=== PATIENT | male | born 1950 | race Caucasian/White ===

== ENCOUNTER 2018-01-18 23:39 | Inpatient (IN) | payer MEDICARE ==
[2018-01-19 00:32] LABS: Basophils # (A) 0.1 k/uL (0-0.2); Basophils % (A) 1 %; Eosinophils # (A) 0.3 k/uL (0-0.7); Eosinophils % (A) 2 %; HCT 30.6 % (39.0-53.0); HGB 9.9 gm/dL (13.0-17.5); Hypochromasia Slight; Lymphocytes # (A) 0.8 k/uL (1.0-4.8); Lymphocytes % (A) 6 %; MCH 27.9 pg (25.0-35.0); MCHC 32.4 g/dL (31.0-37.0); MCV 86.2 fL (80.0-100.0); Mean Platelet Volume 7.8; Monocytes # (A) 0.7 k/uL (0-1.0); Monocytes % (A) 5 %; Neutrophils # (A) 11.3 k/uL (1.3-7.7); Neutrophils % (A) 85 %; Platelet Count 297 k/uL (150-450); Poikilocytosis Slight; RBC 3.56 m/uL (4.30-5.90); RDW 14.7 % (11.5-15.5); WBC 13.3 k/uL (3.8-10.6)
[2018-01-19 00:41] LABS: INR 1.1 (<1.2); Partial Thromboplastin Time 24.1 sec (22.0-30.0); Prothrombin Time 10.8 sec (9.0-12.0)
[2018-01-19 00:43] LABS: Albumin 4.2 g/dL (3.5-5.0); Calcium 9.3 mg/dL (8.4-10.2); Magnesium 1.6 mg/dL (1.6-2.3); Potassium 4.3 mmol/L (3.5-5.1); Total Bilirubin 1.2 mg/dL (0.2-1.3); Total Protein 6.6 g/dL (6.3-8.2)
--- NOTE | 2018-01-19 00:56 | XR ---
EXAMINATION TYPE: XR chest 2V DATE OF EXAM: 01/19/2018 COMPARISON: NONE HISTORY: Difficulty breathing TECHNIQUE: Frontal and lateral views of the chest are obtained. FINDINGS: Heart appears enlarged. There are bilateral lower lobe pulmonary infiltrates. There is no gross heart failure. There is slight blunting of the costophrenic angles. IMPRESSION: Small pleural effusions. Bilateral lower lobe pneumonia. No overt heart failure seen.
[2018-01-19 01:07] LABS: Creatine Kinase MB 1.8 ng/mL (0.0-2.4)
[2018-01-19 01:11] LABS: Troponin I 0.095 ng/mL (0.000-0.034)
[2018-01-19] MEDS ORDERED: CEFTRIAXONE IVPB STA (01:22)
[2018-01-19] MEDS ORDERED: AZITHROMYCIN 500 MG in DEXTROSE 5% IN WATER 250 ML IVPB STA ×2 (01:22)
[2018-01-19] MEDS ORDERED: cefTRIAXone IN SWFI 1,000 MG/10 ML SYRINGE IVP ONE (01:30)
[2018-01-19] MEDS ORDERED: SODIUM CHLORIDE 0.9% 1,000 ML IV STA (01:56)
--- NOTE | 2018-01-19 01:58 | ED ---
General Adult HPI - General Chief complaint: Shortness of Breath Stated complaint: RYAN Source: patient, EMS Mode of arrival: EMS Limitations: no limitations - History of Present Illness Initial comments: Dictation was produced using Wander[employer] dictation software. please excuse any grammatical, word or spelling errors. Chief Complaint: 67-year-old male with past medical history of diabetes mellitus, renal disease presents with shortness of breath. History of Present Illness: Patient is a 67-year-old male past medical history of diabetes, renal disease presents with shortness of breath. Patient also has a history of atrial fibrillation on [place]. States that he be short of breath for 2 days. Patient also has productive cough. Denies any fever or does complain some chills. Patient denies any sick contacts. Denies any history of COPD. The ROS documented in this emergency department record has been reviewed and confirmed by me. Those systems with pertinent positive or negative responses have been documented in the HPI. All other systems are other negative and/or noncontributory. - Related Data Home Medications Medication Instructions Recorded Confirmed Apixaban [Eliquis] 5 mg PO BID 01/19/18 01/19/18 Atorvastatin [Lipitor] 20 mg PO DAILY 01/19/18 01/19/18 Brimonidine/Dorzolamide/Pf 1 drop BOTH EYES 01/19/18 [Brimonidine 0.15%-Dorzolam 2%] Gabapentin [Neurontin] 100 mg PO TID 01/19/18 01/19/18 Insulin Aspart [NovoLOG] 15 units SQ AC-TID 01/19/18 01/19/18 Insulin Glargine [Lantus] 35 unit SQ HS 01/19/18 01/19/18 Metoprolol Tartrate [Lopressor] 50 mg PO BID 01/19/18 01/19/18 Timolol 0.25% Ophth Soln [Timoptic 1 drop BOTH EYES BID 01/19/18 01/19/18 0.25% Ophth Soln] metFORMIN HCL [Glucophage] 500 mg PO BID 01/19/18 01/19/18 Allergies Allergy/AdvReac Type Severity Reaction Status Date / Time No Known Allergies Allergy Verified 01/18/18 23:50 Review of Systems ROS Statement: Those systems with pertinent positive or pertinent negative responses have been documented in the HPI. ROS Other: All systems not noted in ROS Statement are negative. Past Medical History Past Medical History: Diabetes Mellitus, Renal Disease History of Any Multi-Drug Resistant Organisms: None Reported Past Surgical History: No Surgical Hx Reported Past Psychological History: No Psychological Hx Reported Smoking Status: Never smoker Past Alcohol Use History: None Reported Past Drug Use History: None Reported General Exam - General Exam Comments Initial Comments: PHYSICAL EXAM: General Impression: Alert and oriented x3, not in acute distress, diaphoretic HEENT: Normocephalic atraumatic, extra-ocular movements intact, pupils equal and reactive to light bilaterally, mucous membranes moist. Cardiovascular: Heart regular rate and rhythm, S1&S2 audible, no murmurs, rubs or gallops Chest: Bilateral lower lobe crackles Abdomen: Bowel sounds present, abdomen soft, non-tender, non-distended, no organomegaly Musculoskeletal: Pulses present and equal in all extremities, no peripheral edema Motor: Power 5/5 bilaterally, no focal deficits noted Neurological: CN II-XII grossly intact, no focal motor or sensory deficits noted Skin: Intact with no visualized rashes Psych: Normal affect and mood Limitations: no limitations Course Vital Signs 01/18/18 01/19/18 23:44 01:17 Temperature 99.3 F Pulse Rate 90 98 Respiratory 28 H 15 Rate Blood Pressure 166/79 153/72 O2 Sat by Pulse 88 L 98 Oximetry Medical Decision Making - Medical Decision Making ED course: 7-year-old male with past medical history of atrial fibrillation, diabetes, dyslipidemia presents with chief complaint of shortness of breath, productive cough signs upon arrival shows respiratory of 28, oxygen saturation of 88% on supplemental oxygen. Physical examination positive for lung sounds to bilateral lower lobes. She was slightly diaphoretic. Laboratory evaluation obtained. Leukocytosis of 13.3. Hemoglobin of 9.9. Coag panel unremarkable. Metabolic panel shows elevated renal markers to suggest kidney disease. Hyperglycemia 222. A troponin of 0.095. Chest x-ray shows bilateral lower lobe pneumonia without any cyanosis suggest heart failure. There is small parapneumonic effusions. Click of presentation consistent with pneumonia. Troponin elevation likely secondary to sepsis. Patient hemodynamically stable. Patient given antibiotics treating community acquired pneumonia. She'll be admitted to [facility]. Patient given intravenous fluids. No clear indication for administration of heparin and nitroglycerin at this time. Patient did have some EKG findings that appeared to be stable on serial EKGs. At this time we will hold heparin and nitroglycerin in recommend to medicine to get serial troponins and determine the need for acute coronary syndrome. EKG Interpretation: A 12 lead EKG was obtained. It was interpreted by myself and attending physician. There is a P wave before every QRS complex. Rate is 76. Rhythm is H or fibrillation, QRS 80, QTc 427. QT is not prolonged. There appears to be ST depression and multiple leads. Serial EKG shows no dynamic changes. - Lab Data Result diagrams: 01/19/18 00:00 01/19/18 00:00 Lab Results 01/19/18 01/19/18 01/19/18 Range/Units 00:00 00:00 00:00 WBC 13.3 H (3.8-10.6) k/uL RBC 3.56 L (4.30-5.90) m/uL Hgb 9.9 L (13.0-17.5) gm/dL Hct 30.6 L (39.0-53.0) % MCV 86.2 (80.0-100.0) fL MCH 27.9 (25.0-35.0) pg MCHC 32.4 (31.0-37.0) g/dL RDW 14.7 (11.5-15.5) % Plt Count 297 (150-450) k/uL Neutrophils % 85 % Lymphocytes % 6 % Monocytes % 5 % Eosinophils % 2 % Basophils % 1 % Neutrophils # 11.3 H (1.3-7.7) k/uL Lymphocytes # 0.8 L (1.0-4.8) k/uL Monocytes # 0.7 (0-1.0) k/uL Eosinophils # 0.3 (0-0.7) k/uL Basophils # 0.1 (0-0.2) k/uL Hypochromasia Slight Poikilocytosis Slight PT (9.0-12.0) sec INR (<1.2) APTT (22.0-30.0) sec Sodium 141 (137-145) mmol/L Potassium 4.3 (3.5-5.1) mmol/L Chloride 105 (98-107) mmol/L Carbon Dioxide 18 L (22-30) mmol/L Anion Gap 18 mmol/L BUN 22 H (9-20) mg/dL Creatinine 1.80 H (0.66-1.25) mg/dL Est GFR (CKD-EPI)AfAm 43 (>60 ml/min/1.73 sqM) Est GFR (CKD-EPI)NonAf 38 (>60 ml/min/1.73 sqM) Glucose 222 H (74-99) mg/dL Calcium 9.3 (8.4-10.2) mg/dL Magnesium 1.6 (1.6-2.3) mg/dL Total Bilirubin 1.2 (0.2-1.3) mg/dL AST 28 (17-59) U/L ALT 28 (21-72) U/L Alkaline Phosphatase 114 (38-126) U/L Total Creatine Kinase 102 (55-170) U/L CK-MB (CK-2) 1.8 (0.0-2.4) ng/mL CK-MB (CK-2) Rel Index 1.8 Troponin I 0.095 H* (0.000-0.034) ng/mL NT-Pro-B Natriuret Pep pg/mL Total Protein 6.6 (6.3-8.2) g/dL Albumin 4.2 (3.5-5.0) g/dL 01/19/18 01/19/18 Range/Units 00:00 00:00 WBC (3.8-10.6) k/uL RBC (4.30-5.90) m/uL Hgb (13.0-17.5) gm/dL Hct (39.0-53.0) % MCV (80.0-100.0) fL MCH (25.0-35.0) pg MCHC (31.0-37.0) g/dL RDW (11.5-15.5) % Plt Count (150-450) k/uL Neutrophils % % Lymphocytes % % Monocytes % % Eosinophils % % Basophils % % Neutrophils # (1.3-7.7) k/uL Lymphocytes # (1.0-4.8) k/uL Monocytes # (0-1.0) k/uL Eosinophils # (0-0.7) k/uL Basophils # (0-0.2) k/uL Hypochromasia Poikilocytosis PT 10.8 (9.0-12.0) sec INR 1.1 (<1.2) APTT 24.1 (22.0-30.0) sec Sodium (137-145) mmol/L Potassium (3.5-5.1) mmol/L Chloride (98-107) mmol/L Carbon Dioxide (22-30) mmol/L Anion Gap mmol/L BUN (9-20) mg/dL Creatinine (0.66-1.25) mg/dL Est GFR (CKD-EPI)AfAm (>60 ml/min/1.73 sqM) Est GFR (CKD-EPI)NonAf (>60 ml/min/1.73 sqM) Glucose (74-99) mg/dL Calcium (8.4-10.2) mg/dL Magnesium (1.6-2.3) mg/dL Total Bilirubin (0.2-1.3) mg/dL AST (17-59) U/L ALT (21-72) U/L Alkaline Phosphatase (38-126) U/L Total Creatine Kinase (55-170) U/L CK-MB (CK-2) (0.0-2.4) ng/mL CK-MB (CK-2) Rel Index Troponin I (0.000-0.034) ng/mL NT-Pro-B Natriuret Pep 4770 pg/mL Total Protein (6.3-8.2) g/dL Albumin (3.5-5.0) g/dL Disposition Clinical Impression: Pneumonia Disposition: ADMITTED IP TO THIS HOSP Condition: Fair Referrals: Yin Person DO [Primary Care Provider] - 1-2 days Time of Disposition: 01:58
[2018-01-19] MEDS ORDERED: NALOXONE 0.4 MG/ML 1 ML VIAL IV PRN (03:16)
[2018-01-19 05:53] LABS: Glucose,Whole Blood 218 mg/dL (75-99)
[2018-01-19] MEDS: INSULIN ASPART 100 UNIT/ML 1 ML 10 ML VIAL SQ SCH ×7 (06:44→22:46)
--- NOTE | 2018-01-19 06:59 | P.HPIM ---
History of Present Illness H&P Date: 01/19/18 Chief Complaint: SOB, coughin 67-year-old male with history of CKD3, diabetes mellitus, A. fib on Eliquis Patient presented due to 2 day history of shortness of breath and coughing, he reports feeling congested with coughing of red tinged sputum. Yesterday he felt very congested and started having labored breathing with severe shortness of breath couldn't catch his breath anymore at night and he decided to come to the hospital. He denies any recent traveling or sick contacts he denies any fevers chills but reports some sweating. He reports he was at his baseline status of health up until the coughing started 2 days ago. He has moaned his lawn 3-4 days ago with no problems. Patient denies any chest pain. Patient denies any GI bleeding or any black stools. Denies any abdominal pain nausea or vomiting or any focal neurologic deficits Patient feels better after the antibiotics in the ED which was given to him based on chest x-ray findings of bilateral pneumonia, and blood work showing elevated white count. Patient recently saw his outdoor education teacher who told him that his kidney stable at stage III Patient recently saw his vba developer who did some trimming in cleaning over his toenails Review of Systems Pertinent positives as noted in HPI. All other systems were reviewed and are negative Past Medical History Past Medical History: Atrial Fibrillation, CVA/TIA, Diabetes Mellitus, Hypertension, Renal Disease History of Any Multi-Drug Resistant Organisms: None Reported Past Surgical History: No Surgical Hx Reported Past Psychological History: No Psychological Hx Reported Smoking Status: Never smoker Past Alcohol Use History: None Reported Past Drug Use History: None Reported - Past Family History Father Family Medical History: Hypertension Medications and Allergies Home Medications Medication Instructions Recorded Confirmed Type Apixaban [Eliquis] 5 mg PO BID 01/19/18 01/19/18 History Atorvastatin [Lipitor] 20 mg PO DAILY 01/19/18 01/19/18 History Brimonidine/Dorzolamide/Pf 1 drop BOTH EYES 01/19/18 History [Brimonidine 0.15%-Dorzolam 2%] Gabapentin [Neurontin] 100 mg PO TID 01/19/18 01/19/18 History Insulin Aspart [NovoLOG] 15 units SQ AC-TID 01/19/18 01/19/18 History Insulin Glargine [Lantus] 35 unit SQ HS 01/19/18 01/19/18 History Metoprolol Tartrate [Lopressor] 50 mg PO BID 01/19/18 01/19/18 History Timolol 0.25% Ophth Soln [Timoptic 1 drop BOTH EYES BID 01/19/18 01/19/18 History 0.25% Ophth Soln] metFORMIN HCL [Glucophage] 500 mg PO BID 01/19/18 01/19/18 History Allergies Allergy/AdvReac Type Severity Reaction Status Date / Time No Known Allergies Allergy Verified 01/18/18 23:50 Physical Exam Vitals: Vital Signs Temp Pulse Pulse Resp BP BP Pulse Ox 01/19/18 05:23 98.9 F 91 21 137/88 92 L 01/19/18 04:08 97.9 F 90 22 137/88 92 L 01/19/18 03:30 98.2 F 83 17 116/71 93 L 01/19/18 02:27 84 20 130/77 93 L 01/19/18 01:50 99 F 84 16 130/77 93 L 01/19/18 01:17 98 15 153/72 98 01/18/18 23:44 99.3 F 90 28 H 166/79 88 L Intake and Output 01/18/18 01/18/18 01/19/18 14:59 22:59 06:59 Other: Voiding Method Urinal Weight 96.5 kg Constitutional: No acute distress, conversant, pleasant Eyes: Anicteric sclerae, moist conjunctiva, no lid-lag Pupils equal round reactive to light ENMT: NC/AT Oropharynx clear, no erythema, or exudates Neck: Supple, FROM, no masses, or JVD No carotid bruits No thyromegaly Lungs: Good breath sounds, decreased air entry bilateral lung bases worse on the right than the left with inspiratory rales bilaterally Normal respiratory effort, no accessory muscle use Cardiovascular: Heart irregular No murmurs, gallops, or rubs No peripheral edema Abdominal: Soft Nontender, no guarding, rebound or rigidity Abdomen moving with respiration Normoactive bowel sounds No hepatomegaly, No splenomegaly No palpable mass No abdominal wall hernia noted Skin: Normal temperature, tone, texture, turgor No induration No subcutaneous nodules No rash, lesions No ulcers Band-Aid over his right big toe due to recent cleaning of ingrown toenail (1 week ago) Extremities: No digital cyanosis No clubbing Pedal pulses intact and symmetrical Radial pulses intact and symmetrical No calf tenderness Psychiatric: Alert and oriented to person, place and time Appropriate affect fair judgment Neuro Muscles Strength 5/5 in all 4 extremities Sensation to light touch grossly present throughout Cranial nerves II-XII grossly intact No focal sensory deficits Lymphatics: no palpable cervical or supraclavicular , or inguinal lymph nodes Results CBC & Chem 7: 01/19/18 00:00 01/19/18 00:00 Labs: Abnormal Lab Results - Last 24 Hours (Table) 01/19/18 01/19/18 01/19/18 Range/Units 00:00 00:00 00:00 WBC 13.3 H (3.8-10.6) k/uL RBC 3.56 L (4.30-5.90) m/uL Hgb 9.9 L (13.0-17.5) gm/dL Hct 30.6 L (39.0-53.0) % Neutrophils # 11.3 H (1.3-7.7) k/uL Lymphocytes # 0.8 L (1.0-4.8) k/uL Carbon Dioxide 18 L (22-30) mmol/L BUN 22 H (9-20) mg/dL Creatinine 1.80 H (0.66-1.25) mg/dL Glucose 222 H (74-99) mg/dL POC Glucose (mg/dL) (75-99) mg/dL Troponin I 0.095 H* (0.000-0.034) ng/mL 01/19/18 Range/Units 05:52 WBC (3.8-10.6) k/uL RBC (4.30-5.90) m/uL Hgb (13.0-17.5) gm/dL Hct (39.0-53.0) % Neutrophils # (1.3-7.7) k/uL Lymphocytes # (1.0-4.8) k/uL Carbon Dioxide (22-30) mmol/L BUN (9-20) mg/dL Creatinine (0.66-1.25) mg/dL Glucose (74-99) mg/dL POC Glucose (mg/dL) 218 H (75-99) mg/dL Troponin I (0.000-0.034) ng/mL Thrombosis Risk Factor Assmnt - Choose All That Apply Each Factor Represents 1 point: Obesity (BMI >25) Each Risk Factor Represents 2 Points: Age 61-74 years Thrombosis Risk Factor Assessment Total Risk Factor Score: 3 Thrombosis Risk Factor Assessment Level: Moderate Risk Assessment and Plan Assessment: 67-year-old male with history of diabetes mellitus and CkD3 admitted as an inpatient with anticipated length of stay of more than 48 hours for bilobar pneumonia. Patient presented with shortness of breath and coughing of 2 days' duration. Otherwise he has stable chronic conditions A. fib, hypertension, diabetes mellitus, CK D3. Troponins are elevated and thought to be related to his chronic kidney disease denies any chest pain troponin levels will be monitored Plan: community-acquired pneumonia, bilobar Rocephin and azithromycin Symptomatically control IV fluid hydration Follow-up cultures Diabetes mellitus Resume patient insulin Hold metformin Patient will be given 1 dose of insulin NPH this morning and then resume Levemir at night Hypertension currently stable Continue metoprolol Chronic A. fib on Eliquis Continue Eliquis Continue metoprolol Elevated troponins most likely secondary to CK D3 Follow-up levels Patient denies any chest pain CK D stage III secondary to diabetes Currently stable Avoid nephrotoxic meds Monitor renal function Anemia possibly related to chronic kidney disease Patient denies any evidence of GI bleeding Continue to monitor hemoglobin DVT prophylaxis patient on Eliquis for A. fib Surrogate decision-maker: Patient Jacquelyn CODE STATUS: Full code Discussed with: Patient, ER, RN Anticipated discharge: >48-[address]: Home A total of 60 minutes was spent on the care of this complex patient more than 50 % of the time was spent in counseling and care coordination.
[2018-01-19] MEDS ORDERED: BRIMONIDINE BOTH EYES SCH (07:30)
[2018-01-19] MEDS ORDERED: INSULIN NPH 300 UNIT/3 ML VIAL SQ SCH (07:30)
[2018-01-19] MEDS ORDERED: DORZOLAMIDE BOTH EYES SCH (07:30)
[2018-01-19] MEDS: IPRATROPIUM-ALBUTEROL 3 ML NEB INHALATION SCH ×4 (07:57→19:26)
[2018-01-19] MEDS ORDERED: FUROSEMIDE 10 MG/ML 4 ML VIAL IV STA (08:02)
[2018-01-19] MEDS: GABAPENTIN 100 MG CAP PO SCH ×3 (08:42→22:47)
[2018-01-19] MEDS: METOPROLOL TARTRATE 50 MG TAB PO SCH ×2 (08:42→19:53)
[2018-01-19] MEDS: ATORVASTATIN 20 MG TAB PO SCH (08:43)
[2018-01-19] MEDS ORDERED: TIMOLOL 0.25% OPHTH DROPS 5 ML BTL BOTH EYES SCH (09:00)
[2018-01-19] MEDS ORDERED: APIXABAN 5 MG TAB PO SCH (09:00)
--- NOTE | 2018-01-19 11:18 | P.PN ---
Progress Note - Text Late entry note, pt was seen this am around 8 am. I was called due to worsening SOB and hypoxia on 2 L NC. I saw and evaluated the patient at that time. He was just admited via ED due to pneumonia. He reported about sudden onset of chills, cough and expectorations with blood tinnged sputum along with SOB for 2 days. Prior to that was feeling fine.No CP, abd pain, nausea or diarrhea. He did have leg swelling, but denied orthopnea. He became very SOB and hypoxic on the day of admission. No fever recorded, no sick contacts, recent travels, water exposure or new pets. Life long non smoker and no known exposures or lung or heart diseases. he is diabetic and has CKD stage 3 CXR showed lower lung field edema that was interpreted as bilateral pneumonia. O2sat was 88 % on 4 L in ED and on the floor. Patient was getting nebs and was able to speak in full sentences alto looked slightly out of breath, was not laboured . No neck pulsationswere noted Lungs with bibasilar crackles and ronchi and few wheezes in upper hyman CVS: irregular in range of 90, S1, S2 Abdomen S NT ND Extr 1+ pedal edema, no warmth or tenderness labs, EKG and imaging reviewed Plan: impression that there is a component of fluid overload, r/o CHF IV Lasix high flow O2 Echo ordered repeat serial troponin, r/o underlying ACS nebs PRN check legionella AG due to blood tinnged sputum 9altho he is on Eliquis) will check UA for RBC and ESR on reevaluatiion he was doing better after Lasix cytology technologist had some concerns about echo findings and cardiology was consulted
--- NOTE | 2018-01-19 11:53 | XR ---
EXAMINATION TYPE: XR chest 1V DATE OF EXAM: 01/19/2018 CLINICAL HISTORY: Difficulty breathing progress study. TECHNIQUE: Single AP portable upright view of the chest is obtained. COMPARISON: Chest x-ray from earlier today FINDINGS: There is persistent cardiomegaly . There is persistent right greater than left bibasilar opacity increasing in severity on the left. Upper lungs remain clear without pneumothorax. Degenerat petty change right glenohumeral joint is redemonstrated. IMPRESSION: Persistent right greater than left bibasilar infiltrate and/or atelectasis with small danay ateral pleural effusions, more prominent findings noted left lung base on current study versus prior.
[2018-01-19 11:58] LABS: Glucose,Whole Blood 199 mg/dL (75-99)
[2018-01-19 13:29] LABS: Creatine Kinase MB 6.2 ng/mL (0.0-2.4); Troponin I 0.974 ng/mL (0.000-0.034)
--- NOTE | 2018-01-19 13:39 | P.CNPUL ---
History of Present Illness Consult date: 01/19/18 Reason for consult: dyspnea History of present illness: This is a 67-year-old male patient known history of chronic atrial fibrillation diabetes mellitus and chronic renal failure. The patient is a nonsmoker. No 68 chronic lung disease or disorder. No previous history of coronary artery disease. No previous history of CHF. The patient was in a good state of health. He comes in with 1-2 days history of worsening shortness of breath, cough and, feeling congested and he was also bringing up some red/blood-tinged sputum. Noted the patient on Eliquis. He presented emergency department and his chest x-ray showed bibasilar pulmonary infiltrates and findings consistent with CHF. He was afebrile. He was found to be quite hypoxic and he was placed on high flow oxygen. The BNP level was 7880. The troponins were minimally elevated at 0.09 and 0.9 respectively 2. CPK was not elevated. The patient had a white cell count of 13. He was admitted to the floor where he was started on a combination of Rocephin and Zithromax. Overnight he became more short of breath and he had an acute event where he became more hypoxic and he was seen by the hospitalist where he was given Lasix IV for worsening shortness of breath and concerns of pulmonary edema. Currently is on 8 L about 2 by nasal cannula and his pulse ox is above 90%. Echocardiogram was done and the results are still pending for now. EKG showing chronic atrial fibrillation. There is some ST segment abnormalities possibly laterally. He is also on IV Lasix 40 mg every 12 hours IV push. Review of Systems Constitutional: Denies chills, Denies fever Eyes: denies blurred vision, denies bulging eye, denies decreased vision Ears: deny: decreased hearing, ear discharge, earache, tinnitus Ears, nose, mouth and throat: Denies headache, Denies sore throat Cardiovascular: Reports decreased exercise tolerance, Reports dyspnea on exertion, Reports irregular heart beat, Reports rapid heart beat, Reports shortness of breath Respiratory: Reports cough, Reports dyspnea Gastrointestinal: Denies abdominal pain, Denies diarrhea, Denies nausea, Denies vomiting Genitourinary: Reports as per HPI Musculoskeletal: Reports as per HPI Musculoskeletal: absent: ankle pain, ankle stiffness, ankle swelling Integumentary: Denies pruritus, Denies rash Neurological: Reports as per HPI Psychiatric: Reports as per HPI Endocrine: Denies fatigue, Denies weight change Hematologic/Lymphatic: Reports as per HPI Allergic/Immunologic: Reports as per HPI Past Medical History Past Medical History: Atrial Fibrillation, CVA/TIA, Diabetes Mellitus, Hypertension, Renal Disease History of Any Multi-Drug Resistant Organisms: None Reported Past Surgical History: No Surgical Hx Reported Past Psychological History: No Psychological Hx Reported Smoking Status: Never smoker Past Alcohol Use History: None Reported Past Drug Use History: None Reported - Past Family History Father Family Medical History: Hypertension Medications and Allergies Home Medications Medication Instructions Recorded Confirmed Type Apixaban [Eliquis] 5 mg PO BID 01/19/18 01/19/18 History Atorvastatin [Lipitor] 20 mg PO DAILY 01/19/18 01/19/18 History Brimonidine Tartrate [Alphagan P 1 drop RIGHT EYE BID 01/19/18 01/19/18 History 0.2% Ophth Soln] Brinzolamide [Azopt 1% Ophth Susp] 1 drop RIGHT EYE BID 01/19/18 01/19/18 History Gabapentin [Neurontin] 100 mg PO TID 01/19/18 01/19/18 History Insulin Aspart [NovoLOG] 15 units SQ AC-TID 01/19/18 01/19/18 History Insulin Glargine [Lantus] 35 unit SQ HS 01/19/18 01/19/18 History Metoprolol Succinate (ER) [Toprol 25 mg PO DAILY 01/19/18 01/19/18 History XL] Pilocarpine HCl [Isopto Carpine 4%] 1 drop RIGHT EYE QID 01/19/18 01/19/18 History Timolol 0.5% Ophth Soln [Timoptic 1 drop RIGHT EYE BID 01/19/18 01/19/18 History 0.5% Ophth Soln] amLODIPine [Norvasc] 5 mg PO DAILY 01/19/18 01/19/18 History metFORMIN HCL [Glucophage] 500 mg PO BID 01/19/18 01/19/18 History Allergies Allergy/AdvReac Type Severity Reaction Status Date / Time No Known Allergies Allergy Verified 01/18/18 23:50 Physical Exam Vitals: Vital Signs Temp Pulse Pulse Resp BP BP Pulse Ox 01/19/18 12:00 96.9 F L 80 20 146/78 96 01/19/18 11:54 96 01/19/18 11:40 92 01/19/18 08:02 96 01/19/18 08:00 98.4 F 102 H 24 155/95 93 L 01/19/18 07:48 89 92 L 01/19/18 05:23 98.9 F 91 21 137/88 92 L 01/19/18 04:08 97.9 F 90 22 137/88 92 L 01/19/18 03:30 98.2 F 83 17 116/71 93 L 01/19/18 02:27 84 20 130/77 93 L 01/19/18 01:50 99 F 84 16 130/77 93 L 01/19/18 01:17 98 15 153/72 98 01/18/18 23:44 99.3 F 90 28 H 166/79 88 L Intake and Output 01/18/18 01/19/18 01/19/18 22:59 06:59 14:59 Output Total 350 Balance -350 Output: Urine 350 Other: Voiding Method Urinal # Voids 1 Weight 96.5 kg Gen. appearance is calm and comfortable likely distress on 8l of oxygen by nasal cannula Head exam was generally normal. There was no scleral icterus or corneal arcus. Mucous membranes were moist. Neck was supple and without jugular venous distension, thyromegaly, or carotid bruits. Carotids were easily palpable bilaterally. There was no adenopathy. Lungs sounds are diminished bilaterally along with some bibasilar crackles worse on the right. Cardiac exam revealed the PMI to be normally situated and sized. The rhythm is irregular S1-S2 secondary to atrial fibrillation and no extrasystoles were noted during several minutes of auscultation. The first and second heart sounds were normal and physiologic splitting of the second heart sound was noted. There were no murmurs, rubs, clicks, or gallops. Abdominal exam revealed normal bowel sounds. The abdomen was soft, non-tender, and without masses, organomegaly, or appreciable enlargement of the abdominal aorta. Examination of the extremities revealed easily palpable radial, femoral and pedal pulses. There was no cyanosis, clubbing or edema. Examination of the skin revealed no evidence of significant rashes, suspicious appearing nevi or other concerning lesions. Neurologically the patient is awake and alert and there is no focal neurological deficits. Results - Laboratory Findings CBC and BMP: 01/19/18 00:00 01/19/18 00:00 PT/INR, D-dimer PT 10.8 sec (9.0-12.0) 01/19/18 00:00 INR 1.1 (<1.2) 01/19/18 00:00 D-Dimer 0.48 mg/L FEU (<0.60) 01/19/18 12:09 Abnormal lab findings: Abnormal Labs 01/19/18 01/19/18 01/19/18 00:00 00:00 00:00 WBC 13.3 H RBC 3.56 L Hgb 9.9 L Hct 30.6 L Neutrophils # 11.3 H Lymphocytes # 0.8 L Carbon Dioxide 18 L BUN 22 H Creatinine 1.80 H Glucose 222 H POC Glucose (mg/dL) Total Creatine Kinase CK-MB (CK-2) Troponin I 0.095 H* 01/19/18 01/19/18 01/19/18 05:52 11:57 12:09 WBC RBC Hgb Hct Neutrophils # Lymphocytes # Carbon Dioxide BUN Creatinine Glucose POC Glucose (mg/dL) 218 H 199 H Total Creatine Kinase 249 H CK-MB (CK-2) 6.2 H* Troponin I 0.974 H* - Diagnostic Findings Chest x-ray: image reviewed Assessment and Plan Plan: Assessment 1 acute bibasilar pneumonia, community-acquired 2 acute CHF, awaiting echocardiogram. Possible systolic dysfunction 3 acute hypoxic respiratory failure secondary to above currently on 8 L of oxygen by nasal cannula 4 troponin leak with some limited ST segment depressions over the lateral leads. Rule out underlying coronary artery disease. 5 acute shortness of breath secondary to above 6 chronic renal failure, stable 7 diabetes mellitus, insulin-dependent 8 hypertension 9 chronic 80 fibrillation maintained on long-term articulation with Eliquis Plan Continue Rocephin and Zithromax. Continue IV Lasix. Wean down the FiO2 as tolerated to maintain a saturation above 90%. Echocardiogram today to assess LV function. Continue high flow oxygen for now. Continue nebulized treatments with albuterol/ipratropium bromide. We'll continue to follow make further recommendations based on the progress. Cardiology was also consulted on the case.
--- NOTE | 2018-01-19 14:28 | NM ---
EXAMINATION TYPE: NM pul vent and perfuse DATE OF EXAM: 01/19/2018 COMPARISON: Chest x-ray earlier today HISTORY: Shortness of breath rule out pulmonary embolism. TECHNIQUE: Utilizing inhalation of 66.9 mCi Tc 99m DTPA aerosol and intravenous injection of 5.13 mC i of Tc 99m MAA, ventilation and perfusion images are acquired post injection in multiple projections . FINDINGS: Some central clumping on ventilation images suggests underlying COPD. No significant matching or mism atching defects identified. Fairly uniform uptake on ventilation images. IMPRESSION: No scintigraphic evidence for pulmonary embolism.
--- NOTE | 2018-01-19 14:47 | CONS ---
CONSULTATION Mr. Ochoa he is a 67-year-old gentleman who is seen for cardiac evaluation. This patient's medical records were reviewed. The patient presented to the emergency room with a complaint of shortness of breath and cough for about 2 days duration. Patient has a history of diabetes and chronic kidney disease. Patient also has a history of chronic atrial fibrillation. Patient has been having difficulty in breathing with minimal activity. Denies any chest pain. He has been having some productive cough. He did had some fever and some chills but no definite fever. Patient has been having productive cough which is blood tinged. Patient denies any chest pain. There is no history of COPD. There is no past history of smoking. There is no previous history of myocardial infarction. Patient has a history of hypertension. HOME MEDICATIONS: Include Eliquis 5 mg b.i.d., Lipitor 20 mg daily, Neurontin, Lantus, insulin, Lopressor 50 mg b.i.d. PAST MEDICAL HISTORY: Includes history of diabetes, chronic kidney disease. Chronic atrial fibrillation. SOCIAL HISTORY: Patient is not a smoker. PHYSICAL EXAMINATION: In the emergency room, this patient's oxygen saturation was 88% on room air. Patient had a temperature of 99.3. HEENT examination is negative. Neck is supple. Jugular venous pressure is not elevated. Both the carotid pulses are felt. There is no bruit. Chest is symmetrical. Heart, the PMI is not felt. First and second heart sounds are heard. Lungs examination reveals coarse rales are noted at the right 1/3 of the lung hyman. Abdomen is negative. Extremities, peripheral pulsations are 1+. Patient's oxygen saturation is now 98%. Chest x-ray shows bilateral infiltrate but more on the right side suggestive of possible pneumonia. There is no significant pulmonary venous congestion. Electrolytes are normal. Patient's creatinine is 1.8, troponin is 0.095 and BNP level was 4770. Patient also has a severe pulmonary hypertension with right-sided heart pressures are calculated in the range of 70 mmHg. FINAL IMPRESSION: 1. This patient is admitted with cough, shortness of breath. Has productive cough and blood-tinged sputum. Chest x-ray suggestive of possible pneumonia. Congestive heart failure cannot be entirely excluded about this presentation. 2. Patient's echocardiogram is suggestive of septal hypokinesia suggestive of anteroseptal hypokinesia, anteroseptal myocardial infarction of unknown duration. Patient's initial troponin was 0.095. 3. History of chronic kidney disease. RECOMMENDATIONS: At present, I would recommend to continue the patient on antibiotics, patient is currently getting Lasix 40 mg IV q.12 hourly. We will get nephrology consultation. A remote possibility of pulmonary embolism maybe also considered in view of the significant pulmonary hypertension and hemoptysis. We will do the V/Q lung scan. After the patient's renal functions are stable and he has stabilized, patient will need further evaluation with cardiac catheterization to rule out any significant coronary artery disease. MMODL / IJN: [id number] /
[2018-01-19 16:53] LABS: Glucose,Whole Blood 193 mg/dL (75-99)
[2018-01-19] MEDS: PILOCARPINE 2% OPHTH DROPS 15 ML BTL RIGHT EYE SCH ×2 (17:14→19:55)
[2018-01-19] MEDS: FUROSEMIDE 10 MG/ML 4 ML VIAL IV SCH ×2 (17:15→20:08)
[2018-01-19 18:33] LABS: Troponin I 1.15 ng/mL (0.000-0.034)
[2018-01-19] MEDS: BRIMONIDINE TARTRATE 0.2% DROPS 5 ML BTL RIGHT EYE SCH (19:54)
[2018-01-19] MEDS: TIMOLOL 0.5% OPHTH DROPS 5 ML BTL RIGHT EYE SCH (19:54)
[2018-01-19] MEDS: DORZOLAMIDE HCL 2% DROPS 10 ML BTL RIGHT EYE SCH (19:55)
[2018-01-19] MEDS: ALPRAZolam 0.5 MG TAB PO PRN (20:00)
[2018-01-19] MEDS: AZITHROMYCIN 500 MG TAB PO SCH (20:01)
[2018-01-19 20:40] LABS: Glucose,Whole Blood 159 mg/dL (75-99)
[2018-01-19] MEDS ORDERED: DORZOLAMIDE HCL 2% DROPS 10 ML BTL RIGHT EYE SCH (21:00)
[2018-01-19] MEDS ORDERED: INSULIN DETEMIR 100 UNIT/ML 10 ML VIAL SQ SCH (21:00)
[2018-01-19] MEDS: cefTRIAXone IN SWFI 1,000 MG/10 ML SYRINGE IVP SCH (22:47)
[2018-01-20] MEDS: IPRATROPIUM-ALBUTEROL 3 ML NEB INHALATION SCH ×6 (00:16→19:18)
[2018-01-20] MEDS: ALPRAZolam 0.5 MG TAB PO PRN ×2 (02:46→21:47)
[2018-01-20 05:44] LABS: Glucose,Whole Blood 198 mg/dL (75-99)
[2018-01-20 07:04] LABS: Calcium 8.4 mg/dL (8.4-10.2); Potassium 3.8 mmol/L (3.5-5.1)
[2018-01-20] MEDS: INSULIN ASPART 100 UNIT/ML 1 ML 10 ML VIAL SQ SCH ×7 (07:16→20:57)
[2018-01-20] MEDS: BRIMONIDINE TARTRATE 0.2% DROPS 5 ML BTL RIGHT EYE SCH ×2 (07:52→20:49)
[2018-01-20] MEDS: ATORVASTATIN 20 MG TAB PO SCH (07:52)
[2018-01-20] MEDS: FUROSEMIDE 10 MG/ML 4 ML VIAL IV SCH ×2 (07:53→16:18)
[2018-01-20] MEDS: DORZOLAMIDE HCL 2% DROPS 10 ML BTL RIGHT EYE SCH ×3 (07:53→20:49)
[2018-01-20] MEDS: GABAPENTIN 100 MG CAP PO SCH ×3 (07:54→20:50)
[2018-01-20] MEDS: PILOCARPINE 2% OPHTH DROPS 15 ML BTL RIGHT EYE SCH ×4 (07:54→20:49)
[2018-01-20] MEDS: METOPROLOL SUCCINATE (ER) 25 MG TAB.ER.24H PO SCH (07:54)
[2018-01-20] MEDS: TIMOLOL 0.5% OPHTH DROPS 5 ML BTL RIGHT EYE SCH ×2 (07:55→20:49)
[2018-01-20] MEDS: APIXABAN 5 MG TAB PO SCH ×2 (08:10→20:50)
--- NOTE | 2018-01-20 10:38 | XR ---
EXAMINATION TYPE: XR chest 2V DATE OF EXAM: 01/20/2018 COMPARISON: 01/19/2018 HISTORY: Follow-up for pneumonia. Shortness of breath. TECHNIQUE: Frontal and lateral views of the chest are obtained. FINDINGS: Cardiomegaly and bibasilar opacities remain although there is improved aeration of the rig ht lung base. Trace pleural effusions are again evident. Osseous structures are grossly intact. No si zable pneumothorax. IMPRESSION: Improved aeration of the right lung base although there are persistent strand-like bibas ilar opacities and trace pleural effusions.
--- NOTE | 2018-01-20 10:54 | CONS ---
CONSULTATION DATE OF SERVICE: 01/20/2018. REASON FOR CONSULT: Renal failure. HISTORY OF PRESENT ILLNESS: The patient is a 67-year-old white male who was admitted to the hospital yesterday with complaints of shortness of breath. The patient has underlying type 2 diabetes. He is not aware of any chronic kidney disease, although it is mentioned in his past medical history. The patient's troponins were positive. He is also in fluid overload. His creatinine was 1.8 mg/dL yesterday. This morning it is 1.9 mg/dL. The patient is maintained on Lasix 40 mg IV every 12 hours. He has been voiding. The patient denies use of any nonsteroidal anti-inflammatory agents prior to admission. He is currently not on any MARK inhibitors. At this time the patient denies having any chest pain. He did have some shoulder pain yesterday at the time of admission. PAST MEDICAL HISTORY: Type 2 diabetes, hypertension, possible underlying kidney disease. We do not have any previous labs available for comparison. Chronic atrial fibrillation, history of CVA/TIA. PAST SURGICAL HISTORY: None. SOCIAL HISTORY: Negative for smoking, drug abuse or alcohol abuse. MEDICATIONS: Medications at home include Eliquis, Lipitor, Neurontin, insulin, Norvasc, Glucophage. ALLERGIES: None. SOCIAL HISTORY: As mentioned. REVIEW OF SYSTEMS: As per HPI. Other systems negative. PHYSICAL EXAMINATION: On examination, the patient is currently comfortable. He is mildly short of breath. He is maintained on high-flow oxygen 8 L, is maintaining sats of 95% to 96%. Blood pressure was 166/78, heart rate 98 per minute. He is afebrile. Examination of the heart, S1, S2. Examination of lungs, bilateral breath sounds are heard. Abdomen is soft, nontender, obese. Examination of lower extremities shows trace edema bilaterally. Chronic skin changes are noted. HORTICULTURAL NURSERY ASSISTANT exam is grossly intact. Patient is moving all 4 extremities. LABS: Sodium 137, potassium 3.8, BUN 26, serum creatinine 1.9. UA is not available. Hemoglobin was 9.9 g/dL. ASSESSMENT: 1. Renal failure, most likely acute on top of chronic, mostly cardiorenal. We will try to obtain previous labs from the PCPs office. We do not have any labs available for comparison. Currently patient is in congestive heart failure. I will continue with the Lasix. I will obtain a chest x-ray. We may need to increase the Lasix to every 8 hours as he is still volume overloaded. If we can wait over the weekend for renal function and volume status to stabilize, that would be better. Otherwise, if the patient has any recurring chest pain or further evidence of ischemia, we can go ahead and proceed with cardiac catheterization. On the other hand, this may very well be his baseline renal function as well. 2. Congestive heart failure, acute on top of chronic. Echocardiogram is pending, whether the patient has systolic or diastolic heart failure. 3. Type 2 diabetes. 4. Anemia, rule out iron deficiency. 5. Rule out chronic kidney disease. 6. Acute non ST elevation myocardial infarction, being followed by Cardiology. 7. Atrial fibrillation with controlled ventricular response. 8. Acute hypoxic respiratory failure secondary to congestive heart failure. PLAN: Check chest x-ray. Increase Lasix to 40 mg IV every 8 hours. We will also obtain previous labs from outpatient visits to assess patient's baseline renal function. If the patient can wait over the weekend, we can plan for cardiac cath on Tuesday or Tuesday. Otherwise, if he has evidence of ongoing ischemia, we can proceed with cardiac catheterization over the weekend. Thank you for this consultation. We will continue to follow the patient with you during his hospitalization. MMODL / IJN: [id number] /
--- NOTE | 2018-01-20 10:59 | ECHOF ---
Referral Reason:respiratory failure, SOB MEASUREMENTS -------- HEIGHT: 175.3 cm WEIGHT: 96.2 kg BP: 137/88 RVIDd: 3.5 cm (< 3.3) IVSd: 1.4 cm (0.6 - 1.1) LVIDd: 4.2 cm (3.9 - 5.3) LVPWd: 1.4 cm (0.6 - 1.1) IVSs: 1.9 cm LVIDs: 2.9 cm LVPWs: 1.8 cm LA Diam: 4.3 cm (2.7 - 3.8) LAESV Index (A-L): 40.28 ml/m Ao Diam: 3.4 cm (2.0 - 3.7) AV Cusp: 2.4 cm (1.5 - 2.6) MV EXCURSION: 25.683 mm (> 18.000) MV EF SLOPE: 104 mm/s (70 - 150) EPSS: 0.3 cm RAP: 15.00 mmHg RVSP: 76.75 mmHg FINDINGS -------- Atrial fibrillation. This was a technically good study. The left ventricular size is normal. There is moderate concentric left ventricular hypertrophy. O verall left ventricular systolic function is mild-moderately impaired with, an EF between 40 - 45 %. Apical inferior LV wall motion is hypokinetic. Apical septum LV wall motion is hypokinetic. The right ventricle is mildly enlarged. LA is severely dilated >40 ml/m2 The right atrium is normal in size. There is mild aortic valve sclerosis. Mild mitral annular calcification present. [id number] mitral regurgitation is present. Mild tricuspid regurgitation present. There is severe pulmonary hypertension. The right ventricul ar systolic pressure, as measured by Doppler, is 76.75mmHg. There is no pulmonic regurgitation present. The aortic root size is normal. The inferior vena cava is dilated with poor inspiratory collapse which is consistent with estimated r ight atrial pressure of 15 mmHg. There is no pericardial effusion. CONCLUSIONS -------- 1. Atrial fibrillation. 2. This was a technically good study. 3. The left ventricular size is normal. 4. There is moderate concentric left ventricular hypertrophy. 5. Overall left ventricular systolic function is mild-moderately impaired with, an EF between 40 - 45 %. 6. Apical inferior LV wall motion is hypokinetic. 7. Apical septum LV wall motion is hypokinetic. 8. The right ventricle is mildly enlarged. 9. LA is severely dilated >40 ml/m2 10. The right atrium is normal in size. 11. There is mild aortic valve sclerosis. 12. Mild mitral annular calcification present. 13. [id number] mitral regurgitation is present. 14. Mild tricuspid regurgitation present. 15. There is severe pulmonary hypertension. 16. The right ventricular systolic pressure, as measured by Doppler, is 76.75mmHg. 17. There is no pulmonic regurgitation present. 18. The aortic root size is normal. 19. The inferior vena cava is dilated with poor inspiratory collapse which is consistent with estimat ed right atrial pressure of 15 mmHg. 20. There is no pericardial effusion. TOWER ERECTOR HELPER: Ella Sandoval RDCS
[2018-01-20 11:53] LABS: Glucose,Whole Blood 169 mg/dL (75-99)
--- NOTE | 2018-01-20 12:13 | P.PN ---
Subjective Progress Note Date: 01/20/18 Principal diagnosis: Acute on chronic respiratory failure Bilateral pneumonia Objective - Vital Signs Vital signs: Vital Signs Temp 99.0 F 01/20/18 07:45 Pulse 77 01/20/18 08:14 Resp 22 01/20/18 07:45 BP 166/78 01/20/18 07:45 Pulse Ox 96 01/20/18 07:45 Intake & Output 01/19/18 01/20/18 01/20/18 18:59 06:59 18:59 Intake Total 240 180 Output Total 1200 1050 775 Balance -960 -1050 -595 Weight 95.5 kg Intake: Oral 240 180 Output: Urine 1200 1050 775 Other: Voiding Method Urinal # Voids 1 # Bowel Movements 0 - Constitutional General appearance: Present: no acute distress - Respiratory Respiratory: bilateral: diminished, rhonchi - Cardiovascular Rhythm: regularly irregular - Gastrointestinal General gastrointestinal: Present: normal bowel sounds - Integumentary Integumentary: Present: normal - Musculoskeletal Musculoskeletal: Present: gait normal - Labs CBC & Chem 7: 01/19/18 00:00 01/20/18 05:41 Labs: Abnormal Lab Results - Last 24 Hours (Table) 01/19/18 01/19/18 01/19/18 Range/Units 11:57 12:09 12:09 ESR 58 H (0-15) mm/hr BUN (9-20) mg/dL Creatinine (0.66-1.25) mg/dL Glucose (74-99) mg/dL POC Glucose (mg/dL) 199 H (75-99) mg/dL Total Creatine Kinase 249 H (55-170) U/L CK-MB (CK-2) 6.2 H* (0.0-2.4) ng/mL Troponin I 0.974 H* (0.000-0.034) ng/mL Procalcitonin (0.02-0.09) ng/mL 01/19/18 01/19/18 01/19/18 Range/Units 12:09 16:50 17:39 ESR (0-15) mm/hr BUN (9-20) mg/dL Creatinine (0.66-1.25) mg/dL Glucose (74-99) mg/dL POC Glucose (mg/dL) 193 H (75-99) mg/dL Total Creatine Kinase 299 H (55-170) U/L CK-MB (CK-2) 6.0 H* (0.0-2.4) ng/mL Troponin I 1.150 H* (0.000-0.034) ng/mL Procalcitonin 0.74 H (0.02-0.09) ng/mL 01/19/18 01/19/18 01/20/18 Range/Units 20:38 23:52 05:41 ESR (0-15) mm/hr BUN 26 H (9-20) mg/dL Creatinine 1.90 H (0.66-1.25) mg/dL Glucose 182 H (74-99) mg/dL POC Glucose (mg/dL) 159 H (75-99) mg/dL Total Creatine Kinase (55-170) U/L CK-MB (CK-2) (0.0-2.4) ng/mL Troponin I 1.410 H* (0.000-0.034) ng/mL Procalcitonin (0.02-0.09) ng/mL 01/20/18 Range/Units 05:43 ESR (0-15) mm/hr BUN (9-20) mg/dL Creatinine (0.66-1.25) mg/dL Glucose (74-99) mg/dL POC Glucose (mg/dL) 198 H (75-99) mg/dL Total Creatine Kinase (55-170) U/L CK-MB (CK-2) (0.0-2.4) ng/mL Troponin I (0.000-0.034) ng/mL Procalcitonin (0.02-0.09) ng/mL Assessment and Plan (1) Pneumonia Narrative/Plan: Bilateral Pneumonia: CXR from this am reviewed showed some improvement on CXR with bilateral effusions and bilateral opacities continue antibiotics Current Visit: Yes Status: Acute Code(s): J18.9 - PNEUMONIA, UNSPECIFIED ORGANISM SNOMED Code(s): 634227447 (2) Acute respiratory failure with hypoxia Narrative/Plan: multifactorial with bilateral pneumonia and CHF exacerbation Current Visit: Yes Status: Acute Code(s): J96.01 - ACUTE RESPIRATORY FAILURE WITH HYPOXIA SNOMED Code(s): 10368876 (3) NSTEMI (non-ST elevated myocardial infarction) Narrative/Plan: per cardiology will need cardiac caterization when medically stable Current Visit: Yes Status: Acute Code(s): I21.4 - NON-ST ELEVATION (NSTEMI) MYOCARDIAL INFARCTION SNOMED Code(s): 405168512 (4) Acute exacerbation of CHF (congestive heart failure) Current Visit: Yes Status: Acute Code(s): I50.9 - HEART FAILURE, UNSPECIFIED SNOMED Code(s): 49588608 (5) Renal failure (ARF), acute on chronic Narrative/Plan: appreciate renal input secondary to cardiorenal continue IV diuresis and medical opimization if emergent or urgent cath needed okay per renal Current Visit: Yes Status: Acute Code(s): N17.9 - ACUTE KIDNEY FAILURE, UNSPECIFIED; N18.9 - CHRONIC KIDNEY DISEASE, UNSPECIFIED SNOMED Code(s): 100143987
[2018-01-20] MEDS ORDERED: FLUTICASONE 50MCG/SPRAY NASAL 16GM EA NOSTRIL SCH (12:15)
[2018-01-20] MEDS: methylPREDNISolone SOD SUCCI 125 MG/2 ML VIAL IV SCH ×2 (12:24→17:43)
--- NOTE | 2018-01-20 13:18 | P.PN ---
Subjective Progress Note Date: 01/20/18 This is a 67-year-old male patient known history of chronic atrial fibrillation diabetes mellitus and chronic renal failure. The patient is a nonsmoker. No 70 chronic lung disease or disorder. No previous history of coronary artery disease. No previous history of CHF. The patient was in a good state of health. He comes in with 1-2 days history of worsening shortness of breath, cough and, feeling congested and he was also bringing up some red/blood-tinged sputum. Noted the patient on Eliquis. He presented emergency department and his chest x-ray showed bibasilar pulmonary infiltrates and findings consistent with CHF. He was afebrile. He was found to be quite hypoxic and he was placed on high flow oxygen. The BNP level was 7880. The troponins were minimally elevated at 0.09 and 0.9 respectively 2. CPK was not elevated. The patient had a white cell count of 13. He was admitted to the floor where he was started on a combination of Rocephin and Zithromax. Overnight he became more short of breath and he had an acute event where he became more hypoxic and he was seen by the hospitalist where he was given Lasix IV for worsening shortness of breath and concerns of pulmonary edema. Currently is on 8 L about 2 by nasal cannula and his pulse ox is above 90%. Echocardiogram was done and the results are still pending for now. EKG showing chronic atrial fibrillation. There is some ST segment abnormalities possibly laterally. He is also on IV Lasix 40 mg every 12 hours IV push. The patient is seen again today 01/20/2018 in follow-up on selective care unit. He is awake and alert in no acute distress. He is breathing a little easier today as compared to yesterday but still not quite back to his baseline. He is still requiring 8 L high flow nasal cannula to maintain O2 saturations in the 90s. He is currently afebrile. Today's chest x-ray does show improved aeration in the right lung base however they're persistent strand-like basilar opacities and trace pleural effusions. Echocardiogram did reveal mild to moderately impaired left ventricular systolic function with ejection fraction 40 -45%. There is apical inferior and septal left ventricular wall motion hypokinesia. Mild to moderate mitral regurgitation. There is severe pulmonary hypertension with an RVSP of 76.75 mmHg. Peak troponin 1.410. Cardiology is on the case as well. He remains on IV diuretics. He remains in a negative balance. Down another kilogram today. Creatinine 1.90. Objective - Vital Signs Vital signs: Vital Signs Temp 98.4 F 01/20/18 12:00 Pulse 100 01/20/18 12:00 Resp 24 01/20/18 12:00 BP 139/86 01/20/18 12:00 Pulse Ox 96 01/20/18 12:00 Intake & Output 01/19/18 01/20/18 01/20/18 18:59 06:59 18:59 Intake Total 240 180 Output Total 1200 1050 775 Balance -960 -1050 -595 Weight 95.5 kg Intake: Oral 240 180 Output: Urine 1200 1050 775 Other: Voiding Method Urinal # Voids 1 # Bowel Movements 0 - Exam Gen. appearance is calm and comfortable mild respiratory distress still requiring 8L of oxygen by nasal cannula Head exam was generally normal. There was no scleral icterus or corneal arcus. Mucous membranes were moist. Neck was supple and without jugular venous distension, thyromegaly, or carotid bruits. Carotids were easily palpable bilaterally. There was no adenopathy. Lungs sounds are diminished bilaterally along with some bibasilar crackles worse on the right. Cardiac exam revealed the PMI to be normally situated and sized. The rhythm is irregular S1-S2 secondary to atrial fibrillation and no extrasystoles were noted during several minutes of auscultation. The first and second heart sounds were normal and physiologic splitting of the second heart sound was noted. There were no murmurs, rubs, clicks, or gallops. Abdominal exam revealed normal bowel sounds. The abdomen was soft, non-tender, and without masses, organomegaly, or appreciable enlargement of the abdominal aorta. Examination of the extremities revealed easily palpable radial, femoral and pedal pulses. There was no cyanosis, clubbing or edema. Examination of the skin revealed no evidence of significant rashes, suspicious appearing nevi or other concerning lesions. Neurologically the patient is awake and alert and there is no focal neurological deficits. - Labs CBC & Chem 7: 01/19/18 00:00 01/20/18 05:41 Labs: Abnormal Lab Results - Last 24 Hours (Table) 08/09/18 08/09/18 08/09/18 Range/Units 12:09 12:09 12:09 ESR 58 H (0-15) mm/hr BUN (9-20) mg/dL Creatinine (0.66-1.25) mg/dL Glucose (74-99) mg/dL POC Glucose (mg/dL) (75-99) mg/dL Total Creatine Kinase 249 H (55-170) U/L CK-MB (CK-2) 6.2 H* (0.0-2.4) ng/mL Troponin I 0.974 H* (0.000-0.034) ng/mL Procalcitonin 0.74 H (0.02-0.09) ng/mL 01/19/18 01/19/18 01/19/18 Range/Units 16:50 17:39 20:38 ESR (0-15) mm/hr BUN (9-20) mg/dL Creatinine (0.66-1.25) mg/dL Glucose (74-99) mg/dL POC Glucose (mg/dL) 193 H 159 H (75-99) mg/dL Total Creatine Kinase 299 H (55-170) U/L CK-MB (CK-2) 6.0 H* (0.0-2.4) ng/mL Troponin I 1.150 H* (0.000-0.034) ng/mL Procalcitonin (0.02-0.09) ng/mL 01/19/18 01/20/18 01/20/18 Range/Units 23:52 05:41 05:43 ESR (0-15) mm/hr BUN 26 H (9-20) mg/dL Creatinine 1.90 H (0.66-1.25) mg/dL Glucose 182 H (74-99) mg/dL POC Glucose (mg/dL) 198 H (75-99) mg/dL Total Creatine Kinase (55-170) U/L CK-MB (CK-2) (0.0-2.4) ng/mL Troponin I 1.410 H* (0.000-0.034) ng/mL Procalcitonin (0.02-0.09) ng/mL 01/20/18 Range/Units 11:38 ESR (0-15) mm/hr BUN (9-20) mg/dL Creatinine (0.66-1.25) mg/dL Glucose (74-99) mg/dL POC Glucose (mg/dL) 169 H (75-99) mg/dL Total Creatine Kinase (55-170) U/L CK-MB (CK-2) (0.0-2.4) ng/mL Troponin I (0.000-0.034) ng/mL Procalcitonin (0.02-0.09) ng/mL Assessment and Plan Assessment: Assessment 1 acute bibasilar pneumonia, community-acquired 2 acute exacerbation of systolic congestive heart failure. Mild to moderately impaired left ventricular systolic function with ejection fraction 40-45%. There is also noted hypokinesia of the apical inferior and septal wall of the LV. 3 acute hypoxic respiratory failure secondary to above currently on 8 L of oxygen by nasal cannula 4 troponin leak with some limited ST segment depressions over the lateral leads. Rule out underlying coronary artery disease. 5 acute shortness of breath secondary to above 6 chronic renal failure, stable 7 diabetes mellitus, insulin-dependent 8 hypertension 9 chronic 80 fibrillation maintained on long-term articulation with Eliquis Plan we'll and The patient was seen and evaluated by Dr. Reyes. Chest x-ray, echocardiogram and labs were all reviewed. The patient is slightly improved today as compared to yesterday. We'll continue to titrate down the FiO2 as tolerated. Continue with current antibiotics and bronchodilators. Continue with IV diuretics. He will need further cardiac investigation per cardiology once stabilized. We'll continue to follow. I, the cosigning physician, performed a history & physical examination of the patient. Lungs sounds with basilar crackles, few scattered rhonchi. Maintaining good O2 saturations in the 90s on 8 L high flow nasal cannula. I discussed the assessment and plan of care with my nurse practitioner, Nela Moy. I attest to the above note as dictated by her.
--- NOTE | 2018-01-20 14:36 | PN ---
PROGRESS NOTE This patient was admitted with symptoms of cough and expectoration and shortness of breath. Chest x-ray was suggestive for pneumonia. Patient has been treated with antibiotics. Patient's procalcitonin level is 0.7. He is feeling better. His breathing is improved. There was evidence of some congestive cardiac failure. The patient has abnormal troponin suggestive of non ST-segment elevation myocardial infarction. The VQ scan was done which was not suggestive of pulmonary emboli. Patient does have a significant pulmonary hypertension. At present, we will continue the patient on IV diuretic and antibiotics and watch the renal functions. Once the renal functions remains stable and pneumonia is improved by chest x-ray, we will consider further evaluation with cardiac catheterization. MMODL / IJN: [id number] /
[2018-01-20 16:24] LABS: Iron Saturation 11.34 (15.00-50.00)
[2018-01-20 16:53] LABS: Glucose,Whole Blood 296 mg/dL (75-99)
[2018-01-20] MEDS ORDERED: FLUTICASONE 50MCG/SPRAY NASAL 16GM EA NOSTRIL PRN (17:23)
[2018-01-20] MEDS: MORPHINE SULFATE 2 MG/ML SYRINGE IVP PRN ×2 (17:41→21:47)
[2018-01-20] MEDS ORDERED: SODIUM CHLORIDE 0.65% NASAL SPRAY 44 ML BTL NASAL PRN (19:44)
[2018-01-20 20:45] LABS: Glucose,Whole Blood 417 mg/dL (75-99)
[2018-01-20] MEDS: AZITHROMYCIN 500 MG TAB PO SCH (20:50)
[2018-01-20] MEDS: INSULIN DETEMIR 100 UNIT/ML 10 ML VIAL SQ SCH (20:57)
[2018-01-20] MEDS: cefTRIAXone IN SWFI 1,000 MG/10 ML SYRINGE IVP SCH (21:47)
[2018-01-21] MEDS: methylPREDNISolone SOD SUCCI 125 MG/2 ML VIAL IV SCH ×5 (00:06→23:43)
[2018-01-21] MEDS: FUROSEMIDE 10 MG/ML 4 ML VIAL IV SCH ×4 (00:06→23:43)
[2018-01-21] MEDS: IPRATROPIUM-ALBUTEROL 3 ML NEB INHALATION SCH ×6 (00:11→20:11)
[2018-01-21 06:23] LABS: Glucose,Whole Blood 300 mg/dL (75-99)
[2018-01-21] MEDS: INSULIN ASPART 100 UNIT/ML 1 ML 10 ML VIAL SQ SCH ×7 (06:36→21:32)
[2018-01-21 06:39] LABS: Calcium 8.8 mg/dL (8.4-10.2); Potassium 4.7 mmol/L (3.5-5.1)
[2018-01-21] MEDS: ATORVASTATIN 20 MG TAB PO SCH (08:46)
[2018-01-21] MEDS: APIXABAN 5 MG TAB PO SCH ×2 (08:46→19:49)
[2018-01-21] MEDS: BRIMONIDINE TARTRATE 0.2% DROPS 5 ML BTL RIGHT EYE SCH ×2 (08:47→19:49)
[2018-01-21] MEDS: TIMOLOL 0.5% OPHTH DROPS 5 ML BTL RIGHT EYE SCH ×2 (08:48→19:49)
[2018-01-21] MEDS: DORZOLAMIDE HCL 2% DROPS 10 ML BTL RIGHT EYE SCH ×3 (08:48→19:48)
[2018-01-21] MEDS: GABAPENTIN 100 MG CAP PO SCH ×3 (08:48→19:49)
[2018-01-21] MEDS: PILOCARPINE 2% OPHTH DROPS 15 ML BTL RIGHT EYE SCH ×4 (08:49→19:49)
[2018-01-21] MEDS: METOPROLOL SUCCINATE (ER) 25 MG TAB.ER.24H PO SCH (08:49)
--- NOTE | 2018-01-21 08:52 | P.PN ---
Subjective Patient is seen in follow-up for acute kidney injury and chronic kidney disease. Patient states he was told he had chronic kidney disease stage III and was scheduled to see a software test automation engineer as an outpatient in the near future. Creatinine is stable at 1.9 today. Patient is still quite dyspneic. No vomiting or diarrhea. Admits to good urine output. He is noted to have systolic CHF with ejection fraction of 40-45% with mild to moderate mitral regurgitation and severe pulmonary hypertension. Vital signs are stable. General: The patient appeared well nourished and normally developed. HEENT: Head exam is unremarkable. Neck is without jugular venous distension. LUNGS: Breath sounds decreased. HEART: Rate and Rhythm are regular. First and second heart sounds normal. No murmurs, rubs or gallops. ABDOMEN: Abdominal exam reveals normal bowel sounds. Non-tender and non- distended. No evidence of peritonitis. EXTREMITITES: No clubbing, cyanosis, or edema. Objective - Vital Signs Vital signs: Vital Signs Temp 97.8 F 01/21/18 00:00 Pulse 96 01/21/18 08:00 Resp 20 01/21/18 04:00 BP 146/66 01/21/18 04:00 Pulse Ox 97 01/21/18 07:53 Intake & Output 01/20/18 01/21/18 01/21/18 18:59 06:59 18:59 Intake Total 1260 480 240 Output Total 775 1600 Balance 485 -1120 240 Weight 95.8 kg Intake: Intake, IV Titration 100 Amount cefTRIAXone 1,000 mg In 100 Sodium Chloride 0.9% 50 ml @ 100 mls/hr IVPB Q24H [facility] Rx#:[id number] Oral 1160 480 240 Output: Urine 775 1600 Other: Voiding Method Urinal # Voids 1 # Bowel Movements 0 - Labs CBC & Chem 7: 01/19/18 00:00 01/21/18 05:58 Labs: Abnormal Lab Results - Last 24 Hours (Table) 01/20/18 01/20/18 01/20/18 Range/Units 11:38 16:37 20:43 Sodium (137-145) mmol/L Carbon Dioxide (22-30) mmol/L BUN (9-20) mg/dL Creatinine (0.66-1.25) mg/dL Glucose (74-99) mg/dL POC Glucose (mg/dL) 169 H 296 H 417 H (75-99) mg/dL 01/21/18 01/21/18 Range/Units 05:58 06:19 Sodium 134 L (137-145) mmol/L Carbon Dioxide 21 L (22-30) mmol/L BUN 35 H (9-20) mg/dL Creatinine 1.90 H (0.66-1.25) mg/dL Glucose 300 H (74-99) mg/dL POC Glucose (mg/dL) 300 H (75-99) mg/dL Assessment and Plan Plan: Assessment: 1. Nonoliguric acute kidney injury secondary to ATN secondary to cardiorenal syndrome. Creatinine 1.9 today. 2. Chronic kidney disease stage III. Patient has an appointment to see a software test automation engineer in the near future in [facility]. Etiology is likely diabetic kidney disease. 3. Systolic CHF with ejection fraction of 40-45% with mild to moderate mitral regurgitation and severe pulmonary hypertension. 4. Volume overload. 5. Diabetes mellitus. 6. Hypertonic hyponatremia secondary to hyperglycemia. Corrected sodium is in the normal range. 7. Pneumonia maintained on antibiotics. 8. Metabolic acidosis secondary to acute kidney injury. Plan: Continue Lasix 40 mg IV 3 times daily. Follow-up urinalysis. Check renal ultrasound. Avoid nephrotoxic agents and hypotensive episodes. Repeat electrolytes in the morning.
[2018-01-21] MEDS: MORPHINE SULFATE 2 MG/ML SYRINGE IVP PRN ×3 (08:54→21:31)
[2018-01-21] MEDS: ALPRAZolam 0.5 MG TAB PO PRN ×3 (08:54→21:31)
--- NOTE | 2018-01-21 10:36 | P.PN ---
Subjective Progress Note Date: 01/21/18 Principal diagnosis: Acute community acquired bibasilar pneumonia, and acute exacerbation of systolic CHF. This is a 67-year-old male patient known history of chronic atrial fibrillation diabetes mellitus and chronic renal failure. The patient is a nonsmoker. No 70 chronic lung disease or disorder. No previous history of coronary artery disease. No previous history of CHF. The patient was in a good state of health. He comes in with 1-2 days history of worsening shortness of breath, cough and, feeling congested and he was also bringing up some red/blood-tinged sputum. Noted the patient on Eliquis. He presented emergency department and his chest x-ray showed bibasilar pulmonary infiltrates and findings consistent with CHF. He was afebrile. He was found to be quite hypoxic and he was placed on high flow oxygen. The BNP level was 7880. The troponins were minimally elevated at 0.09 and 0.9 respectively 2. CPK was not elevated. The patient had a white cell count of 13. He was admitted to the floor where he was started on a combination of Rocephin and Zithromax. Overnight he became more short of breath and he had an acute event where he became more hypoxic and he was seen by the hospitalist where he was given Lasix IV for worsening shortness of breath and concerns of pulmonary edema. Currently is on 8 L about 2 by nasal cannula and his pulse ox is above 90%. Echocardiogram was done and the results are still pending for now. EKG showing chronic atrial fibrillation. There is some ST segment abnormalities possibly laterally. He is also on IV Lasix 40 mg every 12 hours IV push. The patient is seen again today 01/20/2018 in follow-up on selective care unit. He is awake and alert in no acute distress. He is breathing a little easier today as compared to yesterday but still not quite back to his baseline. He is still requiring 8 L high flow nasal cannula to maintain O2 saturations in the 90s. He is currently afebrile. Today's chest x-ray does show improved aeration in the right lung base however they're persistent strand-like basilar opacities and trace pleural effusions. Echocardiogram did reveal mild to moderately impaired left ventricular systolic function with ejection fraction 40 -45%. There is apical inferior and septal left ventricular wall motion hypokinesia. Mild to moderate mitral regurgitation. There is severe pulmonary hypertension with an RVSP of 76.75 mmHg. Peak troponin 1.410. Cardiology is on the case as well. He remains on IV diuretics. He remains in a negative balance. Down another kilogram today. Creatinine 1.90. On 01/21/2018 patient seen in follow-up on selective care unit. Yesterday's chest x-ray has been reviewed and showed improved aeration in the right lung base, and persistent basilar opacities and trace pleural effusions. Clinically patient is in no acute distress, his he is coughing, but not bringing up any sputum. Lung sounds reveal a few rales over right lower lobe, rhonchi no wheezing noted. He remains in A. fib, his pulse ox is 98% on 8 L per nasal cannula, his FiO2 will be decreased to 6 L, will continue weaning it to keep the pulse ox above 92%. Today's lab work was reviewed, CBC, sodium is 134, potassium is 4.7, BUN is 35, creatinine is 1.90. Patient is an 1120 ML negative fluid balance. He still has trace edema in bilateral pretibial areas. We will continue current medical treatment, continue with IV diuretics and current antibiotic coverage. Objective - Vital Signs Vital signs: Vital Signs Temp 97.8 F 01/21/18 00:00 Pulse 96 01/21/18 08:00 Resp 20 01/21/18 04:00 BP 146/66 01/21/18 04:00 Pulse Ox 97 01/21/18 07:53 Intake & Output 01/20/18 01/21/18 01/21/18 18:59 06:59 18:59 Intake Total 1260 480 240 Output Total 775 1600 Balance 485 -1120 240 Weight 95.8 kg Intake: Intake, IV Titration 100 Amount cefTRIAXone 1,000 mg In 100 Sodium Chloride 0.9% 50 ml @ 100 mls/hr IVPB Q24H [facility] Rx#:[id number] Oral 1160 480 240 Output: Urine 775 1600 Other: Voiding Method Urinal # Voids 1 # Bowel Movements 0 - Exam Gen. appearance is calm and comfortable mild respiratory distress still requiring 8L of oxygen by nasal cannula Head exam was generally normal. There was no scleral icterus or corneal arcus. Mucous membranes were moist. Neck was supple and without jugular venous distension, thyromegaly, or carotid bruits. Carotids were easily palpable bilaterally. There was no adenopathy. Lungs sounds are diminished bilaterally along with some crackles worse on the right. Cardiac exam revealed the PMI to be normally situated and sized. The rhythm is irregular S1-S2 secondary to atrial fibrillation and no extrasystoles were noted during several minutes of auscultation. The first and second heart sounds were normal and physiologic splitting of the second heart sound was noted. There were no murmurs, rubs, clicks, or gallops. Abdominal exam revealed normal bowel sounds. The abdomen was soft, non-tender, and without masses, organomegaly, or appreciable enlargement of the abdominal aorta. Examination of the extremities revealed easily palpable radial, femoral and pedal pulses. There was no cyanosis, clubbing, trace pretibial edema bilaterally Examination of the skin revealed no evidence of significant rashes, suspicious appearing nevi or other concerning lesions. Neurologically the patient is awake and alert and there is no focal neurological deficits. - Labs CBC & Chem 7: 01/19/18 00:00 01/21/18 05:58 Labs: Abnormal Lab Results - Last 24 Hours (Table) 01/20/18 01/20/18 01/20/18 Range/Units 11:38 16:37 20:43 Sodium (137-145) mmol/L Carbon Dioxide (22-30) mmol/L BUN (9-20) mg/dL Creatinine (0.66-1.25) mg/dL Glucose (74-99) mg/dL POC Glucose (mg/dL) 169 H 296 H 417 H (75-99) mg/dL 01/21/18 01/21/18 Range/Units 05:58 06:19 Sodium 134 L (137-145) mmol/L Carbon Dioxide 21 L (22-30) mmol/L BUN 35 H (9-20) mg/dL Creatinine 1.90 H (0.66-1.25) mg/dL Glucose 300 H (74-99) mg/dL POC Glucose (mg/dL) 300 H (75-99) mg/dL Assessment and Plan Plan: Assessment: 1 acute bibasilar pneumonia, community-acquired 2 acute exacerbation of systolic congestive heart failure. Mild to moderately impaired left ventricular systolic function with ejection fraction 40-45%. There is also noted hypokinesia of the apical inferior and septal wall of the LV. 3 acute hypoxic respiratory failure secondary to above currently on 6 L of oxygen by nasal cannula 4 troponin leak with some limited ST segment depressions over the lateral leads. Rule out underlying coronary artery disease. 5 acute shortness of breath secondary to above 6 chronic renal failure, stable 7 diabetes mellitus, insulin-dependent 8 hypertension 9 chronic 80 fibrillation maintained on long-term articulation with Eliquis Plan: Patient is improving, remains stable, no worsening dyspnea, no chest pain. Keep current antibiotic coverage, patient is afebrile, wheezing any sputum, no worsening congestion. Remains on IV diuretics, he is maintaining negative fluid balance. We'll continue with current medical treatment. Continue weaning FiO2 to keep pulse ox at 92% or above. Increase activity as tolerated. I performed a history & physical examination of the patient and discussed their management with my nurse practitioner, Verónica Bridges. I reviewed the nurse practitioner's note and agree with the documented findings and plan of care. Lung sounds are crackles at the right lower base. The findings and the impression was discussed with the patient. I attest to the documentation by the nurse practitioner. Time with Patient: Less than 30
[2018-01-21 11:24] LABS: Glucose,Whole Blood 333 mg/dL (75-99)
[2018-01-21 16:15] LABS: Glucose,Whole Blood 263 mg/dL (75-99)
--- NOTE | 2018-01-21 18:57 | US ---
EXAMINATION TYPE: US kidneys/renal and bladder DATE OF EXAM: 01/21/2018 COMPARISON: NONE CLINICAL HISTORY: klever. EXAM MEASUREMENTS: Right Kidney: 11.4 x 5.1 x 5.1 cm Left Kidney: 12.3 x 5.8 x 4.9 cm Limited due to pt breathing Right Kidney: wnl Left Kidney: wnl Bladder: wnl Bilateral Jets seen: Yes IMPRESSION: 1. Normal bilateral kidneys by ultrasound.
--- NOTE | 2018-01-21 19:06 | P.PN ---
Subjective Progress Note Date: 01/21/18 Principal diagnosis: Pneumonia Patient was seen and examined. No acute events overnight. Patient reports continued shortness of breath. Patient continues to cough, unable to cough up sputum. Objective - Vital Signs Vital signs: Vital Signs Temp 97.9 F 01/21/18 08:00 Pulse 100 01/21/18 15:54 Resp 16 01/21/18 12:00 BP 160/89 01/21/18 12:00 Pulse Ox 96 01/21/18 12:00 Intake & Output 01/20/18 01/21/18 01/21/18 18:59 06:59 18:59 Intake Total 1260 480 480 Output Total 775 1600 600 Balance 485 -1120 -120 Weight 95.8 kg Intake: Intake, IV Titration 100 Amount cefTRIAXone 1,000 mg In 100 Sodium Chloride 0.9% 50 ml @ 100 mls/hr IVPB Q24H [facility] Rx#:[id number] Oral 1160 480 480 Output: Urine 775 1600 600 Other: Voiding Method Urinal Urinal # Voids 1 # Bowel Movements 0 - Exam General: non toxic, no distress, appears at stated age Derm: warm, dry Head: atraumatic, normocephalic, symmetric Eyes: EOMI, no lid lag, anicteric sclera Mouth: no lip lesion, mucus membranes moist Cardiovascular: S1S2 reg, no murmur, Irregular, positive posterior tibial pulse bilateral, Lungs: CTA bilateral, Bibasilar crackles BL , no accessory muscle use Abdominal: soft, nontender to palpation, no guarding, no appreciable organomegaly Ext: no gross muscle atrophy, no edema, no contractures Neuro: CN II-XI grossly intact, no focal neuro deficits Psych: Alert, oriented, appropriate affect - Labs CBC & Chem 7: 01/19/18 00:00 01/21/18 05:58 Labs: Abnormal Lab Results - Last 24 Hours (Table) 01/20/18 01/21/18 01/21/18 Range/Units 20:43 05:58 06:19 Sodium 134 L (137-145) mmol/L Carbon Dioxide 21 L (22-30) mmol/L BUN 35 H (9-20) mg/dL Creatinine 1.90 H (0.66-1.25) mg/dL Glucose 300 H (74-99) mg/dL POC Glucose (mg/dL) 417 H 300 H (75-99) mg/dL 01/21/18 01/21/18 Range/Units 11:04 16:12 Sodium (137-145) mmol/L Carbon Dioxide (22-30) mmol/L BUN (9-20) mg/dL Creatinine (0.66-1.25) mg/dL Glucose (74-99) mg/dL POC Glucose (mg/dL) 333 H 263 H (75-99) mg/dL Assessment and Plan Assessment: Assessment 67 year old M with PMH of A-Fib, CHF, DM, CKD presents to the ED for cough and SOB. Admitted for PNA and CHF exacerbation. Plan 1. Pneumonia: Community acquired. Likely exacerbating COPD. CXR shows BL lower lobe PNA. Continue DuoNeb Q4 scheduled and Solumedrol 60 IV Q6H. Azithromycin and Ceftriaxone for Abx. O2 per NC to maintain O2 > 92%. FU Pulmonology 2. CHF exacerbation: Echo 01/2018 shows EF 40-45% with hypokinetic menendez. Continue Lasix 40 IV TID. Continue BB. Add ACEi when Cr improved. Daily weights. Ins and Outs. Keep K > 4 and Mg > 2. FU Cardiology regarding possible cath. 3. A-Fib: AC with Eliquis 5 mg PO QD. Rate control with Metoprolol 25 mg PO QD. Telemetry monitoring. Keep K > 4 and Mg > 2. 4. DM: Continue Levemir 35 units QHS, Novolog 10 units TID, ISS. FU A1c 5. CKD: BUN 35 Cr 1.90. Avoid nephrotoxins. FU Renal US 6. Anemia: Hg 9.9 Hct 30.6 MCV 86.2. Likely due to CKD. Stable. Will continue to monitor. 7. Glaucoma: Timolol, Pilocarpine, Dorzolamide drops. FU Ophthalmology outPT.
[2018-01-21] MEDS: AZITHROMYCIN 500 MG TAB PO SCH (19:50)
[2018-01-21 20:05] LABS: Appearance,Urine Clear (Clear); Bilirubin,Urine Negative (Negative); Blood,Urine Negative (Negative); Color,Urine Yellow; Glucose,Urine (UA) 2+ (Negative); Hyaline Casts,Urine 9 /lpf (0-2); Ketones,Urine Negative (Negative); Leukocyte Esterase,Urine Negative (Negative); Mucus,Urine Rare /hpf; Nitrite,Urine Negative (Negative); Protein,Urine 1+ (Negative); RBC,Urine <1 /hpf (0-5); Specific Gravity,Urine 1.009 (1.001-1.035); Urobilinogen,Urine <2.0 mg/dL (<2.0); WBC,Urine <1 /hpf (0-5)
[2018-01-21 20:30] LABS: Glucose,Whole Blood 317 mg/dL (75-99)
[2018-01-21] MEDS: cefTRIAXone IN SWFI 1,000 MG/10 ML SYRINGE IVP SCH (21:32)
[2018-01-21] MEDS: INSULIN DETEMIR 100 UNIT/ML 10 ML VIAL SQ SCH (21:41)
[2018-01-22] MEDS: IPRATROPIUM-ALBUTEROL 3 ML NEB INHALATION SCH ×6 (00:31→20:55)
--- NOTE | 2018-01-22 03:25 | PN ---
PROGRESS NOTE This patient was admitted with acute distress. Patient has had evidence of pneumonia as well as some mild congestive cardiac failure. The patient had also elevated cardiac enzymes suggestive of non ST-segment elevation myocardial infarction. The patient is doing fairly well. He is afebrile now. His breathing is improved. Blood pressure is 150/90 mmHg. First and second heart sounds are normal. Lungs reveal few scattered wheezes. The patient's creatinine remains about 1.8. The patient is being evaluated by nephrology service. We will repeat the chest x-ray tomorrow and if the patient's condition remains stable, patient will be evaluated by cardiac catheterization on Tuesday. Patient does carried increased risk of cardiac catheterization and this has been fully discussed with the patient. MMODL / IJN: [id number] /
[2018-01-22] MEDS: methylPREDNISolone SOD SUCCI 125 MG/2 ML VIAL IV SCH (05:25)
[2018-01-22 05:30] LABS: Glucose,Whole Blood 326 mg/dL (75-99)
[2018-01-22 06:01] LABS: Calcium 8.9 mg/dL (8.4-10.2); Magnesium 1.7 mg/dL (1.6-2.3)
[2018-01-22] MEDS: INSULIN ASPART 100 UNIT/ML 1 ML 10 ML VIAL SQ SCH ×8 (06:22→23:29)
--- NOTE | 2018-01-22 07:49 | XR ---
EXAMINATION TYPE: XR chest 2V DATE OF EXAM: 01/22/2018 HISTORY: follow up pneumonia. REFERENCE: Previous study dated 01/20/2018. FINDINGS: There is improved aeration of both lung bases. The heart is mildly enlarged. I cannot exclu de a tiny right effusion. IMPRESSION: 1. IMPROVED AERATION, BOTH LUNG BASES. 2. I CANNOT EXCLUDE A TINY RIGHT-SIDED EFFUSION. 3. MILD CARDIOMEGALY.
[2018-01-22] MEDS: MORPHINE SULFATE 2 MG/ML SYRINGE IVP PRN ×2 (08:06→19:50)
[2018-01-22] MEDS: ALPRAZolam 0.5 MG TAB PO PRN ×3 (08:06→19:50)
[2018-01-22] MEDS: APIXABAN 5 MG TAB PO SCH (08:09)
[2018-01-22] MEDS: FUROSEMIDE 10 MG/ML 4 ML VIAL IV SCH (08:10)
[2018-01-22] MEDS: ATORVASTATIN 20 MG TAB PO SCH (08:10)
[2018-01-22] MEDS: BRIMONIDINE TARTRATE 0.2% DROPS 5 ML BTL RIGHT EYE SCH ×2 (08:10→19:49)
[2018-01-22] MEDS: PILOCARPINE 2% OPHTH DROPS 15 ML BTL RIGHT EYE SCH ×4 (08:11→23:28)
[2018-01-22] MEDS: GABAPENTIN 100 MG CAP PO SCH ×3 (08:12→23:28)
[2018-01-22] MEDS: DORZOLAMIDE HCL 2% DROPS 10 ML BTL RIGHT EYE SCH ×3 (08:12→23:28)
[2018-01-22] MEDS: METOPROLOL SUCCINATE (ER) 25 MG TAB.ER.24H PO SCH (08:12)
[2018-01-22] MEDS: TIMOLOL 0.5% OPHTH DROPS 5 ML BTL RIGHT EYE SCH ×2 (08:13→19:49)
[2018-01-22] MEDS ORDERED: MAGNESIUM SULFATE-D5W PMX 1 GM in DEXTROSE/WATER 1 100ML.BAG IVPB ONE (08:18)
--- NOTE | 2018-01-22 08:47 | P.PN ---
Subjective Patient is seen in follow-up for acute kidney injury and chronic kidney disease. Patient states he was told he had chronic kidney disease stage III and was scheduled to see a red hat engineer as an outpatient in the near future. Creatinine is worse at 2.07 today. Dyspnea is improved. Oxygen requirements are less. No vomiting or diarrhea. Admits to good urine output. He is noted to have systolic CHF with ejection fraction of 40-45% with mild to moderate mitral regurgitation and severe pulmonary hypertension. Vital signs are stable. General: The patient appeared well nourished and normally developed. HEENT: Head exam is unremarkable. Neck is without jugular venous distension. LUNGS: Breath sounds decreased. HEART: Rate and Rhythm are regular. First and second heart sounds normal. No murmurs, rubs or gallops. ABDOMEN: Abdominal exam reveals normal bowel sounds. Non-tender and non- distended. No evidence of peritonitis. EXTREMITITES: No clubbing, cyanosis, or edema. Objective - Vital Signs Vital signs: Vital Signs Temp 97.8 F 01/22/18 04:00 Pulse 84 01/22/18 08:42 Resp 16 01/22/18 08:00 BP 136/89 01/22/18 08:00 Pulse Ox 95 01/22/18 08:32 Intake & Output 01/21/18 01/22/18 01/22/18 18:59 06:59 18:59 Intake Total 720 480 Output Total 1000 250 Balance -280 230 Weight 96 kg Intake: Oral 720 480 Output: Urine 1000 250 Other: Voiding Method Urinal Urinal # Voids 1 - Labs CBC & Chem 7: 01/19/18 00:00 01/22/18 05:26 Labs: Abnormal Lab Results - Last 24 Hours (Table) 01/21/18 01/21/18 01/21/18 Range/Units 11:04 16:12 19:40 Sodium (137-145) mmol/L Carbon Dioxide (22-30) mmol/L BUN (9-20) mg/dL Creatinine (0.66-1.25) mg/dL Glucose (74-99) mg/dL POC Glucose (mg/dL) 333 H 263 H (75-99) mg/dL Urine Protein 1+ H (Negative) Urine Glucose (UA) 2+ H (Negative) Hyaline Casts 9 H (0-2) /lpf Urine Mucus Rare H (None) /hpf 01/21/18 01/22/18 01/22/18 Range/Units 20:28 05:26 05:28 Sodium 133 L (137-145) mmol/L Carbon Dioxide 21 L (22-30) mmol/L BUN 48 H (9-20) mg/dL Creatinine 2.07 H (0.66-1.25) mg/dL Glucose 308 H (74-99) mg/dL POC Glucose (mg/dL) 317 H 326 H (75-99) mg/dL Urine Protein (Negative) Urine Glucose (UA) (Negative) Hyaline Casts (0-2) /lpf Urine Mucus (None) /hpf Assessment and Plan Plan: Assessment: 1. Nonoliguric acute kidney injury secondary to ATN secondary to cardiorenal syndrome. Creatinine worse at 2.07 today which is due to diuresis. No evidence of hydronephrosis noted on renal ultrasound. 2. Chronic kidney disease stage III. Patient has an appointment to see a red hat engineer in the near future in [facility]. Etiology is likely diabetic kidney disease. 3. Systolic CHF with ejection fraction of 40-45% with mild to moderate mitral regurgitation and severe pulmonary hypertension. 4. Volume overload. Improved with diuresis. 5. Diabetes mellitus. 6. Hypertonic hyponatremia secondary to hyperglycemia. Corrected sodium is in the normal range. 7. Pneumonia maintained on antibiotics. 8. Metabolic acidosis secondary to acute kidney injury. 9. Hypomagnesemia secondary to diuresis. Plan: I will change Lasix to 40 mg orally twice daily. Avoid nephrotoxic agents and hypotensive episodes. 1 g IV magnesium sulfate today. Repeat electrolytes in the morning.
--- NOTE | 2018-01-22 10:53 | P.PN ---
Subjective Progress Note Date: 01/22/18 Principal diagnosis: COPD exacerbation Patient was seen and examined. No acute events overnight. Patient reports improved breathing. Back to baseline. Saturating 95% on room air. Objective - Vital Signs Vital signs: Vital Signs Temp 97.8 F 01/22/18 04:00 Pulse 84 01/22/18 08:42 Resp 16 01/22/18 08:00 BP 136/89 01/22/18 08:00 Pulse Ox 95 01/22/18 08:32 Intake & Output 01/21/18 01/22/18 01/22/18 18:59 06:59 18:59 Intake Total 720 480 240 Output Total 1000 250 Balance -280 230 240 Weight 96 kg Intake: Oral 720 480 240 Output: Urine 1000 250 Other: Voiding Method Urinal Urinal # Voids 1 - Exam General: non toxic, no distress, appears at stated age Derm: warm, dry Head: atraumatic, normocephalic, symmetric Eyes: EOMI, no lid lag, anicteric sclera Mouth: no lip lesion, mucus membranes moist Cardiovascular: S1S2 reg, no murmur, Irregular, positive posterior tibial pulse bilateral, Lungs: Decreased BS BL , no accessory muscle use Abdominal: soft, nontender to palpation, no guarding, no appreciable organomegaly Ext: no gross muscle atrophy, no edema, no contractures Neuro: CN II-XI grossly intact, no focal neuro deficits Psych: Alert, oriented, appropriate affect - Labs CBC & Chem 7: 01/19/18 00:00 01/22/18 05:26 Labs: Abnormal Lab Results - Last 24 Hours (Table) 01/20/18 01/21/18 01/21/18 Range/Units 05:41 11:04 16:12 Sodium (137-145) mmol/L Carbon Dioxide (22-30) mmol/L BUN (9-20) mg/dL Creatinine (0.66-1.25) mg/dL Glucose (74-99) mg/dL POC Glucose (mg/dL) 333 H 263 H (75-99) mg/dL Iron 33 L (65-175) ug/dL Iron Saturation 11.34 L (15.00-50.00) Urine Protein (Negative) Urine Glucose (UA) (Negative) Hyaline Casts (0-2) /lpf Urine Mucus (None) /hpf 08/04/3001/21/18 01/22/18 Range/Units 19:40 20:28 05:26 Sodium 133 L (137-145) mmol/L Carbon Dioxide 21 L (22-30) mmol/L BUN 48 H (9-20) mg/dL Creatinine 2.07 H (0.66-1.25) mg/dL Glucose 308 H (74-99) mg/dL POC Glucose (mg/dL) 317 H (75-99) mg/dL Iron (65-175) ug/dL Iron Saturation (15.00-50.00) Urine Protein 1+ H (Negative) Urine Glucose (UA) 2+ H (Negative) Hyaline Casts 9 H (0-2) /lpf Urine Mucus Rare H (None) /hpf 01/22/18 Range/Units 05:28 Sodium (137-145) mmol/L Carbon Dioxide (22-30) mmol/L BUN (9-20) mg/dL Creatinine (0.66-1.25) mg/dL Glucose (74-99) mg/dL POC Glucose (mg/dL) 326 H (75-99) mg/dL Iron (65-175) ug/dL Iron Saturation (15.00-50.00) Urine Protein (Negative) Urine Glucose (UA) (Negative) Hyaline Casts (0-2) /lpf Urine Mucus (None) /hpf Assessment and Plan Assessment: Assessment 67 year old M with PMH of A-Fib, CHF, DM, CKD presents to the ED for cough and SOB. Admitted for PNA and CHF exacerbation. Plan 1. Pneumonia: Community acquired. Patient is afebrile with a WBC of 13.3 (01/19). CXR shows BL lower lobe PNA. Continue DuoNeb Q4 scheduled and Solumedrol 60 IV Q6H. Azithromycin PO and Ceftriaxone IV for Abx. O2 per NC to maintain O2 > 92% . FU Pulmonology 2. CHF exacerbation: Echo 01/2018 shows EF 40-45% with hypokinetic menendez. Lasix 40 IV TID changed to Lasix 40 mg PO BID. Continue BB. Add ACEi when Cr improved. Daily weights. Ins and Outs. Keep K > 4 and Mg > 2. FU Cardiology regarding possible intervention. 3. DM: POC glucose 326. Continue Levemir 35 units QHS, ISS. Increase Novolog from 10 units to 12 units TID. Lipitor 20 mg PO QHS for ASCVD risk. Hypoglycemic precautions. Accuchecks QID. Diabetic diet. FU A1c 4. REAL on CKD: BUN 48 Cr 2.07. Worsening, likely due to IV Lasix use. Lasix cut down today. Normal kidneys on US. Avoid nephrotoxins. FU Nephrology 5. Troponemia: Likely leak from CHF. Trops 0.09, 0.974, 1.150, 1.410. EKG shows A Fib with non specific ST and T wave changes. FU Trop/EKG repeat. FU Cardiology 6. A-Fib: AC with Eliquis 5 mg PO BID. Rate control with Metoprolol 25 mg PO QD. Telemetry monitoring. Keep K > 4 and Mg > 2. 7. Anemia: Hg 9.9 Hct 30.6 MCV 86.2. Iron studies show low iron. Will need C- scope outPT. FU Ferritin 8. Glaucoma: Timolol, Pilocarpine, Dorzolamide, Brimonidine drops. FU Ophthalmology outPT.
[2018-01-22 11:29] LABS: Glucose,Whole Blood 344 mg/dL (75-99)
[2018-01-22 11:36] LABS: Creatine Kinase MB 3.1 ng/mL (0.0-2.4)
[2018-01-22 11:40] LABS: Troponin I 0.889 ng/mL (0.000-0.034)
--- NOTE | 2018-01-22 11:45 | P.PN ---
Subjective Progress Note Date: 01/22/18 This is a 67-year-old male patient known history of chronic atrial fibrillation diabetes mellitus and chronic renal failure. The patient is a nonsmoker. No 68 chronic lung disease or disorder. No previous history of coronary artery disease. No previous history of CHF. The patient was in a good state of health. He comes in with 1-2 days history of worsening shortness of breath, cough and, feeling congested and he was also bringing up some red/blood-tinged sputum. Noted the patient on Eliquis. He presented emergency department and his chest x-ray showed bibasilar pulmonary infiltrates and findings consistent with CHF. He was afebrile. He was found to be quite hypoxic and he was placed on high flow oxygen. The BNP level was 7880. The troponins were minimally elevated at 0.09 and 0.9 respectively 2. CPK was not elevated. The patient had a white cell count of 13. He was admitted to the floor where he was started on a combination of Rocephin and Zithromax. Overnight he became more short of breath and he had an acute event where he became more hypoxic and he was seen by the hospitalist where he was given Lasix IV for worsening shortness of breath and concerns of pulmonary edema. Currently is on 8 L about 2 by nasal cannula and his pulse ox is above 90%. Echocardiogram was done and the results are still pending for now. EKG showing chronic atrial fibrillation. There is some ST segment abnormalities possibly laterally. He is also on IV Lasix 40 mg every 12 hours IV push. The patient is seen again today 01/20/2018 in follow-up on selective care unit. He is awake and alert in no acute distress. He is breathing a little easier today as compared to yesterday but still not quite back to his baseline. He is still requiring 8 L high flow nasal cannula to maintain O2 saturations in the 90s. He is currently afebrile. Today's chest x-ray does show improved aeration in the right lung base however they're persistent strand-like basilar opacities and trace pleural effusions. Echocardiogram did reveal mild to moderately impaired left ventricular systolic function with ejection fraction 40 -45%. There is apical inferior and septal left ventricular wall motion hypokinesia. Mild to moderate mitral regurgitation. There is severe pulmonary hypertension with an RVSP of 76.75 mmHg. Peak troponin 1.410. Cardiology is on the case as well. He remains on IV diuretics. He remains in a negative balance. Down another kilogram today. Creatinine 1.90. On 01/21/2018 patient seen in follow-up on selective care unit. Yesterday's chest x-ray has been reviewed and showed improved aeration in the right lung base, and persistent basilar opacities and trace pleural effusions. Clinically patient is in no acute distress, his he is coughing, but not bringing up any sputum. Lung sounds reveal a few rales over right lower lobe, rhonchi no wheezing noted. He remains in A. fib, his pulse ox is 98% on 8 L per nasal cannula, his FiO2 will be decreased to 6 L, will continue weaning it to keep the pulse ox above 92%. Today's lab work was reviewed, CBC, sodium is 134, potassium is 4.7, BUN is 35, creatinine is 1.90. Patient is an 1120 ML negative fluid balance. He still has trace edema in bilateral pretibial areas. We will continue current medical treatment, continue with IV diuretics and current antibiotic coverage. On 01/22/2018 the patient is being seen in follow-up. Doing well. Ambulating. Oxygenation has improved. He is on room air and is pulse oxing above 90%. Chest x-ray shows further improvement in the bilateral pulmonary infiltrates. He was treated for bilateral pneumonia and a combination of Rocephin and Zithromax. He is also on IV Solu-Medrol. He is on bronchodilators around the clock. He is in atrial fibrillation and currently is on metoprolol and he was started also on Eliquis for long-term anticoagulation. He'll be taken off the IV Solu Medrol start on a prednisone burst taper. His echocardiogram at shown segmental wall motion abnormalities with an ejection fraction of 40-45%. He is on beta blockers for now. He is also on Lasix. Objective - Vital Signs Vital signs: Vital Signs Temp 97.8 F 01/22/18 04:00 Pulse 84 01/22/18 08:42 Resp 16 01/22/18 08:00 BP 136/89 01/22/18 08:00 Pulse Ox 95 01/22/18 08:32 Intake & Output 01/21/18 01/22/18 01/22/18 18:59 06:59 18:59 Intake Total 720 480 240 Output Total 1000 250 Balance -280 230 240 Weight 96 kg Intake: Oral 720 480 240 Output: Urine 1000 250 Other: Voiding Method Urinal Urinal Urinal # Voids 1 - Exam Gen. appearance is calm and comfortable mild respiratory distress still requiring 8L of oxygen by nasal cannula Head exam was generally normal. There was no scleral icterus or corneal arcus. Mucous membranes were moist. Neck was supple and without jugular venous distension, thyromegaly, or carotid bruits. Carotids were easily palpable bilaterally. There was no adenopathy. Lungs sounds are diminished bilaterally along with some crackles worse on the right. Cardiac exam revealed the PMI to be normally situated and sized. The rhythm is irregular S1-S2 secondary to atrial fibrillation and no extrasystoles were noted during several minutes of auscultation. The first and second heart sounds were normal and physiologic splitting of the second heart sound was noted. There were no murmurs, rubs, clicks, or gallops. Abdominal exam revealed normal bowel sounds. The abdomen was soft, non-tender, and without masses, organomegaly, or appreciable enlargement of the abdominal aorta. Examination of the extremities revealed easily palpable radial, femoral and pedal pulses. There was no cyanosis, clubbing, trace pretibial edema bilaterally Examination of the skin revealed no evidence of significant rashes, suspicious appearing nevi or other concerning lesions. Neurologically the patient is awake and alert and there is no focal neurological deficits. - Labs CBC & Chem 7: 01/19/18 00:00 01/22/18 05:26 Labs: Abnormal Lab Results - Last 24 Hours (Table) 01/20/18 01/21/18 01/21/18 Range/Units 05:41 16:12 19:40 Sodium (137-145) mmol/L Carbon Dioxide (22-30) mmol/L BUN (9-20) mg/dL Creatinine (0.66-1.25) mg/dL Glucose (74-99) mg/dL POC Glucose (mg/dL) 263 H (75-99) mg/dL Iron 33 L (65-175) ug/dL Iron Saturation 11.34 L (15.00-50.00) CK-MB (CK-2) (0.0-2.4) ng/mL Troponin I (0.000-0.034) ng/mL Urine Protein 1+ H (Negative) Urine Glucose (UA) 2+ H (Negative) Hyaline Casts 9 H (0-2) /lpf Urine Mucus Rare H (None) /hpf 01/21/18 01/22/18 01/22/18 Range/Units 20:28 05:26 05:26 Sodium 133 L (137-145) mmol/L Carbon Dioxide 21 L (22-30) mmol/L BUN 48 H (9-20) mg/dL Creatinine 2.07 H (0.66-1.25) mg/dL Glucose 308 H (74-99) mg/dL POC Glucose (mg/dL) 317 H (75-99) mg/dL Iron (65-175) ug/dL Iron Saturation (15.00-50.00) CK-MB (CK-2) 3.1 H* (0.0-2.4) ng/mL Troponin I 0.889 H* (0.000-0.034) ng/mL Urine Protein (Negative) Urine Glucose (UA) (Negative) Hyaline Casts (0-2) /lpf Urine Mucus (None) /hpf 01/22/18 01/22/18 Range/Units 05:28 11:26 Sodium (137-145) mmol/L Carbon Dioxide (22-30) mmol/L BUN (9-20) mg/dL Creatinine (0.66-1.25) mg/dL Glucose (74-99) mg/dL POC Glucose (mg/dL) 326 H 344 H (75-99) mg/dL Iron (65-175) ug/dL Iron Saturation (15.00-50.00) CK-MB (CK-2) (0.0-2.4) ng/mL Troponin I (0.000-0.034) ng/mL Urine Protein (Negative) Urine Glucose (UA) (Negative) Hyaline Casts (0-2) /lpf Urine Mucus (None) /hpf Assessment and Plan Plan: Assessment 1 acute bibasilar pneumonia, community-acquired. Clinically the patient is improved and the patient's subsequent chest x-ray shows improvement in the bilateral lower lobe pulmonary infiltration and accommodation Rocephin and Zithromax. Oxygenation is also improved. 2 acute CHF, awaiting echocardiogram. Possible systolic dysfunction 3 acute hypoxic respiratory failure secondary to above, improved and the patient is currently on room air 4 acute non-STEMI with segmental wall motion abnormalities. Rule out underlying coronary artery disease. Currently free of any chest pain. Will need further cardiac evaluation at a later stage. 5 acute shortness of breath secondary to above, improved 6 chronic renal failure, stable 7 diabetes mellitus, insulin-dependent 8 hypertension 9 chronic atrial fibrillation maintained on long-term articulation with Eliquis Plan Continue antibiotics. Stopped IV Solu Medrol start the patient a prednisone burst taper. Management of atrial fibrillation. The patient is on long-term articulation with Eliquis. Chest x-rays improving. Oxygenation is improved. Will need further cardiac evaluation at the later stage in regards to underlying coronary artery disease.
[2018-01-22] MEDS: predniSONE 10 MG TAB PO SCH (13:08)
[2018-01-22] MEDS: FUROSEMIDE 40 MG TAB PO SCH ×2 (13:09→16:51)
[2018-01-22 16:41] LABS: Glucose,Whole Blood 313 mg/dL (75-99)
[2018-01-22] MEDS: AZITHROMYCIN 500 MG TAB PO SCH (19:49)
--- NOTE | 2018-01-22 20:17 | PN ---
PROGRESS NOTE This patient has been doing better. His breathing is improved. Denies any significant cough with expectoration. Vital signs are stable. Blood pressure is 135/83 mmHg, heart rate is 80 per minute. First and second heart sounds are normal. Lungs examination reveals a few basal rales. The patient's sodium is 133, creatinine 2.07. The troponin in the downward trend, 0.89. The patient's Lasix is changed to p.o. daily. Chest x-ray shows improvement in the bilateral basilar infiltrate. After the patient's creatinine has stabilized, we will consider cardiac catheterization in the next 2-3 days. The patient does carry increased risk of acute renal failure in view of the associated diabetes. MMODL / IJN: [id number] /
[2018-01-22] MEDS: INSULIN DETEMIR 100 UNIT/ML 10 ML VIAL SQ SCH (20:24)
[2018-01-22 20:55] LABS: Glucose,Whole Blood 187 mg/dL (75-99)
[2018-01-22] MEDS: cefTRIAXone IN SWFI 1,000 MG/10 ML SYRINGE IVP SCH (23:29)
[2018-01-23] MEDS: IPRATROPIUM-ALBUTEROL 3 ML NEB INHALATION SCH ×7 (00:03→18:59)
[2018-01-23 05:26] LABS: Glucose,Whole Blood 241 mg/dL (75-99)
[2018-01-23 06:30] LABS: Calcium 8.9 mg/dL (8.4-10.2); Magnesium 2.1 mg/dL (1.6-2.3); Potassium 4.8 mmol/L (3.5-5.1)
[2018-01-23 06:48] LABS: Glucose,Whole Blood 226 mg/dL (75-99)
[2018-01-23] MEDS: INSULIN ASPART 100 UNIT/ML 1 ML 10 ML VIAL SQ SCH ×7 (07:04→22:10)
[2018-01-23] MEDS: TIMOLOL 0.5% OPHTH DROPS 5 ML BTL RIGHT EYE SCH ×2 (08:31→21:39)
[2018-01-23] MEDS: BRIMONIDINE TARTRATE 0.2% DROPS 5 ML BTL RIGHT EYE SCH ×2 (08:31→21:38)
[2018-01-23] MEDS: DORZOLAMIDE HCL 2% DROPS 10 ML BTL RIGHT EYE SCH ×2 (08:31→17:20)
[2018-01-23] MEDS: PILOCARPINE 2% OPHTH DROPS 15 ML BTL RIGHT EYE SCH ×3 (08:31→17:21)
[2018-01-23] MEDS: METOPROLOL SUCCINATE (ER) 25 MG TAB.ER.24H PO SCH (08:33)
[2018-01-23] MEDS: ATORVASTATIN 20 MG TAB PO SCH (08:33)
[2018-01-23] MEDS: GABAPENTIN 100 MG CAP PO SCH ×3 (08:33→21:39)
[2018-01-23] MEDS: predniSONE 10 MG TAB PO SCH (08:33)
[2018-01-23] MEDS: FUROSEMIDE 40 MG TAB PO SCH (08:33)
[2018-01-23] MEDS: MORPHINE SULFATE 2 MG/ML SYRINGE IVP PRN (08:39)
[2018-01-23] MEDS ORDERED: ATORVASTATIN 80 MG TAB PO STA (09:40)
[2018-01-23] MEDS ORDERED: NITROGLYCERIN SL TABS 0.4 MG TAB SUBLINGUAL PRN (09:40)
[2018-01-23] MEDS ORDERED: ASPIRIN 325 MG TAB PO STA (09:40)
[2018-01-23] MEDS ORDERED: ALPRAZolam 0.25 MG TAB PO PRN (09:40)
[2018-01-23] MEDS ORDERED: SODIUM CHLORIDE 0.9% 1,000 ML in EMPTY BAG 1 BAG IV ONE (09:40)
--- NOTE | 2018-01-23 11:34 | P.PN ---
Subjective Progress Note Date: 01/23/18 Principal diagnosis: Acute community acquired bibasilar pneumonia, and acute exacerbation of systolic CHF. This is a 67-year-old male patient known history of chronic atrial fibrillation diabetes mellitus and chronic renal failure. The patient is a nonsmoker. No 68 chronic lung disease or disorder. No previous history of coronary artery disease. No previous history of CHF. The patient was in a good state of health. He comes in with 1-2 days history of worsening shortness of breath, cough and, feeling congested and he was also bringing up some red/blood-tinged sputum. Noted the patient on Eliquis. He presented emergency department and his chest x-ray showed bibasilar pulmonary infiltrates and findings consistent with CHF. He was afebrile. He was found to be quite hypoxic and he was placed on high flow oxygen. The BNP level was 7880. The troponins were minimally elevated at 0.09 and 0.9 respectively 2. CPK was not elevated. The patient had a white cell count of 13. He was admitted to the floor where he was started on a combination of Rocephin and Zithromax. Overnight he became more short of breath and he had an acute event where he became more hypoxic and he was seen by the hospitalist where he was given Lasix IV for worsening shortness of breath and concerns of pulmonary edema. Currently is on 8 L about 2 by nasal cannula and his pulse ox is above 90%. Echocardiogram was done and the results are still pending for now. EKG showing chronic atrial fibrillation. There is some ST segment abnormalities possibly laterally. He is also on IV Lasix 40 mg every 12 hours IV push. The patient is seen again today 01/20/2018 in follow-up on selective care unit. He is awake and alert in no acute distress. He is breathing a little easier today as compared to yesterday but still not quite back to his baseline. He is still requiring 8 L high flow nasal cannula to maintain O2 saturations in the 90s. He is currently afebrile. Today's chest x-ray does show improved aeration in the right lung base however they're persistent strand-like basilar opacities and trace pleural effusions. Echocardiogram did reveal mild to moderately impaired left ventricular systolic function with ejection fraction 40 -45%. There is apical inferior and septal left ventricular wall motion hypokinesia. Mild to moderate mitral regurgitation. There is severe pulmonary hypertension with an RVSP of 76.75 mmHg. Peak troponin 1.410. Cardiology is on the case as well. He remains on IV diuretics. He remains in a negative balance. Down another kilogram today. Creatinine 1.90. On 01/21/2018 patient seen in follow-up on selective care unit. Yesterday's chest x-ray has been reviewed and showed improved aeration in the right lung base, and persistent basilar opacities and trace pleural effusions. Clinically patient is in no acute distress, his he is coughing, but not bringing up any sputum. Lung sounds reveal a few rales over right lower lobe, rhonchi no wheezing noted. He remains in A. fib, his pulse ox is 98% on 8 L per nasal cannula, his FiO2 will be decreased to 6 L, will continue weaning it to keep the pulse ox above 92%. Today's lab work was reviewed, CBC, sodium is 134, potassium is 4.7, BUN is 35, creatinine is 1.90. Patient is an 1120 ML negative fluid balance. He still has trace edema in bilateral pretibial areas. We will continue current medical treatment, continue with IV diuretics and current antibiotic coverage. On the way 2017 patient seen again in follow-up on selective care unit. Breathing easier today, occasional cough with production of small amount of blood-tinged sputum. No fever, no chills, yesterday chest x-ray shows improved aeration old lung bases. And the small right-sided pleural effusion, and mild cardiomegaly. Patient has been tolerating ambulation, no chest pain, no worsening dyspnea. Has been treated with a combination of Zithromax and Rocephin, for community acquired pneumonia, and he is improving. Renal profile remains impaired, B1 is 62, creatinine is stable at 2.07, the rest the electrolytes are relatively unremarkable. No CBC was done today, no new chest x -ray. Clinically patient is stable, and continues to improve. Lung sounds are positive for some limited crackles at the right lower base, and patient has 1+ pitting edema in bilateral lower extremities. The patient will receive 1 dose of IV Lasix. Continue with all other current medical treatments. Objective - Vital Signs Vital signs: Vital Signs Temp 97.4 F L 01/23/18 08:00 Pulse 80 01/23/18 11:13 Resp 16 01/23/18 11:16 BP 161/100 01/23/18 08:00 Pulse Ox 98 01/23/18 08:00 Intake & Output 01/22/18 01/23/18 01/23/18 18:59 06:59 18:59 Intake Total 840 360 Output Total 1600 901 Balance -760 -901 360 Weight 96.2 kg Intake: Oral 840 360 Output: Urine 1600 901 Other: Voiding Method Urinal Urinal Urinal # Voids 1 1 # Bowel Movements 0 0 - Exam Gen. appearance is calm and comfortable mild respiratory distress still requiring 8L of oxygen by nasal cannula Head exam was generally normal. There was no scleral icterus or corneal arcus. Mucous membranes were moist. Neck was supple and without jugular venous distension, thyromegaly, or carotid bruits. Carotids were easily palpable bilaterally. There was no adenopathy. Lungs sounds are diminished bilaterally along with some crackles worse on the right. Cardiac exam revealed the PMI to be normally situated and sized. The rhythm is irregular S1-S2 secondary to atrial fibrillation and no extrasystoles were noted during several minutes of auscultation. The first and second heart sounds were normal and physiologic splitting of the second heart sound was noted. There were no murmurs, rubs, clicks, or gallops. Abdominal exam revealed normal bowel sounds. The abdomen was soft, non-tender, and without masses, organomegaly, or appreciable enlargement of the abdominal aorta. Examination of the extremities revealed easily palpable radial, femoral and pedal pulses. There was no cyanosis, clubbing, 1+ pretibial edema bilaterally Examination of the skin revealed no evidence of significant rashes, suspicious appearing nevi or other concerning lesions. Neurologically the patient is awake and alert and there is no focal neurological deficits. - Labs CBC & Chem 7: 01/19/18 00:00 01/23/18 05:53 Labs: Abnormal Lab Results - Last 24 Hours (Table) 01/22/18 01/22/18 01/22/18 Range/Units 05:26 11:26 16:31 Sodium (137-145) mmol/L BUN (9-20) mg/dL Creatinine (0.66-1.25) mg/dL Glucose (74-99) mg/dL POC Glucose (mg/dL) 344 H 313 H (75-99) mg/dL CK-MB (CK-2) 3.1 H* (0.0-2.4) ng/mL Troponin I 0.889 H* (0.000-0.034) ng/mL 01/22/18 01/23/18 01/23/18 Range/Units 20:51 05:24 05:53 Sodium 135 L (137-145) mmol/L BUN 62 H (9-20) mg/dL Creatinine 2.07 H (0.66-1.25) mg/dL Glucose 226 H (74-99) mg/dL POC Glucose (mg/dL) 187 H 241 H (75-99) mg/dL CK-MB (CK-2) (0.0-2.4) ng/mL Troponin I (0.000-0.034) ng/mL 01/23/18 Range/Units 06:46 Sodium (137-145) mmol/L BUN (9-20) mg/dL Creatinine (0.66-1.25) mg/dL Glucose (74-99) mg/dL POC Glucose (mg/dL) 226 H (75-99) mg/dL CK-MB (CK-2) (0.0-2.4) ng/mL Troponin I (0.000-0.034) ng/mL Assessment and Plan Plan: Assessment: 1 acute bibasilar pneumonia, community-acquired, improving 2 acute exacerbation of systolic congestive heart failure. Mild to moderately impaired left ventricular systolic function with ejection fraction 40-45%. There is also noted hypokinesia of the apical inferior and septal wall of the LV. 3 acute hypoxic respiratory failure secondary to above currently on 6 L of oxygen by nasal cannula 4 troponin leak with some limited ST segment depressions over the lateral leads. Rule out underlying coronary artery disease. 5 acute shortness of breath secondary to above 6 chronic renal failure, stable 7 diabetes mellitus, insulin-dependent 8 hypertension 9 chronic 80 fibrillation maintained on long-term articulation with Eliquis Plan: Keep current antibiotic coverage, patient is afebrile, no wheezing, no worsening congestion, no fever, no chills. Yesterday his chest x-ray showed small right plural effusion, and mild fluid overload, in addition patient has bilateral lower extremity edema, we'll give the patient 1 dose of IV Lasix. Patient remains stable, and continues to improve, increase activity as tolerated. I performed a history & physical examination of the patient and discussed their management with my nurse practitioner, Verónica Bridges. I reviewed the nurse practitioner's note and agree with the documented findings and plan of care. Lung sounds are crackles at the right lower base. The findings and the impression was discussed with the patient. I attest to the documentation by the nurse practitioner. Time with Patient: Less than 30
[2018-01-23 11:40] LABS: Glucose,Whole Blood 176 mg/dL (75-99)
[2018-01-23] MEDS: FUROSEMIDE 10 MG/ML 4 ML VIAL IV STA ×2 (11:49→11:50)
--- NOTE | 2018-01-23 12:06 | P.PN ---
Subjective Progress Note Date: 01/23/18 Principal diagnosis: pneumonia, CHF exacerbation. patient was seen and examined. No acute events overnight. patient reports improved breathing, improved cough. Objective - Vital Signs Vital signs: Vital Signs Temp 97.4 F L 01/23/18 08:00 Pulse 80 01/23/18 11:13 Resp 16 01/23/18 11:16 BP 161/100 01/23/18 08:00 Pulse Ox 98 01/23/18 08:00 Intake & Output 01/22/18 01/23/18 01/23/18 18:59 06:59 18:59 Intake Total 840 360 Output Total 1600 901 Balance -760 -901 360 Weight 96.2 kg Intake: Oral 840 360 Output: Urine 1600 901 Other: Voiding Method Urinal Urinal Urinal # Voids 1 1 # Bowel Movements 0 0 - Exam General: non toxic, no distress, appears at stated age Derm: warm, dry Head: atraumatic, normocephalic, symmetric Eyes: EOMI, no lid lag, anicteric sclera Mouth: no lip lesion, mucus membranes moist Cardiovascular: S1S2 reg, no murmur, Irregular, positive posterior tibial pulse bilateral, Lungs: Decreased BS BL , no accessory muscle use Abdominal: soft, nontender to palpation, no guarding, no appreciable organomegaly Ext: no gross muscle atrophy, 1+ LE edema BL, no contractures Neuro: CN II-XI grossly intact, no focal neuro deficits Psych: Alert, oriented, appropriate affect - Labs CBC & Chem 7: 01/19/18 00:00 01/23/18 05:53 Labs: Abnormal Lab Results - Last 24 Hours (Table) 01/22/18 01/22/18 01/23/18 Range/Units 16:31 20:51 05:24 Sodium (137-145) mmol/L BUN (9-20) mg/dL Creatinine (0.66-1.25) mg/dL Glucose (74-99) mg/dL POC Glucose (mg/dL) 313 H 187 H 241 H (75-99) mg/dL 01/23/18 01/23/18 01/23/18 Range/Units 05:53 06:46 11:39 Sodium 135 L (137-145) mmol/L BUN 62 H (9-20) mg/dL Creatinine 2.07 H (0.66-1.25) mg/dL Glucose 226 H (74-99) mg/dL POC Glucose (mg/dL) 226 H 176 H (75-99) mg/dL Assessment and Plan Assessment: Assessment 67 year old M with PMH of A-Fib, CHF, DM, CKD presents to the ED for cough and SOB. Admitted for PNA and CHF exacerbation. Plan 1. Pneumonia: Community acquired. Patient is afebrile with a WBC of 13.3 (8). CXR shows BL lower lobe PNA. Continue DuoNeb Q4 scheduled. Stopped Solumedrol IV and started Prednisone taper per Pulmonology recommendations. Azithromycin PO and Ceftriaxone IV for Abx. O2 per NC to maintain O2 > 92%. FU Pulmonology 2. CHF exacerbation: Echo 01/2018 shows EF 40-45% with hypokinetic menendez. Lasix 40 PO BID DCd by Cardiology and given one time dose of Lasix 40 IV. Continue BB. Add ACEi when Cr improved. Daily weights. Ins and Outs. Keep K > 4 and Mg > 2. FU Cardiology regarding possible cath 3. DM: POC glucose 176. Continue Levemir 35 units QHS, ISS, [id number] units TID. Lipitor 20 mg PO QHS for ASCVD risk. Hypoglycemic precautions. Accuchecks QID. Diabetic diet. FU A1c 4. REAL on CKD: BUN 48 Cr 2.07. Worsening, likely due to IV Lasix use. Lasix cut down today. Normal kidneys on US. Avoid nephrotoxins. FU Nephrology 5. Troponemia: Likely leak from CHF. Trops 0.09, 0.974, 1.150, 1.410. EKG shows A Fib with non specific ST and T wave changes. Repeat Trop 0.889, trending down. 6. A-Fib: AC with Eliquis 5 mg PO BID. Rate control with Metoprolol 25 mg PO QD. Telemetry monitoring. Keep K > 4 and Mg > 2. 7. Anemia: Hg 9.9 Hct 30.6 MCV 86.2. Iron studies show low iron with normal Ferritin. Will need C-scope outPT. PCP outPT. 8. Glaucoma: Timolol, Pilocarpine, Dorzolamide, Brimonidine drops. Ophthalmology outPT. Patient shows great improvement clinically. Possible plans for coronary angiogram tomorrow.
[2018-01-23] MEDS ORDERED: SODIUM CHLORIDE 0.9% 1,000 ML IV SCH (12:45)
--- NOTE | 2018-01-23 13:17 | P.PN ---
Subjective Patient is seen in follow-up for acute kidney injury and chronic kidney disease. Patient states he was told he had chronic kidney disease stage III and was scheduled to see a transition coach as an outpatient in the near future. Creatinine stable at 2.07 today. Dyspnea is improved. No vomiting or diarrhea. Admits to good urine output. He is noted to have systolic CHF with ejection fraction of 40-45% with mild to moderate mitral regurgitation and severe pulmonary hypertension. Vital signs are stable. General: The patient appeared well nourished and normally developed. HEENT: Head exam is unremarkable. Neck is without jugular venous distension. LUNGS: Breath sounds decreased. HEART: Rate and Rhythm are regular. First and second heart sounds normal. No murmurs, rubs or gallops. ABDOMEN: Abdominal exam reveals normal bowel sounds. Non-tender and non- distended. No evidence of peritonitis. EXTREMITITES: No clubbing, cyanosis, or edema. Objective - Vital Signs Vital signs: Vital Signs Temp 97.4 F L 01/23/18 08:00 Pulse 95 01/23/18 12:00 Resp 16 01/23/18 12:00 BP 130/73 01/23/18 12:00 Pulse Ox 95 01/23/18 12:00 Intake & Output 01/22/18 01/23/18 01/23/18 18:59 06:59 18:59 Intake Total 840 360 Output Total 1600 901 Balance -760 -901 360 Weight 96.2 kg Intake: Oral 840 360 Output: Urine 1600 901 Other: Voiding Method Urinal Urinal Urinal # Voids 1 1 # Bowel Movements 0 0 - Labs CBC & Chem 7: 01/19/18 00:00 01/23/18 05:53 Labs: Abnormal Lab Results - Last 24 Hours (Table) 01/22/18 01/22/18 01/23/18 Range/Units 16:31 20:51 05:24 Sodium (137-145) mmol/L BUN (9-20) mg/dL Creatinine (0.66-1.25) mg/dL Glucose (74-99) mg/dL POC Glucose (mg/dL) 313 H 187 H 241 H (75-99) mg/dL 01/23/18 01/23/18 01/23/18 Range/Units 05:53 06:46 11:39 Sodium 135 L (137-145) mmol/L BUN 62 H (9-20) mg/dL Creatinine 2.07 H (0.66-1.25) mg/dL Glucose 226 H (74-99) mg/dL POC Glucose (mg/dL) 226 H 176 H (75-99) mg/dL Assessment and Plan Plan: Assessment: 1. Nonoliguric acute kidney injury secondary to ATN secondary to cardiorenal syndrome. Creatinine stable at 2.07 today. No evidence of hydronephrosis noted on renal ultrasound. 2. Chronic kidney disease stage III. Patient has an appointment to see a transition coach in the near future in [facility]. Etiology is likely diabetic kidney disease. 3. Systolic CHF with ejection fraction of 40-45% with mild to moderate mitral regurgitation and severe pulmonary hypertension. 4. Volume overload. Improved with diuresis. 5. Diabetes mellitus. 6. Hypertonic hyponatremia secondary to hyperglycemia. Corrected sodium is in the normal range. 7. Pneumonia maintained on antibiotics. 8. Metabolic acidosis secondary to acute kidney injury. 9. Hypomagnesemia secondary to diuresis. Improved post replacement. Plan: Hold Lasix. Scheduled for cardiac catheterization tomorrow. I discussed with him the risk of developing worsening renal failure from contrast exposure. Patient understands. Cleared for cardiac cath from nephrology standpoint. Avoid IV hydration as patient is still hypervolemic. Avoid nephrotoxic agents and hypotensive episodes. Repeat electrolytes in the morning.
--- NOTE | 2018-01-23 14:27 | PN ---
PROGRESS NOTE This patient was admitted with respiratory distress and was treated for pneumonia as well as heart failure. Patient's troponin suggestive of non ST-segment elevation myocardial infarction. The patient's echocardiogram suggestive of septal hypokinesia. This raises a possibility of underlying coronary artery disease. We had a long discussion with the patient. In view of his renal failure and diabetes, he does carry some risk of acute kidney injury. He wants to proceed with cardiac catheterization. The patient's creatinine is 2.0 today. We will hydrate him with 75 mL/hour from today and use the minimum dye during the catheterization. The patient's lungs are fairly clear to auscultation and percussion. MMODL / IJN: [id number] /
[2018-01-23 17:00] LABS: Glucose,Whole Blood 286 mg/dL (75-99)
[2018-01-23 21:10] LABS: Glucose,Whole Blood 489 mg/dL (75-99)
[2018-01-23] MEDS: AZITHROMYCIN 500 MG TAB PO SCH (21:38)
[2018-01-23 21:42] LABS: Glucose,Whole Blood 484 mg/dL (75-99)
[2018-01-23] MEDS: INSULIN DETEMIR 100 UNIT/ML 10 ML VIAL SQ SCH (22:11)
[2018-01-24] MEDS: IPRATROPIUM-ALBUTEROL 3 ML NEB INHALATION SCH ×6 (00:01→19:55)
[2018-01-24] MEDS: PILOCARPINE 2% OPHTH DROPS 15 ML BTL RIGHT EYE SCH ×5 (00:09→21:16)
[2018-01-24] MEDS: DORZOLAMIDE HCL 2% DROPS 10 ML BTL RIGHT EYE SCH ×4 (00:09→21:18)
[2018-01-24] MEDS: ALPRAZolam 0.5 MG TAB PO PRN ×3 (00:18→15:06)
[2018-01-24] MEDS: cefTRIAXone IN SWFI 1,000 MG/10 ML SYRINGE IVP SCH (00:20)
[2018-01-24 05:48] LABS: Glucose,Whole Blood 263 mg/dL (75-99)
[2018-01-24] MEDS: ATORVASTATIN 20 MG TAB PO SCH (06:20)
[2018-01-24] MEDS: GABAPENTIN 100 MG CAP PO SCH ×3 (06:21→21:18)
[2018-01-24] MEDS: METOPROLOL SUCCINATE (ER) 25 MG TAB.ER.24H PO SCH (06:21)
[2018-01-24] MEDS: INSULIN ASPART 100 UNIT/ML 1 ML 10 ML VIAL SQ SCH ×7 (06:26→21:16)
[2018-01-24] MEDS: predniSONE 10 MG TAB PO SCH (06:29)
[2018-01-24 06:45] LABS: Potassium 4.2 mmol/L (3.5-5.1)
--- NOTE | 2018-01-24 08:52 | P.PN ---
Subjective Progress Note Date: 01/24/18 Principal diagnosis: Pneumonia, CHF exacerbation. Patient seen and examined. No acute events overnight. Patient reports improvement in his breathing. Patient scheduled for cardiac catheterization. Objective - Vital Signs Vital signs: Vital Signs Temp 98.1 F 01/24/18 04:00 Pulse 96 01/24/18 07:42 Resp 18 01/24/18 04:00 BP 165/91 01/24/18 04:00 Pulse Ox 98 01/24/18 04:00 Intake & Output 01/23/18 01/24/18 01/24/18 18:59 06:59 18:59 Intake Total 718 Output Total 600 Balance 718 -600 Intake: Oral 718 Output: Urine 600 Other: Voiding Method Urinal Urinal # Voids 3 3 # Bowel Movements 0 0 - Exam General: non toxic, no distress, appears at stated age Derm: warm, dry Head: atraumatic, normocephalic, symmetric Eyes: EOMI, no lid lag, anicteric sclera Mouth: no lip lesion, mucus membranes moist Cardiovascular: S1S2 reg, no murmur, Irregular Lungs: Good air entry BL , no accessory muscle use Abdominal: soft, nontender to palpation, no guarding, no appreciable organomegaly Ext: no gross muscle atrophy, 1+ LE edema BL (improving), no contractures Neuro: CN II-XI grossly intact, no focal neuro deficits Psych: Alert, oriented, appropriate affect - Labs CBC & Chem 7: 01/19/18 00:00 01/24/18 05:47 Labs: Abnormal Lab Results - Last 24 Hours (Table) 01/23/18 01/23/18 01/23/18 Range/Units 11:39 16:58 20:42 Sodium (137-145) mmol/L BUN (9-20) mg/dL Creatinine (0.66-1.25) mg/dL Glucose (74-99) mg/dL POC Glucose (mg/dL) 176 H 286 H 489 H (75-99) mg/dL 01/23/18 01/24/18 01/24/18 Range/Units 21:41 05:47 05:47 Sodium 135 L (137-145) mmol/L BUN 63 H (9-20) mg/dL Creatinine 1.90 H (0.66-1.25) mg/dL Glucose 231 H (74-99) mg/dL POC Glucose (mg/dL) 484 H 263 H (75-99) mg/dL Assessment and Plan Assessment: Assessment 67 year old M with PMH of A-Fib, CHF, DM, CKD presents to the ED for cough and SOB. Admitted for PNA and CHF exacerbation. Plan 1. CHF exacerbation: Echo 01/2018 shows EF 40-45% with hypokinetic menendez. Continue BB. Add ACEi on DC. Daily weights. Ins and Outs. Keep K > 4 and Mg > 2. Cath today. FU Cardiology 2. Pneumonia: Community acquired. Patient is afebrile with a WBC of 13.3 (01/19). CXR shows BL lower lobe PNA. Legionella negative. Continue DuoNeb Q4 scheduled. Stopped Solumedrol IV and started Prednisone taper per Pulmonology recommendations. Azithromycin PO and Ceftriaxone IV for Abx. O2 per NC to maintain O2 > 92%. FU Pulmonology 3. DM: POC glucose 263. Continue Levemir 35 units QHS, ISS, Novolog 12 units TID. Lipitor 20 mg PO QHS for ASCVD risk. Hypoglycemic precautions. Accuchecks QID. Diabetic diet. FU A1c 4. REAL on CKD: BUN 62 Cr 2.07. Worsening, likely due to IV Lasix use. Lasix stopped today. Normal kidneys on US. Avoid nephrotoxins. Cleared for Angiogram. FU Nephrology 5. Troponemia: Likely leak from CHF. Trops 0.09, 0.974, 1.150, 1.410. EKG shows A Fib with non specific ST and T wave changes. Repeat Trop 0.889, trending down. 6. A-Fib: AC with Eliquis 5 mg PO BID. Rate control with Metoprolol 25 mg PO QD. Telemetry monitoring. Keep K > 4 and Mg > 2. 7. Anemia: Hg 9.9 Hct 30.6 MCV 86.2. Iron studies show low iron with normal Ferritin. Will need C-scope outPT. 8. Glaucoma: Timolol, Pilocarpine, Dorzolamide, Brimonidine drops. Ophthalmology outPT. Patient to go for cath today. He is cleared by nephrology, where of the risks involved with this procedure given his renal status. He will need to have his renal function monitored very closely postprocedure.
[2018-01-24] MEDS ORDERED: APIXABAN 5 MG TAB PO SCH (09:00)
--- NOTE | 2018-01-24 10:25 | P.PN ---
Subjective Patient is seen in follow-up for acute kidney injury and chronic kidney disease. Patient states he was told he had chronic kidney disease stage III and was scheduled to see a custom shoe designer and maker as an outpatient in the near future. Creatinine down to 1.9 today. Dyspnea is improved. No vomiting or diarrhea. Admits to good urine output. He is noted to have systolic CHF with ejection fraction of 40-45% with mild to moderate mitral regurgitation and severe pulmonary hypertension. Vital signs are stable. General: The patient appeared well nourished and normally developed. HEENT: Head exam is unremarkable. Neck is without jugular venous distension. LUNGS: Breath sounds decreased. HEART: Rate and Rhythm are regular. First and second heart sounds normal. No murmurs, rubs or gallops. ABDOMEN: Abdominal exam reveals normal bowel sounds. Non-tender and non- distended. No evidence of peritonitis. EXTREMITITES: Trace edema. Objective - Vital Signs Vital signs: Vital Signs Temp 98.6 F 01/24/18 08:00 Pulse 81 01/24/18 08:00 Resp 18 01/24/18 08:00 BP 162/79 01/24/18 08:00 Pulse Ox 94 L 01/24/18 08:00 Intake & Output 01/23/18 01/24/18 01/24/18 18:59 06:59 18:59 Intake Total 718 Output Total 600 Balance 718 -600 Intake: Oral 718 Output: Urine 600 Other: Voiding Method Urinal Urinal Urinal # Voids 3 3 # Bowel Movements 0 0 - Labs CBC & Chem 7: 01/19/18 00:00 01/24/18 05:47 Labs: Abnormal Lab Results - Last 24 Hours (Table) 01/23/18 01/23/18 01/23/18 Range/Units 11:39 16:58 20:42 Sodium (137-145) mmol/L BUN (9-20) mg/dL Creatinine (0.66-1.25) mg/dL Glucose (74-99) mg/dL POC Glucose (mg/dL) 176 H 286 H 489 H (75-99) mg/dL 01/23/18 01/24/18 01/24/18 Range/Units 21:41 05:47 05:47 Sodium 135 L (137-145) mmol/L BUN 63 H (9-20) mg/dL Creatinine 1.90 H (0.66-1.25) mg/dL Glucose 231 H (74-99) mg/dL POC Glucose (mg/dL) 484 H 263 H (75-99) mg/dL Assessment and Plan Plan: Assessment: 1. Nonoliguric acute kidney injury secondary to ATN secondary to cardiorenal syndrome. Creatinine down to 1.9 today. No evidence of hydronephrosis noted on renal ultrasound. 2. Chronic kidney disease stage III. Patient has an appointment to see a custom shoe designer and maker in the near future in [facility]. Etiology is likely diabetic kidney disease. 3. Systolic CHF with ejection fraction of 40-45% with mild to moderate mitral regurgitation and severe pulmonary hypertension. 4. Volume overload. Improved with diuresis. 5. Diabetes mellitus. 6. Hypertonic hyponatremia secondary to hyperglycemia. Corrected sodium is in the normal range. 7. Pneumonia maintained on antibiotics. 8. Metabolic acidosis secondary to acute kidney injury. 9. Hypomagnesemia secondary to diuresis. Improved post replacement. Plan: Hold Lasix. Scheduled for cardiac catheterization tomorrow. I discussed with him the risk of developing worsening renal failure from contrast exposure. Patient understands. Cleared for cardiac cath from nephrology standpoint. Avoid IV hydration as patient is still hypervolemic. Avoid nephrotoxic agents and hypotensive episodes. Repeat electrolytes in the morning. Can likely resume lasix tomorrow.
[2018-01-24] MEDS ORDERED: ASPIRIN 325 MG TAB ONE (10:40)
[2018-01-24] MEDS ORDERED: LIDOCAINE 1% INJ 10MG/ML (20 ML MDV) ONE (10:40)
[2018-01-24] MEDS ORDERED: MIDAZOLAM 2 MG/2 ML VIAL ONE (10:48)
[2018-01-24] MEDS ORDERED: fentaNYL (PF) 50 MCG/ML 2 ML AMP ONE (10:48)
[2018-01-24] MEDS ORDERED: SODIUM CHLORIDE 0.9% 500 ML IV ONE (10:49)
[2018-01-24] MEDS ORDERED: ASPIRIN 325 MG TAB PO ONE (11:00)
[2018-01-24] MEDS ORDERED: fentaNYL (PF) 50 MCG/ML 2 ML AMP IV ONE (11:10)
[2018-01-24] MEDS ORDERED: LIDOCAINE 1% INJ 10MG/ML (20 ML MDV) SQ ONE (11:13)
[2018-01-24] MEDS ORDERED: NITROGLYCERIN SL TABS 0.4 MG TAB SUBLINGUAL ONE ×2 (11:16→11:17)
[2018-01-24] MEDS ORDERED: METOPROLOL TARTRATE 5 MG/5 ML VIAL IVP ONE ×2 (11:27→11:34)
[2018-01-24] MEDS ORDERED: NITROGLYCERIN OINT 1 INCH/GM PACKET TOPICAL ONE ×3 (11:27→11:34)
[2018-01-24] MEDS ORDERED: IOPAMIDOL-370 125ML BTL INJ ONE (11:34)
[2018-01-24] MEDS ORDERED: RX INFO: IV CONTRAST WAS GIVEN 1 EACH MISC MISCELLANE PRN (11:52)
[2018-01-24] MEDS ORDERED: HEPARIN SODIUM,PORCINE 5,000 UNIT/ML 1 ML VIAL IV PRN (11:54)
[2018-01-24 11:55] LABS: Glucose,Whole Blood 169 mg/dL (75-99)
[2018-01-24] MEDS: BRIMONIDINE TARTRATE 0.2% DROPS 5 ML BTL RIGHT EYE SCH ×2 (12:55→21:17)
--- NOTE | 2018-01-24 12:55 | CC ---
CARDIAC CATHETERIZATION REPORT Mr. Ochoa is a 67-year-old gentleman who was admitted with symptoms of shortness of breath. Patient was initially treated for pneumonia and heart failure. Patient also has a history of diabetes and chronic atrial fibrillation. The patient had a positive cardiac enzymes suggestive of non-Q-wave myocardial infarction. Echocardiogram revealed apical septal hypokinesia in view of that, after the patient was stabilized the patient was advised cardiac catheterization to rule out significant coronary artery disease. The patient's creatinine is was in the range of 1.9 patient was fully explained the risk of dye toxicity and acute renal failure. PROCEDURE: The right groin was prepped and draped in the usual manner and the skin was infiltrated with 2% Xylocaine the right femoral artery was entered using Seldinger technique a #6- Uzbek sheath was placed in. Selective coronary angiography was then performed in multiple projections and the left ventricular pressures were obtained. The patient tolerated the procedure well. Sheath was removed and good hemostasis was achieved with the use of Angio-Seal hemodynamics the left ventricular end-diastolic pressure is 16 mmHg. A cartilage graft. Left ventriculography was not performed because of abnormal kidney function test up to total sedation moderate sedation was used total sedation time is 30 minutes. SELECTIVE CORONARY ANGIOGRAPHY: Left main coronary artery shows a 70%-80% stenosis in its mid portion. The LAD is diffusely diseased. The ostial LAD has about 50% stenosis. It gives rise to a good size diagonal branch. The diagonal branch itself has 70% stenosis. Mid LAD has mild irregularity. There is a good size intermediate branch which has minimal irregularities. Circumflex coronary artery in the proximal portion has mild irregularity but then in Magda a groove branch. Right coronary artery is diffusely diseased. Good caliber blood vessel. Proximally it has got FA about 50% to 60% stenosis. The PDA branch has a 70% stenosis. FINAL IMPRESSION: This study shows diffuse triple-vessel disease with a left main of about 70%-80%. RECOMMENDATIONS: We will review the films with the cardiac surgeons for coronary artery bypass surgery. The surgery is a high risk because of the patient's multiple comorbid conditions. We will recheck the BMP tomorrow. MMODL / IJN: [id number] /
[2018-01-24] MEDS: TIMOLOL 0.5% OPHTH DROPS 5 ML BTL RIGHT EYE SCH ×2 (12:57→21:17)
[2018-01-24] MEDS: SODIUM CHLORIDE 0.9% 1,000 ML IV SCH ×2 (12:58→21:18)
--- NOTE | 2018-01-24 13:22 | P.GSCN ---
History of Present Illness Consult date: 01/24/18 Reason for Consult: Diffuse triple-vessel coronary artery disease, surgical recommendations Requesting physician: Orlando Rodriguez History of present illness: This is a 67-year-old gentleman who follows with Dr. Cain on an outpatient basis. He has a previous medical history of insulin-dependent diabetes, chronic kidney disease stage III, chronic atrial fibrillation on Eliquis, hypertension, and hyperlipidemia. He presented to [facility] via EMS on January 18 with complaints of progressive shortness of breath and coughing for several days along with diaphoresis and nausea. He denied any chest pain, vomiting, diarrhea, fevers, chills, sick contacts, or recent travel. He was found to be hypoxic by EMS with a room air oxygen saturation of 78%. Upon arrival to the emergency room he had a chest x-ray demonstrating possible pneumonia. EKG demonstrated atrial fibrillation. Cardiac troponins were elevated and patient was ruled in for non-STEMI. He had a transthoracic echocardiogram demonstrating impaired ventricular function with ejection fraction of 40-45%, hypokinetic apical inferior LV wall motion as well as septal LV wall motion, mild to moderate mitral regurgitation, mild tricuspid regurgitation, and severe pulmonary hypertension with an RVSP of 76.75. The patient was admitted and was treated for acute systolic heart failure as well as pneumonia in addition to acute on chronic kidney disease. Once stabilized he was recommended to undergo heart catheterization which was completed today and which demonstrated left main stenosis 70%, ostial LAD lesion of 50%, diagonal lesion of 70%, proximal RCA stenosis 50%, with PDA stenosis 80%. Dr. Collins from cardiothoracic surgery was consulted regarding surgical recommendations. Review of Systems Review of systems was completed and was negative except as noted. - Constitutional Reports sweats - Respiratory Reports as per HPI, Reports cough, Reports dyspnea Past Medical History Past Medical History: Atrial Fibrillation, Coronary Artery Disease (CAD), CVA/ TIA, Diabetes Mellitus, Hyperlipidemia, Hypertension, Myocardial Infarction (NM) , Pneumonia, Renal Disease History of Any Multi-Drug Resistant Organisms: None Reported Past Surgical History: No Surgical Hx Reported Past Anesthesia/Blood Transfusion Reactions: No Reported Reaction Past Psychological History: No Psychological Hx Reported Smoking Status: Never smoker Past Alcohol Use History: None Reported Past Drug Use History: None Reported - Past Family History Father Family Medical History: Hypertension Medications and Allergies Home Medications Medication Instructions Recorded Confirmed Type Apixaban [Eliquis] 5 mg PO BID 01/19/18 01/19/18 History Atorvastatin [Lipitor] 20 mg PO DAILY 01/19/18 01/19/18 History Brimonidine Tartrate [Alphagan P 1 drop RIGHT EYE BID 01/19/18 01/19/18 History 0.2% Ophth Soln] Brinzolamide [Azopt 1% Ophth Susp] 1 drop RIGHT EYE BID 01/19/18 01/19/18 History Gabapentin [Neurontin] 100 mg PO TID 01/19/18 01/19/18 History Insulin Aspart [NovoLOG] 15 units SQ AC-TID 01/19/18 01/19/18 History Insulin Glargine [Lantus] 35 unit SQ HS 01/19/18 01/19/18 History Metoprolol Succinate (ER) [Toprol 25 mg PO DAILY 01/19/18 01/19/18 History XL] Pilocarpine HCl [Isopto Carpine 4%] 1 drop RIGHT EYE QID 01/19/18 01/19/18 History Timolol 0.5% Ophth Soln [Timoptic 1 drop RIGHT EYE BID 01/19/18 01/19/18 History 0.5% Ophth Soln] amLODIPine [Norvasc] 5 mg PO DAILY 01/19/18 01/19/18 History metFORMIN HCL [Glucophage] 500 mg PO BID 01/19/18 01/19/18 History Allergies Allergy/AdvReac Type Severity Reaction Status Date / Time No Known Allergies Allergy Verified 01/18/18 23:50 Surgical - Exam Vital Signs Temp Pulse Resp BP Pulse Ox 99.3 F 90 28 H 166/79 88 L 01/18/18 23:44 01/18/18 23:44 01/18/18 23:44 01/18/18 23:44 01/18/18 23:44 - General well developed, well nourished, no distress, no pain, chronically ill, obese - Eyes PERRL, normal ocular movement - ENT no hearing loss - Neck no masses, no bruits, trachea midline - Respiratory Lungs sounds diminished bilaterally. Respirations even, nonlabored. Currently on 2 L nasal cannula with oxygen saturation 92%. No chest wall deformities. - Cardiovascular S1, S2 present. Irregular rate and rhythm, atrial fibrillation on telemetry. Palpable peripheral pulses bilaterally. Bilateral lower extremity edema present. No calf pain or tenderness noted. No varicosities noted. - Abdomen Abdomen: soft, non tender, bowel sounds - Genitourinary Deferred - Rectum Deferred - Integumentary no rash, no growths - Neurologic normal coordination, normal sensation - Psychiatric oriented to time, oriented to person, oriented to place, speech is normal Results - Labs 01/19/18 00:00 01/24/18 05:47 Abnormal Lab Results - Last 24 Hours (Table) 01/23/18 01/23/18 01/23/18 Range/Units 16:58 20:42 21:41 Sodium (137-145) mmol/L BUN (9-20) mg/dL Creatinine (0.66-1.25) mg/dL Glucose (74-99) mg/dL POC Glucose (mg/dL) 286 H 489 H 484 H (75-99) mg/dL 01/24/18 01/24/18 01/24/18 Range/Units 05:47 05:47 11:52 Sodium 135 L (137-145) mmol/L BUN 63 H (9-20) mg/dL Creatinine 1.90 H (0.66-1.25) mg/dL Glucose 231 H (74-99) mg/dL POC Glucose (mg/dL) 263 H 169 H (75-99) mg/dL Diabetes panel 01/24/18 Range/Units 05:47 Sodium 135 L (137-145) mmol/L Potassium 4.2 (3.5-5.1) mmol/L Chloride 98 (98-107) mmol/L Carbon Dioxide 25 (22-30) mmol/L BUN 63 H (9-20) mg/dL Creatinine 1.90 H (0.66-1.25) mg/dL Glucose 231 H (74-99) mg/dL Calcium 9.0 (8.4-10.2) mg/dL Calcium panel 01/24/18 Range/Units 05:47 Calcium 9.0 (8.4-10.2) mg/dL Pituitary panel 01/24/18 Range/Units 05:47 Sodium 135 L (137-145) mmol/L Potassium 4.2 (3.5-5.1) mmol/L Chloride 98 (98-107) mmol/L Carbon Dioxide 25 (22-30) mmol/L BUN 63 H (9-20) mg/dL Creatinine 1.90 H (0.66-1.25) mg/dL Glucose 231 H (74-99) mg/dL Calcium 9.0 (8.4-10.2) mg/dL Adrenal panel 01/24/18 Range/Units 05:47 Sodium 135 L (137-145) mmol/L Potassium 4.2 (3.5-5.1) mmol/L Chloride 98 (98-107) mmol/L Carbon Dioxide 25 (22-30) mmol/L BUN 63 H (9-20) mg/dL Creatinine 1.90 H (0.66-1.25) mg/dL Glucose 231 H (74-99) mg/dL Calcium 9.0 (8.4-10.2) mg/dL - Imaging Chest x-ray: report reviewed, image reviewed EKG: image reviewed Additional studies: Heart catheterization films reviewed. Assessment and Plan (1) Hypertension Current Visit: Yes Status: Chronic Code(s): I10 - ESSENTIAL (PRIMARY) HYPERTENSION SNOMED Code(s): 34505054 (2) Hyperlipidemia Current Visit: Yes Status: Chronic Code(s): E78.5 - HYPERLIPIDEMIA, UNSPECIFIED SNOMED Code(s): 74449922 (3) Left main coronary artery disease Current Visit: Yes Status: Chronic Code(s): I25.10 - ATHSCL HEART DISEASE OF [place] CORONARY ARTERY W/O ANG PCTRS SNOMED Code(s): 704403098 (4) Insulin dependent diabetes mellitus Current Visit: Yes Status: Chronic Code(s): E11.9 - TYPE 2 DIABETES MELLITUS WITHOUT COMPLICATIONS; Z79.4 - SENIOR LIVING (CURRENT) USE OF INSULIN SNOMED Code(s): 73945460 (5) Obesity (BMI 30.0-34.9) Current Visit: Yes Status: Chronic Code(s): E66.9 - OBESITY, UNSPECIFIED SNOMED Code(s): 871975344 (6) Acute exacerbation of CHF (congestive heart failure) Current Visit: Yes Status: Acute Code(s): I50.9 - HEART FAILURE, UNSPECIFIED SNOMED Code(s): 98282821 (7) Acute respiratory failure with hypoxia Current Visit: Yes Status: Acute Code(s): J96.01 - ACUTE RESPIRATORY FAILURE WITH HYPOXIA SNOMED Code(s): 90922613 (8) NSTEMI (non-ST elevated myocardial infarction) Current Visit: Yes Status: Acute Code(s): I21.4 - NON-ST ELEVATION (NSTEMI) MYOCARDIAL INFARCTION SNOMED Code(s): 939017041 (9) Pneumonia Current Visit: Yes Status: Acute Code(s): J18.9 - PNEUMONIA, UNSPECIFIED ORGANISM SNOMED Code(s): 088023007 (10) Renal failure (ARF), acute on chronic Current Visit: Yes Status: Acute Code(s): N17.9 - ACUTE KIDNEY FAILURE, UNSPECIFIED; N18.9 - CHRONIC KIDNEY DISEASE, UNSPECIFIED SNOMED Code(s): 947439960 Plan: The patient was seen and examined at the bedside. Chart/diagnostics were reviewed including heart catheterization films. The patient is currently in no distress eating lunch. Continue with statin, beta ludwin. Preoperative testing initiated. Preoperative teaching initiated. Will discuss the case in detail with Dr. Collins. Patient would be high risk for surgery due to chronic medical problems along with current acute issues. Continued medical management per primary care service. Recommendations to follow. Thank you Dr. Rodriguez for this consult. We look forward to working with you in the care of your patient. Time with Patient: Greater than 30
--- NOTE | 2018-01-24 14:48 | US ---
EXAMINATION TYPE: US carotid duplex BILAT DATE OF EXAM: 01/24/2018 COMPARISON: NONE CLINICAL HISTORY: preop cabg. EXAM MEASUREMENTS: RIGHT: Peak Systolic Velocity (PSV) cm/sec ----- Right CCA: 114.0 ----- Right ICA: 84.2 ----- Right ECA: 99.7 ICA/CCA ratio: 0.7 RIGHT: End Diastole cm/sec ----- Right CCA: 17.1 ----- Right ICA: 17.1 ----- Right ECA: 0.0 LEFT: Peak Systolic Velocity (PSV) cm/sec ----- Left CCA: 98.1 ----- Left ICA: 83.7 ----- Left ECA: 143.9 ICA/CCA ratio: 0.9 LEFT: End Diastole cm/sec ----- Left CCA: 19.5 ----- Left ICA: 20.3 ----- Left ECA: 0.0 VERTEBRALS (direction of flow): Right Vertebral: Antegrade Left Vertebral: Antegrade Rhythm: Normal Poor patient cooperation, technically difficult study. IMPRESSION: Moderate atherosclerotic changes with no significant velocity increases. Criteria for Assigning % of Stenosis / Diameter reduction (Estimation based on the indirect measurements of the internal carotid artery velocities (ICA PSV). 1. Normal (no stenosis)=ICA PSV < 125 cm/s: ratio < 2.0: ICA EDV<40 cm/s. 2. Less than 50% stenosis=ICA PSV < 125 cm/s: ratio < 2.0: ICA EDV<40 cm/s. 3. 50 to 69% stenosis=ICA PSV of 125 to 230 cm/s: ration 2.0 ? 4.0: ICA EDV 40-100 cm/s. 4. Greater than 70% stenosis to near occlusion= ICA PSV > 230 cm/s: ratio > 4.0: ICA EDV > 100 cm/s. 5. Near occlusion= ICA PSV velocities may be low or undetectable: variable ratio and ICA EDV. 6. Total occlusion=unable to detect flow.
[2018-01-24 16:17] LABS: Basophils % (A) 0 %; Eosinophils % (A) 0 %; HCT 26.4 % (39.0-53.0); HGB 8.7 gm/dL (13.0-17.5); Hypochromasia Slight; Lymphocytes # (A) 0.3 k/uL (1.0-4.8); Lymphocytes % (A) 4 %; MCH 28.3 pg (25.0-35.0); MCHC 32.9 g/dL (31.0-37.0); Mean Platelet Volume 7.6; Monocytes # (A) 0.5 k/uL (0-1.0); Monocytes % (A) 6 %; Neutrophils # (A) 6.8 k/uL (1.3-7.7); Neutrophils % (A) 88 %; Platelet Count 253 k/uL (150-450); Poikilocytosis Slight; RBC 3.07 m/uL (4.30-5.90); WBC 7.7 k/uL (3.8-10.6)
[2018-01-24 16:31] LABS: Magnesium 2.2 mg/dL (1.6-2.3)
[2018-01-24 16:35] LABS: INR 1.2 (<1.2); Prothrombin Time 11.3 sec (9.0-12.0)
[2018-01-24 16:47] LABS: Glucose,Whole Blood 283 mg/dL (75-99)
[2018-01-24 16:49] LABS: Partial Thromboplastin Time 21.1 sec (22.0-30.0)
[2018-01-24 17:51] LABS: T4, Free (Free Thyroxine) 1.22 ng/dL (0.78-2.19)
[2018-01-24] MEDS ORDERED: HEPARIN SOD,PORK IN 0.45% NACL 25,000 UNIT in 0.45% NACL 1 500ML.BAG IV SCH (18:00)
[2018-01-24 20:59] LABS: Glucose,Whole Blood 276 mg/dL (75-99)
[2018-01-24] MEDS: INSULIN DETEMIR 100 UNIT/ML 10 ML VIAL SQ SCH (21:16)
[2018-01-24] MEDS: AZITHROMYCIN 500 MG TAB PO SCH (21:17)
[2018-01-25] MEDS: cefTRIAXone IN SWFI 1,000 MG/10 ML SYRINGE IVP SCH ×2 (00:10→23:16)
[2018-01-25] MEDS: MORPHINE SULFATE 2 MG/ML SYRINGE IVP PRN (00:11)
[2018-01-25] MEDS: IPRATROPIUM-ALBUTEROL 3 ML NEB INHALATION SCH ×6 (00:12→19:31)
[2018-01-25 01:26] LABS: Hepatitis A Antibody IgM Non-Reactive (Non-Reactive); Hepatitis B Core IgM Non-Reactive (Non-Reactive)
[2018-01-25 02:34] LABS: Hemoglobin A1C 6.4 % (4.0-6.0)
[2018-01-25] MEDS: SODIUM CHLORIDE 0.9% 1,000 ML IV SCH (05:57)
[2018-01-25 06:18] LABS: Glucose,Whole Blood 77 mg/dL (75-99)
[2018-01-25 06:20] LABS: Basophils % (A) 0 %; Eosinophils # (A) 0.3 k/uL (0-0.7); Eosinophils % (A) 3 %; HCT 27.5 % (39.0-53.0); HGB 8.7 gm/dL (13.0-17.5); Hypochromasia Slight; Lymphocytes # (A) 1.4 k/uL (1.0-4.8); Lymphocytes % (A) 16 %; MCH 27.3 pg (25.0-35.0); MCHC 31.7 g/dL (31.0-37.0); Mean Platelet Volume 7.6; Monocytes # (A) 0.7 k/uL (0-1.0); Monocytes % (A) 8 %; Neutrophils # (A) 6.3 k/uL (1.3-7.7); Neutrophils % (A) 71 %; Platelet Count 244 k/uL (150-450); Poikilocytosis Slight; RDW 15.1 % (11.5-15.5); WBC 8.9 k/uL (3.8-10.6)
[2018-01-25] MEDS: INSULIN ASPART 100 UNIT/ML 1 ML 10 ML VIAL SQ SCH ×7 (06:24→21:49)
[2018-01-25 07:08] LABS: Calcium 8.9 mg/dL (8.4-10.2); Potassium 4.1 mmol/L (3.5-5.1)
[2018-01-25] MEDS: predniSONE 10 MG TAB PO SCH (08:43)
[2018-01-25] MEDS: ATORVASTATIN 20 MG TAB PO SCH (08:43)
[2018-01-25] MEDS: GABAPENTIN 100 MG CAP PO SCH ×3 (08:43→20:24)
[2018-01-25] MEDS: BRIMONIDINE TARTRATE 0.2% DROPS 5 ML BTL RIGHT EYE SCH ×2 (08:44→20:24)
[2018-01-25] MEDS: TIMOLOL 0.5% OPHTH DROPS 5 ML BTL RIGHT EYE SCH ×2 (08:45→20:25)
[2018-01-25] MEDS: PILOCARPINE 2% OPHTH DROPS 15 ML BTL RIGHT EYE SCH ×4 (08:50→20:24)
[2018-01-25] MEDS: DORZOLAMIDE HCL 2% DROPS 10 ML BTL RIGHT EYE SCH ×3 (08:51→20:24)
--- NOTE | 2018-01-25 09:18 | P.PN ---
Subjective Progress Note Date: 01/25/18 Principal diagnosis: Pneumonia, CHF exacerbation. Patient was seen and examined. No acute events overnight. He underwent cath, multivessel disease found. Cardiothoracic surgery consulted for possible CABG. Objective - Vital Signs Vital signs: Vital Signs Temp 98.2 F 01/25/18 08:00 Pulse 80 01/25/18 08:00 Resp 16 01/25/18 04:25 BP 146/71 01/25/18 08:00 Pulse Ox 92 L 01/25/18 08:00 Intake & Output 01/24/18 01/25/18 01/25/18 18:59 06:59 18:59 Intake Total 520 1968.333 180 Output Total 400 875 Balance 120 1093.333 180 Weight 95.9 kg Intake: IV 100 1840 Heparin Sod,Pork in 0.45% 20 NaCl 25,000 unit In 0.45 % NaCl 1 500ml.bag @ 10.4 UNITS/KG/HR 20 mls/hr IV .Q24H [facility] Rx#:[id number] Invasive Line 2 10 Invasive Line 3 10 Sodium Chloride 0.9% 1, 1800 000 ml @ 100 mls/hr IV . Q10H [facility] Rx#:[id number] Intake, IV Titration 128.333 Amount Heparin Sod,Pork in 0.45% 128.333 NaCl 25,000 unit In 0.45 % NaCl 1 500ml.bag @ 10.4 UNITS/KG/HR 20 mls/hr IV .Q24H [facility] Rx#:[id number] Oral 420 180 Output: Urine 400 875 Other: Voiding Method Urinal Toilet Urinal # Voids 1 - Exam General: non toxic, no distress, appears at stated age Derm: warm, dry Head: atraumatic, normocephalic, symmetric Eyes: EOMI, no lid lag, anicteric sclera Mouth: no lip lesion, mucus membranes moist Cardiovascular: S1S2 reg, no murmur, Irregular Lungs: Good air entry BL , no accessory muscle use Abdominal: soft, nontender to palpation, no guarding, no appreciable organomegaly Ext: no gross muscle atrophy, 1+ LE edema BL (improving), no contractures Neuro: CN II-XI grossly intact, no focal neuro deficits Psych: Alert, oriented, appropriate affect - Labs CBC & Chem 7: 01/25/18 05:38 01/25/18 05:38 Labs: Abnormal Lab Results - Last 24 Hours (Table) 01/24/18 01/24/18 01/24/18 Range/Units 11:52 15:47 15:47 RBC 3.07 L (4.30-5.90) m/uL Hgb 8.7 L (13.0-17.5) gm/dL Hct 26.4 L (39.0-53.0) % Lymphocytes # 0.3 L (1.0-4.8) k/uL INR 1.2 H (<1.2) APTT 21.1 L (22.0-30.0) sec BUN (9-20) mg/dL Creatinine (0.66-1.25) mg/dL POC Glucose (mg/dL) 169 H (75-99) mg/dL Hemoglobin A1c (4.0-6.0) % TSH (0.465-4.680) mIU/L 01/24/18 01/24/18 01/24/18 Range/Units 15:47 15:47 16:45 RBC (4.30-5.90) m/uL Hgb (13.0-17.5) gm/dL Hct (39.0-53.0) % Lymphocytes # (1.0-4.8) k/uL INR (<1.2) APTT (22.0-30.0) sec BUN (9-20) mg/dL Creatinine (0.66-1.25) mg/dL POC Glucose (mg/dL) 283 H (75-99) mg/dL Hemoglobin A1c 6.4 H (4.0-6.0) % TSH 0.180 L (0.465-4.680) mIU/L 01/24/18 01/25/18 01/25/18 Range/Units 20:50 05:38 05:38 RBC 3.20 L (4.30-5.90) m/uL Hgb 8.7 L (13.0-17.5) gm/dL Hct 27.5 L (39.0-53.0) % Lymphocytes # (1.0-4.8) k/uL INR (<1.2) APTT (22.0-30.0) sec BUN 48 H (9-20) mg/dL Creatinine 1.57 H (0.66-1.25) mg/dL POC Glucose (mg/dL) 276 H (75-99) mg/dL Hemoglobin A1c (4.0-6.0) % TSH (0.465-4.680) mIU/L 01/25/18 Range/Units 05:38 RBC (4.30-5.90) m/uL Hgb (13.0-17.5) gm/dL Hct (39.0-53.0) % Lymphocytes # (1.0-4.8) k/uL INR (<1.2) APTT 60.7 H (22.0-30.0) sec BUN (9-20) mg/dL Creatinine (0.66-1.25) mg/dL POC Glucose (mg/dL) (75-99) mg/dL Hemoglobin A1c (4.0-6.0) % TSH (0.465-4.680) mIU/L Assessment and Plan Assessment: Assessment 67 year old M with PMH of A-Fib, CHF, DM, CKD presents to the ED for cough and SOB. Admitted for PNA and CHF exacerbation. Plan 1. CHF exacerbation: Echo 01/2018 shows EF 40-45% with hypokinetic menendez. Continue BB. Add ACEi on DC. Cardiac diet. Daily weights. Ins and Outs. Keep K > 4 and Mg > 2. FU Cardiology 2. Multi-vessel CAD: Cath shows triple vessel disease with 70-80% occlusion of LAD. CT Sx consulted, workup for CABG started. CUS shows moderate stenosis. Lipitor 20 mg PO QHS changes to 80 mg PO QHS. DC Heparin drip and start ASA 81 mg PO QD. FU Cardiology, CT Sx for further recommendations. 3. Pneumonia: Community acquired. Patient is afebrile with a WBC of 13.3 (8/9). CXR shows BL lower lobe PNA. Legionella negative. Continue DuoNeb Q4 scheduled. Stopped Solumedrol IV and started Prednisone taper per Pulmonology recommendations. Azithromycin PO and Ceftriaxone IV for Abx. O2 per NC to maintain O2 > 92%. FU Pulmonology 4. REAL on CKD: BUN 48 Cr 1.57. Improving since yesterday, will DC IVF. Normal kidneys on US. Avoid nephrotoxins. Monitor due to recent contrast use. FU Nephrology, BMP 5. Subclinical hyperthyroidism: TSH 0.18 FT4 1.22. FU TSH/FT4 in 6 weeks. 6. DM: POC glucose 77. A1c 6.4. Continue Levemir 35 units QHS, ISS, Novolog 12 units TID. Lipitor 20 mg PO QHS for ASCVD risk. Hypoglycemic precautions. Accuchecks QID. Diabetic diet. 7. Troponemia: Likely leak from CHF. Trops 0.09, 0.974, 1.150, 1.410. EKG shows A Fib with non specific ST and T wave changes. Repeat Trop 0.889, trending down. 8. A-Fib: Heparin drip DC'd and restart Eliquis. Rate control with Metoprolol 25 mg PO QD. Telemetry monitoring. Keep K > 4 and Mg > 2. 9. Anemia: Hg 8.7 Hct 26.4 MCV 86. Iron studies show low iron with normal Ferritin. Will need C-scope outPT. 10. Glaucoma: Timolol, Pilocarpine, Dorzolamide, Brimonidine drops. Ophthalmology outPT. Cath shows multivessel disease. Cardiothoracic surgery consulted for possible CABG. Workup underway. Renal function improving.
--- NOTE | 2018-01-25 09:21 | P.PN ---
Subjective Patient is seen in follow-up for acute kidney injury and chronic kidney disease. Patient states he was told he had chronic kidney disease stage III and was scheduled to see a medical officer psychiatry as an outpatient in the near future. Creatinine down to 1.57 today. No vomiting or diarrhea. Admits to good urine output. He is noted to have systolic CHF with ejection fraction of 40-45% with mild to moderate mitral regurgitation and severe pulmonary hypertension. Patient had a cardiac catheterization done on January 24 which revealed triple- vessel disease. He has been evaluated by cardiothoracic surgery. He was also started on IV fluids and is more dyspneic today. Vital signs are stable. General: The patient appeared well nourished and normally developed. HEENT: Head exam is unremarkable. Neck is without jugular venous distension. LUNGS: Breath sounds decreased. HEART: Rate and Rhythm are regular. First and second heart sounds normal. No murmurs, rubs or gallops. ABDOMEN: Abdominal exam reveals normal bowel sounds. Non-tender and non- distended. No evidence of peritonitis. EXTREMITITES: Trace edema. Objective - Vital Signs Vital signs: Vital Signs Temp 98.2 F 01/25/18 08:00 Pulse 80 01/25/18 08:00 Resp 16 01/25/18 04:25 BP 146/71 01/25/18 08:00 Pulse Ox 92 L 01/25/18 08:00 Intake & Output 01/24/18 01/25/18 01/25/18 18:59 06:59 18:59 Intake Total 520 1968.333 180 Output Total 400 875 Balance 120 1093.333 180 Weight 95.9 kg Intake: IV 100 1840 Heparin Sod,Pork in 0.45% 20 NaCl 25,000 unit In 0.45 % NaCl 1 500ml.bag @ 10.4 UNITS/KG/HR 20 mls/hr IV .Q24H [facility] Rx#:[id number] Invasive Line 2 10 Invasive Line 3 10 Sodium Chloride 0.9% 1, 1800 000 ml @ 100 mls/hr IV . Q10H [facility] Rx#:[id number] Intake, IV Titration 128.333 Amount Heparin Sod,Pork in 0.45% 128.333 NaCl 25,000 unit In 0.45 % NaCl 1 500ml.bag @ 10.4 UNITS/KG/HR 20 mls/hr IV .Q24H [facility] Rx#:[id number] Oral 420 180 Output: Urine 400 875 Other: Voiding Method Urinal Toilet Urinal # Voids 1 - Labs CBC & Chem 7: 01/25/18 05:38 01/25/18 05:38 Labs: Abnormal Lab Results - Last 24 Hours (Table) 01/24/18 01/24/18 01/24/18 Range/Units 11:52 15:47 15:47 RBC 3.07 L (4.30-5.90) m/uL Hgb 8.7 L (13.0-17.5) gm/dL Hct 26.4 L (39.0-53.0) % Lymphocytes # 0.3 L (1.0-4.8) k/uL INR 1.2 H (<1.2) APTT 21.1 L (22.0-30.0) sec BUN (9-20) mg/dL Creatinine (0.66-1.25) mg/dL POC Glucose (mg/dL) 169 H (75-99) mg/dL Hemoglobin A1c (4.0-6.0) % TSH (0.465-4.680) mIU/L 01/24/18 01/24/18 01/24/18 Range/Units 15:47 15:47 16:45 RBC (4.30-5.90) m/uL Hgb (13.0-17.5) gm/dL Hct (39.0-53.0) % Lymphocytes # (1.0-4.8) k/uL INR (<1.2) APTT (22.0-30.0) sec BUN (9-20) mg/dL Creatinine (0.66-1.25) mg/dL POC Glucose (mg/dL) 283 H (75-99) mg/dL Hemoglobin A1c 6.4 H (4.0-6.0) % TSH 0.180 L (0.465-4.680) mIU/L 01/24/18 01/25/18 01/25/18 Range/Units 20:50 05:38 05:38 RBC 3.20 L (4.30-5.90) m/uL Hgb 8.7 L (13.0-17.5) gm/dL Hct 27.5 L (39.0-53.0) % Lymphocytes # (1.0-4.8) k/uL INR (<1.2) APTT (22.0-30.0) sec BUN 48 H (9-20) mg/dL Creatinine 1.57 H (0.66-1.25) mg/dL POC Glucose (mg/dL) 276 H (75-99) mg/dL Hemoglobin A1c (4.0-6.0) % TSH (0.465-4.680) mIU/L 01/25/18 Range/Units 05:38 RBC (4.30-5.90) m/uL Hgb (13.0-17.5) gm/dL Hct (39.0-53.0) % Lymphocytes # (1.0-4.8) k/uL INR (<1.2) APTT 60.7 H (22.0-30.0) sec BUN (9-20) mg/dL Creatinine (0.66-1.25) mg/dL POC Glucose (mg/dL) (75-99) mg/dL Hemoglobin A1c (4.0-6.0) % TSH (0.465-4.680) mIU/L Assessment and Plan Plan: Assessment: 1. Nonoliguric acute kidney injury secondary to ATN secondary to cardiorenal syndrome. Creatinine down to 1.57 today. No evidence of hydronephrosis noted on renal ultrasound. 2. Chronic kidney disease stage III. Patient has an appointment to see a medical officer psychiatry in the near future in [facility]. Etiology is likely diabetic kidney disease. 3. Systolic CHF with ejection fraction of 40-45% with mild to moderate mitral regurgitation and severe pulmonary hypertension. 4. Volume overload due to IV fluids. 5. Diabetes mellitus. 6. Hypertonic hyponatremia secondary to hyperglycemia. Resolved. 7. Pneumonia maintained on antibiotics. 8. Metabolic acidosis secondary to acute kidney injury. Improved. 9. Hypomagnesemia secondary to diuresis. Improved post replacement. Plan: Hep-Lock IV fluids. Patient is already volume overloaded. Resume Lasix 40 mg orally twice daily. Avoid nephrotoxic agents and hypotensive episodes. Repeat electrolytes in the morning.
--- NOTE | 2018-01-25 10:13 | P.PN ---
Subjective Progress Note Date: 01/25/18 Principal diagnosis: Acute community-acquired bibasilar pneumonia with an acute exacerbation of systolic congestive heart failure. This is a 67-year-old male patient known history of chronic atrial fibrillation diabetes mellitus and chronic renal failure. The patient is a nonsmoker. No 70 chronic lung disease or disorder. No previous history of coronary artery disease. No previous history of CHF. The patient was in a good state of health. He comes in with 1-2 days history of worsening shortness of breath, cough and, feeling congested and he was also bringing up some red/blood-tinged sputum. Noted the patient on Eliquis. He presented emergency department and his chest x-ray showed bibasilar pulmonary infiltrates and findings consistent with CHF. He was afebrile. He was found to be quite hypoxic and he was placed on high flow oxygen. The BNP level was 7880. The troponins were minimally elevated at 0.09 and 0.9 respectively 2. CPK was not elevated. The patient had a white cell count of 13. He was admitted to the floor where he was started on a combination of Rocephin and Zithromax. Overnight he became more short of breath and he had an acute event where he became more hypoxic and he was seen by the hospitalist where he was given Lasix IV for worsening shortness of breath and concerns of pulmonary edema. Currently is on 8 L about 2 by nasal cannula and his pulse ox is above 90%. Echocardiogram was done and the results are still pending for now. EKG showing chronic atrial fibrillation. There is some ST segment abnormalities possibly laterally. He is also on IV Lasix 40 mg every 12 hours IV push. The patient is seen again today 01/20/2018 in follow-up on selective care unit. He is awake and alert in no acute distress. He is breathing a little easier today as compared to yesterday but still not quite back to his baseline. He is still requiring 8 L high flow nasal cannula to maintain O2 saturations in the 90s. He is currently afebrile. Today's chest x-ray does show improved aeration in the right lung base however they're persistent strand-like basilar opacities and trace pleural effusions. Echocardiogram did reveal mild to moderately impaired left ventricular systolic function with ejection fraction 40 -45%. There is apical inferior and septal left ventricular wall motion hypokinesia. Mild to moderate mitral regurgitation. There is severe pulmonary hypertension with an RVSP of 76.75 mmHg. Peak troponin 1.410. Cardiology is on the case as well. He remains on IV diuretics. He remains in a negative balance. Down another kilogram today. Creatinine 1.90. The patient is seen again today 01/20/2018 in follow-up on selective care unit. He is awake and alert in no acute distress. He is breathing a little easier today as compared to yesterday but still not quite back to his baseline. He is still requiring 8 L high flow nasal cannula to maintain O2 saturations in the 90s. He is currently afebrile. Today's chest x-ray does show improved aeration in the right lung base however they're persistent strand-like basilar opacities and trace pleural effusions. Echocardiogram did reveal mild to moderately impaired left ventricular systolic function with ejection fraction 40 -45%. There is apical inferior and septal left ventricular wall motion hypokinesia. Mild to moderate mitral regurgitation. There is severe pulmonary hypertension with an RVSP of 76.75 mmHg. Peak troponin 1.410. Cardiology is on the case as well. He remains on IV diuretics. He remains in a negative balance. Down another kilogram today. Creatinine 1.90. On 01/21/2018 patient seen in follow-up on selective care unit. Yesterday's chest x-ray has been reviewed and showed improved aeration in the right lung base, and persistent basilar opacities and trace pleural effusions. Clinically patient is in no acute distress, his he is coughing, but not bringing up any sputum. Lung sounds reveal a few rales over right lower lobe, rhonchi no wheezing noted. He remains in A. fib, his pulse ox is 98% on 8 L per nasal cannula, his FiO2 will be decreased to 6 L, will continue weaning it to keep the pulse ox above 92%. Today's lab work was reviewed, CBC, sodium is 134, potassium is 4.7, BUN is 35, creatinine is 1.90. Patient is an 1120 ML negative fluid balance. He still has trace edema in bilateral pretibial areas. We will continue current medical treatment, continue with IV diuretics and current antibiotic coverage. On January 23 2018 patient seen again in follow-up on selective care unit. Breathing easier today, occasional cough with production of small amount of blood-tinged sputum. No fever, no chills, yesterday chest x-ray shows improved aeration old lung bases. And the small right-sided pleural effusion, and mild cardiomegaly. Patient has been tolerating ambulation, no chest pain, no worsening dyspnea. Has been treated with a combination of Zithromax and Rocephin, for community acquired pneumonia, and he is improving. Renal profile remains impaired, B1 is 62, creatinine is stable at 2.07, the rest the electrolytes are relatively unremarkable. No CBC was done today, no new chest x -ray. Clinically patient is stable, and continues to improve. Lung sounds are positive for some limited crackles at the right lower base, and patient has 1+ pitting edema in bilateral lower extremities. The patient will receive 1 dose of IV Lasix. Continue with all other current medical treatments. The patient is seen again today 01/25/2018 in follow-up on the selective care unit. He did undergo cardiac catheterization yesterday which revealed diffuse triple-vessel disease including a left main stenosis of 70-80%. The LAD is diffusely diseased with an ostial lesion at 50% stenosis. Diagonal branch 70s percent stenosis. Right coronary artery is also diffusely diseased with approximately having a stenosis of 50-60%. The PDA branch has 70% stenosis. The patient has been seen and evaluated by cardiothoracic surgeons however feeling the patient as having too many other multiple comorbidities at this time to safely plan for surgery. Currently he is doing better. He states he is breathing easier today as compared to yesterday. He is maintaining O2 saturations in the low 90s on 2 L/m per nasal cannula. He is afebrile. Hemodynamically stable. White count 8.9. Hemoglobin 8.7. BUN 48. Creatinine 1.57. He remains on ceftriaxone and azithromycin. Remains on bronchodilators. Oral diuretics. Oral prednisone. Objective - Vital Signs Vital signs: Vital Signs Temp 98.2 F 01/25/18 08:00 Pulse 80 01/25/18 08:00 Resp 16 01/25/18 04:25 BP 146/71 01/25/18 08:00 Pulse Ox 92 L 01/25/18 08:00 Intake & Output 01/24/18 01/25/18 01/25/18 18:59 06:59 18:59 Intake Total 520 1968.333 180 Output Total 400 875 Balance 120 1093.333 180 Weight 95.9 kg Intake: IV 100 1840 Heparin Sod,Pork in 0.45% 20 NaCl 25,000 unit In 0.45 % NaCl 1 500ml.bag @ 10.4 UNITS/KG/HR 20 mls/hr IV .Q24H [facility] Rx#:[id number] Invasive Line 2 10 Invasive Line 3 10 Sodium Chloride 0.9% 1, 1800 000 ml @ 100 mls/hr IV . Q10H [facility] Rx#:[id number] Intake, IV Titration 128.333 Amount Heparin Sod,Pork in 0.45% 128.333 NaCl 25,000 unit In 0.45 % NaCl 1 500ml.bag @ 10.4 UNITS/KG/HR 20 mls/hr IV .Q24H [facility] Rx#:[id number] Oral 420 180 Output: Urine 400 875 Other: Voiding Method Urinal Toilet Urinal # Voids 1 - Exam Gen. appearance is calm and comfortable mild respiratory distress still requiring 8L of oxygen by nasal cannula Head exam was generally normal. There was no scleral icterus or corneal arcus. Mucous membranes were moist. Neck was supple and without jugular venous distension, thyromegaly, or carotid bruits. Carotids were easily palpable bilaterally. There was no adenopathy. Lungs sounds are diminished bilaterally along with some bibasilar crackles worse on the right. Cardiac exam revealed the PMI to be normally situated and sized. The rhythm is irregular S1-S2 secondary to atrial fibrillation and no extrasystoles were noted during several minutes of auscultation. The first and second heart sounds were normal and physiologic splitting of the second heart sound was noted. There were no murmurs, rubs, clicks, or gallops. Abdominal exam revealed normal bowel sounds. The abdomen was soft, non-tender, and without masses, organomegaly, or appreciable enlargement of the abdominal aorta. Examination of the extremities revealed easily palpable radial, femoral and pedal pulses. There was no cyanosis, clubbing or edema. Examination of the skin revealed no evidence of significant rashes, suspicious appearing nevi or other concerning lesions. Neurologically the patient is awake and alert and there is no focal neurological deficits. - Labs CBC & Chem 7: 01/25/18 05:38 01/25/18 05:38 Labs: Abnormal Lab Results - Last 24 Hours (Table) 08/01/24/18 01/24/18 Range/Units 11:52 15:47 15:47 RBC 3.07 L (4.30-5.90) m/uL Hgb 8.7 L (13.0-17.5) gm/dL Hct 26.4 L (39.0-53.0) % Lymphocytes # 0.3 L (1.0-4.8) k/uL INR 1.2 H (<1.2) APTT 21.1 L (22.0-30.0) sec BUN (9-20) mg/dL Creatinine (0.66-1.25) mg/dL POC Glucose (mg/dL) 169 H (75-99) mg/dL Hemoglobin A1c (4.0-6.0) % TSH (0.465-4.680) mIU/L 01/24/18 01/24/18 01/24/18 Range/Units 15:47 15:47 16:45 RBC (4.30-5.90) m/uL Hgb (13.0-17.5) gm/dL Hct (39.0-53.0) % Lymphocytes # (1.0-4.8) k/uL INR (<1.2) APTT (22.0-30.0) sec BUN (9-20) mg/dL Creatinine (0.66-1.25) mg/dL POC Glucose (mg/dL) 283 H (75-99) mg/dL Hemoglobin A1c 6.4 H (4.0-6.0) % TSH 0.180 L (0.465-4.680) mIU/L 01/24/18 01/25/18 01/25/18 Range/Units 20:50 05:38 05:38 RBC 3.20 L (4.30-5.90) m/uL Hgb 8.7 L (13.0-17.5) gm/dL Hct 27.5 L (39.0-53.0) % Lymphocytes # (1.0-4.8) k/uL INR (<1.2) APTT (22.0-30.0) sec BUN 48 H (9-20) mg/dL Creatinine 1.57 H (0.66-1.25) mg/dL POC Glucose (mg/dL) 276 H (75-99) mg/dL Hemoglobin A1c (4.0-6.0) % TSH (0.465-4.680) mIU/L 01/25/18 Range/Units 05:38 RBC (4.30-5.90) m/uL Hgb (13.0-17.5) gm/dL Hct (39.0-53.0) % Lymphocytes # (1.0-4.8) k/uL INR (<1.2) APTT 60.7 H (22.0-30.0) sec BUN (9-20) mg/dL Creatinine (0.66-1.25) mg/dL POC Glucose (mg/dL) (75-99) mg/dL Hemoglobin A1c (4.0-6.0) % TSH (0.465-4.680) mIU/L Assessment and Plan Assessment: Assessment 1 acute bibasilar pneumonia, community-acquired 2 acute exacerbation of systolic congestive heart failure. Mild to moderately impaired left ventricular systolic function with ejection fraction 40-45%. There is also noted hypokinesia of the apical inferior and septal wall of the LV. 3 acute hypoxic respiratory failure secondary to above currently on 2 L of oxygen by nasal cannula 4 troponin leak with some limited ST segment depressions over the lateral leads. Cardiac catheterization reveals diffuse triple-vessel disease including a 76-80% stenosis left main. No plans for cardiothoracic intervention at this time based on his multiple comorbidities. 5 acute shortness of breath secondary to above 6 chronic renal failure, stable 7 diabetes mellitus, insulin-dependent 8 hypertension 9 chronic atrial fibrillation maintained on long-term articulation with Eliquis. Currently on a heparin drip. Plan we'll and The patient was seen and evaluated by Dr. Duran. Cardiac catheterization results reviewed. Continue thoracic surgeons are not planning any intervention at this time based on the patient's above-mentioned multiple comorbidities and acute renal failure/CHF/pneumonia. The patient is improving. Currently down to 2 L/m per nasal cannula. We'll continue the current treatment plan. We'll continue to follow. I, the cosigning physician, performed a history & physical examination of the patient. Lungs sounds with basilar crackles, few scattered rhonchi. Maintaining good O2 saturations in the 90s on 2 L per nasal cannula. I discussed the assessment and plan of care with my nurse practitioner, Nela Moy. I attest to the above note as dictated by her.
[2018-01-25 10:57] LABS: Appearance,Urine Clear (Clear); Bilirubin,Urine Negative (Negative); Blood,Urine Negative (Negative); Color,Urine Light Yellow; Glucose,Urine (UA) Negative (Negative); Ketones,Urine Negative (Negative); Leukocyte Esterase,Urine Negative (Negative); Nitrite,Urine Negative (Negative); PH, Urine 5.5 (5.0-8.0); Protein,Urine 1+ (Negative); RBC,Urine <1 /hpf (0-5); Specific Gravity,Urine 1.015 (1.001-1.035); Urobilinogen,Urine <2.0 mg/dL (<2.0); WBC,Urine 1 /hpf (0-5)
[2018-01-25 11:13] LABS: Glucose,Whole Blood 148 mg/dL (75-99)
[2018-01-25] MEDS: APIXABAN 5 MG TAB PO SCH ×2 (12:22→20:24)
[2018-01-25] MEDS: ASPIRIN 81 MG PO SCH (12:22)
[2018-01-25] MEDS: METOPROLOL TARTRATE 25 MG TAB PO SCH ×2 (12:23→20:24)
--- NOTE | 2018-01-25 14:06 | P.PN ---
Subjective Progress Note Date: 01/25/18 This is a 67-year-old gentleman who initially presented to the hospital with symptoms of shortness of breath with associated cough of 2 day duration. He has a history of diabetes and chronic kidney disease as well as chronic atrial fibrillation. Patient has been diuresed over his course here. His echo showed an impaired LV function with an ejection fraction of 40-45%. For this reason he was advised to undergo cardiac catheterization. Cardiac catheterization was performed yesterday which revealed diffuse triple vessel coronary artery disease with a left main of about 70-80%. The patient was seen in consultation by cardiothoracic surgery, after reviewing the films and other hospital workup it was felt that the patient was felt to be too high risk for surgery at this point. After successful treatment of his heart failure, pneumonia, acute renal issues, the possibility of surgery will then be readdressed. Patient was seen and examined this morning, feels well, no chest pain or difficulty in breathing. I pressure 140/70 with a heart rate in the 80s. We will add Lopressor 25 mg one tablet by mouth twice a day to his medication regime. Plan for possible discharge home in the morning if stable. Objective - Vital Signs Vital signs: Vital Signs Temp 98.2 F 01/25/18 08:00 Pulse 96 01/25/18 11:49 Resp 16 01/25/18 04:25 BP 146/71 01/25/18 08:00 Pulse Ox 92 L 01/25/18 08:00 Intake & Output 01/24/18 01/25/18 01/25/18 18:59 06:59 18:59 Intake Total 520 1968.333 180 Output Total 400 875 Balance 120 1093.333 180 Weight 95.9 kg Intake: IV 100 1840 Heparin Sod,Pork in 0.45% 20 NaCl 25,000 unit In 0.45 % NaCl 1 500ml.bag @ 10.4 UNITS/KG/HR 20 mls/hr IV .Q24H [facility] Rx#:[id number] Invasive Line 2 10 Invasive Line 3 10 Sodium Chloride 0.9% 1, 1800 000 ml @ 100 mls/hr IV . Q10H [facility] Rx#:[id number] Intake, IV Titration 128.333 Amount Heparin Sod,Pork in 0.45% 128.333 NaCl 25,000 unit In 0.45 % NaCl 1 500ml.bag @ 10.4 UNITS/KG/HR 20 mls/hr IV .Q24H [facility] Rx#:[id number] Oral 420 180 Output: Urine 400 875 Other: Voiding Method Urinal Toilet Urinal # Voids 1 - Exam Gen. appearance is calm and comfortable mild respiratory distress still requiring 8L of oxygen by nasal cannula Head exam was generally normal. There was no scleral icterus or corneal arcus. Mucous membranes were moist. Neck was supple and without jugular venous distension, thyromegaly, or carotid bruits. Carotids were easily palpable bilaterally. There was no adenopathy. Lungs sounds are diminished bilaterally along with some bibasilar crackles worse on the right. Cardiac exam revealed the PMI to be normally situated and sized. The rhythm is irregular S1-S2 secondary to atrial fibrillation and no extrasystoles were noted during several minutes of auscultation. The first and second heart sounds were normal and physiologic splitting of the second heart sound was noted. There were no murmurs, rubs, clicks, or gallops. Abdominal exam revealed normal bowel sounds. The abdomen was soft, non-tender, and without masses, organomegaly, or appreciable enlargement of the abdominal aorta. Right groin soft, no evidence of any hematoma. Examination of the extremities revealed easily palpable radial, femoral and pedal pulses. There was no cyanosis, clubbing or edema. Examination of the skin revealed no evidence of significant rashes, suspicious appearing nevi or other concerning lesions. Neurologically the patient is awake and alert and there is no focal neurological deficits. - Labs CBC & Chem 7: 01/25/18 05:38 01/25/18 05:38 Labs: Abnormal Lab Results - Last 24 Hours (Table) 01/24/18 01/24/18 01/24/18 Range/Units 15:47 15:47 15:47 RBC 3.07 L (4.30-5.90) m/uL Hgb 8.7 L (13.0-17.5) gm/dL Hct 26.4 L (39.0-53.0) % Lymphocytes # 0.3 L (1.0-4.8) k/uL INR 1.2 H (<1.2) APTT 21.1 L (22.0-30.0) sec BUN (9-20) mg/dL Creatinine (0.66-1.25) mg/dL POC Glucose (mg/dL) (75-99) mg/dL Hemoglobin A1c 6.4 H (4.0-6.0) % TSH (0.465-4.680) mIU/L Urine Protein (Negative) 01/24/18 01/24/18 01/24/18 Range/Units 15:47 16:45 20:50 RBC (4.30-5.90) m/uL Hgb (13.0-17.5) gm/dL Hct (39.0-53.0) % Lymphocytes # (1.0-4.8) k/uL INR (<1.2) APTT (22.0-30.0) sec BUN (9-20) mg/dL Creatinine (0.66-1.25) mg/dL POC Glucose (mg/dL) 283 H 276 H (75-99) mg/dL Hemoglobin A1c (4.0-6.0) % TSH 0.180 L (0.465-4.680) mIU/L Urine Protein (Negative) 01/25/18 01/25/18 01/25/18 Range/Units 05:38 05:38 05:38 RBC 3.20 L (4.30-5.90) m/uL Hgb 8.7 L (13.0-17.5) gm/dL Hct 27.5 L (39.0-53.0) % Lymphocytes # (1.0-4.8) k/uL INR (<1.2) APTT 60.7 H (22.0-30.0) sec BUN 48 H (9-20) mg/dL Creatinine 1.57 H (0.66-1.25) mg/dL POC Glucose (mg/dL) (75-99) mg/dL Hemoglobin A1c (4.0-6.0) % TSH (0.465-4.680) mIU/L Urine Protein (Negative) 01/25/18 01/25/18 Range/Units 10:15 11:09 RBC (4.30-5.90) m/uL Hgb (13.0-17.5) gm/dL Hct (39.0-53.0) % Lymphocytes # (1.0-4.8) k/uL INR (<1.2) APTT (22.0-30.0) sec BUN (9-20) mg/dL Creatinine (0.66-1.25) mg/dL POC Glucose (mg/dL) 148 H (75-99) mg/dL Hemoglobin A1c (4.0-6.0) % TSH (0.465-4.680) mIU/L Urine Protein 1+ H (Negative) Assessment and Plan Plan: Assessment and plan 1 acute bibasilar pneumonia, community-acquired 2 acute exacerbation of systolic congestive heart failure. Mild to moderately impaired left ventricular systolic function with ejection fraction 40-45%. There is also noted hypokinesia of the apical inferior and septal wall of the LV. 3 acute hypoxic respiratory failure secondary to above currently on 2 L of oxygen by nasal cannula 4 troponin leak with some limited ST segment depressions over the lateral leads. Cardiac catheterization reveals diffuse triple-vessel disease including a 76-80% stenosis left main. No plans for cardiothoracic intervention at this time based on his multiple comorbidities. 5 acute shortness of breath secondary to above 6 chronic renal failure, stable 7 diabetes mellitus, insulin-dependent 8 hypertension 9 chronic atrial fibrillation maintained on long-term articulation with Eliquis. Currently on a heparin drip. Plan We will discontinue the heparin drip today and start the patient on Eliquis 5 twice a day. Add Lopressor 25 mg one tablet by mouth twice a day to his medication regime. Discharge home in the morning if stable. DNP note has been reviewed, I agree with a documented findings and plan of care. Patient was seen and examined.
[2018-01-25] MEDS: FUROSEMIDE 40 MG TAB PO SCH (15:30)
[2018-01-25 16:30] LABS: Glucose,Whole Blood 218 mg/dL (75-99)
[2018-01-25] MEDS: ALPRAZolam 0.5 MG TAB PO PRN (20:24)
[2018-01-25] MEDS: ATORVASTATIN 80 MG TAB PO SCH (20:24)
[2018-01-25] MEDS: AZITHROMYCIN 500 MG TAB PO SCH (20:24)
[2018-01-25 20:53] LABS: Glucose,Whole Blood 346 mg/dL (75-99)
[2018-01-25] MEDS ORDERED: INSULIN ASPART 100 UNIT/ML 1 ML 10 ML VIAL SQ ONE (21:48)
[2018-01-25] MEDS: INSULIN DETEMIR 100 UNIT/ML 10 ML VIAL SQ SCH (21:59)
[2018-01-26] MEDS: IPRATROPIUM-ALBUTEROL 3 ML NEB INHALATION SCH ×6 (00:25→19:59)
[2018-01-26] MEDS: ALPRAZolam 0.5 MG TAB PO PRN ×2 (02:16→23:24)
[2018-01-26 05:54] LABS: Basophils % (A) 0 %; Eosinophils # (A) 0.2 k/uL (0-0.7); Eosinophils % (A) 2 %; HCT 26.5 % (39.0-53.0); HGB 8.8 gm/dL (13.0-17.5); Hypochromasia Slight; Lymphocytes % (A) 11 %; MCH 28.5 pg (25.0-35.0); MCHC 33.1 g/dL (31.0-37.0); MCV 86.2 fL (80.0-100.0); Mean Platelet Volume 7.2; Monocytes # (A) 0.7 k/uL (0-1.0); Monocytes % (A) 7 %; Neutrophils # (A) 6.9 k/uL (1.3-7.7); Neutrophils % (A) 76 %; Platelet Count 216 k/uL (150-450); Poikilocytosis Slight; RBC 3.08 m/uL (4.30-5.90); RDW 14.8 % (11.5-15.5); WBC 9.1 k/uL (3.8-10.6)
[2018-01-26 05:55] LABS: Glucose,Whole Blood 186 mg/dL (75-99)
[2018-01-26 06:03] LABS: Calcium 8.8 mg/dL (8.4-10.2); Potassium 4.1 mmol/L (3.5-5.1)
[2018-01-26] MEDS: INSULIN ASPART 100 UNIT/ML 1 ML 10 ML VIAL SQ SCH ×7 (07:03→21:33)
[2018-01-26 08:22] VITALS: BMI 31.7
[2018-01-26] MEDS: FUROSEMIDE 40 MG TAB PO SCH ×2 (08:24→15:35)
[2018-01-26] MEDS ORDERED: FUROSEMIDE 10 MG/ML 4 ML VIAL IV STA (08:25)
[2018-01-26] MEDS: APIXABAN 5 MG TAB PO SCH ×2 (08:29→21:33)
[2018-01-26] MEDS: GABAPENTIN 100 MG CAP PO SCH ×3 (08:29→21:34)
[2018-01-26] MEDS: METOPROLOL TARTRATE 25 MG TAB PO SCH ×2 (08:29→21:34)
[2018-01-26] MEDS: DORZOLAMIDE HCL 2% DROPS 10 ML BTL RIGHT EYE SCH ×3 (08:30→21:34)
[2018-01-26] MEDS: BRIMONIDINE TARTRATE 0.2% DROPS 5 ML BTL RIGHT EYE SCH ×2 (08:30→21:33)
[2018-01-26] MEDS: ASPIRIN 81 MG PO SCH (08:30)
[2018-01-26] MEDS: PILOCARPINE 2% OPHTH DROPS 15 ML BTL RIGHT EYE SCH ×4 (08:31→21:35)
[2018-01-26] MEDS: TIMOLOL 0.5% OPHTH DROPS 5 ML BTL RIGHT EYE SCH ×2 (08:32→21:34)
--- NOTE | 2018-01-26 08:33 | P.PN ---
Subjective Patient is seen in follow-up for acute kidney injury and chronic kidney disease. Patient states he was told he had chronic kidney disease stage III and was scheduled to see a ice cream truck driver as an outpatient in the near future. Creatinine down to 1.4 today. No vomiting or diarrhea. Admits to good urine output. He is noted to have systolic CHF with ejection fraction of 40-45% with mild to moderate mitral regurgitation and severe pulmonary hypertension. Patient had a cardiac catheterization done on January 24 which revealed triple- vessel disease. He has been evaluated by cardiothoracic surgery. Currently maintained on Lasix 40 mg orally twice daily. Admits to weakness and pain in his lower extremities. Vital signs are stable. General: The patient appeared well nourished and normally developed. HEENT: Head exam is unremarkable. Neck is without jugular venous distension. LUNGS: Breath sounds decreased. HEART: Rate and Rhythm are regular. First and second heart sounds normal. No murmurs, rubs or gallops. ABDOMEN: Abdominal exam reveals normal bowel sounds. Non-tender and non- distended. No evidence of peritonitis. EXTREMITITES: Trace edema. Objective - Vital Signs Vital signs: Vital Signs Temp 98.8 F 01/26/18 08:00 Pulse 86 01/26/18 08:00 Resp 20 01/26/18 08:00 BP 139/59 01/26/18 08:00 Pulse Ox 97 01/26/18 08:00 Intake & Output 01/25/18 01/26/18 01/26/18 18:59 06:59 18:59 Intake Total 600 Output Total 400 Balance 200 Weight 97.6 kg 97.6 kg Intake: Oral 600 Output: Urine 400 Other: Voiding Method Toilet Urinal # Voids 1 - Labs CBC & Chem 7: 01/26/18 05:30 01/26/18 05:30 Labs: Abnormal Lab Results - Last 24 Hours (Table) 01/25/18 01/25/18 01/25/18 Range/Units 10:15 11:09 16:11 RBC (4.30-5.90) m/uL Hgb (13.0-17.5) gm/dL Hct (39.0-53.0) % Sodium (137-145) mmol/L BUN (9-20) mg/dL Creatinine (0.66-1.25) mg/dL Glucose (74-99) mg/dL POC Glucose (mg/dL) 148 H 218 H (75-99) mg/dL Urine Protein 1+ H (Negative) 01/25/18 01/26/18 01/26/18 Range/Units 20:51 05:30 05:30 RBC 3.08 L (4.30-5.90) m/uL Hgb 8.8 L (13.0-17.5) gm/dL Hct 26.5 L (39.0-53.0) % Sodium 136 L (137-145) mmol/L BUN 44 H (9-20) mg/dL Creatinine 1.40 H (0.66-1.25) mg/dL Glucose 189 H (74-99) mg/dL POC Glucose (mg/dL) 346 H (75-99) mg/dL Urine Protein (Negative) 01/26/18 Range/Units 05:54 RBC (4.30-5.90) m/uL Hgb (13.0-17.5) gm/dL Hct (39.0-53.0) % Sodium (137-145) mmol/L BUN (9-20) mg/dL Creatinine (0.66-1.25) mg/dL Glucose (74-99) mg/dL POC Glucose (mg/dL) 186 H (75-99) mg/dL Urine Protein (Negative) Microbiology - Last 24 Hours (Table) 01/25/18 10:15 Urine Culture - Preliminary Urine,Clean Catch Assessment and Plan Plan: Assessment: 1. Nonoliguric acute kidney injury secondary to ATN secondary to cardiorenal syndrome. Creatinine down to 1.4 today. No evidence of hydronephrosis noted on renal ultrasound. 2. Chronic kidney disease stage III. Patient has an appointment to see a ice cream truck driver in the near future in [facility]. Etiology is likely diabetic kidney disease. 3. Systolic CHF with ejection fraction of 40-45% with mild to moderate mitral regurgitation and severe pulmonary hypertension. 4. Volume overload. 5. Diabetes mellitus. 6. Hypertonic hyponatremia secondary to hyperglycemia. Resolved. 7. Pneumonia maintained on antibiotics. 8. Metabolic acidosis secondary to acute kidney injury. Improved. 9. Hypomagnesemia secondary to diuresis. Improved post replacement. 10. Anemia. Iron deficiency noted. Plan: Continue Lasix 40 mg orally twice daily. I will give him 40 mg IV this morning. Ferrlecit 125 mg IV daily for 3 days. First dose today. Avoid nephrotoxic agents and hypotensive episodes. Repeat electrolytes in the morning.
[2018-01-26] MEDS: predniSONE 20 MG TAB PO SCH (08:37)
--- NOTE | 2018-01-26 09:38 | P.PN ---
Subjective Progress Note Date: 01/26/18 Principal diagnosis: CHF exacerbation, pneumonia, multivessel CAD Patient was seen and examined. No acute events overnight. Patient has gained 1.7 kg since 01/25/2018. He was started on Lasix 40 by mouth twice a day yesterday. His renal function is improving, creatinine is 1.40 this morning. His hemoglobin remains low at 8.8 but stable. Objective - Vital Signs Vital signs: Vital Signs Temp 97.8 F 01/26/18 04:00 Pulse 82 01/26/18 07:55 Resp 17 01/26/18 04:00 BP 167/91 01/26/18 04:00 Pulse Ox 96 01/26/18 04:00 Intake & Output 01/25/18 01/26/18 01/26/18 18:59 06:59 18:59 Intake Total 600 Output Total 400 Balance 200 Weight 97.6 kg Intake: Oral 600 Output: Urine 400 Other: Voiding Method Toilet Urinal # Voids 1 - Exam General: non toxic, no distress, appears at stated age Derm: warm, dry Head: atraumatic, normocephalic, symmetric Eyes: EOMI, no lid lag, anicteric sclera Mouth: no lip lesion, mucus membranes moist Cardiovascular: S1S2 reg, no murmur, Irregular Lungs: Good air entry BL , no accessory muscle use Abdominal: soft, nontender to palpation, no guarding, no appreciable organomegaly Ext: no gross muscle atrophy, 2 + LE edema BL, no contractures Neuro: CN II-XI grossly intact, no focal neuro deficits Psych: Alert, oriented, appropriate affect - Labs CBC & Chem 7: 01/26/18 05:30 01/26/18 05:30 Labs: Abnormal Lab Results - Last 24 Hours (Table) 01/25/18 01/25/18 01/25/18 Range/Units 10:15 11:09 16:11 RBC (4.30-5.90) m/uL Hgb (13.0-17.5) gm/dL Hct (39.0-53.0) % Sodium (137-145) mmol/L BUN (9-20) mg/dL Creatinine (0.66-1.25) mg/dL Glucose (74-99) mg/dL POC Glucose (mg/dL) 148 H 218 H (75-99) mg/dL Urine Protein 1+ H (Negative) 01/25/18 01/26/18 01/26/18 Range/Units 20:51 05:30 05:30 RBC 3.08 L (4.30-5.90) m/uL Hgb 8.8 L (13.0-17.5) gm/dL Hct 26.5 L (39.0-53.0) % Sodium 136 L (137-145) mmol/L BUN 44 H (9-20) mg/dL Creatinine 1.40 H (0.66-1.25) mg/dL Glucose 189 H (74-99) mg/dL POC Glucose (mg/dL) 346 H (75-99) mg/dL Urine Protein (Negative) 01/26/18 Range/Units 05:54 RBC (4.30-5.90) m/uL Hgb (13.0-17.5) gm/dL Hct (39.0-53.0) % Sodium (137-145) mmol/L BUN (9-20) mg/dL Creatinine (0.66-1.25) mg/dL Glucose (74-99) mg/dL POC Glucose (mg/dL) 186 H (75-99) mg/dL Urine Protein (Negative) Microbiology - Last 24 Hours (Table) 01/25/18 10:15 Urine Culture - Preliminary Urine,Clean Catch Assessment and Plan Assessment: Assessment 67 year old M with PMH of A-Fib, CHF, DM, CKD presents to the ED for cough and SOB. Admitted for PNA and CHF exacerbation. Plan 1. Multi-vessel CAD: Cath shows triple vessel disease with 70-80% occlusion of LAD. CT Sx consulted, patient will need CABG but is currently unstable, will need to FU outpatient. CUS shows moderate stenosis. Continue Lipitor 80 mg PO QHS, Eliquis 5 mg PO BID. 2. CHF exacerbation: Echo 01/2018 shows EF 40-45% with hypokinetic menendez. Lasix 40 IV x 1 then to resume Lasix 40 mg PO BID. Continue BB. Add ACEi on DC. Cardiac diet. Daily weights. Ins and Outs. Keep K > 4 and Mg > 2. FU Cardiology 3. Pneumonia: Community acquired. Patient is afebrile with a WBC of 13.3 (01/19). CXR shows BL lower lobe PNA. Legionella negative. Continue DuoNeb Q4 scheduled. Prednisone taper from 30 mg to 20 mg PO QD. Azithromycin PO and Ceftriaxone IV for Abx. O2 per NC to maintain O2 > 92%. FU Pulmonology, 6 minute walk test, PT eval 4. Anemia: Hg 8.8 Hct 26.5 MCV 86.2. Iron studies show low iron with normal Ferritin. IV Iron x 3 days per Nephro. Will need C-scope outPT. 5. REAL on CKD: BUN 48 Cr 1.57. Improving since yesterday, will DC IVF. Normal kidneys on US. Avoid nephrotoxins. Monitor due to recent contrast use. FU Nephrology, BMP 6. Subclinical hyperthyroidism: TSH 0.18 FT4 1.22. FU TSH/FT4 in 6 weeks. 7. DM: POC glucose 186. A1c 6.4. Continue Levemir 35 units QHS, ISS, Novolog 12 units TID. Lipitor 20 mg PO QHS for ASCVD risk. Hypoglycemic precautions. Accuchecks QID. Diabetic diet. 8. Troponemia: Likely leak from CHF. Trops 0.09, 0.974, 1.150, 1.410. EKG shows A Fib with non specific ST and T wave changes. Repeat Trop 0.889, trending down. 9. A-Fib: AC with Eliquis 5 mg PO BID. Rate control with Metoprolol 25 mg PO QD. Telemetry monitoring. Keep K > 4 and Mg > 2. 10. Glaucoma: Timolol, Pilocarpine, Dorzolamide, Brimonidine drops. Ophthalmology outPT. Cath shows multivessel disease. CT Sx evaluated, possible intervention to be planned in the outpatient setting when patient is more stable. We will continue diuresis with Lasix. I will order 6 minute walk test to assess for home oxygen. He is pending PT eval for deconditioning. Pending clinical improvement in his respiratory status. Anticipate discharge in the next 1-2 days.
[2018-01-26] MEDS: SODIUM FERRIC GLUCONAT-SUCROSE 125 MG in SODIUM CHLORIDE 0.9% 100 ML IVPB SCH (10:20)
--- NOTE | 2018-01-26 11:08 | P.PN ---
Subjective Progress Note Date: 01/26/18 Principal diagnosis: Acute community-acquired bibasilar pneumonia with an acute exacerbation of systolic congestive heart failure. This is a 67-year-old male patient known history of chronic atrial fibrillation diabetes mellitus and chronic renal failure. The patient is a nonsmoker. No 70 chronic lung disease or disorder. No previous history of coronary artery disease. No previous history of CHF. The patient was in a good state of health. He comes in with 1-2 days history of worsening shortness of breath, cough and, feeling congested and he was also bringing up some red/blood-tinged sputum. Noted the patient on Eliquis. He presented emergency department and his chest x-ray showed bibasilar pulmonary infiltrates and findings consistent with CHF. He was afebrile. He was found to be quite hypoxic and he was placed on high flow oxygen. The BNP level was 7880. The troponins were minimally elevated at 0.09 and 0.9 respectively 2. CPK was not elevated. The patient had a white cell count of 13. He was admitted to the floor where he was started on a combination of Rocephin and Zithromax. Overnight he became more short of breath and he had an acute event where he became more hypoxic and he was seen by the hospitalist where he was given Lasix IV for worsening shortness of breath and concerns of pulmonary edema. Currently is on 8 L about 2 by nasal cannula and his pulse ox is above 90%. Echocardiogram was done and the results are still pending for now. EKG showing chronic atrial fibrillation. There is some ST segment abnormalities possibly laterally. He is also on IV Lasix 40 mg every 12 hours IV push. The patient is seen again today 01/20/2018 in follow-up on selective care unit. He is awake and alert in no acute distress. He is breathing a little easier today as compared to yesterday but still not quite back to his baseline. He is still requiring 8 L high flow nasal cannula to maintain O2 saturations in the 90s. He is currently afebrile. Today's chest x-ray does show improved aeration in the right lung base however they're persistent strand-like basilar opacities and trace pleural effusions. Echocardiogram did reveal mild to moderately impaired left ventricular systolic function with ejection fraction 40 -45%. There is apical inferior and septal left ventricular wall motion hypokinesia. Mild to moderate mitral regurgitation. There is severe pulmonary hypertension with an RVSP of 76.75 mmHg. Peak troponin 1.410. Cardiology is on the case as well. He remains on IV diuretics. He remains in a negative balance. Down another kilogram today. Creatinine 1.90. The patient is seen again today 01/20/2018 in follow-up on selective care unit. He is awake and alert in no acute distress. He is breathing a little easier today as compared to yesterday but still not quite back to his baseline. He is still requiring 8 L high flow nasal cannula to maintain O2 saturations in the 90s. He is currently afebrile. Today's chest x-ray does show improved aeration in the right lung base however they're persistent strand-like basilar opacities and trace pleural effusions. Echocardiogram did reveal mild to moderately impaired left ventricular systolic function with ejection fraction 40 -45%. There is apical inferior and septal left ventricular wall motion hypokinesia. Mild to moderate mitral regurgitation. There is severe pulmonary hypertension with an RVSP of 76.75 mmHg. Peak troponin 1.410. Cardiology is on the case as well. He remains on IV diuretics. He remains in a negative balance. Down another kilogram today. Creatinine 1.90. On 01/21/2018 patient seen in follow-up on selective care unit. Yesterday's chest x-ray has been reviewed and showed improved aeration in the right lung base, and persistent basilar opacities and trace pleural effusions. Clinically patient is in no acute distress, his he is coughing, but not bringing up any sputum. Lung sounds reveal a few rales over right lower lobe, rhonchi no wheezing noted. He remains in A. fib, his pulse ox is 98% on 8 L per nasal cannula, his FiO2 will be decreased to 6 L, will continue weaning it to keep the pulse ox above 92%. Today's lab work was reviewed, CBC, sodium is 134, potassium is 4.7, BUN is 35, creatinine is 1.90. Patient is an 1120 ML negative fluid balance. He still has trace edema in bilateral pretibial areas. We will continue current medical treatment, continue with IV diuretics and current antibiotic coverage. On January 23 2018 patient seen again in follow-up on selective care unit. Breathing easier today, occasional cough with production of small amount of blood-tinged sputum. No fever, no chills, yesterday chest x-ray shows improved aeration old lung bases. And the small right-sided pleural effusion, and mild cardiomegaly. Patient has been tolerating ambulation, no chest pain, no worsening dyspnea. Has been treated with a combination of Zithromax and Rocephin, for community acquired pneumonia, and he is improving. Renal profile remains impaired, B1 is 62, creatinine is stable at 2.07, the rest the electrolytes are relatively unremarkable. No CBC was done today, no new chest x -ray. Clinically patient is stable, and continues to improve. Lung sounds are positive for some limited crackles at the right lower base, and patient has 1+ pitting edema in bilateral lower extremities. The patient will receive 1 dose of IV Lasix. Continue with all other current medical treatments. The patient is seen again today 01/25/2018 in follow-up on the selective care unit. He did undergo cardiac catheterization yesterday which revealed diffuse triple-vessel disease including a left main stenosis of 70-80%. The LAD is diffusely diseased with an ostial lesion at 50% stenosis. Diagonal branch 70s percent stenosis. Right coronary artery is also diffusely diseased with approximately having a stenosis of 50-60%. The PDA branch has 70% stenosis. The patient has been seen and evaluated by cardiothoracic surgeons however feeling the patient as having too many other multiple comorbidities at this time to safely plan for surgery. Currently he is doing better. He states he is breathing easier today as compared to yesterday. He is maintaining O2 saturations in the low 90s on 2 L/m per nasal cannula. He is afebrile. Hemodynamically stable. White count 8.9. Hemoglobin 8.7. BUN 48. Creatinine 1.57. He remains on ceftriaxone and azithromycin. Remains on bronchodilators. Oral diuretics. Oral prednisone. The patient is seen again today 01/26/2018 in follow-up on the selective care unit. He is currently sitting up in a chair at the bedside. He is awake and alert in no acute distress. He is now maintaining good O2 saturations in the 90s on room air. He's been afebrile. Hemodynamically stable. White count 9.1. Hemoglobin 8.8. Creatinine 1.40. His peripheral edema has improved. Objective - Vital Signs Vital signs: Vital Signs Temp 98.8 F 01/26/18 08:00 Pulse 91 01/26/18 10:42 Resp 20 01/26/18 08:00 BP 139/59 01/26/18 08:00 Pulse Ox 94 L 01/26/18 10:42 Intake & Output 01/25/18 01/26/18 01/26/18 18:59 06:59 18:59 Intake Total 600 300 Output Total 400 550 Balance 200 -250 Weight 97.6 kg 97.6 kg Intake: Oral 600 300 Output: Urine 400 550 Other: Voiding Method Toilet Toilet Urinal Urinal # Voids 1 1 - Exam Gen. appearance is calm and comfortable mild respiratory distress still requiring 8L of oxygen by nasal cannula Head exam was generally normal. There was no scleral icterus or corneal arcus. Mucous membranes were moist. Neck was supple and without jugular venous distension, thyromegaly, or carotid bruits. Carotids were easily palpable bilaterally. There was no adenopathy. Lungs sounds are diminished bilaterally along with some bibasilar crackles worse on the right. Cardiac exam revealed the PMI to be normally situated and sized. The rhythm is irregular S1-S2 secondary to atrial fibrillation and no extrasystoles were noted during several minutes of auscultation. The first and second heart sounds were normal and physiologic splitting of the second heart sound was noted. There were no murmurs, rubs, clicks, or gallops. Abdominal exam revealed normal bowel sounds. The abdomen was soft, non-tender, and without masses, organomegaly, or appreciable enlargement of the abdominal aorta. Examination of the extremities revealed easily palpable radial, femoral and pedal pulses. There was no cyanosis, clubbing or edema. Examination of the skin revealed no evidence of significant rashes, suspicious appearing nevi or other concerning lesions. Neurologically the patient is awake and alert and there is no focal neurological deficits. - Labs CBC & Chem 7: 01/26/18 05:30 01/26/18 05:30 Labs: Abnormal Lab Results - Last 24 Hours (Table) 01/25/18 01/25/18 01/25/18 Range/Units 11:09 16:11 20:51 RBC (4.30-5.90) m/uL Hgb (13.0-17.5) gm/dL Hct (39.0-53.0) % Sodium (137-145) mmol/L BUN (9-20) mg/dL Creatinine (0.66-1.25) mg/dL Glucose (74-99) mg/dL POC Glucose (mg/dL) 148 H 218 H 346 H (75-99) mg/dL 01/26/18 01/26/18 01/26/18 Range/Units 05:30 05:30 05:54 RBC 3.08 L (4.30-5.90) m/uL Hgb 8.8 L (13.0-17.5) gm/dL Hct 26.5 L (39.0-53.0) % Sodium 136 L (137-145) mmol/L BUN 44 H (9-20) mg/dL Creatinine 1.40 H (0.66-1.25) mg/dL Glucose 189 H (74-99) mg/dL POC Glucose (mg/dL) 186 H (75-99) mg/dL Microbiology - Last 24 Hours (Table) 01/25/18 10:15 Urine Culture - Preliminary Urine,Clean Catch Assessment and Plan Assessment: Assessment 1 acute bibasilar pneumonia, community-acquired 2 acute exacerbation of systolic congestive heart failure. Mild to moderately impaired left ventricular systolic function with ejection fraction 40-45%. There is also noted hypokinesia of the apical inferior and septal wall of the LV. 3 acute hypoxic respiratory failure secondary to above currently on 2 L of oxygen by nasal cannula 4 troponin leak with some limited ST segment depressions over the lateral leads. Cardiac catheterization reveals diffuse triple-vessel disease including a 76-80% stenosis left main. No plans for cardiothoracic intervention at this time based on his multiple comorbidities. 5 acute shortness of breath secondary to above 6 chronic renal failure, stable 7 diabetes mellitus, insulin-dependent 8 hypertension 9 chronic atrial fibrillation maintained on long-term articulation with Eliquis. Currently on a heparin drip. Plan we'll and The patient was seen and evaluated by Dr. Duran. He is improved today as compared to yesterday. Repeat a chest x-ray. Cardiothoracic surgeons are not planning any intervention at this time based on the patient's above-mentioned multiple comorbidities and acute renal failure/CHF/pneumonia. We'll continue the current treatment plan. We'll continue to follow. I, the cosigning physician, performed a history & physical examination of the patient. Lungs sounds with basilar crackles, few scattered rhonchi. Maintaining good O2 saturations in the 90s on room air. I discussed the assessment and plan of care with my nurse practitioner, Nela Moy. I attest to the above note as dictated by her.
[2018-01-26 11:23] LABS: Glucose,Whole Blood 95 mg/dL (75-99)
--- NOTE | 2018-01-26 14:33 | XR ---
EXAMINATION TYPE: XR chest 1V portable DATE OF EXAM: 01/26/2018 COMPARISON: 01/22/2018 HISTORY: Shortness of breath. History of congestive heart failure TECHNIQUE: Single frontal view of the chest is obtained. FINDINGS: And there is overall improved aeration of the lungs in comparison to the prior. No current pulmonary vascular congestion. There is no focal air space opacity, pleural effusion, or pneumothora x seen. The cardiac silhouette size is again enlarged. The osseous structures are intact. Mild mul tilevel degenerative changes of the thoracic spine are noted. IMPRESSION: Improved aeration of the lungs and resolution of the previously seen pulmonary vascular congestion in comparison to the prior of 01/22/2018. No acute cardiopulmonary pathology.
[2018-01-26 16:30] LABS: Glucose,Whole Blood 283 mg/dL (75-99)
[2018-01-26 20:27] LABS: Glucose,Whole Blood 293 mg/dL (75-99)
--- NOTE | 2018-01-26 21:00 | PN ---
PROGRESS NOTE This patient is status post cardiac catheterization. Patient was found to have severe triple-vessel disease. The patient was evaluated by cardiothoracic surgery. They have advised to maximize his medical treatment once the patient overall feels better. They will reevaluate him in 2-3 weeks and patient can be considered for coronary artery bypass surgery. It is definitely a high risk surgery. The patient's creatinine is now 1.4. Patient is not short of breath. Heart S1 and S2 normal. Lungs are clear to auscultation and percussion. We will discharge him today or tomorrow and I would see him in the office in a couple of weeks. MMODL / IJN: [id number] /
[2018-01-26] MEDS: ATORVASTATIN 80 MG TAB PO SCH (21:33)
[2018-01-26] MEDS: AZITHROMYCIN 500 MG TAB PO SCH (21:33)
[2018-01-26] MEDS: INSULIN DETEMIR 100 UNIT/ML 10 ML VIAL SQ SCH (21:34)
[2018-01-26] MEDS: cefTRIAXone IN SWFI 1,000 MG/10 ML SYRINGE IVP SCH (23:24)
[2018-01-27] MEDS: IPRATROPIUM-ALBUTEROL 3 ML NEB INHALATION SCH ×4 (00:51→12:21)
[2018-01-27 01:53] VITALS: RESP 16
[2018-01-27 06:01] LABS: Glucose,Whole Blood 77 mg/dL (75-99)
[2018-01-27] MEDS: INSULIN ASPART 100 UNIT/ML 1 ML 10 ML VIAL SQ SCH ×4 (06:16→12:20)
[2018-01-27 06:40] LABS: Basophils % (A) 0 %; Eosinophils # (A) 0.3 k/uL (0-0.7); Eosinophils % (A) 4 %; HCT 26.1 % (39.0-53.0); HGB 8.6 gm/dL (13.0-17.5); Hypochromasia Slight; Lymphocytes % (A) 12 %; MCH 28.2 pg (25.0-35.0); MCV 85.3 fL (80.0-100.0); Mean Platelet Volume 6.9; Monocytes # (A) 0.6 k/uL (0-1.0); Monocytes % (A) 7 %; Neutrophils # (A) 6.3 k/uL (1.3-7.7); Neutrophils % (A) 74 %; Platelet Count 200 k/uL (150-450); Poikilocytosis Slight; RBC 3.05 m/uL (4.30-5.90); RDW 14.8 % (11.5-15.5); WBC 8.6 k/uL (3.8-10.6)
[2018-01-27 06:54] LABS: Calcium 8.8 mg/dL (8.4-10.2); Potassium 3.9 mmol/L (3.5-5.1)
[2018-01-27 08:33] VITALS: BP 144/71; PULSE 88; TEMP 99.2
[2018-01-27] MEDS: GABAPENTIN 100 MG CAP PO SCH (08:34)
[2018-01-27] MEDS: DORZOLAMIDE HCL 2% DROPS 10 ML BTL RIGHT EYE SCH (08:34)
[2018-01-27] MEDS: BRIMONIDINE TARTRATE 0.2% DROPS 5 ML BTL RIGHT EYE SCH (08:34)
[2018-01-27] MEDS: PILOCARPINE 2% OPHTH DROPS 15 ML BTL RIGHT EYE SCH (08:34)
[2018-01-27] MEDS: TIMOLOL 0.5% OPHTH DROPS 5 ML BTL RIGHT EYE SCH (08:34)
[2018-01-27] MEDS: ASPIRIN 81 MG PO SCH (08:35)
[2018-01-27] MEDS: APIXABAN 5 MG TAB PO SCH (08:35)
[2018-01-27] MEDS: FUROSEMIDE 40 MG TAB PO SCH (08:35)
[2018-01-27] MEDS: predniSONE 20 MG TAB PO SCH (08:35)
[2018-01-27] MEDS: METOPROLOL TARTRATE 25 MG TAB PO SCH (08:35)
[2018-01-27] MEDS ORDERED: predniSONE 10 MG TAB PO SCH (09:00)
--- NOTE | 2018-01-27 09:00 | P.PN ---
Subjective Progress Note Date: 01/27/18 Principal diagnosis: Pneumonia, CHF exacerbation. Patient was seen examined. No acute events overnight. Patient lost 1.1 kg since yesterday. Patient saturating 96% on room air. BP 144/7. Pulse 88. Patient afebrile. Patient reports great improvement in breathing. Patient is able to walk around the floor without difficulties. He denies cough, chest pain , shortness of breath, palpitations. Objective - Vital Signs Vital signs: Vital Signs Temp 99.2 F 01/27/18 08:30 Pulse 88 01/27/18 08:30 Resp 16 01/27/18 08:30 BP 144/71 01/27/18 08:30 Pulse Ox 96 01/27/18 08:30 Intake & Output 01/26/18 01/27/18 01/27/18 18:59 06:59 18:59 Intake Total 1270 440 Output Total 1850 450 Balance -580 -10 Weight 97.6 kg 96.5 kg Intake: IV 40 Invasive Line 2 20 Invasive Line 3 20 Intake, IV Titration 250 Amount Sodium Ferric Gluconat- 250 Sucrose 125 mg In Sodium Chloride 0.9% 100 ml @ 100 mls/hr IVPB DAILY [facility] Rx#:[id number] Oral 1020 400 Output: Urine 1850 450 Other: Voiding Method Toilet Toilet Urinal # Voids 1 1 - Exam General: non toxic, no distress, appears at stated age Derm: warm, dry Head: atraumatic, normocephalic, symmetric Eyes: EOMI, no lid lag, anicteric sclera Mouth: no lip lesion, mucus membranes moist Cardiovascular: S1S2 reg, no murmur, Irregular Lungs: Clear to auscultation bilaterally, no accessory muscle use Abdominal: soft, nontender to palpation, no guarding, no appreciable organomegaly Ext: no gross muscle atrophy, 1 + LE edema BL (improving), no contractures Neuro: CN II-XI grossly intact, no focal neuro deficits Psych: Alert, oriented, appropriate affect - Labs CBC & Chem 7: 01/27/18 05:48 01/27/18 05:48 Labs: Abnormal Lab Results - Last 24 Hours (Table) 01/26/18 01/26/18 01/27/18 Range/Units 16:22 20:24 05:48 RBC 3.05 L (4.30-5.90) m/uL Hgb 8.6 L (13.0-17.5) gm/dL Hct 26.1 L (39.0-53.0) % BUN (9-20) mg/dL Creatinine (0.66-1.25) mg/dL Glucose (74-99) mg/dL POC Glucose (mg/dL) 283 H 293 H (75-99) mg/dL 01/27/18 Range/Units 05:48 RBC (4.30-5.90) m/uL Hgb (13.0-17.5) gm/dL Hct (39.0-53.0) % BUN 35 H (9-20) mg/dL Creatinine 1.37 H (0.66-1.25) mg/dL Glucose 73 L (74-99) mg/dL POC Glucose (mg/dL) (75-99) mg/dL Microbiology - Last 24 Hours (Table) 01/25/18 10:15 Urine Culture - Final Urine,Clean Catch Assessment and Plan Assessment: Assessment 67 year old M with PMH of A-Fib, CHF, DM, CKD presents to the ED for cough and SOB. Admitted for PNA and CHF exacerbation. Plan 1. Multi-vessel CAD: Cath shows triple vessel disease with 70-80% occlusion of LAD. CT Sx consulted, patient will need CABG but is currently unstable, will need to FU outpatient. CUS shows moderate stenosis. Continue Lipitor 80 mg PO QHS, Eliquis 5 mg PO BID. Continue BB. Add low dose ACEi on DC. FU Cardiology and CT Sx outPT. 2. CHF exacerbation: Echo 01/2018 shows EF 40-45% with hypokinetic menendez. Continue Lasix 40 mg PO BID. Continue BB. Add ACEi on DC. Cardiac diet. Daily weights. Ins and Outs. Keep K > 4 and Mg > 2. Advised LE elevation. FU Cardiology outPT. 3. Pneumonia: Community acquired. Patient is afebrile with a WBC of 13.3 (01/19). CXR shows BL lower lobe PNA. Legionella negative. Continue DuoNeb Q4 scheduled. Prednisone taper from 20 mg to 10 mg PO QD. Azithromycin PO and Ceftriaxone IV for Abx (Day 8). O2 per [place] to maintain O2 > 92%. Passed home O2 eval yesterday. Complete total 14 days of Abx. 4. Anemia: Hg 8.6 Hct 26.1 MCV 85.3. Iron studies show low iron with normal Ferritin. IV Iron stopped, will DC on PO. Will need C-scope outPT. 5. REAL on CKD: BUN 35 Cr 1.37. Improving. Normal kidneys on US. Avoid nephrotoxins. Resume Lasix 40 mg PO BID. Start ACEi on DC. Monitor due to recent contrast use. 6. Subclinical hyperthyroidism: TSH 0.18 FT4 1.22. FU TSH/FT4 in 6 weeks. 7. DM: POC glucose 77. A1c 6.4. Continue Levemir 35 units QHS, ISS, Novolog 12 units TID. Lipitor 20 mg PO QHS for ASCVD risk. Hypoglycemic precautions. Accuchecks QID. Diabetic diet. 8. Troponemia: Likely leak from CHF. Trops 0.09, 0.974, 1.150, 1.410. EKG shows A Fib with non specific ST and T wave changes. Repeat Trop 0.889, trending down. 9. A-Fib: AC with Eliquis 5 mg PO BID. Rate control with Metoprolol 25 mg PO QD. Telemetry monitoring. Keep K > 4 and Mg > 2. 10. Glaucoma: Timolol, Pilocarpine, Dorzolamide, Brimonidine drops. Ophthalmology outPT. Cath shows multivessel disease. CT Sx evaluated, possible intervention to be planned in the outpatient setting when patient is more stable. We will continue diuresis with Lasix. Passed 6 minute walk yesterday. PT deemed safe for DC. Home health set up. DC today.
--- NOTE | 2018-01-27 09:18 | P.DS ---
Providers Date of admission: 01/19/18 03:16 Expected date of discharge: 01/27/18 Attending physician: Brionna Porter MD Consults: 01/19/18 07:49 Consult Physician Routine Consulting Provider: Cedric Rojas Consult Reason/Comments: respiratory failure, pneumonia Do you want consulting provider notified?: Yes 01/19/18 10:30 Consult Physician Urgent Consulting Provider: Orlando Rodriguez Consult Reason/Comments: A-Fib/Abnormal Echo Do you want consulting provider notified?: Yes 01/19/18 12:29 Consult Physician Routine Consulting Provider: Ashly Jose Consult Reason/Comments: Clearence for cardiac cath, stage 3 CKD Do you want consulting provider notified?: Yes 01/24/18 15:34 Consult Physician Urgent Consulting Provider: Ben Collins Consult Reason/Comments: cad Do you want consulting provider notified?: Already Contacted Primary care physician: Yin Person - Discharge Diagnosis(es) (1) Anemia, iron deficiency Current Visit: Yes Status: Acute (2) Subclinical hyperthyroidism Current Visit: Yes Status: Acute (3) DM2 (diabetes mellitus, type 2) Current Visit: Yes Status: Acute (4) Troponin level elevated Current Visit: Yes Status: Acute (5) A-fib Current Visit: Yes Status: Acute (6) Glaucoma Current Visit: Yes Status: Acute (7) Acute exacerbation of CHF (congestive heart failure) Current Visit: Yes Status: Acute (8) Pneumonia Current Visit: Yes Status: Acute (9) Renal failure (ARF), acute on chronic Current Visit: Yes Status: Acute (10) Left main coronary artery disease Current Visit: Yes Status: Chronic Hospital Course: 67-year-old male with PMH of COPD, diabetes mellitus, atrial fibrillation, hypertension presents to the ED for today's shortness of breath and cough. Patient reports congestion, cough productive of green and red sputum. Denies any sick contacts, fever, chills but reported some diaphoresis. Patient denies any chest pain at that time. In the ED, chest x-ray was suggestive of bilateral pneumonia. Patient was found to have a leukocytosis of 13.3. Hemoglobin 9.9. Creatinine of 1.8. Glucose of 222. Troponin was 0.095. EKG showed atrial fibrillation with ST abnormality. Patient was admitted for pneumonia, rule out acute coronary syndrome. Patient was initially treated for pneumonia with azithromycin by mouth and ceftriaxone IV. He was started on Solu-Medrol IV and DuoNeb as needed. He was given oxygen per nasal cannula to maintain an O2 saturation greater than 92%. Legionella was negative. Pulmonology was consulted as well. He was eventually transitioned from Solu-Medrol IV to prednisone by mouth taper. He was able to pass a 6 minute walk test prior to discharge. For his shortness of breath, echocardiogram was obtained which showed an EF of 40-45% with hypokinetic emnendez. He was diuresis to Lasix IV and eventually transitioned to Lasix by mouth. He was continued on his home medication of metoprolol, and discharged on lisinopril 5 mg as well. He was evaluated by cardiology at this time, and underwent catheterization showing triple-vessel disease with 70-80% occlusion of the LAD. Cardiothoracic surgery evaluated the patient. The decision was made that patient would need to follow-up outpatient after being more clinically stable for CABG. Patient was found to be anemic during his hospitalization. His hemoglobin on discharge was 8.8. Iron studies showed a low iron with normal ferritin. IV iron was recommended by nephrology for 3 days. He was given IV iron for 1 day, discharged on iron supplements by mouth. Patient was advised that he would need colonoscopy under his PCP outpatient. His hemoglobin remained stable during his entire hospitalization. Patient was initially found to have an REAL on CKD. His renal status was monitored very carefully due to contrast being used during catheterization. His creatinine on discharge was 1.57, trending down from 2.07 and 1.80 on admission. Nephrology was on board. Kidney ultrasound was normal. Patient was discharged home. Patient was advised to follow-up with his primary care provider within 1-2 days of discharge. Patient was advised to follow-up with cardiology within 1 week of discharge. Patient was advised to follow-up with cardiothoracic surgery within 1 week of discharge. Patient was told to take all medication as advised. Patient was advised a low-salt diet and fluid restriction. Patient was advised not physically or emotionally exert himself until evaluation by cardiothoracic surgery. This complex discharge took greater than 30 minutes. General: non toxic, no distress, appears at stated age Derm: warm, dry Head: atraumatic, normocephalic, symmetric Eyes: EOMI, no lid lag, anicteric sclera Mouth: no lip lesion, mucus membranes moist Cardiovascular: S1S2 reg, no murmur, Irregular Lungs: Good air entry BL , no accessory muscle use Abdominal: soft, nontender to palpation, no guarding, no appreciable organomegaly Ext: no gross muscle atrophy, 1 + LE edema BL (improving), no contractures Neuro: CN II-XI grossly intact, no focal neuro deficits Psych: Alert, oriented, appropriate affect Pertinent Studies: Echo Cardiac cath CXR Kidney US Procedures: Cardiac cath Patient Condition at Discharge: Stable Plan - Discharge Summary New Discharge Prescriptions: New Aspirin 81 mg PO DAILY #30 chew Atorvastatin [Lipitor] 80 mg PO HS #30 tab Ferrous Sulfate [Iron (65 MG Elemental)] 325 mg PO BID #60 tab Furosemide [Lasix] 40 mg PO BID@0900,1600 #60 tab Levofloxacin [Levaquin] 750 mg PO DAILY 6 Days #6 tab Lisinopril [Zestril] 5 mg PO DAILY #30 tab Metoprolol Tartrate [Lopressor] 25 mg PO BID #60 tab Nitroglycerin Sl Tabs [Nitrostat] 0.4 mg SUBLINGUAL Q5M PRN #30 tab PRN Reason: Chest Pain predniSONE 10 mg PO DAILY #2 tab Continue Insulin Glargine [Lantus] 35 unit SQ HS Gabapentin [Neurontin] 100 mg PO TID Insulin Aspart [NovoLOG] 15 units SQ AC-TID metFORMIN HCL [Glucophage] 500 mg PO BID Timolol 0.5% Ophth Soln [Timoptic 0.5% Ophth Soln] 1 drop RIGHT EYE BID Pilocarpine HCl [Isopto Carpine 4%] 1 drop RIGHT EYE QID Brinzolamide [Azopt 1% Ophth Susp] 1 drop RIGHT EYE BID Brimonidine Tartrate [Alphagan P 0.2% Ophth Soln] 1 drop RIGHT EYE BID Apixaban [Eliquis] 5 mg PO BID #60 tab Discontinued Atorvastatin [Lipitor] 20 mg PO DAILY Metoprolol Succinate (ER) [Toprol XL] 25 mg PO DAILY amLODIPine [Norvasc] 5 mg PO DAILY Discharge Medication List Brimonidine Tartrate [Alphagan P 0.2% Ophth Soln] 1 drop RIGHT EYE BID 01/19/18 [History] Brinzolamide [Azopt 1% Ophth Susp] 1 drop RIGHT EYE BID 01/19/18 [History] Gabapentin [Neurontin] 100 mg PO TID 01/19/18 [History] Insulin Aspart [NovoLOG] 15 units SQ AC-TID 01/19/18 [History] Insulin Glargine [Lantus] 35 unit SQ HS 01/19/18 [History] Pilocarpine HCl [Isopto Carpine 4%] 1 drop RIGHT EYE QID 01/19/18 [History] Timolol 0.5% Ophth Soln [Timoptic 0.5% Ophth Soln] 1 drop RIGHT EYE BID [History] metFORMIN HCL [Glucophage] 500 mg PO BID 01/19/18 [History] Apixaban [Eliquis] 5 mg PO BID #60 tab 01/27/18 [Rx] Aspirin 81 mg PO DAILY #30 chew 01/27/18 [Rx] Atorvastatin [Lipitor] 80 mg PO HS #30 tab 01/27/18 [Rx] Ferrous Sulfate [Iron (65 MG Elemental)] 325 mg PO BID #60 tab 01/27/18 [Rx] Furosemide [Lasix] 40 mg PO BID@0900,1600 #60 tab 01/27/18 [Rx] Levofloxacin [Levaquin] 750 mg PO DAILY 6 Days #6 tab 01/27/18 [Rx] Lisinopril [Zestril] 5 mg PO DAILY #30 tab 01/27/18 [Rx] Metoprolol Tartrate [Lopressor] 25 mg PO BID #60 tab 01/27/18 [Rx] Nitroglycerin Sl Tabs [Nitrostat] 0.4 mg SUBLINGUAL Q5M PRN #30 tab 01/27/18 [Rx ] predniSONE 10 mg PO DAILY #2 tab 01/27/18 [Rx] Follow up Appointment(s)/Referral(s): Manohar Leung MD [STAFF PHYSICIAN] - 02/16/18 1:00 pm (With Yamila ORTEZ. [id number] [facility]) Ben Collins MD [STAFF PHYSICIAN] - 02/17/18 11:00 am Yin Person DO [Primary Care Provider] - 01/31/18 10:20 am (Tuesday) [facility], [NON-STAFF] - Marla Reyes MD [STAFF PHYSICIAN] - 02/15/18 1:00 pm Orlando Rodriguez MD [STAFF PHYSICIAN] - 02/02/18 2:30 pm Patient Instructions/Handouts: Coronary Artery Disease (DC), Chronic Kidney Disease (DC), Heart Healthy Diet (DC), Pneumonia (DC) Activity/Diet/Wound Care/Special Instructions: Cleared by cardiology. Diet: Cardiac diet. Please take all medications as advised. Please do not exert yourself physically or emotionally. Please follow-up with your primary care provider within 1-2 days of discharge. Please follow-up with cardiology, cardiothoracic surgery and pulmonology with the appointment given to. Please come to the ED or call 911 if you experience chest pain, shortness of breath, palpitations, dizziness. Discharge Disposition: HOME SELF-CARE
[2018-01-27] MEDS: SODIUM FERRIC GLUCONAT-SUCROSE 125 MG in SODIUM CHLORIDE 0.9% 100 ML IVPB SCH (09:45)
--- NOTE | 2018-01-27 10:35 | P.PN ---
Subjective Patient is seen in follow-up for acute kidney injury and chronic kidney disease. Patient states he was told he had chronic kidney disease stage III and was scheduled to see a computer systems integrator as an outpatient in the near future. Creatinine down to 1.4 today. No vomiting or diarrhea. Admits to good urine output. He is noted to have systolic CHF with ejection fraction of 40-45% with mild to moderate mitral regurgitation and severe pulmonary hypertension. Patient had a cardiac catheterization done on January 24 which revealed triple- vessel disease. He has been evaluated by cardiothoracic surgery. Currently maintained on Lasix 40 mg orally twice daily. Feels well today. No active complaints at this time. Vital signs are stable. General: The patient appeared well nourished and normally developed. HEENT: Head exam is unremarkable. Neck is without jugular venous distension. LUNGS: Breath sounds decreased. HEART: Rate and Rhythm are regular. First and second heart sounds normal. No murmurs, rubs or gallops. ABDOMEN: Abdominal exam reveals normal bowel sounds. Non-tender and non- distended. No evidence of peritonitis. EXTREMITITES: 1+ edema. Objective - Vital Signs Vital signs: Vital Signs Temp 99.2 F 01/27/18 08:30 Pulse 88 01/27/18 08:30 Resp 16 01/27/18 08:30 BP 144/71 01/27/18 08:30 Pulse Ox 96 01/27/18 08:30 Intake & Output 01/26/18 01/27/18 01/27/18 18:59 06:59 18:59 Intake Total 1270 440 240 Output Total 1850 450 Balance -580 -10 240 Weight 97.6 kg 96.5 kg Intake: IV 40 Invasive Line 2 20 Invasive Line 3 20 Intake, IV Titration 250 Amount Sodium Ferric Gluconat- 250 Sucrose 125 mg In Sodium Chloride 0.9% 100 ml @ 100 mls/hr IVPB DAILY [facility] Rx#:[id number] Oral 1020 400 240 Output: Urine 1850 450 Other: Voiding Method Toilet Toilet Toilet Urinal # Voids 1 1 - Labs CBC & Chem 7: 01/27/18 05:48 01/27/18 05:48 Labs: Abnormal Lab Results - Last 24 Hours (Table) 01/26/18 01/26/18 01/27/18 Range/Units 16:22 20:24 05:48 RBC 3.05 L (4.30-5.90) m/uL Hgb 8.6 L (13.0-17.5) gm/dL Hct 26.1 L (39.0-53.0) % BUN (9-20) mg/dL Creatinine (0.66-1.25) mg/dL Glucose (74-99) mg/dL POC Glucose (mg/dL) 283 H 293 H (75-99) mg/dL 01/27/18 Range/Units 05:48 RBC (4.30-5.90) m/uL Hgb (13.0-17.5) gm/dL Hct (39.0-53.0) % BUN 35 H (9-20) mg/dL Creatinine 1.37 H (0.66-1.25) mg/dL Glucose 73 L (74-99) mg/dL POC Glucose (mg/dL) (75-99) mg/dL Microbiology - Last 24 Hours (Table) 01/25/18 10:15 Urine Culture - Final Urine,Clean Catch Assessment and Plan Plan: Assessment: 1. Nonoliguric acute kidney injury secondary to ATN secondary to cardiorenal syndrome. Creatinine down to 1.37 today. No evidence of hydronephrosis noted on renal ultrasound. 2. Chronic kidney disease stage III. Patient has an appointment to see a computer systems integrator in the near future in [facility]. Etiology is likely diabetic kidney disease. 3. Systolic CHF with ejection fraction of 40-45% with mild to moderate mitral regurgitation and severe pulmonary hypertension. 4. Volume overload. 5. Diabetes mellitus. 6. Hypertonic hyponatremia secondary to hyperglycemia. Resolved. 7. Pneumonia maintained on antibiotics. 8. Metabolic acidosis secondary to acute kidney injury. Improved. 9. Hypomagnesemia secondary to diuresis. Improved post replacement. 10. Anemia. Iron deficiency noted. Plan: Decrease Lasix to 40 mg once daily. I advised the patient to take an additional 40 mg if notices worsening of edema and weight gain. Advised them to follow a low-salt diet. Ferrlecit 125 mg IV daily for 3 days. Second dose today. Avoid nephrotoxic agents and hypotensive episodes. Scheduled to be discharged today. He will need to follow-up as an outpatient in the next 1-2 weeks.
[2018-01-27 11:30] LABS: Glucose,Whole Blood 129 mg/dL (75-99)
--- NOTE | 2018-01-27 12:48 | P.PN ---
Subjective Progress Note Date: 01/27/18 Principal diagnosis: Acute community-acquired bibasilar pneumonia with an acute exacerbation of systolic congestive heart failure. This is a 67-year-old male patient known history of chronic atrial fibrillation diabetes mellitus and chronic renal failure. The patient is a nonsmoker. No 68 chronic lung disease or disorder. No previous history of coronary artery disease. No previous history of CHF. The patient was in a good state of health. He comes in with 1-2 days history of worsening shortness of breath, cough and, feeling congested and he was also bringing up some red/blood-tinged sputum. Noted the patient on Eliquis. He presented emergency department and his chest x-ray showed bibasilar pulmonary infiltrates and findings consistent with CHF. He was afebrile. He was found to be quite hypoxic and he was placed on high flow oxygen. The BNP level was 7880. The troponins were minimally elevated at 0.09 and 0.9 respectively 2. CPK was not elevated. The patient had a white cell count of 13. He was admitted to the floor where he was started on a combination of Rocephin and Zithromax. Overnight he became more short of breath and he had an acute event where he became more hypoxic and he was seen by the hospitalist where he was given Lasix IV for worsening shortness of breath and concerns of pulmonary edema. Currently is on 8 L about 2 by nasal cannula and his pulse ox is above 90%. Echocardiogram was done and the results are still pending for now. EKG showing chronic atrial fibrillation. There is some ST segment abnormalities possibly laterally. He is also on IV Lasix 40 mg every 12 hours IV push. The patient is seen again today 01/20/2018 in follow-up on selective care unit. He is awake and alert in no acute distress. He is breathing a little easier today as compared to yesterday but still not quite back to his baseline. He is still requiring 8 L high flow nasal cannula to maintain O2 saturations in the 90s. He is currently afebrile. Today's chest x-ray does show improved aeration in the right lung base however they're persistent strand-like basilar opacities and trace pleural effusions. Echocardiogram did reveal mild to moderately impaired left ventricular systolic function with ejection fraction 40 -45%. There is apical inferior and septal left ventricular wall motion hypokinesia. Mild to moderate mitral regurgitation. There is severe pulmonary hypertension with an RVSP of 76.75 mmHg. Peak troponin 1.410. Cardiology is on the case as well. He remains on IV diuretics. He remains in a negative balance. Down another kilogram today. Creatinine 1.90. The patient is seen again today 01/20/2018 in follow-up on selective care unit. He is awake and alert in no acute distress. He is breathing a little easier today as compared to yesterday but still not quite back to his baseline. He is still requiring 8 L high flow nasal cannula to maintain O2 saturations in the 90s. He is currently afebrile. Today's chest x-ray does show improved aeration in the right lung base however they're persistent strand-like basilar opacities and trace pleural effusions. Echocardiogram did reveal mild to moderately impaired left ventricular systolic function with ejection fraction 40 -45%. There is apical inferior and septal left ventricular wall motion hypokinesia. Mild to moderate mitral regurgitation. There is severe pulmonary hypertension with an RVSP of 76.75 mmHg. Peak troponin 1.410. Cardiology is on the case as well. He remains on IV diuretics. He remains in a negative balance. Down another kilogram today. Creatinine 1.90. On 01/21/2018 patient seen in follow-up on selective care unit. Yesterday's chest x-ray has been reviewed and showed improved aeration in the right lung base, and persistent basilar opacities and trace pleural effusions. Clinically patient is in no acute distress, his he is coughing, but not bringing up any sputum. Lung sounds reveal a few rales over right lower lobe, rhonchi no wheezing noted. He remains in A. fib, his pulse ox is 98% on 8 L per nasal cannula, his FiO2 will be decreased to 6 L, will continue weaning it to keep the pulse ox above 92%. Today's lab work was reviewed, CBC, sodium is 134, potassium is 4.7, BUN is 35, creatinine is 1.90. Patient is an 1120 ML negative fluid balance. He still has trace edema in bilateral pretibial areas. We will continue current medical treatment, continue with IV diuretics and current antibiotic coverage. On January 23 2018 patient seen again in follow-up on selective care unit. Breathing easier today, occasional cough with production of small amount of blood-tinged sputum. No fever, no chills, yesterday chest x-ray shows improved aeration old lung bases. And the small right-sided pleural effusion, and mild cardiomegaly. Patient has been tolerating ambulation, no chest pain, no worsening dyspnea. Has been treated with a combination of Zithromax and Rocephin, for community acquired pneumonia, and he is improving. Renal profile remains impaired, B1 is 62, creatinine is stable at 2.07, the rest the electrolytes are relatively unremarkable. No CBC was done today, no new chest x -ray. Clinically patient is stable, and continues to improve. Lung sounds are positive for some limited crackles at the right lower base, and patient has 1+ pitting edema in bilateral lower extremities. The patient will receive 1 dose of IV Lasix. Continue with all other current medical treatments. The patient is seen again today 01/25/2018 in follow-up on the selective care unit. He did undergo cardiac catheterization yesterday which revealed diffuse triple-vessel disease including a left main stenosis of 70-80%. The LAD is diffusely diseased with an ostial lesion at 50% stenosis. Diagonal branch 70s percent stenosis. Right coronary artery is also diffusely diseased with approximately having a stenosis of 50-60%. The PDA branch has 70% stenosis. The patient has been seen and evaluated by cardiothoracic surgeons however feeling the patient as having too many other multiple comorbidities at this time to safely plan for surgery. Currently he is doing better. He states he is breathing easier today as compared to yesterday. He is maintaining O2 saturations in the low 90s on 2 L/m per nasal cannula. He is afebrile. Hemodynamically stable. White count 8.9. Hemoglobin 8.7. BUN 48. Creatinine 1.57. He remains on ceftriaxone and azithromycin. Remains on bronchodilators. Oral diuretics. Oral prednisone. The patient is seen again today 01/26/2018 in follow-up on the selective care unit. He is currently sitting up in a chair at the bedside. He is awake and alert in no acute distress. He is now maintaining good O2 saturations in the 90s on room air. He's been afebrile. Hemodynamically stable. White count 9.1. Hemoglobin 8.8. Creatinine 1.40. His peripheral edema has improved. The patient is seen again today 01/27/2018 in follow-up on the selective care unit. He is sitting up in a chair at the bedside. He remains awake and alert in no acute distress. Not requiring any oxygen supplementation. He denies any worsening shortness of breath, cough or congestion. Chest x-ray shows near complete resolution the pulmonary vascular congestion. His weight is down another kilogram. Edema improved. White count 8.6. Hemoglobin 8.6. Creatinine 1.37. Objective - Vital Signs Vital signs: Vital Signs Temp 99.2 F 01/27/18 08:30 Pulse 88 01/27/18 08:30 Resp 16 01/27/18 08:30 BP 144/71 01/27/18 08:30 Pulse Ox 96 01/27/18 08:30 Intake & Output 01/26/18 01/27/18 01/27/18 18:59 06:59 18:59 Intake Total 1270 440 240 Output Total 1850 450 Balance -580 -10 240 Weight 97.6 kg 96.5 kg Intake: IV 40 Invasive Line 2 20 Invasive Line 3 20 Intake, IV Titration 250 Amount Sodium Ferric Gluconat- 250 Sucrose 125 mg In Sodium Chloride 0.9% 100 ml @ 100 mls/hr IVPB DAILY [facility] Rx#:[id number] Oral 1020 400 240 Output: Urine 1850 450 Other: Voiding Method Toilet Toilet Toilet Urinal # Voids 1 1 - Exam Gen. appearance is calm and comfortable mild respiratory distress still requiring 8L of oxygen by nasal cannula Head exam was generally normal. There was no scleral icterus or corneal arcus. Mucous membranes were moist. Neck was supple and without jugular venous distension, thyromegaly, or carotid bruits. Carotids were easily palpable bilaterally. There was no adenopathy. Lungs sounds are diminished bilaterally along with some bibasilar crackles worse on the right. Cardiac exam revealed the PMI to be normally situated and sized. The rhythm is irregular S1-S2 secondary to atrial fibrillation and no extrasystoles were noted during several minutes of auscultation. The first and second heart sounds were normal and physiologic splitting of the second heart sound was noted. There were no murmurs, rubs, clicks, or gallops. Abdominal exam revealed normal bowel sounds. The abdomen was soft, non-tender, and without masses, organomegaly, or appreciable enlargement of the abdominal aorta. Examination of the extremities revealed easily palpable radial, femoral and pedal pulses. There was no cyanosis, clubbing or edema. Examination of the skin revealed no evidence of significant rashes, suspicious appearing nevi or other concerning lesions. Neurologically the patient is awake and alert and there is no focal neurological deficits. - Labs CBC & Chem 7: 01/27/18 05:48 01/27/18 05:48 Labs: Abnormal Lab Results - Last 24 Hours (Table) 01/26/18 01/26/18 01/27/18 Range/Units 16:22 20:24 05:48 RBC 3.05 L (4.30-5.90) m/uL Hgb 8.6 L (13.0-17.5) gm/dL Hct 26.1 L (39.0-53.0) % BUN (9-20) mg/dL Creatinine (0.66-1.25) mg/dL Glucose (74-99) mg/dL POC Glucose (mg/dL) 283 H 293 H (75-99) mg/dL 01/27/18 01/27/18 Range/Units 05:48 11:28 RBC (4.30-5.90) m/uL Hgb (13.0-17.5) gm/dL Hct (39.0-53.0) % BUN 35 H (9-20) mg/dL Creatinine 1.37 H (0.66-1.25) mg/dL Glucose 73 L (74-99) mg/dL POC Glucose (mg/dL) 129 H (75-99) mg/dL Microbiology - Last 24 Hours (Table) 01/25/18 10:15 Urine Culture - Final Urine,Clean Catch Assessment and Plan Assessment: Assessment 1 acute bibasilar pneumonia, community-acquired 2 acute exacerbation of systolic congestive heart failure. Mild to moderately impaired left ventricular systolic function with ejection fraction 40-45%. There is also noted hypokinesia of the apical inferior and septal wall of the LV. 3 acute hypoxic respiratory failure secondary to above currently on 2 L of oxygen by nasal cannula, recovered. 4 troponin leak with some limited ST segment depressions over the lateral leads. Cardiac catheterization reveals diffuse triple-vessel disease including a 76-80% stenosis left main. No plans for cardiothoracic intervention at this time based on his multiple comorbidities. 5 acute shortness of breath secondary to above, recovered 6 chronic renal failure, stable 7 diabetes mellitus, insulin-dependent 8 hypertension 9 chronic atrial fibrillation maintained on long-term articulation with Eliquis. Plan: The patient was seen and evaluated by Dr. Duran. His x-ray shows near complete resolution of pulmonary vascular congestion. Cardiothoracic surgeons are not planning any intervention at this time based on the patient's above-mentioned multiple comorbidities and acute renal failure/CHF/pneumonia. He is cleared for discharge from the pulmonary standpoint. He should follow-up in our office in 1-2 weeks' time. I, the cosigning physician, performed a history & physical examination of the patient. Lungs sounds clear. Maintaining good O2 saturations in the 90s on room air. I discussed the assessment and plan of care with my nurse practitioner, Nela Moy. I attest to the above note as dictated by her.
--- NOTE | 2018-01-27 19:22 | PN ---
PROGRESS NOTE This was admitted with congestive heart failure, non-Q-wave myocardial infarction. Patient is doing fairly well. The patient's blood blood pressure is 120/80 mmHg. First and second heart sounds are normal. Lungs are clinically clear to auscultation and percussion. Patient will be discharged home, Lasix 40 mg daily. We will follow up BUN and creatinine as an outpatient. MMODL / IJN: [id number] /
[2018-01-28] MEDS ORDERED: FUROSEMIDE 40 MG TAB PO SCH (09:00)
[2018-01-28] MEDS ORDERED: predniSONE 10 MG TAB PO SCH (09:00)
--- NOTE | 2018-01-30 10:34 | PN ---
PROGRESS NOTE This patient is status post hip surgery. Patient has remained stable. He is slightly lethargic, but he is able to take things orally. He did have his lunch. Blood pressure is heart rate is 70 per minute, blood pressure is 169/69 mmHg. First and second heart sounds are normal. Lungs are clinically clear to auscultation and percussion. The patient's Lopressor is resumed and I will start the patient on amlodipine 5 mg daily for the better control of the blood pressure. We will discontinue the Apresoline. The patient can be continued on Xarelto 10 mg daily for 4 weeks and then it can be discontinued. MMODL / IJN: [id number] /
--- NOTE | 2018-01-30 11:43 | CDI ---
Last Revision, May 2017 Documentation Clarification Form Date: 01/30/18 From: Chayo Shaver Phone: If you have a question regarding this query, please contact Alison Alonzo at [phone] between 8am and 5pm. Admit Date: 01/19/2018 3:16:00 AM Patient Name: Martell Ochoa Visit Number: [id number] Discharge Date: 01/30/18 ATTENTION: The Clinical Documentation Specialists (CDI) and [facility] Coding Staff appreciate your assistance in clarifying documentation. Please respond to the clarification below the line at the bottom and electronically sign. The CDI & [facility] Coding staff will review the response and follow-up if needed. Please note: Queries are made part of the Legal Health Record. If you have any questions, please contact the author of this message via ITS. Lina Kilgore MD NSTEMI is documented in Libby Dean's consult note, Dr. Jose's consult note, Dr. Rodriguez's 01/27 progress note, Dr. Reyes's 01/[address] Brumfield's 01/20 progress note. However, in your discharges summary NSTEMI was not documented but elevated troponin level. Patient History/Risk Factors: Patient has a history of CHF and hypertension. Clinical Indicators: Elevated troponins Troponin: 0.095, 0.974, 1.150, 1.410, 0.889 EKG Results: Atrial fib with non specific ST and T wave changes. Cardiac Cath: Diffuse triple-vsessel disease with a left main of about 70% - 80 %. Treatment: CABG at another time after being more clinically stable. In order to capture the severity of condition and necessary documentation specificity, please clarify was NSTEM Ruled In Ruled out Unable to determine Other Condition, please specify Patient had TX type 2 due to demand ischemia which would make it NSTEMI I21.A1 MTDD
--- NOTE | 2018-01-31 10:08 | P.VSCSTY ---
Greater Saphenous Vein Mapping This is bilateral lower extremity greater saphenous vein mapping. Date of service 01/24/2018 Vein quality and ultrasound appearance no intraluminal thrombus or wall changes are seen. Vein size groin right 9.3 x 7.7 groin left 5.1 x 4.6 High thigh right 5.2 x 6.2 high thigh left 3.8 x 3.5 Mid thigh right 4.2 x 3.0 mid thigh left 4.2 x 3.7 Above-knee right 3.2 x 2.3 above-knee left 4.7 x 4.1 Below knee right 3.8 x 2.6 below-knee left 2.3 x 1.4 Mid calf right 3.2 x 2.3 mid calf left to 0.5 x 2.1 Ankle right 3.7 x 2.9 ankle left 3.1 x 2.5. Impression usable bilateral greater saphenous vein. Just below the knee on the left may be a bit small..
== END 2018-01-27 13:35 | disposition home or self-care (01) | DRG 280 ==
LOC: EC 23:39 → 6SEL 01-19 03:16
PROVIDERS: ADMIT Internal Medicine; ATTEND Internal Medicine
PROC: B2111ZZ Fluoroscopy of Multiple Coronary Arteries using Low Osmolar Contrast (ICD-10-PCS; 2018-01-24)
PROC: B54DZZZ Ultrasonography of Bilateral Lower Extremity Veins (ICD-10-PCS; 2018-01-24)
PROC: 4A023N7 Measurement of Cardiac Sampling and Pressure, Left Heart, Percutaneous Approach (ICD-10-PCS; principal; 2018-01-24 10:40)
DX: I13.0 Hypertensive heart and chronic kidney disease with heart failure and stage 1 through stage 4 chronic kidney disease, or unspecified chronic kidney disease (principal); J18.9 Pneumonia, unspecified organism; I21.A1 Myocardial infarction type 2; I50.23 Acute on chronic systolic (congestive) heart failure; J96.21 Acute and chronic respiratory failure with hypoxia; N17.0 Acute kidney failure with tubular necrosis; E87.1 Hypo-osmolality and hyponatremia; E87.2 Acidosis; J44.0 Chronic obstructive pulmonary disease with (acute) lower respiratory infection; J44.1 Chronic obstructive pulmonary disease with (acute) exacerbation; R04.2 Hemoptysis; D50.9 Iron deficiency anemia, unspecified; E05.90 Thyrotoxicosis, unspecified without thyrotoxic crisis or storm; E11.22 Type 2 diabetes mellitus with diabetic chronic kidney disease; E11.65 Type 2 diabetes mellitus with hyperglycemia; E66.9 Obesity, unspecified; E78.5 Hyperlipidemia, unspecified; E83.42 Hypomagnesemia; H40.9 Unspecified glaucoma; I08.1 Rheumatic disorders of both mitral and tricuspid valves; I25.10 Atherosclerotic heart disease of native coronary artery without angina pectoris; I25.2 Old myocardial infarction; I27.20 Pulmonary hypertension, unspecified; I48.2 Chronic atrial fibrillation; N18.3 Chronic kidney disease, stage 3 (moderate); T50.2X5A Adverse effect of carbonic-anhydrase inhibitors, benzothiadiazides and other diuretics, initial encounter; M25.519 Pain in unspecified shoulder; R77.9 Abnormality of plasma protein, unspecified; Z79.01 Long term (current) use of anticoagulants; Z79.4 Long term (current) use of insulin; Z79.899 Other long term (current) drug therapy; Z86.73 Personal history of transient ischemic attack (TIA), and cerebral infarction without residual deficits; Z68.31 Body mass index [BMI] 31.0-31.9, adult; Z82.49 Family history of ischemic heart disease and other diseases of the circulatory system
CPT/HCPCS: 36415; 71045; 71046; 76770; 78582; 80048; 80053; 80074; 81001; 82550; 82553; 82728; 83036; 83540; 83550; 83735; 83880; 84145; 84439; 84443; 84484; 85025; 85379; 85610; 85652; 85730; 87086; 87449; 93005; 93306; 93458; 93880; 93970; 94150; 94640; 94760; 96365; 96375; 99285

== ENCOUNTER → 2018-02-15 | Outpatient (CLI) | payer MEDICARE ==
--- NOTE | 2018-02-15 17:46 | XR ---
EXAMINATION TYPE: XR chest 2V DATE OF EXAM: 02/15/2018 COMPARISON: 01/26/2018 INDICATION: Pneumonia TECHNIQUE: Frontal and lateral views of the chest are obtained. FINDINGS: The heart size is normal. The pulmonary vasculature is normal. The lungs are clear. Previous lingular infiltrate has resolved. IMPRESSION: 1. No acute pulmonary process.
== END | disposition home or self-care (01) ==
LOC: RADXRMAIN 14:08
PROVIDERS: ATTEND Internal Medicine Critical Care Medicine
DX: J18.9 Pneumonia, unspecified organism (principal)
CPT/HCPCS: 71046

== ENCOUNTER → 2018-03-08 | Outpatient (CLI) | payer MEDICARE ==
[2018-03-08 11:49] LABS: Calcium 9.7 mg/dL (8.4-10.2); Potassium 4.4 mmol/L (3.5-5.1)
== END ==
LOC: LABWHC1 09:49
PROVIDERS: ATTEND Internal Medicine Cardiovascular Disease
DX: I50.9 Heart failure, unspecified (principal)
CPT/HCPCS: 36415; 80048

== ENCOUNTER → 2018-04-20 | Outpatient (CLI) | payer MEDICARE ==
[2018-04-20 15:50] LABS: HCT 40.4 % (39.0-53.0); HGB 13.7 gm/dL (13.0-17.5); MCH 28.5 pg (25.0-35.0); MCV 83.9 fL (80.0-100.0); Mean Platelet Volume 7.3; Platelet Count 177 k/uL (150-450); RBC 4.81 m/uL (4.30-5.90); RDW 15.9 % (11.5-15.5); WBC 8.1 k/uL (3.8-10.6)
== END | disposition home or self-care (01) ==
LOC: LABPAT 15:18
PROVIDERS: ATTEND Internal Medicine Interventional Cardiology
DX: Z01.812 Encounter for preprocedural laboratory examination (principal); E78.1 Pure hyperglyceridemia; I25.10 Atherosclerotic heart disease of native coronary artery without angina pectoris; I10 Essential (primary) hypertension
CPT/HCPCS: 36415; 80051; 82565; 84520; 85027

== ENCOUNTER → 2018-05-10 | Outpatient (CLI) | payer MEDICARE ==
[2018-05-01 15:24] VITALS: BMI 28.0
[~2018-05-10] MED LIST: ALPRAZolam 0.25 MG TAB PO PRN; ASPIRIN 325 MG TAB PO ONE; SODIUM CHLORIDE 0.9% 1,000 ML IV SCH; SODIUM CHLORIDE 0.9% 1,000 ML in EMPTY BAG 1 BAG IV ONE
[2018-05-10 11:36] VITALS: BP 139/93; PULSE 71; RESP 18; TEMP 97.8
== END ==
LOC: 2ORMAIN 11:09 → OR 11:09 → UNDOADMIN 11:09 → EDSTATUS 15:30 → UNDODISIN 05-15 10:12
PROVIDERS: ATTEND Internal Medicine Interventional Cardiology
DX: Z53.09 Procedure and treatment not carried out because of other contraindication (principal)

== ENCOUNTER → 2018-05-26 | Outpatient (CLI) | payer MEDICARE ==
[2018-05-26 12:58] LABS: HCT 34.5 % (39.0-53.0); HGB 11.7 gm/dL (13.0-17.5); MCH 29.6 pg (25.0-35.0); MCHC 33.8 g/dL (31.0-37.0); MCV 87.4 fL (80.0-100.0); Mean Platelet Volume 7.5; Platelet Count 189 k/uL (150-450); RBC 3.95 m/uL (4.30-5.90); WBC 8.8 k/uL (3.8-10.6)
[2018-05-26 13:00] LABS: Potassium 4.1 mmol/L (3.5-5.1)
== END | disposition home or self-care (01) ==
LOC: LABPAT 12:25
PROVIDERS: ATTEND Internal Medicine Interventional Cardiology
DX: Z01.812 Encounter for preprocedural laboratory examination (principal); I25.10 Atherosclerotic heart disease of native coronary artery without angina pectoris; E78.1 Pure hyperglyceridemia; I10 Essential (primary) hypertension; Z86.73 Personal history of transient ischemic attack (TIA), and cerebral infarction without residual deficits
CPT/HCPCS: 36415; 80051; 82565; 84520; 85027

== ENCOUNTER 2018-06-07 07:04 | Inpatient (IN) | payer MEDICARE ==
[~2018-06-07 07:04] MED LIST changes: -ALPRAZolam 0.25 MG TAB PO PRN; +ALPRAZolam 0.5 MG TAB PO PRN; +ATORVASTATIN 80 MG TAB PO ONE; +NITROGLYCERIN SL TABS 0.4 MG TAB SUBLINGUAL PRN; -SODIUM CHLORIDE 0.9% 1,000 ML IV SCH
[2018-06-07] MEDS: ALPRAZolam 0.25 MG TAB PO PRN ×2 (07:19→14:29)
[2018-06-07] MEDS: SODIUM CHLORIDE 0.9% 1,000 ML IV SCH ×2 (07:38→20:38)
[2018-06-07] MEDS ORDERED: INSULIN ASPART 100 UNIT/ML 1 ML 10 ML VIAL SQ ONE (07:49)
[2018-06-07 07:51] LABS: Glucose,Whole Blood 248 mg/dL (75-99)
[2018-06-07 08:00] LABS: Basophils # (A) 0.1 k/uL (0-0.2); Basophils % (A) 1 %; Eosinophils # (A) 0.4 k/uL (0-0.7); Eosinophils % (A) 6 %; HGB 12.3 gm/dL (13.0-17.5); Lymphocytes # (A) 1.4 k/uL (1.0-4.8); Lymphocytes % (A) 19 %; MCH 30.3 pg (25.0-35.0); MCV 86.5 fL (80.0-100.0); Mean Platelet Volume 7.9; Monocytes # (A) 0.6 k/uL (0-1.0); Monocytes % (A) 8 %; Neutrophils # (A) 4.5 k/uL (1.3-7.7); Neutrophils % (A) 62 %; Platelet Count 181 k/uL (150-450); RBC 4.04 m/uL (4.30-5.90); RDW 15.8 % (11.5-15.5); WBC 7.2 k/uL (3.8-10.6)
[2018-06-07 08:05] LABS: Calcium 9.7 mg/dL (8.4-10.2); Potassium 4.2 mmol/L (3.5-5.1)
[2018-06-07] MEDS ORDERED: hydrALAZINE HCL 20 MG/ML 1 ML VIAL ONE (09:31)
[2018-06-07] MEDS ORDERED: MIDAZOLAM 2 MG/2 ML VIAL IV ONE ×2 (10:03→10:30)
[2018-06-07] MEDS ORDERED: LIDOCAINE 1% INJ 10MG/ML (20 ML MDV) SQ ONE ×2 (10:07→10:10)
[2018-06-07] MEDS ORDERED: BIVALIRUDIN BOLUS 250 MG/50 ML IV ONE (10:17)
[2018-06-07] MEDS ORDERED: BIVALIRUDIN 250 MG in SODIUM CHLORIDE 0.9% 50 ML IV ONE ×2 (10:18→11:03)
[2018-06-07] MEDS: fentaNYL (PF) 50 MCG/ML 2 ML AMP IV ONE ×2 (10:22→11:13)
[2018-06-07] MEDS ORDERED: TICAGRELOR 90 MG TAB PO ONE (11:13)
[2018-06-07] MEDS ORDERED: IOPAMIDOL-370 100ML BTL INJ ONE ×2 (11:29→11:54)
[2018-06-07] MEDS ORDERED: NITROGLYCERIN 1000MCG/10ML SYRINGE INTRACORON ONE (11:29)
[2018-06-07] MEDS ORDERED: niCARdipine Syringe (1,000 mcg/10 mL) INTRACORON ONE (11:30)
[2018-06-07] MEDS ORDERED: NITROGLYCERIN SL TABS 0.4 MG TAB SUBLINGUAL PRN ×2 (12:09→12:10)
[2018-06-07] MEDS ORDERED: MAG HYDROX/AL HYDROX/SIMETH 30 ML CUP PO PRN (12:10)
[2018-06-07] MEDS ORDERED: RX INFO: IV CONTRAST WAS GIVEN 1 EACH MISC MISCELLANE PRN (12:10)
[2018-06-07] MEDS ORDERED: ZOLPIDEM 5 MG TAB PO PRN (12:10)
[2018-06-07] MEDS ORDERED: ATROPINE SULFATE 0.1 MG/ML 10ML SYRINGE IV PRN (12:10)
[2018-06-07] MEDS ORDERED: SODIUM CHLORIDE 0.9% 1,000 ML IV SCH (12:15)
[2018-06-07 12:35] LABS: Glucose,Whole Blood 180 mg/dL (75-99)
[2018-06-07] MEDS: INSULIN ASPART 100 UNIT/ML 1 ML 10 ML VIAL SQ SCH ×2 (13:17→17:42)
--- NOTE | 2018-06-07 13:58 | AN ---
ANGIOGRAPHY REPORT DATE OF SERVICE: 06/07/2018 PERFORMING PHYSICIAN: Johnson Argueta MD, Automotive Service Cashier. PROCEDURE PERFORMED: 1. Placement of Impella 2.5 in the left ventricle. 2. Placement of transvenous temporary pacemaker. 3. An atherectomy of the left main coronary artery using the orbital atherectomy device from [employer]. 4. Successful stenting of the left main using 3.5 x 12 and 4.0 x 12 mm Xience drug- eluting stent with good angiographic results. INDICATION: This is a pleasant 68-year-old gentleman who sees Dr. Moses Rodriguez in the office as an outpatient with known history of severe left main coronary artery disease as well as diabetes, hypertension, dyslipidemia, and chronic kidney disease who was sent recently for surgical revascularization. He was turned down because he was high risk for the surgery. Because of that. He was brought today to undergo a PCI of the left main. APPROACH: Right and left common femoral arteries. COMPLICATION: None. LEVEL OF SEDATION: Moderate sedation length of 108 minutes. PROCEDURE DESCRIPTION: After obtaining an informed consent, the patient was brought to the cardiac ship laborer. The right and left common femoral artery were cannulated using micropuncture technique and a micropuncture wire passed easily. Then I placed a 14-Surinamese sheath in the right common femoral artery and 6-Surinamese sheath in the left common femoral artery. I did place a 14-Surinamese sheath after I post-dilated using 8, 10, and 12 as well as 14 dilators. I did also placed a venous sheath in the left common femoral artery. After that, I did place a transvenous temporary pacemaker in the right ventricle under fluoroscopy guidance. I did test the pacemaker for pacing as well as amplitude. I did place a pacemaker to be as a backup under 5 amp and 60 beats per minute. Subsequently, I did place an Impella in the left ventricle after I crossed the left ventricle using 6-Surinamese pigtail catheter and then I exchanged the pigtail into Impella using 0.018 wire. The Impella was placed for backup support. After that, I did start anticoagulation using Angiomax. Then I did after that engage the left main using JL4 with short tip guide. I did wire the left main. I placed a wire in the ramus intermedius using an 0.014 whisper wire. I did exchange the whisper into 0.014 viper. After that I did atherectomy of the left main using the orbital atherectomy device from [employer]. I did low and high speed runs. After that, I did balloon angioplasty of the left main using 3-0 and then 3.5 mm balloon. After that, I placed initially 3.5 x 12 mm stent which was postdilated using 375 mm NC balloon. The following angiogram showed good angiographic results, but there was some contrast going beyond the proximal edge of the stent and because of the stent and because of that, I decided to cover that with a stent so I placed 4.0 x 12 mm Xience drug-eluting stent with about 2 mm overlap between the 2 stents. The following angiogram showed good angiographic results and the procedure was completed without any complication. The contrast was going beyond the stent fast, was definitely much better compared to before. There was good flow in the left main as well as LAD and left circumflex and ramus. After that, I did close the groin on the right side using [address] a Perclose at the beginning of the procedure when I placed a 6-Surinamese sheath over there. The procedure was completed without any complication. POSTPROCEDURE MANAGEMENT: 1. Dual anti-platelet therapy. 2. Risk factors modifications. 3. Follow up with the patient. MMODL / IJN: [id number] /
[2018-06-07] MEDS: GABAPENTIN 100 MG CAP PO SCH ×2 (16:42→21:25)
[2018-06-07] MEDS: ACETAMINOPHEN TAB 325 MG TAB PO PRN (16:42)
[2018-06-07] MEDS: hydrALAZINE HCL 20 MG/ML 1 ML VIAL IVP PRN (16:43)
[2018-06-07 17:25] LABS: Glucose,Whole Blood 185 mg/dL (75-99)
[2018-06-07] MEDS ORDERED: SODIUM CHLORIDE 0.65% NASAL SPRAY 44 ML BTL NASAL PRN (19:03)
[2018-06-07] MEDS: ATORVASTATIN 80 MG TAB PO SCH (20:05)
[2018-06-07] MEDS: FERROUS SULFATE 325 MG TAB PO SCH (20:06)
[2018-06-07] MEDS: TICAGRELOR 90 MG TAB PO SCH (20:06)
[2018-06-07] MEDS: METOPROLOL TARTRATE 25 MG TAB PO SCH (20:06)
[2018-06-07] MEDS: INSULIN DETEMIR 100 UNIT/ML 10 ML VIAL SQ SCH (20:09)
[2018-06-07 20:21] LABS: Glucose,Whole Blood 268 mg/dL (75-99)
[2018-06-07] MEDS ORDERED: NITROGLYCERIN-D5W PMX 50 MG in DEXTROSE/WATER 1 250ML.BAG IV SCH (21:00)
[2018-06-08] MEDS: hydrALAZINE HCL 20 MG/ML 1 ML VIAL IVP PRN ×2 (03:42→12:04)
[2018-06-08] MEDS: ACETAMINOPHEN TAB 325 MG TAB PO PRN ×3 (03:46→18:09)
[2018-06-08 05:42] LABS: Anisocytosis Slight; Basophils # (A) 0.1 k/uL (0-0.2); Basophils % (A) 1 %; Eosinophils # (A) 0.3 k/uL (0-0.7); Eosinophils % (A) 4 %; HCT 33.7 % (39.0-53.0); HGB 11.3 gm/dL (13.0-17.5); Lymphocytes % (A) 12 %; MCH 29.8 pg (25.0-35.0); MCHC 33.6 g/dL (31.0-37.0); MCV 88.8 fL (80.0-100.0); Mean Platelet Volume 7.7; Monocytes # (A) 0.5 k/uL (0-1.0); Monocytes % (A) 6 %; Neutrophils % (A) 74 %; Platelet Count 175 k/uL (150-450); RBC 3.79 m/uL (4.30-5.90); RDW 16.1 % (11.5-15.5); WBC 8.1 k/uL (3.8-10.6)
[2018-06-08 05:57] LABS: Calcium 9.5 mg/dL (8.4-10.2); Potassium 4.3 mmol/L (3.5-5.1)
[2018-06-08 07:05] LABS: Glucose,Whole Blood 207 mg/dL (75-99)
[2018-06-08] MEDS: SODIUM CHLORIDE 0.9% 1,000 ML IV SCH (08:38)
[2018-06-08] MEDS: FERROUS SULFATE 325 MG TAB PO SCH ×2 (08:39→21:24)
[2018-06-08] MEDS: TICAGRELOR 90 MG TAB PO SCH ×2 (08:39→21:24)
[2018-06-08] MEDS: GABAPENTIN 100 MG CAP PO SCH ×3 (08:39→22:53)
[2018-06-08] MEDS: FUROSEMIDE 40 MG TAB PO SCH (08:39)
[2018-06-08] MEDS: ASPIRIN 81 MG PO SCH (08:40)
[2018-06-08] MEDS: METOPROLOL TARTRATE 25 MG TAB PO SCH ×2 (08:40→21:24)
[2018-06-08] MEDS: INSULIN ASPART 100 UNIT/ML 1 ML 10 ML VIAL SQ SCH ×3 (08:44→18:08)
[2018-06-08 08:55] LABS: Glucose,Whole Blood 303 mg/dL (75-99)
[2018-06-08] MEDS ORDERED: LISINOPRIL 10 MG TAB PO SCH (09:00)
[2018-06-08 11:14] VITALS: BMI 32.8
[2018-06-08 12:25] LABS: Glucose,Whole Blood 245 mg/dL (75-99)
[2018-06-08] MEDS ORDERED: fentaNYL (PF) 50 MCG/ML 2 ML AMP IVP ONE (12:42)
[2018-06-08] MEDS ORDERED: hydrALAZINE HCL 25 MG TAB PO SCH (16:00)
[2018-06-08] MEDS ORDERED: hydrALAZINE HCL 25 MG TAB PO STA (17:01)
[2018-06-08 17:17] LABS: Glucose,Whole Blood 264 mg/dL (75-99)
--- NOTE | 2018-06-08 17:35 | P.PN ---
Progress Note - Text Progress Note Date: 06/08/18 This is a pleasant 68-year-old gentleman who sees Dr. VC Rodriguez in the office as an outpatient with a known history of severe coronary artery disease with severe disease involving the left main coronary artery which is heavily calcified. The patient referred to undergo coronary artery that is grafting but he was turned down by the surgeon to be high risk for the procedure. Because of that he was brought yesterday to undergo a PCI of unprotected left main. Yesterday he underwent successful atherectomy as well as balloon angioplasty and stenting of unprotected left main coronary artery with a good angiographic results by the end and without any complication. The procedure was performed with adjunctive use of Intal a 2.5. I'll follow-up with him today, he denies having any chest pain or chest discomfort and he feels overall better. Both groins are soft and nontender with mild bruises. The blood pressure continues to be not well-controlled on the current medical regimen. Early this morning I did add hydralazine at 10 mg by mouth 3 times a day and then I did increase it to 25 mg by mouth 3 times a day. Later in the day I did add Norvasc at 5 mg by mouth twice a day. Yesterday I did start the patient on nitroglycerin IV titrated for his blood pressure. Beside that he continues to be on metoprolol. Also I did increase the dose of lisinopril earlier today. I did recommend keeping the patient overnight one more day. Meanwhile I will try to wean the patient from the nitro IV. If the blood pressure seems to be better controlled tomorrow morning the patient will be discharged home. I did review the blood work from today and the creatinine is 1.6 which is his baseline. I will continue monitor the kidney function and electrolytes as well as a hemoglobin for tomorrow. Meanwhile I will continue the current medical regimen including dual antiplatelet therapy as well as high intensity statin. I anticipated the patient to be discharged home tomorrow morning.
--- NOTE | 2018-06-08 19:53 | ECHOF ---
Referral Reason:assess LV function MEASUREMENTS -------- HEIGHT: 175.3 cm WEIGHT: 93.4 kg BP: 175/83 RVIDd: 3.1 cm (< 3.3) IVSd: 1.7 cm (0.6 - 1.1) LVIDd: 4.0 cm (3.9 - 5.3) LVPWd: 1.6 cm (0.6 - 1.1) IVSs: 2.1 cm LVIDs: 2.2 cm LVPWs: 2.0 cm LAESV Index (A-L): 31.31 ml/m Ao Diam: 3.4 cm (2.0 - 3.7) AV Cusp: 1.4 cm (1.5 - 2.6) LA Diam: 3.8 cm (2.7 - 3.8) MV E Abhishek: 0.96 m/s MV DecT: 153 ms MV A Abhishek: 0.53 m/s MV E/A Ratio: 1.83 RAP: 5.00 mmHg RVSP: 36.82 mmHg MV EF SLOPE: 158.73 mm/s (70 - 150) MV EXCURSION: 2.45 cm (> 18.000) FINDINGS -------- Sinus rhythm. This was a technically adequate study. The left ventricular size is normal. There is severe concentric left ventricular hypertrophy. Ove rall left ventricular systolic function is normal with, an EF between 55 - 60 %. The right ventricle is normal in size and function. LA is midly dilated 29-33ml/m2. RA appears enlarged. Aortic valve is trileaflet and is mildly thickened. There is no evidence of aortic regurgitation. There is no evidence of aortic stenosis. The mitral valve leaflets are mildly thickened. There is trace to mild mitral regurgitation. Mild tricuspid regurgitation present. There is borderline pulmonary hypertension. The right ventr icular systolic pressure, as measured by Doppler, is 36.82mmHg. Trace/mild (physiologic) pulmonic regurgitation. The aortic root size is normal. Normal inferior vena cava with normal inspiratory collapse consistent with estimated right atrial pre ssure of 5 mmHg. There is a small pericardial effusion located near the left ventricle. CONCLUSIONS -------- 1. Sinus rhythm. 2. This was a technically adequate study. 3. The left ventricular size is normal. 4. There is severe concentric left ventricular hypertrophy. 5. Overall left ventricular systolic function is normal with, an EF between 55 - 60 %. 6. LA is midly dilated 29-33ml/m2. 7. RA appears enlarged. 8. Aortic valve is trileaflet and is mildly thickened. 9. The mitral valve leaflets are mildly thickened. 10. There is trace to mild mitral regurgitation. 11. Mild tricuspid regurgitation present. 12. There is borderline pulmonary hypertension. 13. The right ventricular systolic pressure, as measured by Doppler, is 36.82mmHg. 14. Trace/mild (physiologic) pulmonic regurgitation. 15. The aortic root size is normal. 16. There is a small pericardial effusion located near the left ventricle. SEISMOMETER OPERATOR: [place] RDCS
[2018-06-08] MEDS: ATORVASTATIN 80 MG TAB PO SCH (21:23)
[2018-06-08] MEDS: amLODIPine 5 MG TAB PO SCH (21:23)
[2018-06-08] MEDS: LISINOPRIL 10 MG TAB PO SCH (21:24)
[2018-06-08] MEDS: INSULIN DETEMIR 100 UNIT/ML 10 ML VIAL SQ SCH (21:24)
[2018-06-08 21:25] LABS: Glucose,Whole Blood 213 mg/dL (75-99)
[2018-06-08] MEDS: ALPRAZolam 0.25 MG TAB PO PRN (22:53)
[2018-06-08] MEDS: hydrALAZINE HCL 25 MG TAB PO SCH (22:54)
[2018-06-09 05:18] LABS: Basophils % (A) 0 %; Eosinophils # (A) 0.3 k/uL (0-0.7); Eosinophils % (A) 5 %; HCT 31.7 % (39.0-53.0); HGB 10.5 gm/dL (13.0-17.5); Lymphocytes # (A) 0.8 k/uL (1.0-4.8); Lymphocytes % (A) 11 %; MCH 29.8 pg (25.0-35.0); MCHC 33.2 g/dL (31.0-37.0); MCV 89.7 fL (80.0-100.0); Mean Platelet Volume 7.2; Monocytes # (A) 0.5 k/uL (0-1.0); Monocytes % (A) 7 %; Neutrophils # (A) 5.3 k/uL (1.3-7.7); Neutrophils % (A) 73 %; Platelet Count 163 k/uL (150-450); RBC 3.54 m/uL (4.30-5.90); RDW 15.9 % (11.5-15.5); WBC 7.2 k/uL (3.8-10.6)
[2018-06-09 05:39] LABS: Calcium 9.4 mg/dL (8.4-10.2); Magnesium 1.9 mg/dL (1.6-2.3); Phosphorus 4.1 mg/dL (2.5-4.5); Potassium 3.8 mmol/L (3.5-5.1)
[2018-06-09 07:05] LABS: Glucose,Whole Blood 153 mg/dL (75-99)
[2018-06-09] MEDS: INSULIN ASPART 100 UNIT/ML 1 ML 10 ML VIAL SQ SCH ×2 (07:57→12:17)
[2018-06-09] MEDS: FUROSEMIDE 40 MG TAB PO SCH (07:59)
[2018-06-09] MEDS: FERROUS SULFATE 325 MG TAB PO SCH (07:59)
[2018-06-09] MEDS: LISINOPRIL 10 MG TAB PO SCH (07:59)
[2018-06-09] MEDS: METOPROLOL TARTRATE 25 MG TAB PO SCH (07:59)
[2018-06-09] MEDS: hydrALAZINE HCL 25 MG TAB PO SCH (07:59)
[2018-06-09] MEDS: ASPIRIN 81 MG PO SCH (07:59)
[2018-06-09] MEDS: GABAPENTIN 100 MG CAP PO SCH (07:59)
[2018-06-09] MEDS: TICAGRELOR 90 MG TAB PO SCH (07:59)
[2018-06-09] MEDS: amLODIPine 5 MG TAB PO SCH (07:59)
[2018-06-09 08:14] VITALS: TEMP 98
[2018-06-09 12:25] LABS: Glucose,Whole Blood 160 mg/dL (75-99)
[2018-06-09 12:27] VITALS: BP 129/80; PULSE 72; RESP 19
--- NOTE | 2018-06-09 12:30 | DS ---
DISCHARGE SUMMARY ADMISSION DATE: 06/07/2018 DISCHARGE DATE: 06/09/2018 BRIEF HISTORY: This is a pleasant 68-year-old gentleman who sees Dr. Moses Rodriguez in the office as an outpatient with severe disease involving the left circumflex coronary artery who was turned down by a surgeon being high risk for the surgery for a coronary artery bypass grafting. He was admitted to the hospital 2 days ago and underwent successful stenting of the left circumflex with adjunctive use of impella 2.5. I kept the patient overnight yesterday because the pressure continues to be elevated and he was on nitroglycerin drip. The blood pressure has came down significantly after I did adjust the medication including lisinopril and I did hydralazine as well as Norvasc to his current medical regimen. His vitals seem to be much better. The blood work seems to be stable as well. The patient is going to be discharged home on dual anti-platelet therapy as well as a statin and he will follow up with Dr. Rodriguez in the office in a week. MMMOON / MAYTE: [id number] /
== END 2018-06-09 14:45 | disposition home health service (06) | DRG 215 ==
LOC: 2ORMAIN 07:04 → 2SICU 12:01
PROVIDERS: ADMIT Internal Medicine Interventional Cardiology; ATTEND Internal Medicine Interventional Cardiology
PROC: X2C0361 Extirpation of Matter from Coronary Artery, One Artery using Orbital Atherectomy Technology, Percutaneous Approach, New Technology Group 1 (ICD-10-PCS; 2018-06-07)
PROC: 5A0221D Assistance with Cardiac Output using Impeller Pump, Continuous (ICD-10-PCS; 2018-06-07)
PROC: 027035Z Dilation of Coronary Artery, One Artery with Two Drug-eluting Intraluminal Devices, Percutaneous Approach (ICD-10-PCS; principal; 2018-06-07 09:45)
PROC: 02HA3RJ Insertion of Short-term External Heart Assist System into Heart, Intraoperative, Percutaneous Approach (ICD-10-PCS; 2018-06-07 09:45)
DX: I25.10 Atherosclerotic heart disease of native coronary artery without angina pectoris (principal); E11.22 Type 2 diabetes mellitus with diabetic chronic kidney disease; I48.2 Chronic atrial fibrillation; I27.20 Pulmonary hypertension, unspecified; E78.5 Hyperlipidemia, unspecified; I12.9 Hypertensive chronic kidney disease with stage 1 through stage 4 chronic kidney disease, or unspecified chronic kidney disease; N18.3 Chronic kidney disease, stage 3 (moderate); F17.220 Nicotine dependence, chewing tobacco, uncomplicated; Z87.01 Personal history of pneumonia (recurrent); Z86.73 Personal history of transient ischemic attack (TIA), and cerebral infarction without residual deficits; Z79.01 Long term (current) use of anticoagulants; Z79.82 Long term (current) use of aspirin; Z79.4 Long term (current) use of insulin; Z79.899 Other long term (current) drug therapy; Z82.49 Family history of ischemic heart disease and other diseases of the circulatory system
CPT/HCPCS: 80048; 83735; 84100; 85025; 93306; C1874

== ENCOUNTER → 2018-06-16 | Outpatient (CLI) | payer MEDICARE ==
[2018-06-17 02:48] LABS: Anion Gap 11.1 mmol/L (4.00-12.00); Calcium 8.7 mg/dL (8.7-10.3); Carbon Dioxide 24.9 mmol/L (21.6-31.8); Potassium 4.3 mmol/L (3.5-5.5)
== END | disposition home or self-care (01) ==
LOC: LABWHC1 16:33
PROVIDERS: ATTEND Internal Medicine Cardiovascular Disease
DX: I25.10 Atherosclerotic heart disease of native coronary artery without angina pectoris (principal)
CPT/HCPCS: 36415; 80048

== ENCOUNTER 2018-07-25 16:36 | Inpatient (IN) | payer MEDICARE ==
[2018-07-25] MEDS ORDERED: IPRATROPIUM-ALBUTEROL 3 ML NEB INHALATION STA (16:44)
[2018-07-25] MEDS ORDERED: FUROSEMIDE 10 MG/ML 4 ML VIAL IV STA ×2 (16:45→20:38)
[2018-07-25] MEDS ORDERED: ENALAPRILAT 1.25 MG/ML 1 ML VIAL IVP STA (16:45)
[2018-07-25] MEDS ORDERED: NITROGLYCERIN OINT 1 INCH/GM PACKET TOPICAL STA (16:45)
[2018-07-25] MEDS ORDERED: DEXAMETHASONE SOD PHOSPHATE 10 MG/ML 1 ML VIAL IV STA (16:45)
--- NOTE | 2018-07-25 16:52 | ED ---
General Adult HPI - General Chief complaint: Shortness of Breath Stated complaint: RYAN Time Seen by Provider: 07/25/18 16:40 Source: patient, RN notes reviewed Mode of arrival: ambulatory Limitations: no limitations - History of Present Illness Initial comments: This is a 68-year-old male who presents emergency Department with difficulty breathing. Patient was recently in the emergency department for congestive heart failure and was intubated. Patient states ever since extubated him he had significant stridor and that is not worsened at this time. Patient comes in today because of difficulty breathing is gotten significantly worse. Patient denies any chest pain or palpitations. Patient denies any recent fever chills or cough. Patient states the symptoms started to worsen earlier today and it continued to get worse throughout the day. According to EMS when they arrived at the scene his pulse ox is 98 but started to deteriorate on the way in and he became much more dyspneic. Patient states he also had increased swelling of the legs bilaterally. - Related Data Home Medications Medication Instructions Recorded Confirmed Gabapentin [Neurontin] 100 mg PO TID 01/19/18 07/25/18 Insulin Glargine [Lantus] 35 unit SQ HS 01/19/18 07/25/18 Brinzolamide/Brimonidine Tart 1 drop RIGHT EYE BID 07/03/18 07/25/18 [Simbrinza 1%-0.2% Eye Drops] Furosemide Oral Soln [Lasix] 40 mg PO ONCE 07/25/18 07/25/18 INSULIN LISPRO (HumaLOG) [humaLOG] See Protocol SQ ACHS 07/25/18 07/25/18 Promethazine HCl 12.5 mg PO Q8H PRN 07/25/18 07/25/18 guaiFENesin [guaiFENesin Oral 200 mg PO Q6H 07/25/18 07/25/18 Solution] Previous Rx's Medication Instructions Recorded Atorvastatin [Lipitor] 80 mg PO HS #30 tab 01/27/18 Nitroglycerin Sl Tabs [Nitrostat] 0.4 mg SUBLINGUAL Q5M PRN #30 tab 01/27/18 Acetaminophen Tab [Tylenol] 650 mg PO Q6HR PRN tab 07/21/18 Apixaban [Eliquis] 2.5 mg PO BID #60 tab 07/21/18 Famotidine [Pepcid] 20 mg PO DAILY tab 07/21/18 Furosemide [Lasix] 40 mg PO BID #60 tab 07/21/18 Ipratropium-Albuterol Nebulize 3 ml INHALATION Q4H PRN ampul.neb 07/21/18 [Duoneb 0.5 mg-3 mg/3 ml Soln] Ipratropium-Albuterol Nebulize 3 ml INHALATION RT-QID ampul.neb 07/21/18 [Duoneb 0.5 mg-3 mg/3 ml Soln] Metoprolol Tartrate [Lopressor] 12.5 mg PO BID tab 07/21/18 Saline Nasal Gel [[place] Nasal Gel] 1 applic TOPICAL Q4HR PRN gm 07/21/18 traMADol HCl [Ultram] 50 mg PO Q6H PRN #12 tab 07/21/18 Albuterol Inhaler [Ventolin Hfa 1 - 2 puff INHALATION Q6HR PRN #1 07/22/18 Inhaler] inhaler Budesonide-Formot 160-4.5 Mcg 2 puff INHALATION BID #1 inhaler 07/22/18 [Symbicort 160-4.5 Mcg Inhaler] Clopidogrel Bisulfate [Plavix] 75 mg PO DAILY #30 tab 07/22/18 Allergies Allergy/AdvReac Type Severity Reaction Status Date / Time No Known Allergies Allergy Verified 07/25/18 17:39 Review of Systems ROS Statement: Those systems with pertinent positive or pertinent negative responses have been documented in the HPI. ROS Other: All systems not noted in ROS Statement are negative. Past Medical History Past Medical History: Atrial Fibrillation, Coronary Artery Disease (CAD), Cancer , CVA/TIA, Diabetes Mellitus, Hyperlipidemia, Hypertension, Myocardial Infarction (MS), Myocardial Infarction (non Q-wave), Pneumonia, Renal Disease Additional Past Medical History / Comment(s): TIA 1 yr ago, no residual effects. kidney disease stage iV, stroke behind rt eye.gout, basal cell skin ca (removed), poor circulation Last Myocardial Infarction Date:: 6 weeks ago History of Any Multi-Drug Resistant Organisms: None Reported Past Surgical History: Heart Catheterization With Stent Past Anesthesia/Blood Transfusion Reactions: No Reported Reaction Date of Last Stent Placement:: 06-07-18 Past Psychological History: No Psychological Hx Reported Smoking Status: Never smoker Past Alcohol Use History: None Reported Past Drug Use History: None Reported - Past Family History Father Family Medical History: Coronary Artery Disease (CAD), Hypertension Additional Family Medical History / Comment(s): , hx of 2 cabg sx Mother Family Medical History: Osteoarthritis (OA), Thyroid Disorder Additional Family Medical History / Comment(s): mom is alive -age 90 General Exam - General Exam Comments Initial Comments: GENERAL: Patient is well-developed and well-nourished. Patient is nontoxic and well- hydrated and is in moderate distress. ENT: Neck is soft and supple. No significant lymphadenopathy is noted. Oropharynx is clear. Moist mucous membranes. Neck has full range of motion without eliciting any pain. EYES: The sclera were anicteric and conjunctiva were pink and moist. Extraocular movements were intact and pupils were equal round and reactive to light. Eyelids were unremarkable. PULMONARY: Unlabored respirations. Good breath sounds bilaterally. No audible rales rhonchi or wheezing was noted. CARDIOVASCULAR: There is a regular rate and rhythm without any murmurs gallops or rubs. ABDOMEN: Soft and nontender with normal bowel sounds. No palpable organomegaly was noted. There is no palpable pulsatile mass. SKIN: Skin is clear with no lesions or rashes and otherwise unremarkable. NEUROLOGIC: Patient is alert and oriented x3. Cranial nerves II through XII are grossly intact. Motor and sensory are also intact. Normal speech, volume and content. Symmetrical smile. MUSCULOSKELETAL: Normal extremities with adequate strength and full range of motion. 1+ bilaterally LYMPHATICS: No significant lymphadenopathy is noted PSYCHIATRIC: Normal psychiatric evaluation. Limitations: no limitations Course Vital Signs 07/25/18 07/25/18 07/25/18 16:39 16:42 16:46 Temperature 98.8 F Pulse Rate 119 H 103 H Respiratory 20 Rate Blood Pressure 144/85 O2 Sat by Pulse 88 L 88 L Oximetry 07/25/18 07/25/18 07/25/18 16:51 17:01 17:53 Temperature Pulse Rate 104 H 104 H Respiratory 24 22 Rate Blood Pressure 140/79 O2 Sat by Pulse 100 Oximetry 07/25/18 07/25/18 07/25/18 18:30 19:00 19:30 Temperature Pulse Rate 110 H 103 H 105 H Respiratory 24 26 H 25 H Rate Blood Pressure 149/92 153/102 130/87 O2 Sat by Pulse 100 95 96 Oximetry Procedures - Intubation Sedative: Versed Mg Given: 5 Paralytic: Succinylcholine Mg Given: 100 Laryngoscope: Merino Size: 3 ET Tube Size: 7.5 ET Tube Uncuffed: No Tube Secured Location: teeth Tube Placement Confirmation: visualized tube passing through cords, equal breath sounds bilaterally, no breath sounds over epigastrium, confirmation by capnometry Patient Tolerated Procedure: well Intubation Complications: none Medical Decision Making - Medical Decision Making EKG shows atrial for ablation with rapid ventricular response with multiple PVCs. Patient's rate is 108 bpm QRS 74 QT interval 314 QTC is 420. Patient's EKG shows no ST segment elevation or there is ST segment depression in the lateral leads V5 and V6. Chest x-ray shows congestive heart failure. I gave the patient Lasix Nitropaste Vasotec while in the emergency department also placed the patient on BiPAP. I went back into reevaluate the patient patient was talking to me calmly and stated that he was feeling considerably better. Patient became more more dyspneic in the emergency department I gave the patient some Ativan to settle down it did not improve his dyspnea and his stridor appeared to be getting worse. At this point, decided to intubate the patient. When I intubated the patient his cords were completely swollen shut since I could not see an opening I used a bougie to slowly place a 7.5 ET tube. Shortly thereafter we had good CO2 indication and bilateral breath sounds as well as verification on an extra good tube placement. I consulted ENT admitted the patient to the ICU I consult with Dr. Rojas - Lab Data Result diagrams: 07/25/18 16:45 07/25/18 16:45 Lab Results 07/25/18 07/25/18 07/25/18 Range/Units 16:45 16:45 16:45 WBC 10.8 H (3.8-10.6) k/uL RBC 3.47 L (4.30-5.90) m/uL Hgb 9.8 L D (13.0-17.5) gm/dL Hct 31.0 L (39.0-53.0) % MCV 89.2 (80.0-100.0) fL MCH 28.2 (25.0-35.0) pg MCHC 31.6 (31.0-37.0) g/dL RDW 15.4 (11.5-15.5) % Plt Count 327 (150-450) k/uL Neutrophils % 85 % Lymphocytes % 6 % Monocytes % 5 % Eosinophils % 2 % Basophils % 0 % Neutrophils # 9.2 H (1.3-7.7) k/uL Lymphocytes # 0.6 L (1.0-4.8) k/uL Monocytes # 0.6 (0-1.0) k/uL Eosinophils # 0.3 (0-0.7) k/uL Basophils # 0.0 (0-0.2) k/uL Hypochromasia Slight PT (9.0-12.0) sec INR (<1.2) APTT (22.0-30.0) sec Sodium 140 (137-145) mmol/L Potassium 4.4 (3.5-5.1) mmol/L Chloride 97 L (98-107) mmol/L Carbon Dioxide 28 (22-30) mmol/L Anion Gap 15 mmol/L BUN 26 H (9-20) mg/dL Creatinine 1.52 H (0.66-1.25) mg/dL Est GFR (CKD-EPI)AfAm 53 (>60 ml/min/1.73 sqM) Est GFR (CKD-EPI)NonAf 46 (>60 ml/min/1.73 sqM) Glucose 193 H (74-99) mg/dL Calcium 9.5 (8.4-10.2) mg/dL Magnesium 1.8 (1.6-2.3) mg/dL Total Bilirubin 2.0 H (0.2-1.3) mg/dL AST 35 (17-59) U/L ALT 31 (21-72) U/L Alkaline Phosphatase 117 (38-126) U/L Total Creatine Kinase 89 (55-170) U/L CK-MB (CK-2) 2.2 (0.0-2.4) ng/mL CK-MB (CK-2) Rel Index 2.5 Troponin I 0.060 H* (0.000-0.034) ng/mL NT-Pro-B Natriuret Pep pg/mL Total Protein 7.3 (6.3-8.2) g/dL Albumin 4.2 (3.5-5.0) g/dL Urine Color Urine Appearance (Clear) Urine pH (5.0-8.0) Ur Specific Kirvin (1.001-1.035) Urine Protein (Negative) Urine Glucose (UA) (Negative) Urine Ketones (Negative) Urine Blood (Negative) Urine Nitrite (Negative) Urine Bilirubin (Negative) Urine Urobilinogen (<2.0) mg/dL Ur Leukocyte Esterase (Negative) Urine RBC (0-5) /hpf Urine WBC (0-5) /hpf Urine Sperm (None) /hpf 07/25/18 07/25/18 07/25/18 Range/Units 16:45 16:45 16:56 WBC (3.8-10.6) k/uL RBC (4.30-5.90) m/uL Hgb (13.0-17.5) gm/dL Hct (39.0-53.0) % MCV (80.0-100.0) fL MCH (25.0-35.0) pg MCHC (31.0-37.0) g/dL RDW (11.5-15.5) % Plt Count (150-450) k/uL Neutrophils % % Lymphocytes % % Monocytes % % Eosinophils % % Basophils % % Neutrophils # (1.3-7.7) k/uL Lymphocytes # (1.0-4.8) k/uL Monocytes # (0-1.0) k/uL Eosinophils # (0-0.7) k/uL Basophils # (0-0.2) k/uL Hypochromasia PT 11.9 (9.0-12.0) sec INR 1.1 (<1.2) APTT 25.8 (22.0-30.0) sec Sodium (137-145) mmol/L Potassium (3.5-5.1) mmol/L Chloride (98-107) mmol/L Carbon Dioxide (22-30) mmol/L Anion Gap mmol/L BUN (9-20) mg/dL Creatinine (0.66-1.25) mg/dL Est GFR (CKD-EPI)AfAm (>60 ml/min/1.73 sqM) Est GFR (CKD-EPI)NonAf (>60 ml/min/1.73 sqM) Glucose (74-99) mg/dL Calcium (8.4-10.2) mg/dL Magnesium (1.6-2.3) mg/dL Total Bilirubin (0.2-1.3) mg/dL AST (17-59) U/L ALT (21-72) U/L Alkaline Phosphatase (38-126) U/L Total Creatine Kinase (55-170) U/L CK-MB (CK-2) (0.0-2.4) ng/mL CK-MB (CK-2) Rel Index Troponin I (0.000-0.034) ng/mL NT-Pro-B Natriuret Pep 35062 pg/mL Total Protein (6.3-8.2) g/dL Albumin (3.5-5.0) g/dL Urine Color Yellow Urine Appearance Cloudy (Clear) Urine pH 6.0 (5.0-8.0) Ur Specific Kirvin 1.007 (1.001-1.035) Urine Protein 1+ H (Negative) Urine Glucose (UA) 1+ H (Negative) Urine Ketones Negative (Negative) Urine Blood Large H (Negative) Urine Nitrite Negative (Negative) Urine Bilirubin Negative (Negative) Urine Urobilinogen <2.0 (<2.0) mg/dL Ur Leukocyte Esterase Small H (Negative) Urine RBC >182 H (0-5) /hpf Urine WBC 40 H (0-5) /hpf Urine Sperm Occasional H (None) /hpf Critical Care Time Critical Care Time: Yes Total Critical Care Time: 35 Disposition Clinical Impression: Acute pulmonary edema, Stridor Disposition: ADMITTED IP TO THIS [facility] Time of Disposition: 19:46
[2018-07-25 17:11] LABS: Basophils % (A) 0 %; Eosinophils # (A) 0.3 k/uL (0-0.7); Eosinophils % (A) 2 %; Hypochromasia Slight; Lymphocytes # (A) 0.6 k/uL (1.0-4.8); Lymphocytes % (A) 6 %; MCH 28.2 pg (25.0-35.0); MCHC 31.6 g/dL (31.0-37.0); MCV 89.2 fL (80.0-100.0); Mean Platelet Volume 7.3; Monocytes # (A) 0.6 k/uL (0-1.0); Monocytes % (A) 5 %; Neutrophils # (A) 9.2 k/uL (1.3-7.7); Neutrophils % (A) 85 %; Platelet Count 327 k/uL (150-450); RBC 3.47 m/uL (4.30-5.90); RDW 15.4 % (11.5-15.5); WBC 10.8 k/uL (3.8-10.6)
[2018-07-25 17:14] LABS: HGB 9.8 gm/dL (13.0-17.5)
[2018-07-25 17:17] LABS: Appearance,Urine Cloudy (Clear); Bilirubin,Urine Negative (Negative); Blood,Urine Large (Negative); Color,Urine Yellow; Glucose,Urine (UA) 1+ (Negative); Ketones,Urine Negative (Negative); Leukocyte Esterase,Urine Small (Negative); Nitrite,Urine Negative (Negative); Protein,Urine 1+ (Negative); RBC,Urine >182 /hpf (0-5); Specific Gravity,Urine 1.007 (1.001-1.035); Sperm,Urine Occasional /hpf; Urobilinogen,Urine <2.0 mg/dL (<2.0); WBC,Urine 40 /hpf (0-5)
[2018-07-25 17:22] LABS: INR 1.1 (<1.2); Partial Thromboplastin Time 25.8 sec (22.0-30.0); Prothrombin Time 11.9 sec (9.0-12.0)
[2018-07-25 17:33] LABS: Albumin 4.2 g/dL (3.5-5.0); Calcium 9.5 mg/dL (8.4-10.2); Magnesium 1.8 mg/dL (1.6-2.3); Total Protein 7.3 g/dL (6.3-8.2)
[2018-07-25 17:34] LABS: Potassium 4.4 mmol/L (3.5-5.1)
--- NOTE | 2018-07-25 17:55 | XR ---
EXAMINATION: XR chest 1V portable DATE AND TIME: 07/25/2018 5:32 PM CLINICAL INDICATION: PHH; difficulty breathing TECHNIQUE: AP upright portable COMPARISON: 07/18/2018 FINDINGS: Lungs: There is interval worsening in the lung inflation pattern, with present moderate silhouetting of the pulmonary vasculature throughout the lungs bilaterally, particularly within the lung bases. Th ough a baseline coarse reticular pattern is present, consistent with interstitial lung change, the in terval change is consistent with advanced interstitial phase pulmonary edema. Pleural spaces: Negative. Mediastinum: Mildly enlarged cardiac silhouette redemonstrated. Bones and soft tissues: No acute findings. IMPRESSION: PROMINENT INTERVAL WORSENING WITH DEVELOPMENT OF ADVANCED INTERSTITIAL PHASE PULMONARY EDEMA, PRESUMA RADHA CARDIOGENIC ETIOLOGY.
[2018-07-25 17:57] LABS: Creatine Kinase MB 2.2 ng/mL (0.0-2.4)
[2018-07-25 17:58] LABS: Troponin I 0.06 ng/mL (0.000-0.034)
[2018-07-25] MEDS ORDERED: LORazepam 2 MG/ML INJ IV STA ×2 (18:18→19:07)
[2018-07-25 20:02] LABS: ABG Base Excess 4.8 mmol/L; ABG HCO3 30 mmol/L (21-25); ABG Oxygen Saturation 91.2 % (94-97); ABG PCO2 51 mmHg (35-45); ABG PH 7.38 (7.35-7.45); ABG PO2 63 mmHg (83-108); ABG TCO2 32 mmol/L (19-24)
[2018-07-25] MEDS ORDERED: MIDAZOLAM 1 MG/ML 5 ML VIAL IV STA (21:08)
[2018-07-25] MEDS ORDERED: SUCCINYLCHOLINE CHLORIDE VIAL 200 MG/10 ML VIAL IV STA (21:26)
[2018-07-25] MEDS ORDERED: DEXAMETHASONE SOD PHOSPHATE 4 MG/ML 1 ML VIAL IV PRN (21:26)
--- NOTE | 2018-07-25 21:33 | XR ---
EXAMINATION: XR chest 1V portable DATE AND TIME: 07/25/2018 9:20 PM CLINICAL INDICATION: PHH; s/p intubation-tube placement TECHNIQUE: Departmental protocol COMPARISON: 07/25/2018 at 5:34 PM FINDINGS: The patient is now intubated with ET tube tip superimposed over the mid trachea. There are now air space filling processes throughout the right and left lungs symmetrically, consiste nt with marked alveolar phase pulmonary edema. Cardiac silhouette is enlarged on this AP portable supine radiograph. Stomach is noted to be air distended. Note: Supine radiography cannot exclude abnormal gas collections. IMPRESSION: MARKED INTERVAL WORSENING. POST INTUBATION CHEST RADIOGRAPH.
[2018-07-25] MEDS ORDERED: PROPOFOL 1,000 MG in EMPTY BAG 1 BAG IV ONE (21:37)
[2018-07-25] MEDS: NITROGLYCERIN OINT 1 INCH/GM PACKET TOPICAL SCH (22:34)
[2018-07-25 22:53] LABS: Glucose,Whole Blood 271 mg/dL (75-99)
[2018-07-25] MEDS ORDERED: NALOXONE 0.4 MG/ML 1 ML VIAL IV PRN (23:57)
[2018-07-26] MEDS ORDERED: IPRATROPIUM-ALBUTEROL 3 ML NEB INHALATION PRN (00:12)
[2018-07-26 00:22] LABS: ABG Base Excess 4.4 mmol/L; ABG HCO3 28 mmol/L (21-25); ABG PCO2 39 mmHg (35-45); ABG PH 7.46 (7.35-7.45); ABG PO2 205 mmHg (83-108); ABG TCO2 29 mmol/L (19-24)
--- NOTE | 2018-07-26 00:44 | P.HPIM ---
History of Present Illness H&P Date: 07/25/18 Patient is a 68-year-old male with a PMH of diastolic CHF, A. fib (on Eliquis), indwelling Teixeira, CAD, and type II DM, hypertension, and hyperlipidemia who presented to the ED for shortness of breath. Of note, the patient was recently had a prolonged hospital stay for CHF exacerbation requiring mechanical ventilation for 4-5 days, complicated with subsequent stridor from suspected laryngitis versus vocal cord dysfunction. During that hospitalization, ENT was unable to evaluate the patient's vocal cords due to lack of equipment at the patient was advised to follow-up in the clinic. The patient's hospital stay was also complicated by ATN requiring temporary hemodialysis. History obtained by the at the bedside as patient was on BiPAP during the interview. The notes that ever since his extubation from the prior hospitalization, the patient had developed stridor along with difficulty phonating. He has only been able to talk via whispering and often had wheezing with stridor. As per her, the patient's breathing got worse while he was at the subacute rehab facility and thereby EMS was activated. As per EMS, the patient saturating 98% on room air on arrival though worsened in route to the hospital. While in the ED, the patient was placed on BiPAP with initial improvement in his breathing and saturation. He was noted to be alert and oriented 3 and was sitting up, and verbalizing feeling much better. During my interview, the patient was noted to be in moderate respiratory distress, on BiPAP, and agitated. The patient's condition subsequently declined and he became more and more dyspneic and lethargic, along with increased oxygen requirements. The patient was subsequently intubated by the ED physician and was placed on mechanical ventilation. Informed by the ED physician that the patient had significant laryngeal and vocal cord edema noted during intubation. The patient underwent a comprehensive workup in the ED, with hemoglobin 9.8, BUN 26, creatinine 1.52, troponin 0.06 BNP 15,500, chest x-ray showing pulmonary edema, EKG with A. fib with RVR at [address] depressions at V4 to V6 and lead II. Review of Systems Pertinent positives and negatives as discussed in HPI, a complete review of systems was performed and all other systems are negative. Past Medical History Past Medical History: Atrial Fibrillation, Coronary Artery Disease (CAD), Cancer , CVA/TIA, Diabetes Mellitus, Hyperlipidemia, Hypertension, Myocardial Infarction (CA), Myocardial Infarction (non Q-wave), Pneumonia, Renal Disease Additional Past Medical History / Comment(s): TIA 1 yr ago, no residual effects. kidney disease stage iV, stroke behind rt eye.gout, basal cell skin ca (removed), poor circulation Last Myocardial Infarction Date:: 6 weeks ago History of Any Multi-Drug Resistant Organisms: None Reported Past Surgical History: Heart Catheterization With Stent Past Anesthesia/Blood Transfusion Reactions: No Reported Reaction Date of Last Stent Placement:: 06-07-18 Past Psychological History: No Psychological Hx Reported Smoking Status: Never smoker Past Alcohol Use History: None Reported Past Drug Use History: None Reported - Past Family History Father Family Medical History: Coronary Artery Disease (CAD), Hypertension Additional Family Medical History / Comment(s): , hx of 2 cabg sx Mother Family Medical History: Osteoarthritis (OA), Thyroid Disorder Additional Family Medical History / Comment(s): mom is alive -age 90 Medications and Allergies Home Medications Medication Instructions Recorded Confirmed Type RX: Gabapentin [Neurontin] 100 mg PO TID 01/19/18 07/25/18 History RX: Insulin Glargine [Lantus] 35 unit SQ HS 01/19/18 07/25/18 History RX: Atorvastatin [Lipitor] 80 mg PO HS #30 tab 01/27/18 07/25/18 Rx RX: Nitroglycerin Sl Tabs 0.4 mg SUBLINGUAL Q5M PRN #30 tab 01/27/18 07/25/18 Rx [Nitrostat] RX: Brinzolamide/Brimonidine Tart 1 drop RIGHT EYE BID 07/03/18 07/25/18 History [Simbrinza 1%-0.2% Eye Drops] RX: Acetaminophen Tab [Tylenol] 650 mg PO Q6HR PRN tab 07/21/18 07/25/18 Rx RX: Apixaban [Eliquis] 2.5 mg PO BID #60 tab 07/21/18 07/25/18 Rx RX: Famotidine [Pepcid] 20 mg PO DAILY tab 07/21/18 07/25/18 Rx RX: Furosemide [Lasix] 40 mg PO BID #60 tab 07/21/18 07/25/18 Rx RX: Ipratropium-Albuterol Nebulize 3 ml INHALATION Q4H PRN ampul.neb 07/21/18 07/25/18 Rx [Duoneb 0.5 mg-3 mg/3 ml Soln] RX: Ipratropium-Albuterol Nebulize 3 ml INHALATION RT-QID ampul.neb 07/21/18 Rx [Duoneb 0.5 mg-3 mg/3 ml Soln] RX: Metoprolol Tartrate [Lopressor] 12.5 mg PO BID tab 07/21/18 07/25/18 Rx RX: Saline Nasal Gel [Avant Nasal 1 applic TOPICAL Q4HR PRN gm 07/21/18 07/25/18 Rx Gel] RX: traMADol HCl [Ultram] 50 mg PO Q6H PRN #12 tab 07/21/18 07/25/18 Rx Budesonide-Formot 160-4.5 Mcg 2 puff INHALATION BID #1 inhaler 07/22/18 Rx [Symbicort 160-4.5 Mcg Inhaler] Clopidogrel Bisulfate [Plavix] 75 mg PO DAILY #30 tab 07/22/18 07/25/18 Rx RX: Albuterol Inhaler [Ventolin 1 - 2 puff INHALATION Q6HR PRN #1 07/22/1807/25 Rx Hfa Inhaler] inhaler Furosemide Oral Soln [Lasix] 40 mg PO ONCE 07/25/18 07/25/18 History RX: INSULIN LISPRO (HumaLOG) See Protocol SQ ACHS 07/25/18 07/25/18 History [humaLOG] RX: Promethazine HCl 12.5 mg PO Q8H PRN 07/25/18 07/25/18 History guaiFENesin [guaiFENesin Oral 200 mg PO Q6H 07/25/18 07/25/18 History Solution] Allergies Allergy/AdvReac Type Severity Reaction Status Date / Time No Known Allergies Allergy Verified 07/25/18 17:39 Physical Exam Vitals: Vital Signs Temp Pulse Resp BP Pulse Ox 07/25/18 19:30 105 H 25 H 130/87 96 07/25/18 19:00 103 H 26 H 153/102 95 07/25/18 18:30 110 H 24 149/92 100 07/25/18 17:53 104 H 22 140/79 100 07/25/18 17:01 104 H 07/25/18 16:51 24 07/25/18 16:46 103 H 07/25/18 16:42 98.8 F 119 H 20 144/85 88 L 07/25/18 16:39 88 L Intake and Output 07/25/18 07/25/18 07/25/18 06:59 14:59 22:59 Other: Weight 190.6 kg General: In respiratory distress, on BiPAP, appears at stated age, normal weight Derm: no unusual rashes/lesions no unusual ecchymoses, warm, dry Head: atraumatic, normocephalic, symmetric Eyes: EOMI, no lid lag, anicteric sclera, left pupil reactive to light, right pupil nonreactive (chronic as per at bedside) ENT: Nose and ears atraumatic Neck: No thyromegaly, no cervical lymphadenopathy, trachea midline, supple Cardiovascular: Irregularly irregular rhythm, tachycardic, no murmur, positive posterior tibial pulse bilateral, capillary refill less than 2 seconds Lungs: Stridor, using some accessory muscles of breathing Abdominal: soft, nontender to palpation, no guarding, no appreciable organomegaly, normal bowel sounds Ext: no gross muscle atrophy, muscle strength 5 out of 5 in all 4 extremities grossly, no contractures, 2+ pitting edema bilaterally Neuro: Moving all extremities, sensation to light touch grossly intact throughout Psych: Oriented to person and place only Results CBC & Chem 7: 07/26/18 04:35 07/26/18 04:35 Labs: Abnormal Lab Results - Last 24 Hours (Table) 07/25/18 07/25/18 07/25/18 Range/Units 16:45 16:45 16:45 WBC 10.8 H (3.8-10.6) k/uL RBC 3.47 L (4.30-5.90) m/uL Hgb 9.8 L D (13.0-17.5) gm/dL Hct 31.0 L (39.0-53.0) % Neutrophils # 9.2 H (1.3-7.7) k/uL Lymphocytes # 0.6 L (1.0-4.8) k/uL ABG pCO2 (35-45) mmHg ABG pO2 (83-108) mmHg ABG HCO3 (21-25) mmol/L ABG Total CO2 (19-24) mmol/L ABG O2 Saturation (94-97) % Chloride 97 L (98-107) mmol/L BUN 26 H (9-20) mg/dL Creatinine 1.52 H (0.66-1.25) mg/dL Glucose 193 H (74-99) mg/dL Total Bilirubin 2.0 H (0.2-1.3) mg/dL Troponin I 0.060 H* (0.000-0.034) ng/mL Urine Protein (Negative) Urine Glucose (UA) (Negative) Urine Blood (Negative) Ur Leukocyte Esterase (Negative) Urine RBC (0-5) /hpf Urine WBC (0-5) /hpf Urine Sperm (None) /hpf 07/25/18 07/25/18 Range/Units 16:56 19:52 WBC (3.8-10.6) k/uL RBC (4.30-5.90) m/uL Hgb (13.0-17.5) gm/dL Hct (39.0-53.0) % Neutrophils # (1.3-7.7) k/uL Lymphocytes # (1.0-4.8) k/uL ABG pCO2 51 H (35-45) mmHg ABG pO2 63 L (83-108) mmHg ABG HCO3 30 H (21-25) mmol/L ABG Total CO2 32 H (19-24) mmol/L ABG O2 Saturation 91.2 L (94-97) % Chloride (98-107) mmol/L BUN (9-20) mg/dL Creatinine (0.66-1.25) mg/dL Glucose (74-99) mg/dL Total Bilirubin (0.2-1.3) mg/dL Troponin I (0.000-0.034) ng/mL Urine Protein 1+ H (Negative) Urine Glucose (UA) 1+ H (Negative) Urine Blood Large H (Negative) Ur Leukocyte Esterase Small H (Negative) Urine RBC >182 H (0-5) /hpf Urine WBC 40 H (0-5) /hpf Urine Sperm Occasional H (None) /hpf Assessment and Plan Plan: Acute hypoxic respiratory failure secondary to severe laryngitis and possible vocal cord dysfunction, requiring mechanical ventilation -Continue with ventilator bundle -Oral hygiene -PulmonaryCritical care consult -Admit patient to ICU -Patient received 10 mg of Decadron in the ED -ENT consult Acute diastolic CHF exacerbation -Continue with Lasix 40 mg every 8 hourly -Intake and output -Daily weights -Cardiac monitoring -Will trend troponin in setting of mild elevation CKD stage III -Monitor BMP and avoid nephrotoxic agents Normocytic anemia in setting of hematuria and indwelling Teixeira -Improved from previous hospital stay -Patient had suspected urethral trauma on prior admission -Monitor CBC -Continue with Teixeira for now and may need a voiding trial with possible urology consult Diabetes mellitus type 2 -Resume Lantus 35 units at bedtime -Lispro insulin sliding scale with glucose monitoring A. fib -Resume Eliquis home dose Coronary artery disease -Resume Plavix and Eliquis Hypertension -Resume home meds Hyperlipidemia -Resume home meds DVT//GI prophylaxis -Eliquis -Protonix The patient is admitted with an anticipated later than 2 midnight stay for evaluation of shortness of breath. CODE STATUS: Full code Discussed with: , patient, son Anticipated discharge date: 07/30/[address]: Subacute rehab facility A total of 60 minutes was spent on the care of this complex patient more than 50 % of the time was spent in counseling and care coordination.
[2018-07-26] MEDS ORDERED: FUROSEMIDE 10 MG/ML 4 ML VIAL IV SCH ×3 (04:00→09:00)
[2018-07-26 04:50] LABS: Glucose,Whole Blood 274 mg/dL (75-99)
[2018-07-26 04:55] LABS: Basophils % (A) 0 %; Eosinophils % (A) 0 %; HCT 22.7 % (39.0-53.0); Hypochromasia Moderate; Lymphocytes # (A) 0.2 k/uL (1.0-4.8); Lymphocytes % (A) 6 %; MCH 28.5 pg (25.0-35.0); MCHC 32.2 g/dL (31.0-37.0); MCV 88.7 fL (80.0-100.0); Mean Platelet Volume 8.2; Monocytes # (A) 0.1 k/uL (0-1.0); Monocytes % (A) 4 %; Neutrophils # (A) 2.8 k/uL (1.3-7.7); Neutrophils % (A) 89 %; Platelet Count 195 k/uL (150-450); Poikilocytosis Slight; RBC 2.56 m/uL (4.30-5.90); RDW 15.1 % (11.5-15.5); WBC 3.1 k/uL (3.8-10.6)
[2018-07-26] MEDS: INSULIN ASPART (NovoLOG) 100 UNIT/ML VIAL SQ SCH ×3 (04:55→18:17)
[2018-07-26 05:03] LABS: HGB 7.3 gm/dL (13.0-17.5)
[2018-07-26 05:08] LABS: Albumin 3.1 g/dL (3.5-5.0); Calcium 8.6 mg/dL (8.4-10.2); Magnesium 1.8 mg/dL (1.6-2.3); Total Bilirubin 1.4 mg/dL (0.2-1.3); Total Protein 5.5 g/dL (6.3-8.2)
[2018-07-26 05:10] LABS: Potassium 4.7 mmol/L (3.5-5.1)
[2018-07-26] MEDS: PROPOFOL 1,000 MG in EMPTY BAG 1 BAG IV SCH ×5 (06:44→23:34)
[2018-07-26] MEDS: IPRATROPIUM-ALBUTEROL 3 ML NEB INHALATION SCH ×4 (07:04→20:19)
[2018-07-26 07:25] LABS: ABG HCO3 31 mmol/L (21-25); ABG Oxygen Saturation 99.4 % (94-97); ABG PCO2 37 mmHg (35-45); ABG PH 7.53 (7.35-7.45); ABG PO2 104 mmHg (83-108); ABG TCO2 32 mmol/L (19-24)
[2018-07-26] MEDS ORDERED: INSULIN ASPART (NovoLOG) 100 UNIT/ML VIAL SQ SCH ×2 (07:30)
[2018-07-26] MEDS ORDERED: PANTOPRAZOLE 40 MG TABLET PO SCH (07:30)
--- NOTE | 2018-07-26 07:33 | XR ---
EXAMINATION TYPE: XR chest 1V portable DATE OF EXAM: 07/26/2018 COMPARISON: 07/25/2018 HISTORY: SOB, Follow Up FINDINGS: Indwelling tubes and catheters are unchanged. No change in bibasilar opacities. Stable appearance of the cardio-mediastinal structures at this time. Pleural effusion unchanged. IMPRESSION: 1. Stable portable chest. Clinical correlation and follow up until resolution is recommended.
[2018-07-26] MEDS ORDERED: APIXABAN 5 MG TAB PO SCH (09:00)
[2018-07-26] MEDS ORDERED: CLOPIDOGREL 75 MG TAB NG-TUBE SCH (09:00)
[2018-07-26] MEDS ORDERED: CLOPIDOGREL 75 MG TAB PO SCH ×2 (09:00)
[2018-07-26] MEDS ORDERED: APIXABAN 5 MG TAB NG-TUBE SCH (09:00)
[2018-07-26] MEDS: METOPROLOL TARTRATE 12.5 MG TAB PO SCH ×2 (09:19→20:49)
[2018-07-26] MEDS: PANTOPRAZOLE 40 MG/10 ML VIAL IVP SCH (09:20)
[2018-07-26] MEDS: CHLORHEXIDINE GLUCONATE 15 ML CUP MUCOUS MEM SCH ×2 (09:20→20:42)
[2018-07-26] MEDS: NITROGLYCERIN OINT 1 INCH/GM PACKET TOPICAL SCH ×4 (09:20→21:02)
[2018-07-26] MEDS: PIPERACILLIN-TAZOBACTAM 3.375 GM in SODIUM CHLORIDE 0.9% 100 ML IVPB SCH ×2 (09:46→16:56)
[2018-07-26] MEDS: Brinzolamide/Brimonidine Tart [Simbrinza 1%-0.2% Eye Drops] 1 DROP RIGHT EYE SCH ×2 (10:07→21:49)
--- NOTE | 2018-07-26 10:50 | P.CNPUL ---
History of Present Illness Consult date: 07/26/18 Requesting physician: Hailey Newton Reason for consult: other (Acute hypoxic respiratory failure. Requiring intubation and mechanical ventilation.) Chief complaint: Shortness of breath History of present illness: This is a 68-year-old white male with history of multiple medical problems including COPD, diastolic congestive heart failure, type 2 diabetes, chronic kidney disease, he was recently on a short period of hemodialysis. Patient was recently in the hospital for what seemed to be a picture of diastolic congestive heart failure, respiratory failure requiring intubation and mechanical ventilation for a few days, acute on chronic kidney injury, patient was on mechanical ventilation for about 5 days, he was eventually extubated and he was followed by Dr. Duran during the last admission. Apparently post extubation, the patient developed intermittent episodes of stridor, and on 2018, he was seen by ENT/Dr. Larose for his stridor, however he recommended outpatient follow-up, because for some reason he didn't have access to a direct laryngoscope to evaluate his upper airways. He had difficulty visualizing the vocal cords with in direct laryngoscopy. At any rate on 07/22/2018, the patient was discharged to a rehab facility. While in rehab facility, the patient developed worsening respiratory status and worsening stridor. Brought into the ER, initially he was placed on BiPAP, and he was not turning around. Patient was intubated and according to the ER physician it was a very difficult intubation, he noted significant swelling of the upper airways, nonetheless, patient was intubated with a 7.5 endotracheal tube, placed on mechanical ventilation, transferred to the ICU and this consult was initiated. His chest x -ray initially showed evidence of interstitial edema, his follow-up chest x-ray this morning showed bibasilar opacities, more suggestive of pneumonia than actually to congestive heart failure especially knowing that the patient actually failed his swallow evaluation for thin liquids when he was in the hospital last. He may be experiencing intermittent episodes of aspiration. At any rate patient was given Lasix last night, he was started on antibiotics today in the form of Zosyn and Levaquin. He is now sedated, on mechanical ventilation, and his ventilator settings are tidal volume of 500 FiO2 of 40% PEEP of 5 and assist control rate was initially 16 I cut it down to 12. ABG this morning showed a pO2 of 104 pCO2 of 37 pH of 7.53. CBC showed a hemoglobin of 7.3 this morning WBC count is 3.1 BUN is 32 creatinine 1.76. It was 1.5 to yesterday on admission. Hence went ahead and cut down on the Lasix dose. Review of Systems ROS unobtainable: due to endotracheal tube Past Medical History Past Medical History: Atrial Fibrillation, Coronary Artery Disease (CAD), Cancer , CVA/TIA, Diabetes Mellitus, Hyperlipidemia, Hypertension, Myocardial Infarction ([place]), Myocardial Infarction (non Q-wave), Pneumonia, Renal Disease Additional Past Medical History / Comment(s): TIA 1 yr ago, no residual effects. kidney disease stage iV, stroke behind rt eye.gout, basal cell skin ca (removed), poor circulation Last Myocardial Infarction Date:: 6 weeks ago History of Any Multi-Drug Resistant Organisms: None Reported Past Surgical History: Heart Catheterization With Stent Past Anesthesia/Blood Transfusion Reactions: No Reported Reaction Date of Last Stent Placement:: 06-07-18 Past Psychological History: No Psychological Hx Reported Smoking Status: Never smoker Past Alcohol Use History: None Reported Past Drug Use History: None Reported - Past Family History Father Family Medical History: Coronary Artery Disease (CAD), Hypertension Additional Family Medical History / Comment(s): , hx of 2 cabg sx Mother Family Medical History: Osteoarthritis (OA), Thyroid Disorder Additional Family Medical History / Comment(s): mom is alive -age 90 Medications and Allergies Home Medications Medication Instructions Recorded Confirmed Type Gabapentin [Neurontin] 100 mg PO TID 01/19/18 07/25/18 History Insulin Glargine [Lantus] 35 unit SQ HS 01/19/18 07/25/18 History Atorvastatin [Lipitor] 80 mg PO HS #30 tab 01/27/18 07/25/18 Rx Nitroglycerin Sl Tabs [Nitrostat] 0.4 mg SUBLINGUAL Q5M PRN #30 tab 01/27/1805/31 Rx Brinzolamide/Brimonidine Tart 1 drop RIGHT EYE BID 07/03/18 07/25/18 History [Simbrinza 1%-0.2% Eye Drops] Acetaminophen Tab [Tylenol] 650 mg PO Q6HR PRN tab 07/21/18 07/25/18 Rx Apixaban [Eliquis] 2.5 mg PO BID #60 tab 07/21/18 07/25/18 Rx Famotidine [Pepcid] 20 mg PO DAILY tab 07/21/18 07/25/18 Rx Furosemide [Lasix] 40 mg PO BID #60 tab 07/21/18 07/25/18 Rx Ipratropium-Albuterol Nebulize 3 ml INHALATION Q4H PRN ampul.neb 07/21/1807/25 Rx [Duoneb 0.5 mg-3 mg/3 ml Soln] Ipratropium-Albuterol Nebulize 3 ml INHALATION RT-QID ampul.neb 07/21/18 Rx [Duoneb 0.5 mg-3 mg/3 ml Soln] Metoprolol Tartrate [Lopressor] 12.5 mg PO BID tab 07/21/18 07/25/18 Rx Saline Nasal Gel [Lynn Nasal Gel] 1 applic TOPICAL Q4HR PRN gm 07/21/18 Rx traMADol HCl [Ultram] 50 mg PO Q6H PRN #12 tab 07/21/18 07/25/18 Rx Albuterol Inhaler [Ventolin Hfa 1 - 2 puff INHALATION Q6HR PRN #1 07/22/1807/25 Rx Inhaler] inhaler Budesonide-Formot 160-4.5 Mcg 2 puff INHALATION BID #1 inhaler 07/22/18 Rx [Symbicort 160-4.5 Mcg Inhaler] Clopidogrel Bisulfate [Plavix] 75 mg PO DAILY #30 tab 07/22/18 07/25/18 Rx Furosemide Oral Soln [Lasix] 40 mg PO ONCE 07/25/18 07/25/18 History INSULIN LISPRO (HumaLOG) [humaLOG] See Protocol SQ ACHS 07/25/18 07/25/18 History Promethazine HCl 12.5 mg PO Q8H PRN 07/25/18 07/25/18 History guaiFENesin [guaiFENesin Oral 200 mg PO Q6H 07/25/18 07/25/18 History Solution] Allergies Allergy/AdvReac Type Severity Reaction Status Date / Time No Known Allergies Allergy Verified 07/25/18 17:39 Physical Exam Vitals: Vital Signs Temp Pulse Resp BP BP Pulse Ox 07/26/18 09:00 99 F 64 15 130/63 98 07/26/18 08:00 71 16 123/65 98 07/26/18 07:21 77 07/26/18 07:05 74 07/26/18 07:00 71 18 127/73 98 07/26/18 06:00 74 18 128/67 100 07/26/18 05:00 75 19 134/67 99 07/26/18 04:00 76 18 130/68 99 07/26/18 03:00 85 17 120/68 100 07/26/18 02:00 80 18 118/65 99 07/26/18 01:00 85 18 126/68 99 07/26/18 00:00 89 19 143/78 100 07/25/18 23:00 98.4 F 87 14 132/72 100 07/25/18 22:30 97.9 F 91 14 132/67 100 07/25/18 21:50 92 14 127/67 100 07/25/18 21:40 96 14 139/97 100 07/25/18 21:30 105 H 14 175/99 100 07/25/18 21:20 106 H 12 175/99 100 07/25/18 21:11 14 07/25/18 21:10 112 H 12 200/110 97 07/25/18 21:00 112 H 38 H 163/96 98 07/25/18 20:50 105 H 44 H 163/96 98 07/25/18 20:40 115 H 41 H 175/108 99 07/25/18 20:30 116 H 42 H 159/105 97 07/25/18 20:28 98.4 F 132/72 07/25/18 20:20 106 H 45 H 159/105 94 L 07/25/18 20:10 118 H 40 H 158/118 94 L 07/25/18 20:00 101 H 34 H 174/105 93 L 07/25/18 19:30 105 H 25 H 130/87 96 07/25/18 19:00 103 H 26 H 153/102 95 07/25/18 18:30 110 H 24 149/92 100 07/25/18 17:53 104 H 22 140/79 100 07/25/18 17:01 104 H 07/25/18 16:51 24 07/25/18 16:46 103 H 07/25/18 16:42 98.8 F 119 H 20 144/85 88 L 07/25/18 16:39 88 L Intake and Output 07/25/18 07/26/18 07/26/18 22:59 06:59 14:59 Intake Total 2.379 115.521 Output Total 445 295 Balance 2.379 -445 -179.479 Intake: IV 100 Piperacillin-Tazobactam 3 100 .375 gm In Sodium Chloride 0.9% 100 ml @ 25 mls/hr IVPB Q8HR [facility] Rx# :[id number] Intake, IV Titration 2.379 15.521 Amount Propofol 1,000 mg In 2.379 Empty Bag 1 bag @ Titrate IV .Q0M ONE Rx#: [id number] Propofol 1,000 mg In 15.521 Empty Bag 1 bag @ Titrate IV .Q0M [facility] Rx#: [id number] Output: Urine 445 295 Other: Voiding Method Indwelling Catheter Weight 190.6 kg 83 kg 83 kg Physical Exam: Revealed a 68-year-old white male sedated, on mechanical ventilation, in no distress. Head: Atraumatic, normocephalic. HEENT:[Neck is supple.] [No neck masses.] [No thyromegaly.] [No JVD.] Dry mucous membranes, endotracheal tube and orogastric tube are intact. Chest: Crackles at the bases, no rhonchi no wheezes..] Cardiac Exam: [Irregular irregular rhythm. Normal S1 and S2, no S3 gallop, 2/6 systolic murmur thought the precordium. Abdomen: [Obese, Soft, nontender, no megaly, no rebound, no guarding, normal bowel sounds.] Extremities: [No clubbing, 2+ bipedal edema, no cyanosis.] Neurological Exam: Cannot be assessed, patient is on propofol drip, sedated, Psychiatric: Could not be assessed. Lymphatics: No lymphadenopathy. Skin: Small superficial abrasion noted on the posterior aspect of the left calf region just above the ankle. Otherwise skin is unremarkable. Results - Laboratory Findings CBC and BMP: 07/26/18 04:35 07/26/18 04:35 ABG ABG pH 7.53 (7.35-7.45) H 07/26/18 07:20 ABG pCO2 37 mmHg (35-45) 07/26/18 07:20 ABG pO2 104 mmHg (83-108) 07/26/18 07:20 ABG O2 Saturation 99.4 % (94-97) H 07/26/18 07:20 PT/INR, D-dimer PT 11.9 sec (9.0-12.0) 07/25/18 16:45 INR 1.1 (<1.2) 07/25/18 16:45 Abnormal lab findings: Abnormal Labs 07/25/18 07/25/18 07/25/18 16:45 16:45 16:45 WBC 10.8 H RBC 3.47 L Hgb 9.8 L D Hct 31.0 L Neutrophils # 9.2 H Lymphocytes # 0.6 L ABG pH ABG pCO2 ABG pO2 ABG HCO3 ABG Total CO2 ABG O2 Saturation Sodium Chloride 97 L BUN 26 H Creatinine 1.52 H Glucose 193 H POC Glucose (mg/dL) Total Bilirubin 2.0 H Troponin I 0.060 H* Total Protein Albumin Urine Protein Urine Glucose (UA) Urine Blood Ur Leukocyte Esterase Urine RBC Urine WBC Urine Sperm 07/25/18 07/25/18 07/25/18 16:56 19:52 22:51 WBC RBC Hgb Hct Neutrophils # Lymphocytes # ABG pH ABG pCO2 51 H ABG pO2 63 L ABG HCO3 30 H ABG Total CO2 32 H ABG O2 Saturation 91.2 L Sodium Chloride BUN Creatinine Glucose POC Glucose (mg/dL) 271 H Total Bilirubin Troponin I Total Protein Albumin Urine Protein 1+ H Urine Glucose (UA) 1+ H Urine Blood Large H Ur Leukocyte Esterase Small H Urine RBC >182 H Urine WBC 40 H Urine Sperm Occasional H 07/26/18 07/26/18 07/26/18 00:18 04:35 04:35 WBC 3.1 L RBC 2.56 L Hgb 7.3 L D Hct 22.7 L Neutrophils # Lymphocytes # 0.2 L ABG pH 7.46 H ABG pCO2 ABG pO2 205 H ABG HCO3 28 H ABG Total CO2 29 H ABG O2 Saturation 100.0 H Sodium 135 L Chloride 96 L BUN 32 H Creatinine 1.76 H Glucose 266 H POC Glucose (mg/dL) Total Bilirubin 1.4 H Troponin I Total Protein 5.5 L Albumin 3.1 L Urine Protein Urine Glucose (UA) Urine Blood Ur Leukocyte Esterase Urine RBC Urine WBC Urine Sperm 07/26/18 07/26/18 07/26/18 04:35 04:48 07:20 WBC RBC Hgb Hct Neutrophils # Lymphocytes # ABG pH 7.53 H ABG pCO2 ABG pO2 ABG HCO3 31 H ABG Total CO2 32 H ABG O2 Saturation 99.4 H Sodium Chloride BUN Creatinine Glucose POC Glucose (mg/dL) 274 H Total Bilirubin Troponin I 0.064 H* Total Protein Albumin Urine Protein Urine Glucose (UA) Urine Blood Ur Leukocyte Esterase Urine RBC Urine WBC Urine Sperm - Diagnostic Findings Chest x-ray: image reviewed (As noted in HPI.) Assessment and Plan Assessment: Impression: 1 acute hypoxic respiratory failure secondary to stridor and secondary to diastolic congestive heart failure, I also suspect aspiration pneumonia. 2 acute on chronic diastolic congestive heart failure 3 chronic kidney disease stage III 4 chronic atrial fibrillation 5 possible aspiration pneumonia 6 chronic obstructive pulmonary disease mild to moderate in severity, inactive at present. 7 chronic anemia secondary to chronic kidney disease. 8 type 2 diabetes 9 coronary artery disease 10 benign essential hypertension 11 hyperlipidemia 12 recent episode of hypoxic and hypercapnic respiratory failure requiring intubation and mechanical ventilation, patient developed post extubation stridor. Recommendation: Continue ventilatory support, nutritional support, GI and DVT prophylaxis, anticoagulation therapy for atrial fibrillation, antibiotics for presumed aspiration pneumonia presently on Levaquin and Zosyn continue Decadron for his airway swelling and stridor on presentation, consulted ENT to evaluate, may have to eventually consider extubating the patient over a bronchoscope. And if significant abnormalities noted may have to consider tracheostomy. Address issues noted above. Patient is not going to be weaned today, I plan at least 2 days of Decadron before I would even consider visualizing the vocal cords with a bronchoscope inserted through the endotracheal tube and closely remove the endotracheal tube over the bronchoscope. Prognosis is definitely poor and guarded, we'll continue to follow. Patient is obviously critically ill. We'll follow closely in the ICU. Time with Patient: Greater than 30
--- NOTE | 2018-07-26 11:19 | CONS ---
CONSULTATION Mr. Ochoa is a 68-year-old male who was just discharged from the hospital, was readmitted with respiratory failure requiring mechanical ventilation. Patient has a known history of end-stage renal disease, chronic persistent atrial fibrillation as well as history of coronary artery disease with stenting of the left main done by Dr. Argueta because he was felt to be high risk for surgical intervention and was turned down for surgery. He was discharged home and apparently according to the note, was becoming more short of breath and had stridor on presentation to the emergency room. Initially, he was on BiPAP, but subsequently deteriorated requiring mechanical ventilation. Cardiology consultation was requested. I am not able to obtain any other history except what is available in the records. Patient's left ventricular systolic function in the past was preserved. There was no evidence of significant valvular disease. MEDICATIONS: At the time of admission included Eliquis 2.5 mg twice a day, Plavix 75 mg daily, tramadol, furosemide 40 mg daily, insulin, gabapentin, metoprolol tartrate 12.5 mg twice a day, Lasix 40 mg twice a day, insulin, DuoNeb. REVIEW OF SYSTEMS: Respiratory system is not available, but reviewing the old records, patient has a history of chronic obstructive lung disease was abnormal pulmonary function test. He has the end-stage renal disease requiring dialysis. PHYSICAL EXAMINATION: He is a 68-year-old male, intubated, sedated. Blood pressure 134/70 with a heart rate in the 70s. HEAD: Normocephalic. EYES: Sclerae nonicteric. NECK: Good upstroke, no bruit. LUNGS: Clear to auscultation anteriorly. HEART: Irregular, regular, S1, S2. No S3 with a systolic murmur, no diastolic murmur. ABDOMEN: Soft, obese, nontender. EXTREMITIES: 1+ edema. LAB DATA: Revealed a BUN and creatinine on admission of 26 and 1.52, up to 32 and 1.76. Troponin 0.06 and 0.064. NT proBNP of 15,500. Potassium 4.7, hemoglobin of 7.3 with a white blood cell of 3.1, platelet count of 195. EKG revealed atrial fibrillation with nonspecific ST-T wave changes. Chest x-ray shows evidence of fluid overload and interstitial edema. IMPRESSION: 1. Respiratory failure with pulmonary edema. The mild troponin elevation does not represent any acute ischemic event. 2. Status post stenting of the left main. 3. Renal failure, was on temporary dialysis. 4. Persistent chronic atrial fibrillation. 5. History of lung disease. 6. History of hyperlipidemia. RECOMMENDATION: From the cardiac standpoint, will continue supportive care. I will continue on the Eliquis as well as the Plavix because of the recent stenting. Patient will be evaluated by Dr. Rojas regarding his lung status. Will follow his renal function closely regarding the need to re-initiate dialysis depending on his urine output. He had an echocardiogram done recently that showed a preserved ventricular size and systolic function. Depending on his progress, further recommendation will be made and prognosis remains guarded. MMODL / IJN: [id number] /
[2018-07-26] MEDS ORDERED: FUROSEMIDE 10 MG/ML 4 ML VIAL IV STA (12:36)
--- NOTE | 2018-07-26 12:36 | P.PN ---
Subjective Progress Note Date: 07/26/18 Principal diagnosis: follow up for acute hypoxic respiratory failure Patient seen and examined no new events overnight, patient is sedated, intubated on mechanical ventilation at this time. No fevers overnight, no evidence of bleeding. Vital signs are stable Objective - Vital Signs Vital signs: Vital Signs Temp 99 F 07/26/18 09:00 Pulse 70 07/26/18 11:30 Resp 15 07/26/18 09:00 BP 130/63 07/26/18 09:00 Pulse Ox 98 07/26/18 09:00 Intake & Output 07/25/18 07/26/18 07/26/18 18:59 06:59 18:59 Intake Total 2.379 115.521 Output Total 445 295 Balance -442.621 -179.479 Weight 190.6 kg 83 kg 83 kg Intake: IV 100 Piperacillin-Tazobactam 3 100 .375 gm In Sodium Chloride 0.9% 100 ml @ 25 mls/hr IVPB Q8HR [facility] Rx# :[id number] Intake, IV Titration 2.379 15.521 Amount Propofol 1,000 mg In 2.379 Empty Bag 1 bag @ Titrate IV .Q0M [facility] Rx#: [id number] Propofol 1,000 mg In 15.521 Empty Bag 1 bag @ Titrate IV .Q0M [facility] Rx#: [id number] Output: Urine 445 295 Other: Voiding Method Indwelling Catheter - Exam Constitutional: vital signs stable, Not in acute distress, intubated on mechanical ventilation, heavily sedated not responsive to verbal or painful stimulation. Eyes: Pupils equal round reactive to light Lungs: Clear to auscultation bilaterally, clear to percussion, normal respiratory effort no use of accessory muscles Cardiovascular: Regular rate and rhythm, no murmurs, no gallops, no rubs, no peripheral edema Gastrointestinal: Soft, no tenderness to palpation, no palpable hepatosplenomegally, bowel sounds positive, no abdominal wall hernias Skin: Unremarkable temperature, tone, texture, and turgor, no induration or subcutaneous nodule, no rashes, no lesions, no ulcers Extremities: No digital cyanosis or clubbing, peripheral pulses palpable and equal over bilateral radial arteries and dorsalis pedis artery, no calf muscle tenderness Psych: Patient heavily sedated Neuro: Patient heavily sedated - Labs CBC & Chem 7: 07/26/18 04:35 07/26/18 04:35 Labs: Abnormal Lab Results - Last 24 Hours (Table) 07/25/18 07/25/18 07/25/18 Range/Units 16:45 16:45 16:45 WBC 10.8 H (3.8-10.6) k/uL RBC 3.47 L (4.30-5.90) m/uL Hgb 9.8 L D (13.0-17.5) gm/dL Hct 31.0 L (39.0-53.0) % Neutrophils # 9.2 H (1.3-7.7) k/uL Lymphocytes # 0.6 L (1.0-4.8) k/uL ABG pH (7.35-7.45) ABG pCO2 (35-45) mmHg ABG pO2 (83-108) mmHg ABG HCO3 (21-25) mmol/L ABG Total CO2 (19-24) mmol/L ABG O2 Saturation (94-97) % Sodium (137-145) mmol/L Chloride 97 L (98-107) mmol/L BUN 26 H (9-20) mg/dL Creatinine 1.52 H (0.66-1.25) mg/dL Glucose 193 H (74-99) mg/dL POC Glucose (mg/dL) (75-99) mg/dL Total Bilirubin 2.0 H (0.2-1.3) mg/dL Troponin I 0.060 H* (0.000-0.034) ng/mL Total Protein (6.3-8.2) g/dL Albumin (3.5-5.0) g/dL Urine Protein (Negative) Urine Glucose (UA) (Negative) Urine Blood (Negative) Ur Leukocyte Esterase (Negative) Urine RBC (0-5) /hpf Urine WBC (0-5) /hpf Urine Sperm (None) /hpf 07/25/18 07/25/18 07/25/18 Range/Units 16:56 19:52 22:51 WBC (3.8-10.6) k/uL RBC (4.30-5.90) m/uL Hgb (13.0-17.5) gm/dL Hct (39.0-53.0) % Neutrophils # (1.3-7.7) k/uL Lymphocytes # (1.0-4.8) k/uL ABG pH (7.35-7.45) ABG pCO2 51 H (35-45) mmHg ABG pO2 63 L (83-108) mmHg ABG HCO3 30 H (21-25) mmol/L ABG Total CO2 32 H (19-24) mmol/L ABG O2 Saturation 91.2 L (94-97) % Sodium (137-145) mmol/L Chloride (98-107) mmol/L BUN (9-20) mg/dL Creatinine (0.66-1.25) mg/dL Glucose (74-99) mg/dL POC Glucose (mg/dL) 271 H (75-99) mg/dL Total Bilirubin (0.2-1.3) mg/dL Troponin I (0.000-0.034) ng/mL Total Protein (6.3-8.2) g/dL Albumin (3.5-5.0) g/dL Urine Protein 1+ H (Negative) Urine Glucose (UA) 1+ H (Negative) Urine Blood Large H (Negative) Ur Leukocyte Esterase Small H (Negative) Urine RBC >182 H (0-5) /hpf Urine WBC 40 H (0-5) /hpf Urine Sperm Occasional H (None) /hpf 07/26/18 07/26/18 07/26/18 Range/Units 00:18 04:35 04:35 WBC 3.1 L (3.8-10.6) k/uL RBC 2.56 L (4.30-5.90) m/uL Hgb 7.3 L D (13.0-17.5) gm/dL Hct 22.7 L (39.0-53.0) % Neutrophils # (1.3-7.7) k/uL Lymphocytes # 0.2 L (1.0-4.8) k/uL ABG pH 7.46 H (7.35-7.45) ABG pCO2 (35-45) mmHg ABG pO2 205 H (83-108) mmHg ABG HCO3 28 H (21-25) mmol/L ABG Total CO2 29 H (19-24) mmol/L ABG O2 Saturation 100.0 H (94-97) % Sodium 135 L (137-145) mmol/L Chloride 96 L (98-107) mmol/L BUN 32 H (9-20) mg/dL Creatinine 1.76 H (0.66-1.25) mg/dL Glucose 266 H (74-99) mg/dL POC Glucose (mg/dL) (75-99) mg/dL Total Bilirubin 1.4 H (0.2-1.3) mg/dL Troponin I (0.000-0.034) ng/mL Total Protein 5.5 L (6.3-8.2) g/dL Albumin 3.1 L (3.5-5.0) g/dL Urine Protein (Negative) Urine Glucose (UA) (Negative) Urine Blood (Negative) Ur Leukocyte Esterase (Negative) Urine RBC (0-5) /hpf Urine WBC (0-5) /hpf Urine Sperm (None) /hpf 07/26/18 07/26/18 07/26/18 Range/Units 04:35 04:48 07:20 WBC (3.8-10.6) k/uL RBC (4.30-5.90) m/uL Hgb (13.0-17.5) gm/dL Hct (39.0-53.0) % Neutrophils # (1.3-7.7) k/uL Lymphocytes # (1.0-4.8) k/uL ABG pH 7.53 H (7.35-7.45) ABG pCO2 (35-45) mmHg ABG pO2 (83-108) mmHg ABG HCO3 31 H (21-25) mmol/L ABG Total CO2 32 H (19-24) mmol/L ABG O2 Saturation 99.4 H (94-97) % Sodium (137-145) mmol/L Chloride (98-107) mmol/L BUN (9-20) mg/dL Creatinine (0.66-1.25) mg/dL Glucose (74-99) mg/dL POC Glucose (mg/dL) 274 H (75-99) mg/dL Total Bilirubin (0.2-1.3) mg/dL Troponin I 0.064 H* (0.000-0.034) ng/mL Total Protein (6.3-8.2) g/dL Albumin (3.5-5.0) g/dL Urine Protein (Negative) Urine Glucose (UA) (Negative) Urine Blood (Negative) Ur Leukocyte Esterase (Negative) Urine RBC (0-5) /hpf Urine WBC (0-5) /hpf Urine Sperm (None) /hpf Microbiology - Last 24 Hours (Table) 07/25/18 21:23 Sputum Culture - Preliminary Sputum Assessment and Plan Assessment: Patient is a 68-year-old male with a PMH of diastolic CHF, A. fib (on Eliquis), indwelling Teixeira, CAD, and type II DM, hypertension, and hyperlipidemia who presented to the ED for shortness of breath. Of note, the patient was recently had a prolonged hospital stay for CHF exacerbation requiring mechanical ventilation for 4-5 days, complicated with subsequent stridor from suspected laryngitis versus vocal cord dysfunction. During that hospitalization, ENT was unable to evaluate the patient's vocal cords due to lack of equipment at the patient was advised to follow-up in the clinic. The patient's hospital stay was also complicated by ATN requiring temporary hemodialysis at that time. since discharge last time, patient has been whispering due to difficult phonation and having stridors, the patient's breathing got worse while he was at the subacute rehab facility and thereby EMS was activated. As per EMS, the patient saturating 98% on room air on arrival though worsened in route to the hospital. While in the ED, the patient was placed on BiPAP with initial improvement in his breathing and saturation. The patient's condition subsequently declined and he became more and more dyspneic and lethargic, along with increased oxygen requirements. The patient was subsequently intubated by the ED physician and was placed on mechanical ventilation. Informed by the ED physician that the patient had significant laryngeal and vocal cord edema noted during intubation. Plan: Acute hypoxic respiratory failure secondary to severe laryngitis and possible vocal cord dysfunction, requiring mechanical ventilation possible aspiration pneumonia -Continue with ventilator bundle, sedation due to patient attempting to remove tube. -Oral hygiene -PulmonaryCritical care continue decadrone -ENT consult zosyn for possible aspiration pneumonia Acute diastolic CHF exacerbation -Continue with Lasix 40 mg daily -Intake and output -Daily weights -Cardiac monitoring trend troponin in setting of mild elevation CKD stage III -Monitor BMP and avoid nephrotoxic agents Normocytic anemia in setting of hematuria and indwelling Teixeira -Improved from previous hospital stay Patient had suspected urethral trauma on prior admission Monitor CBC Continue with Teixeira for now and may need a voiding trial with possible urology consult Diabetes mellitus type 2 Resume Lantus 35 units at bedtime Lispro insulin sliding scale with glucose monitoring A. fib Resume Eliquis home dose Coronary artery disease Resume Plavix and Eliquis trend troponin ASA, statin Hypertension Resume home meds Hyperlipidemia Resume home meds DVT//GI prophylaxis -Eliquis -Protonix prognosis guarded, continue with supportive care, there is a chance patient might require tracheostomy if fails extubation
[2018-07-26 12:45] LABS: Glucose,Whole Blood 215 mg/dL (75-99)
[2018-07-26] MEDS ORDERED: MAGNESIUM SULFATE-D5W PMX 1 GM in DEXTROSE/WATER 1 100ML.BAG IVPB ONE (13:30)
--- NOTE | 2018-07-26 16:29 | P.GSCN ---
History of Present Illness Consult date: 07/26/18 Reason for Consult: Stridor and airway compromise necessitating Intubation Requesting physician: Cedric Rojas History of present illness: This is a 68-year-old white male who was admitted to the emergency room and required intubation. Is currently on a ventilator and sedated. I understand this patient previously was extubated and was sent home unfortunately he returned with worsening stridor. He was seen by Dr. Cecilio Larose for the stridor and recommended an outpatient follow-up. He was taken to a rehab facility after discharge but then brought to the emergency room last night requiring intubation and placed on BiPAP. The etiology for his stridor is not known. He is currently has a 7.5 endotracheal tube on a mechanical ventilation here in the intensive care unit. Currently he is resting comfortably intubated and I've been asked to consult or guarding his upper airway stridor an etiology behind his difficulty breathing. Review of Systems ROS unobtainable: due to endotracheal tube Past Medical History Past Medical History: Atrial Fibrillation, Coronary Artery Disease (CAD), Cancer , CVA/TIA, Diabetes Mellitus, Hyperlipidemia, Hypertension, Myocardial Infarction (TN), Myocardial Infarction (non Q-wave), Pneumonia, Renal Disease Additional Past Medical History / Comment(s): TIA 1 yr ago, no residual effects. kidney disease stage iV, stroke behind rt eye.gout, basal cell skin ca (removed), poor circulation Last Myocardial Infarction Date:: 6 weeks ago History of Any Multi-Drug Resistant Organisms: None Reported Past Surgical History: Heart Catheterization With Stent Past Anesthesia/Blood Transfusion Reactions: No Reported Reaction Date of Last Stent Placement:: 06-07-18 Past Psychological History: No Psychological Hx Reported Smoking Status: Never smoker Past Alcohol Use History: None Reported Past Drug Use History: None Reported - Past Family History Father Family Medical History: Coronary Artery Disease (CAD), Hypertension Additional Family Medical History / Comment(s): , hx of 2 cabg sx Mother Family Medical History: Osteoarthritis (OA), Thyroid Disorder Additional Family Medical History / Comment(s): mom is alive -age 90 Medications and Allergies Home Medications Medication Instructions Recorded Confirmed Type Gabapentin [Neurontin] 100 mg PO TID 01/19/18 07/25/18 History Insulin Glargine [Lantus] 35 unit SQ HS 01/19/18 07/25/18 History Atorvastatin [Lipitor] 80 mg PO HS #30 tab 01/27/18 07/25/18 Rx Nitroglycerin Sl Tabs [Nitrostat] 0.4 mg SUBLINGUAL Q5M PRN #30 tab 01/27/1805/31 Rx Brinzolamide/Brimonidine Tart 1 drop RIGHT EYE BID 07/03/18 07/25/18 History [Simbrinza 1%-0.2% Eye Drops] Acetaminophen Tab [Tylenol] 650 mg PO Q6HR PRN tab 07/21/18 07/25/18 Rx Apixaban [Eliquis] 2.5 mg PO BID #60 tab 07/21/18 07/25/18 Rx Famotidine [Pepcid] 20 mg PO DAILY tab 07/21/18 07/25/18 Rx Furosemide [Lasix] 40 mg PO BID #60 tab 07/21/18 07/25/18 Rx Ipratropium-Albuterol Nebulize 3 ml INHALATION Q4H PRN ampul.neb 07/21/1807/25 Rx [Duoneb 0.5 mg-3 mg/3 ml Soln] Ipratropium-Albuterol Nebulize 3 ml INHALATION RT-QID ampul.neb 07/21/18 Rx [Duoneb 0.5 mg-3 mg/3 ml Soln] Metoprolol Tartrate [Lopressor] 12.5 mg PO BID tab 07/21/18 07/25/18 Rx Saline Nasal Gel [Byron Nasal Gel] 1 applic TOPICAL Q4HR PRN gm 07/21/18 Rx traMADol HCl [Ultram] 50 mg PO Q6H PRN #12 tab 07/21/18 07/25/18 Rx Albuterol Inhaler [Ventolin Hfa 1 - 2 puff INHALATION Q6HR PRN #1 07/22/1807/25 Rx Inhaler] inhaler Budesonide-Formot 160-4.5 Mcg 2 puff INHALATION BID #1 inhaler 07/22/18 Rx [Symbicort 160-4.5 Mcg Inhaler] Clopidogrel Bisulfate [Plavix] 75 mg PO DAILY #30 tab 07/22/18 07/25/18 Rx Furosemide Oral Soln [Lasix] 40 mg PO ONCE 07/25/18 07/25/18 History INSULIN LISPRO (HumaLOG) [humaLOG] See Protocol SQ ACHS 07/25/18 07/25/18 History Promethazine HCl 12.5 mg PO Q8H PRN 07/25/18 07/25/18 History guaiFENesin [guaiFENesin Oral 200 mg PO Q6H 07/25/18 07/25/18 History Solution] Allergies Allergy/AdvReac Type Severity Reaction Status Date / Time No Known Allergies Allergy Verified 07/25/18 17:39 Surgical - Exam Osteopathic Statement: *. No significant issues noted on an osteopathic structural exam other than those noted in the History and Physical/Consult. Vital Signs Pulse Ox 88 L 07/25/18 16:39 - General Patient is currently intubated and nonresponsive to verbal stimuli. He is unable to answer any questions because of his intubation status. no distress - Eyes No signs of any extraocular abnormality. - ENT normal pinna, normal nares, normal mucosa - Neck no masses, no bruits, trachea midline, no lymphadectomy, no venous distension - Neurologic Patient is sedated - Musculoskeletal Patient is intubated and sedated - Psychiatric Unable to perform due to the patient's sedated situation. Results - Labs 07/26/18 04:35 07/26/18 04:35 Abnormal Lab Results - Last 24 Hours (Table) 07/25/18 07/25/18 07/25/18 Range/Units 16:45 16:45 16:45 WBC 10.8 H (3.8-10.6) k/uL RBC 3.47 L (4.30-5.90) m/uL Hgb 9.8 L D (13.0-17.5) gm/dL Hct 31.0 L (39.0-53.0) % Neutrophils # 9.2 H (1.3-7.7) k/uL Lymphocytes # 0.6 L (1.0-4.8) k/uL ABG pH (7.35-7.45) ABG pCO2 (35-45) mmHg ABG pO2 (83-108) mmHg ABG HCO3 (21-25) mmol/L ABG Total CO2 (19-24) mmol/L ABG O2 Saturation (94-97) % Sodium (137-145) mmol/L Chloride 97 L (98-107) mmol/L BUN 26 H (9-20) mg/dL Creatinine 1.52 H (0.66-1.25) mg/dL Glucose 193 H (74-99) mg/dL POC Glucose (mg/dL) (75-99) mg/dL Total Bilirubin 2.0 H (0.2-1.3) mg/dL Troponin I 0.060 H* (0.000-0.034) ng/mL Total Protein (6.3-8.2) g/dL Albumin (3.5-5.0) g/dL Urine Protein (Negative) Urine Glucose (UA) (Negative) Urine Blood (Negative) Ur Leukocyte Esterase (Negative) Urine RBC (0-5) /hpf Urine WBC (0-5) /hpf Urine Sperm (None) /hpf 07/25/18 07/25/18 07/25/18 Range/Units 16:56 19:52 22:51 WBC (3.8-10.6) k/uL RBC (4.30-5.90) m/uL Hgb (13.0-17.5) gm/dL Hct (39.0-53.0) % Neutrophils # (1.3-7.7) k/uL Lymphocytes # (1.0-4.8) k/uL ABG pH (7.35-7.45) ABG pCO2 51 H (35-45) mmHg ABG pO2 63 L (83-108) mmHg ABG HCO3 30 H (21-25) mmol/L ABG Total CO2 32 H (19-24) mmol/L ABG O2 Saturation 91.2 L (94-97) % Sodium (137-145) mmol/L Chloride (98-107) mmol/L BUN (9-20) mg/dL Creatinine (0.66-1.25) mg/dL Glucose (74-99) mg/dL POC Glucose (mg/dL) 271 H (75-99) mg/dL Total Bilirubin (0.2-1.3) mg/dL Troponin I (0.000-0.034) ng/mL Total Protein (6.3-8.2) g/dL Albumin (3.5-5.0) g/dL Urine Protein 1+ H (Negative) Urine Glucose (UA) 1+ H (Negative) Urine Blood Large H (Negative) Ur Leukocyte Esterase Small H (Negative) Urine RBC >182 H (0-5) /hpf Urine WBC 40 H (0-5) /hpf Urine Sperm Occasional H (None) /hpf 07/26/18 07/26/18 07/26/18 Range/Units 00:18 04:35 04:35 WBC 3.1 L (3.8-10.6) k/uL RBC 2.56 L (4.30-5.90) m/uL Hgb 7.3 L D (13.0-17.5) gm/dL Hct 22.7 L (39.0-53.0) % Neutrophils # (1.3-7.7) k/uL Lymphocytes # 0.2 L (1.0-4.8) k/uL ABG pH 7.46 H (7.35-7.45) ABG pCO2 (35-45) mmHg ABG pO2 205 H (83-108) mmHg ABG HCO3 28 H (21-25) mmol/L ABG Total CO2 29 H (19-24) mmol/L ABG O2 Saturation 100.0 H (94-97) % Sodium 135 L (137-145) mmol/L Chloride 96 L (98-107) mmol/L BUN 32 H (9-20) mg/dL Creatinine 1.76 H (0.66-1.25) mg/dL Glucose 266 H (74-99) mg/dL POC Glucose (mg/dL) (75-99) mg/dL Total Bilirubin 1.4 H (0.2-1.3) mg/dL Troponin I (0.000-0.034) ng/mL Total Protein 5.5 L (6.3-8.2) g/dL Albumin 3.1 L (3.5-5.0) g/dL Urine Protein (Negative) Urine Glucose (UA) (Negative) Urine Blood (Negative) Ur Leukocyte Esterase (Negative) Urine RBC (0-5) /hpf Urine WBC (0-5) /hpf Urine Sperm (None) /hpf 07/26/18 07/26/18 07/26/18 Range/Units 04:35 04:48 07:20 WBC (3.8-10.6) k/uL RBC (4.30-5.90) m/uL Hgb (13.0-17.5) gm/dL Hct (39.0-53.0) % Neutrophils # (1.3-7.7) k/uL Lymphocytes # (1.0-4.8) k/uL ABG pH 7.53 H (7.35-7.45) ABG pCO2 (35-45) mmHg ABG pO2 (83-108) mmHg ABG HCO3 31 H (21-25) mmol/L ABG Total CO2 32 H (19-24) mmol/L ABG O2 Saturation 99.4 H (94-97) % Sodium (137-145) mmol/L Chloride (98-107) mmol/L BUN (9-20) mg/dL Creatinine (0.66-1.25) mg/dL Glucose (74-99) mg/dL POC Glucose (mg/dL) 274 H (75-99) mg/dL Total Bilirubin (0.2-1.3) mg/dL Troponin I 0.064 H* (0.000-0.034) ng/mL Total Protein (6.3-8.2) g/dL Albumin (3.5-5.0) g/dL Urine Protein (Negative) Urine Glucose (UA) (Negative) Urine Blood (Negative) Ur Leukocyte Esterase (Negative) Urine RBC (0-5) /hpf Urine WBC (0-5) /hpf Urine Sperm (None) /hpf 07/26/18 Range/Units 12:43 WBC (3.8-10.6) k/uL RBC (4.30-5.90) m/uL Hgb (13.0-17.5) gm/dL Hct (39.0-53.0) % Neutrophils # (1.3-7.7) k/uL Lymphocytes # (1.0-4.8) k/uL ABG pH (7.35-7.45) ABG pCO2 (35-45) mmHg ABG pO2 (83-108) mmHg ABG HCO3 (21-25) mmol/L ABG Total CO2 (19-24) mmol/L ABG O2 Saturation (94-97) % Sodium (137-145) mmol/L Chloride (98-107) mmol/L BUN (9-20) mg/dL Creatinine (0.66-1.25) mg/dL Glucose (74-99) mg/dL POC Glucose (mg/dL) 215 H (75-99) mg/dL Total Bilirubin (0.2-1.3) mg/dL Troponin I (0.000-0.034) ng/mL Total Protein (6.3-8.2) g/dL Albumin (3.5-5.0) g/dL Urine Protein (Negative) Urine Glucose (UA) (Negative) Urine Blood (Negative) Ur Leukocyte Esterase (Negative) Urine RBC (0-5) /hpf Urine WBC (0-5) /hpf Urine Sperm (None) /hpf Microbiology - Last 24 Hours (Table) 07/26/18 04:55 Urine Culture - Preliminary Urine,Clean Catch 07/25/18 21:23 Sputum Culture - Preliminary Sputum Diabetes panel 07/25/18 07/26/18 07/26/18 Range/Units 16:45 04:35 04:35 Sodium 140 135 L (137-145) mmol/L Potassium 4.4 4.7 (3.5-5.1) mmol/L Chloride 97 L 96 L (98-107) mmol/L Carbon Dioxide 28 28 (22-30) mmol/L BUN 26 H 32 H (9-20) mg/dL Creatinine 1.52 H 1.76 H (0.66-1.25) mg/dL Glucose 193 H 266 H (74-99) mg/dL Hemoglobin A1c 6.0 (4.0-6.0) % Calcium 9.5 8.6 (8.4-10.2) mg/dL AST 35 17 (17-59) U/L ALT 31 30 (21-72) U/L Alkaline Phosphatase 117 93 (38-126) U/L Total Protein 7.3 5.5 L (6.3-8.2) g/dL Albumin 4.2 3.1 L (3.5-5.0) g/dL Calcium panel 07/25/18 07/26/18 Range/Units 16:45 04:35 Calcium 9.5 8.6 (8.4-10.2) mg/dL Phosphorus 3.0 (2.5-4.5) mg/dL Albumin 4.2 3.1 L (3.5-5.0) g/dL Pituitary panel 07/25/18 07/26/18 Range/Units 16:45 04:35 Sodium 140 135 L (137-145) mmol/L Potassium 4.4 4.7 (3.5-5.1) mmol/L Chloride 97 L 96 L (98-107) mmol/L Carbon Dioxide 28 28 (22-30) mmol/L BUN 26 H 32 H (9-20) mg/dL Creatinine 1.52 H 1.76 H (0.66-1.25) mg/dL Glucose 193 H 266 H (74-99) mg/dL Calcium 9.5 8.6 (8.4-10.2) mg/dL Adrenal panel 07/25/18 07/26/18 Range/Units 16:45 04:35 Sodium 140 135 L (137-145) mmol/L Potassium 4.4 4.7 (3.5-5.1) mmol/L Chloride 97 L 96 L (98-107) mmol/L Carbon Dioxide 28 28 (22-30) mmol/L BUN 26 H 32 H (9-20) mg/dL Creatinine 1.52 H 1.76 H (0.66-1.25) mg/dL Glucose 193 H 266 H (74-99) mg/dL Calcium 9.5 8.6 (8.4-10.2) mg/dL Total Bilirubin 2.0 H 1.4 H (0.2-1.3) mg/dL AST 35 17 (17-59) U/L ALT 31 30 (21-72) U/L Alkaline Phosphatase 117 93 (38-126) U/L Total Protein 7.3 5.5 L (6.3-8.2) g/dL Albumin 4.2 3.1 L (3.5-5.0) g/dL Assessment and Plan (1) Airway obstruction Current Visit: Yes Status: Acute Code(s): J98.8 - OTHER SPECIFIED RESPIRATORY DISORDERS SNOMED Code(s): 92823981 Plan: The etiology for this patient's stridor is unknown at this time and because of the endotracheal tube examination of the upper airway is difficult. I discussed this case with Dr. Rojas the regional telecommunications specialist and after long discussion we felt tracheotomy and then a direct microscopic laryngoscopy and possible biopsy would be recommended. I discussed this recommendation with his and she is in full agreement. All risks, benefits, and alternative therapies were discussed in detail with her and she gave me verbal consent. We talked on the phone for a long conversation. She will be coming in to sign the consent. She is to contact me if any other question should arise. We will schedule the patient for surgery for tomorrow. Time with Patient: Greater than 30
[2018-07-26] MEDS: DEXAMETHASONE SOD PHOSPHATE 4 MG/ML 1 ML VIAL IV SCH (17:56)
[2018-07-26 18:05] LABS: Glucose,Whole Blood 223 mg/dL (75-99)
--- NOTE | 2018-07-26 20:10 | CONS ---
CONSULTATION REASON FOR CONSULTATION: Renal failure. HISTORY OF PRESENT ILLNESS: The patient is a 68-year-old white male who was admitted to the hospital with complaints of shortness of breath. He was recently discharged from the hospital on 07/22/2018 after an admission for CHF, volume overload and acute kidney injury. Patient was started on dialysis on his last admission. However, his renal function improved and renal replacement therapy was discontinued. The patient was discharged on loop diuretics. He had been volume overloaded and volume status had improved. Serum creatinine was around 2.0-1.9 at the time of admission. At this time, patient was readmitted with shortness of breath and he was eventually intubated in the emergency room. BNP is significantly elevated. The patient was noted to have laryngeal edema and ENT has been consulted. Serum creatinine this admission was 1.52 and it is at 1.76 now. The patient is maintained on IV Lasix. He has had good urine output. He is currently on the vent. PAST MEDICAL HISTORY: Significant for atrial fibrillation, coronary artery disease, diastolic heart failure. Recent acute kidney injury requiring dialysis, but with recovery of renal function. History of CVA/TIA, type 2 diabetes, hyperlipidemia, non ST elevation RI, chronic kidney disease, basal cell cancer, peripheral vascular disease. PAST SURGICAL HISTORY: Cardiac catheterization and coronary stent placement. SOCIAL HISTORY: Negative for smoking, drug abuse or alcohol abuse. MEDICATIONS: Prior to this admission included Neurontin, insulin. Lipitor, Pepcid, Lasix, albuterol, Lopressor, Ultram, Plavix. ALLERGIES: None. PHYSICAL EXAMINATION: Patient is currently intubated. He is not in any acute distress. He is sedated. Blood pressure is 115/66, heart rate 69 per minute. Patient is afebrile. Examination of the heart S1, S2. Examination of lungs bilateral breath sounds are heard. Abdomen is soft, nontender. Exam of lower extremities shows edema 1+ bilaterally. [employer] exam cannot be performed. LAB: Show sodium 135, potassium 4.7, BUN 32, serum creatinine 1.76, hemoglobin of 7.3 g/dL. Troponin 0.064. ASSESSMENT: 1. Acute kidney injury on last admission, mainly cardiorenal and acute tubular necrosis with improving renal function currently. The patient had been on dialysis. He has been off of dialysis now. He has had good urine output. I will continue with the Lasix and repeat labs in a.m. If his renal function is worsening, I will decrease the diuretics. 2. Acute hypoxic and hypercapnic respiratory failure associated with some degree of volume overload and possibly aspiration pneumonia as well. 3. Chronic atrial fibrillation. 4. History of difficult urinary catheterization last admission with a false passage and requirement of Teixeira catheter placement by Urology. 5. Chronic obstructive pulmonary disease. 6. Chronic atrial fibrillation. PLAN: Continue current dose of Lasix. Repeat labs in a.m. Decrease diuretics if renal function is worsening. Avoid nephrotoxic agents. The patient does not need dialysis at this time. MMODL / IJN: [id number] /
[2018-07-26] MEDS: ATORVASTATIN 80 MG TAB NG-TUBE SCH (20:43)
[2018-07-26] MEDS: INSULIN DETEMIR (LEVEMIR) 100 UNIT/ML SYR SQ SCH (20:43)
[2018-07-26] MEDS ORDERED: FUROSEMIDE 10 MG/ML 10 ML VIAL IV SCH (21:00)
[2018-07-26] MEDS ORDERED: ATORVASTATIN 80 MG TAB PO SCH (21:00)
[2018-07-27 00:01] LABS: Glucose,Whole Blood 208 mg/dL (75-99)
[2018-07-27] MEDS: DEXAMETHASONE SOD PHOSPHATE 4 MG/ML 1 ML VIAL IV SCH ×4 (00:15→23:51)
[2018-07-27] MEDS: PIPERACILLIN-TAZOBACTAM 3.375 GM in SODIUM CHLORIDE 0.9% 100 ML IVPB SCH ×4 (00:15→23:51)
[2018-07-27] MEDS: INSULIN ASPART (NovoLOG) 100 UNIT/ML VIAL SQ SCH ×5 (00:20→23:51)
[2018-07-27] MEDS ORDERED: VANCOMYCIN 1,000 MG in SODIUM CHLORIDE 0.9% 250 ML IVPB STA (02:19)
[2018-07-27] MEDS ORDERED: VANCOMYCIN IV PER PHARMACY 1 EACH MISC MISCELLANE PRN ×2 (02:19→19:36)
[2018-07-27] MEDS: PROPOFOL 1,000 MG in EMPTY BAG 1 BAG IV SCH ×6 (02:51→23:15)
[2018-07-27] MEDS: VANCOMYCIN 1,500 MG in SODIUM CHLORIDE 0.9% 250 ML IVPB SCH (02:51)
[2018-07-27 04:58] LABS: Basophils % (A) 0 %; Eosinophils % (A) 0 %; HCT 23.6 % (39.0-53.0); HGB 7.8 gm/dL (13.0-17.5); Hypochromasia Moderate; Lymphocytes # (A) 0.2 k/uL (1.0-4.8); Lymphocytes % (A) 3 %; MCH 29.2 pg (25.0-35.0); MCHC 33.1 g/dL (31.0-37.0); MCV 88.2 fL (80.0-100.0); Mean Platelet Volume 6.9; Monocytes # (A) 0.3 k/uL (0-1.0); Monocytes % (A) 5 %; Neutrophils # (A) 5.7 k/uL (1.3-7.7); Neutrophils % (A) 89 %; Platelet Count 218 k/uL (150-450); Poikilocytosis Slight; RBC 2.68 m/uL (4.30-5.90); RDW 15.2 % (11.5-15.5); WBC 6.4 k/uL (3.8-10.6)
[2018-07-27 05:07] LABS: Albumin 3.1 g/dL (3.5-5.0); Calcium 8.8 mg/dL (8.4-10.2); Magnesium 2.1 mg/dL (1.6-2.3); Phosphorus 3.1 mg/dL (2.5-4.5); Potassium 3.8 mmol/L (3.5-5.1); Total Bilirubin 1.3 mg/dL (0.2-1.3); Total Protein 5.7 g/dL (6.3-8.2)
[2018-07-27 07:20] LABS: ABG Base Excess 8.5 mmol/L; ABG HCO3 31 mmol/L (21-25); ABG Oxygen Saturation 99.7 % (94-97); ABG PCO2 38 mmHg (35-45); ABG PH 7.53 (7.35-7.45); ABG PO2 109 mmHg (83-108); ABG TCO2 32 mmol/L (19-24)
[2018-07-27 07:21] LABS: Glucose,Whole Blood 184 mg/dL (75-99)
[2018-07-27] MEDS: IPRATROPIUM-ALBUTEROL 3 ML NEB INHALATION SCH ×4 (07:23→19:31)
--- NOTE | 2018-07-27 07:53 | PN ---
PROGRESS NOTE Mr. Ochoa is a 68-year-old male with a history of persistent atrial fibrillation, history of coronary artery disease who presented with respiratory failure and stridor. He is intubated and sedated. He has been evaluated by Dr. Lepe and may require a tracheostomy because of the stridor and swelling of his airway. He is in atrial fibrillation with controlled ventricular response. His blood pressure is stable. There is no evidence of malignant arrhythmia. There was a question of aspiration pneumonia. He continues to be at this time on Lipitor 80 mg daily, Lasix 80 mg IV q.12 hours, metoprolol tartrate 12.5 mg twice a day, nitroglycerin paste. PHYSICAL EXAMINATION: Blood pressure 133/60 with the heart in the 60s. LUNGS: Clear anteriorly. HEART: Irregular, irregular, S1, S2. No S3 with a systolic murmur. ABDOMEN: Soft. Positive bowel sounds. No organomegaly. EXTREMITIES: +1 edema. LAB DATA: Lab data revealed BUN and creatinine 43 and 1.9, hemoglobin of 7.8. His renal function have worsened. His hemoglobin is stable. His chest x-ray done today shows improvement in the fluid compared to the x-ray done yesterday. IMPRESSION: 1. Respiratory failure, multifactorial with stridor, possible upper airway obstruction with element of heart failure with diastolic dysfunction and could be aspiration pneumonia. 2. History of coronary artery disease, status post stenting of the left main. 3. Persistent chronic atrial fibrillation. 4. Renal failure. 5. Hyperlipidemia. RECOMMENDATION: From the cardiac standpoint, we will continue to follow his renal function closely. I will restart him on the Plavix. I will cut down on the dose of his diuretics. Depending on his progress, further recommendation will be made. MMODL / IJN: [id number] /
--- NOTE | 2018-07-27 07:54 | XR ---
EXAMINATION TYPE: XR chest 1V portable DATE OF EXAM: 07/27/2018 COMPARISON: 07/26/2018 INDICATION: Tube placement, lines and catheters TECHNIQUE: Frontal and lateral views of the chest are obtained. FINDINGS: The heart size is moderately prominent. The pulmonary vasculature is normal. Retrocardiac infiltrate is present. There is blunting left costophrenic angle.. Endotracheal tube is present with the tip above the monisha. Nasogastric tube transverses the thorax. IMPRESSION: 1. Left lower lobe infiltrate and/or small left pleural effusion, present previously. 2. Lines and catheters discussed above.
[2018-07-27] MEDS ORDERED: FUROSEMIDE 10 MG/ML 4 ML VIAL IV SCH (09:00)
[2018-07-27] MEDS: PANTOPRAZOLE 40 MG/10 ML VIAL IVP SCH (09:01)
[2018-07-27] MEDS: NITROGLYCERIN OINT 1 INCH/GM PACKET TOPICAL SCH (09:04)
[2018-07-27] MEDS: CHLORHEXIDINE GLUCONATE 15 ML CUP MUCOUS MEM SCH ×2 (09:04→22:40)
[2018-07-27] MEDS: METOPROLOL TARTRATE 12.5 MG TAB PO SCH ×2 (09:04→22:06)
[2018-07-27] MEDS: CLOPIDOGREL 75 MG TAB PO SCH (10:33)
--- NOTE | 2018-07-27 10:53 | P.PN ---
Subjective Progress Note Date: 07/27/18 Principal diagnosis: Acute hypoxic respiratory failure, multifactorial. Secondary to congestive heart failure, pneumonia, bacteremia, sepsis, and stridor. This is a 68-year-old white male with history of multiple medical problems including COPD, diastolic congestive heart failure, type 2 diabetes, chronic kidney disease, he was recently on a short period of hemodialysis. Patient was recently in the hospital for what seemed to be a picture of diastolic congestive heart failure, respiratory failure requiring intubation and mechanical ventilation for a few days, acute on chronic kidney injury, patient was on mechanical ventilation for about 5 days, he was eventually extubated and he was followed by Dr. Duran during the last admission. Apparently post extubation, the patient developed intermittent episodes of stridor, and on 2018, he was seen by ENT/Dr. Larose for his stridor, however he recommended outpatient follow-up, because for some reason he didn't have access to a direct laryngoscope to evaluate his upper airways. He had difficulty visualizing the vocal cords with in direct laryngoscopy. At any rate on 07/22/2018, the patient was discharged to a rehab facility. While in rehab facility, the patient developed worsening respiratory status and worsening stridor. Brought into the ER, initially he was placed on BiPAP, and he was not turning around. Patient was intubated and according to the ER physician it was a very difficult intubation, he noted significant swelling of the upper airways, nonetheless, patient was intubated with a 7.5 endotracheal tube, placed on mechanical ventilation, transferred to the ICU and this consult was initiated. His chest x -ray initially showed evidence of interstitial edema, his follow-up chest x-ray this morning showed bibasilar opacities, more suggestive of pneumonia than actually to congestive heart failure especially knowing that the patient actually failed his swallow evaluation for thin liquids when he was in the hospital last. He may be experiencing intermittent episodes of aspiration. At any rate patient was given Lasix last night, he was started on antibiotics today in the form of Zosyn and Levaquin. He is now sedated, on mechanical ventilation, and his ventilator settings are tidal volume of 500 FiO2 of 40% PEEP of 5 and assist control rate was initially 16 I cut it down to 12. ABG this morning showed a pO2 of 104 pCO2 of 37 pH of 7.53. CBC showed a hemoglobin of 7.3 this morning WBC count is 3.1 BUN is 32 creatinine 1.76. It was 1.5 to yesterday on admission. Hence went ahead and cut down on the Lasix dose. Patient was reevaluated today on 07/27/2018, remains on mechanical ventilation. His ventilator settings are assist control rate of 12 tidal volume of 500 FiO2 of 35% and PEEP of 5. ABG showed a pO2 of 109 pCO2 of 38 pH of 7.53, and this was done on assist control rate of 16 hence the assist control rate was cut down to 12. Patient obviously has chronic hypercapnia which is likely being overcorrected by mechanical ventilation. His renal functioning is a bit worse today, his BUN is 43 creatinine is 1.90, and his chest x-ray does not show evidence of pulmonary edema today, hence I recommended stopping the Lasix altogether today. Patient does have abnormal chest x-ray showing left lower lobe consolidation, possibly left pleural effusion, and his blood cultures came back positive for gram positive cocci. Final sensitivity is pending. In the meantime I have recommended that we continue antibiotics, may eventually consider bronchoscopy or ultrasound of the chest and there is significant amount of pleural effusion would consider even thoracentesis. Today the patient is going for tracheostomy and full evaluation of his stridor by ENT. May require biopsies depending on the findings after tracheostomy. CBC was reviewed hemoglobin is holding at 7.8 WBC count is 6.4. Rest of the labs were all reviewed chest x-ray was reviewed all her medications were reviewed, and vancomycin was added yesterday for positive blood cultures. Patient is presently on propofol at 60 mcg/kg/m, he is not requiring any pressors, and not requiring any fentanyl. Objective - Vital Signs Vital signs: Vital Signs Temp 98.6 F 07/27/18 08:00 Pulse 72 07/27/18 10:00 Resp 16 07/27/18 10:00 BP 120/70 07/27/18 10:00 Pulse Ox 99 07/27/18 10:00 Intake & Output 07/26/18 07/27/18 07/27/18 18:59 06:59 18:59 Intake Total 325.899 829.446 147.804 Output Total 920 1025 225 Balance -594.101 -195.554 -77.196 Weight 83 kg Intake: IV 240 430 130 0.9% Normal Saline 40 80 30 Piperacillin-Tazobactam 3 200 100 100 .375 gm In Sodium Chloride 0.9% 100 ml @ 25 mls/hr IVPB Q8HR [facility] Rx# :[id number] Vancomycin 1,500 mg In 250 Sodium Chloride 0.9% 250 ml @ 125 mls/hr IVPB Q24H [facility] Rx#:[id number] Intake, IV Titration 45.899 379.446 17.804 Amount Propofol 1,000 mg In 45.899 379.446 17.804 Empty Bag 1 bag @ Titrate IV .Q0M [facility] Rx#: [id number] Tube Feeding 40 20 Output: Urine 920 1025 225 Other: Voiding Method Indwelling Catheter Indwelling Catheter Indwelling Catheter - Exam Physical Exam: Revealed a 68-year-old white male sedated, on mechanical ventilation, in no distress. Presently on propofol at 60 mcg/kg/m. Head: Atraumatic, normocephalic. HEENT:[Neck is supple.] [No neck masses.] [No thyromegaly.] [No JVD.] Moist mucous membranes, endotracheal tube and orogastric tube are intact. Chest: Crackles at the bases, no rhonchi no wheezes..] Cardiac Exam: [Irregular irregular rhythm. Normal S1 and S2, no S3 gallop, 2/6 systolic murmur thought the precordium. Abdomen: [Obese, Soft, nontender, no megaly, no rebound, no guarding, normal bowel sounds.] Extremities: [No clubbing, 2+ bipedal edema, no cyanosis.] Neurological Exam: Cannot be assessed, patient is on propofol drip, sedated, Psychiatric: Could not be assessed. Lymphatics: No lymphadenopathy. Skin: Small superficial abrasion noted on the posterior aspect of the left calf region just above the ankle. - Labs CBC & Chem 7: 07/27/18 04:41 07/27/18 04:41 Labs: Abnormal Lab Results - Last 24 Hours (Table) 07/26/18 07/26/18 07/26/18 Range/Units 12:43 18:04 23:59 RBC (4.30-5.90) m/uL Hgb (13.0-17.5) gm/dL Hct (39.0-53.0) % Lymphocytes # (1.0-4.8) k/uL ABG pH (7.35-7.45) ABG pO2 (83-108) mmHg ABG HCO3 (21-25) mmol/L ABG Total CO2 (19-24) mmol/L ABG O2 Saturation (94-97) % BUN (9-20) mg/dL Creatinine (0.66-1.25) mg/dL Glucose (74-99) mg/dL POC Glucose (mg/dL) 215 H 223 H 208 H (75-99) mg/dL AST (17-59) U/L Total Protein (6.3-8.2) g/dL Albumin (3.5-5.0) g/dL 07/27/18 07/27/18 07/27/18 Range/Units 04:41 04:41 07:11 RBC 2.68 L (4.30-5.90) m/uL Hgb 7.8 L (13.0-17.5) gm/dL Hct 23.6 L (39.0-53.0) % Lymphocytes # 0.2 L (1.0-4.8) k/uL ABG pH 7.53 H (7.35-7.45) ABG pO2 109 H (83-108) mmHg ABG HCO3 31 H (21-25) mmol/L ABG Total CO2 32 H (19-24) mmol/L ABG O2 Saturation 99.7 H (94-97) % BUN 43 H (9-20) mg/dL Creatinine 1.90 H (0.66-1.25) mg/dL Glucose 173 H (74-99) mg/dL POC Glucose (mg/dL) (75-99) mg/dL AST 13 L (17-59) U/L Total Protein 5.7 L (6.3-8.2) g/dL Albumin 3.1 L (3.5-5.0) g/dL 07/27/18 Range/Units 07:20 RBC (4.30-5.90) m/uL Hgb (13.0-17.5) gm/dL Hct (39.0-53.0) % Lymphocytes # (1.0-4.8) k/uL ABG pH (7.35-7.45) ABG pO2 (83-108) mmHg ABG HCO3 (21-25) mmol/L ABG Total CO2 (19-24) mmol/L ABG O2 Saturation (94-97) % BUN (9-20) mg/dL Creatinine (0.66-1.25) mg/dL Glucose (74-99) mg/dL POC Glucose (mg/dL) 184 H (75-99) mg/dL AST (17-59) U/L Total Protein (6.3-8.2) g/dL Albumin (3.5-5.0) g/dL Microbiology - Last 24 Hours (Table) 07/25/18 16:45 Blood Culture Gram Stain - Preliminary Blood 07/25/18 16:45 Blood Culture - Final Blood 07/25/18 21:23 Gram Stain - Preliminary Sputum Sputum Culture - Preliminary 07/26/18 04:55 Urine Culture - Preliminary Urine,Clean Catch Assessment and Plan Assessment: Impression: 1 acute hypoxic respiratory failure secondary to stridor and secondary to diastolic congestive heart failure, I also suspect pneumonia involving the left lower lobe, could be aspiration related, or could be hospital acquired pneumonia since the patient was recently in the hospital for a long period of time and he was just discharged only 3 days ago 2 acute on chronic diastolic congestive heart failure 3 chronic kidney disease stage III 4 chronic atrial fibrillation 5 left lower lobe consolidation, possible hospital acquired pneumonia. 6 chronic obstructive pulmonary disease mild to moderate in severity, inactive at present. 7 chronic anemia secondary to chronic kidney disease. 8 type 2 diabetes 9 coronary artery disease 10 benign essential hypertension 11 hyperlipidemia 12 recent episode of hypoxic and hypercapnic respiratory failure requiring intubation and mechanical ventilation, patient developed post extubation stridor. 13 gram-positive bacteremia, and sepsis. Patient is now on vancomycin in addition to his previous antibiotics, final sensitivity and identification is pending on the gram-positive cocci noted in the blood. Recommendation: Continue ventilatory support, nutritional support, GI and DVT prophylaxis, anticoagulation therapy for atrial fibrillation, antibiotics for bacteremia and pneumonia presently on Levaquin and Zosyn, vancomycin was added. continue Decadron for his airway swelling and stridor on presentation, dose was decreased to 4 mg IV push every 8 hours. Had a long discussion with Dr. Romo yesterday regarding this patient, and he is planning tracheostomy today, evaluation of the upper airways, may or may not require biopsies. I fully agree with the plans for tracheostomy and this will be done sometime today this afternoon. No sedation interruption was done today since the patient is going for tracheostomy today, overall prognosis remains guarded. Critical care time is 40 minutes Time with Patient: Greater than 30
[2018-07-27] MEDS ORDERED: HYDROGEN PEROXIDE BOTTLE TOPICAL ONE (11:24)
[2018-07-27 12:28] LABS: Glucose,Whole Blood 138 mg/dL (75-99)
--- NOTE | 2018-07-27 12:35 | PN ---
PROGRESS NOTE The patient is seen for followup for acute kidney injury. He was admitted to the hospital with weakness and respiratory failure and was eventually intubated. The patient had significant volume overload prior to his last discharge and he was diuresed quite a bit. The patient had also been on hemodialysis . However, his renal function has started to improve. He was diuresed yesterday. The patient's urine output is at about 50 to 80 mL an hour. He is not on any pressors. Serum creatinine has slowly gone up to 1.9 from 1.5 on initial admission. Blood cultures are growing gram-positive cocci and chest x-ray is also suggestive of possible pneumonia. PHYSICAL EXAMINATION: On examination, patient is currently on the vent and sedated. Blood pressure this morning 120/70, heart rate is 72 per minute. He is afebrile. EXAMINATION OF THE HEART: S1, S2. EXAMINATION OF LUNGS: Bilateral breath sounds are heard. Abdomen is soft, nontender. Examination of lower extremities shows no evidence of edema. [employer]INE TENDER exam cannot be performed. LABS: Labs show sodium 138, potassium 3.8, BUN 43, serum creatinine 1.9. Hemoglobin 7.8 g/dL. ASSESSMENT: 1. Acute kidney injury, acute tubular necrosis, currently nonoliguric, possibly prerenal as well secondary to recent diuresis. Volume status has improved, particularly from his last admission. I will hold off on the Lasix given the evidence of underlying infection as well. 2. Stridor with difficult intubation, status post evaluation by ENT, scheduled for tracheostomy today. 3. Acute respiratory failure, currently on the vent, hypoxic and hypercapnic acute, etiology underlying pneumonia versus fluid overload. Volume status has improved. The patient is maintained on antibiotics. 4. Anemia with no active bleeding noted. Iron saturation was about 15% in June. I will reorder iron levels. I will also start the patient on Aranesp. 5. Dyslipidemia. 6. Gram-positive bacteremia. Maintained on vancomycin. PLAN: Lasix. I will try to avoid vancomycin long-term given his worsening renal failure. Consider discontinuation of vancomycin by tomorrow, particularly if renal function is worse. Need to monitor vancomycin levels closely. At this time, the site of his previous IJ Jay in the right femoral area does not look infected. MMODL / IJN: [id number] /
[2018-07-27] MEDS ORDERED: DEXAMETHASONE SOD PHOS (MDV) 100 MG/10 ML VIAL ONE (15:18)
[2018-07-27] MEDS ORDERED: ROCURONIUM BROMIDE 10 MG/ML 10 ML VIAL IV ONE (15:18)
[2018-07-27] MEDS ORDERED: fentaNYL (PF) 50 MCG/ML 2 ML AMP ONE (15:18)
[2018-07-27] MEDS ORDERED: LIDOCAINE 1%-EPI 1:100,000 20 ML VIAL SQ ONE (15:44)
[2018-07-27] MEDS ORDERED: IV FLUID CONTINUATION 500 ML IV ONE (15:44)
[2018-07-27] MEDS ORDERED: BUPIVACAINE-EPI 0.5%-1:200,000 10 ML VIAL SQ ONE (15:44)
[2018-07-27] MEDS ORDERED: EPINEPHrine 1 MG/ML (MDV) 30 ML VIAL IRRIGATION ONE (16:23)
[2018-07-27 18:02] LABS: Glucose,Whole Blood 179 mg/dL (75-99)
[2018-07-27] MEDS: Brinzolamide/Brimonidine Tart [Simbrinza 1%-0.2% Eye Drops] 1 DROP RIGHT EYE SCH ×2 (18:38→21:47)
--- NOTE | 2018-07-27 19:48 | P.PN ---
Subjective Progress Note Date: 07/27/18 (delayed charting patient seen at 0840) Principal diagnosis: dyspnea Patient is a 68-year-old male with a past medical history of diastolic congestive heart failure, A. fib and pelvis, and Teixeira, coronary artery disease, diabetes mellitus type 2, hypertension, and dyslipidemia who presented to the ER for shortness of breath. Patient was recently hospitalized from 07/02 through 07/19 for acute exacerbation of COPD requiring mechanical ventilation. This was complicated by subsequent stridor from suspected laryngitis versus focal cord dysfunction. Patient unable to be evaluated by ENT during last hospitalization was subsequently spoke to be followed up in the clinic. He also required temporary dialysis secondary to ATN. Initially in the ER patient was placed on BiPAP. However he had worsening of his respiratory status and subsequently required intubation. Per the ER physician significant laryngeal vocal cord edema was noted and intubation. Initial laboratory analysis in the ER demonstrated slightly elevated white blood cell count at 10.8, mildly elevated troponin at 0.060, elevated glucose, and creatinine of 1.52. Patient was subsequently admitted to the ICU. He was placed on oral hygiene and Decadron. There is concern for acute exacerbation of CHF and the patient was started on Lasix 40 every 8 hours. Pulmonary and ENT discussed the case and follow the patient would benefit from trach placement with visualization of vocal cords. He was seen by cardiology who felt that his elbows and Plavix to be restarted on his elevated troponin was likely secondary to his elevated creatinine. His echocardiogram had been done on his prior admission showed a preserved ejection fraction and moderate to severe pulmonary hypertension with RVSP 78.72. He was seen by Dr. oJse who stated that patient has good urine output and Lasix could be maintained but should be stopped if his renal function worsened. On the morning of 07/27 his creatinine was increased and Lasix was held. Patient seen and examined at bedside. He is currently sedated on vent. Per nursing no acute events overnight plan is for surgery today. We have held his Plavix and he is not getting Xarelto at this time. Objective - Vital Signs Vital signs: Vital Signs Temp 97.9 F 07/27/18 17:00 Pulse 70 07/27/18 19:00 Resp 15 07/27/18 19:00 BP 155/80 07/27/18 19:00 Pulse Ox 98 07/27/18 19:00 Intake & Output 07/27/18 07/27/18 07/28/18 06:59 18:59 06:59 Intake Total 829.446 564.914 10 Output Total 1025 637 40 Balance -195.554 -72.086 -30 Intake: IV 430 350 10 0.9% Normal Saline 80 100 10 Piperacillin-Tazobactam 3 100 200 .375 gm In Sodium Chloride 0.9% 100 ml @ 25 mls/hr IVPB Q8HR [facility] Rx# :[id number] Vancomycin 1,500 mg In 250 Sodium Chloride 0.9% 250 ml @ 125 mls/hr IVPB Q24H [facility] Rx#:[id number] Intake, IV Titration 379.446 214.914 Amount Propofol 1,000 mg In 379.446 214.914 Empty Bag 1 bag @ Titrate IV .Q0M [facility] Rx#: [id number] Tube Feeding 20 Output: Urine 1025 635 40 Estimated Blood Loss 2 Other: Voiding Method Indwelling Catheter Indwelling Catheter - Exam General: Ill-appearing, no distress, ears older than stated age Derm: warm, dry Head: atraumatic, normocephalic, symmetric Eyes: Pupils equal round reactive to light, no lid l lesion, anicteric sclera Mouth: no lip lesion, mucus membranes moist, ET tube in place Cardiovascular: S1S2 reg, no murmur, positive posterior tibial pulse bilateral, Lungs:Course breath sounds bilaterally on vent, no rhonchi, no rales , no accessory muscle use Abdominal: soft, nontender to palpation, no guarding, no appreciable organomegaly Ext: no gross muscle atrophy, trace edema, no contractures Neuro: Breathing above the vent, withdrawal to pain in bilateral upper extremities Psych: Sedated - Labs CBC & Chem 7: 07/27/18 04:41 07/27/18 04:41 Labs: Abnormal Lab Results - Last 24 Hours (Table) 07/26/18 07/27/18 07/27/18 Range/Units 23:59 04:41 04:41 RBC 2.68 L (4.30-5.90) m/uL Hgb 7.8 L (13.0-17.5) gm/dL Hct 23.6 L (39.0-53.0) % Lymphocytes # 0.2 L (1.0-4.8) k/uL ABG pH (7.35-7.45) ABG pO2 (83-108) mmHg ABG HCO3 (21-25) mmol/L ABG Total CO2 (19-24) mmol/L ABG O2 Saturation (94-97) % BUN 43 H (9-20) mg/dL Creatinine 1.90 H (0.66-1.25) mg/dL Glucose 173 H (74-99) mg/dL POC Glucose (mg/dL) 208 H (75-99) mg/dL AST 13 L (17-59) U/L Total Protein 5.7 L (6.3-8.2) g/dL Albumin 3.1 L (3.5-5.0) g/dL 07/27/18 07/27/18 07/27/18 Range/Units 07:11 07:20 12:16 RBC (4.30-5.90) m/uL Hgb (13.0-17.5) gm/dL Hct (39.0-53.0) % Lymphocytes # (1.0-4.8) k/uL ABG pH 7.53 H (7.35-7.45) ABG pO2 109 H (83-108) mmHg ABG HCO3 31 H (21-25) mmol/L ABG Total CO2 32 H (19-24) mmol/L ABG O2 Saturation 99.7 H (94-97) % BUN (9-20) mg/dL Creatinine (0.66-1.25) mg/dL Glucose (74-99) mg/dL POC Glucose (mg/dL) 184 H 138 H (75-99) mg/dL AST (17-59) U/L Total Protein (6.3-8.2) g/dL Albumin (3.5-5.0) g/dL 07/27/18 Range/Units 18:00 RBC (4.30-5.90) m/uL Hgb (13.0-17.5) gm/dL Hct (39.0-53.0) % Lymphocytes # (1.0-4.8) k/uL ABG pH (7.35-7.45) ABG pO2 (83-108) mmHg ABG HCO3 (21-25) mmol/L ABG Total CO2 (19-24) mmol/L ABG O2 Saturation (94-97) % BUN (9-20) mg/dL Creatinine (0.66-1.25) mg/dL Glucose (74-99) mg/dL POC Glucose (mg/dL) 179 H (75-99) mg/dL AST (17-59) U/L Total Protein (6.3-8.2) g/dL Albumin (3.5-5.0) g/dL Microbiology - Last 24 Hours (Table) 07/25/18 16:45 Blood Culture Gram Stain - Preliminary Blood Blood Culture - Preliminary Coagulase Negative Staph 07/25/18 21:23 Gram Stain - Preliminary Sputum Sputum Culture - Preliminary 07/26/18 04:55 Urine Culture - Final Urine,Clean Catch 07/25/18 16:45 Blood Culture - Final Blood Assessment and Plan Assessment: Stridor possible laryngitis - decadron - Trach today, ENT recommendations Left lower lobe pneumonia - zosyn/vanco - pum recs - await culture - follow CXR till clear - bronchodiltors - last admission moraxella Gram + blood culture - continue vanco - await repeat cultures and final ID - had one blood culture + for coag neg staph last admission Flash pulmonary edema likely secondary to severe pulmonary hypertension on top of stridor - hold lasix with increasing Cr - monitor fluid balance - doubt CHF exacerbation Acute hypoxic respiratory failure - treatment as above Anemia - improving form last hospitalization - follow CBC - Ferritin 131 last admission - if continue to down trend with need further investigation REAL on chronic kidney disease stage III - nephro recs - hold lasix today - follow cr - avoid additional nephrotoxic - renal dose vanco Elevated troponin - Flat and mildly elevated and not consistent acute coronary syndrome -Resume Plavix when deemed appropriate by ENT - likely due to renal failure DM2 - SSI - Levemir - Follow BS - A1C 6 DVT prophylaxis: Heparin in AM Discussed with: nursing Anticipated discharge: 4-[address]: [facility] A total of 45 minutes was spent on the care of this complex patient more than 50 % of the time was spent in counseling and care coordination.
[2018-07-27] MEDS: INSULIN DETEMIR (LEVEMIR) 100 UNIT/ML SYR SQ SCH (21:43)
--- NOTE | 2018-07-27 21:57 | XR ---
EXAMINATION TYPE: XR chest 1V portable DATE OF EXAM: 07/27/2018 COMPARISON: Today HISTORY: Check tube placement TECHNIQUE: Single frontal view of the chest is obtained. FINDINGS: Heart is enlarged. There is tracheostomy tube. There is nasogastric tube in good position. There is infiltrate in the left lower lobe with blunting of left costophrenic angle. IMPRESSION: Tracheostomy tube appears to be in good position. Left lower lobe infiltrate improved co mpared to exam this morning.
[2018-07-27] MEDS: ATORVASTATIN 80 MG TAB NG-TUBE SCH (22:06)
[2018-07-27 23:48] LABS: Glucose,Whole Blood 194 mg/dL (75-99)
[2018-07-28] MEDS: VANCOMYCIN 1,500 MG in SODIUM CHLORIDE 0.9% 250 ML IVPB SCH (02:14)
[2018-07-28] MEDS: PROPOFOL 1,000 MG in EMPTY BAG 1 BAG IV SCH ×2 (02:14→08:13)
[2018-07-28 05:15] LABS: HGB 8.4 gm/dL (13.0-17.5); Hypochromasia Moderate; Lymphocytes # (A) 0.2 k/uL (1.0-4.8); Lymphocytes % (A) 4 %; Platelet Count 233 k/uL (150-450); Poikilocytosis Slight
[2018-07-28 05:24] LABS: Basophils % (A) 0 %; Eosinophils % (A) 0 %; HCT 25.6 % (39.0-53.0); MCHC 32.8 g/dL (31.0-37.0); MCV 88.5 fL (80.0-100.0); Monocytes # (A) 0.4 k/uL (0-1.0); Monocytes % (A) 7 %; Neutrophils # (A) 4.7 k/uL (1.3-7.7); Neutrophils % (A) 88 %; WBC 5.3 k/uL (3.8-10.6)
[2018-07-28 05:28] LABS: Calcium 8.6 mg/dL (8.4-10.2); Magnesium 2.2 mg/dL (1.6-2.3); Phosphorus 4.5 mg/dL (2.5-4.5); Potassium 4.1 mmol/L (3.5-5.1)
[2018-07-28 05:52] LABS: Glucose,Whole Blood 188 mg/dL (75-99)
[2018-07-28] MEDS: INSULIN ASPART (NovoLOG) 100 UNIT/ML VIAL SQ SCH ×3 (06:03→18:41)
--- NOTE | 2018-07-28 07:09 | XR ---
EXAMINATION TYPE: XR chest 1V portable DATE OF EXAM: 07/28/2018 COMPARISON: 07/27/2018 HISTORY: Shortness of breath TECHNIQUE: Single frontal view of the chest is obtained. FINDINGS: Again there is an enlarged cardiac mediastinal silhouette. Bibasilar atelectasis and trace left pleural effusion remain. Tracheostomy tube and enteric tube are unchanged. Osseous structures a re grossly intact. IMPRESSION: Minimal bibasilar atelectasis and trace left pleural effusion
[2018-07-28 07:34] LABS: ABG Base Excess 6.3 mmol/L; ABG HCO3 30 mmol/L (21-25); ABG PCO2 39 mmHg (35-45); ABG PH 7.49 (7.35-7.45); ABG PO2 114 mmHg (83-108); ABG TCO2 31 mmol/L (19-24)
[2018-07-28] MEDS: IPRATROPIUM-ALBUTEROL 3 ML NEB INHALATION SCH ×4 (07:37→19:40)
[2018-07-28] MEDS: PIPERACILLIN-TAZOBACTAM 3.375 GM in SODIUM CHLORIDE 0.9% 100 ML IVPB SCH ×2 (08:13→15:15)
[2018-07-28] MEDS: CHLORHEXIDINE GLUCONATE 15 ML CUP MUCOUS MEM SCH ×2 (08:13→20:44)
[2018-07-28] MEDS: METOPROLOL TARTRATE 12.5 MG TAB PO SCH ×2 (08:13→20:42)
[2018-07-28] MEDS: DEXAMETHASONE SOD PHOSPHATE 4 MG/ML 1 ML VIAL IV SCH ×2 (08:13→15:15)
[2018-07-28] MEDS: PANTOPRAZOLE 40 MG/10 ML VIAL IVP SCH (08:13)
[2018-07-28] MEDS: CLOPIDOGREL 75 MG TAB PO SCH (08:13)
[2018-07-28] MEDS: Brinzolamide/Brimonidine Tart [Simbrinza 1%-0.2% Eye Drops] 1 DROP RIGHT EYE SCH ×2 (08:15→21:49)
--- NOTE | 2018-07-28 10:15 | P.PN ---
Subjective Patient is seen in follow-up for acute kidney injury. Renal function is better with creatinine at 1.6 today. Patient is noted to have laryngeal edema and underwent tracheostomy. He is receiving feeding through NG tube. Urine output is good. Vital signs are stable. General: The patient appeared well nourished and normally developed. HEENT: Head exam is unremarkable. Neck is without jugular venous distension. NG tube noted. Tracheostomy noted. LUNGS: Lungs are clear to auscultation and percussion. Breath sounds decreased. HEART: Rate and Rhythm are regular. First and second heart sounds normal. No murmurs, rubs or gallops. ABDOMEN: Abdominal exam reveals normal bowel sounds. Non-tender and non- distended. No evidence of peritonitis. EXTREMITITES: No clubbing, cyanosis, or edema. Objective - Vital Signs Vital signs: Vital Signs Temp 97.7 F 07/28/18 08:00 Pulse 65 07/28/18 10:00 Resp 19 07/28/18 10:00 BP 144/89 07/28/18 10:00 Pulse Ox 99 07/28/18 10:00 Intake & Output 07/27/18 07/28/18 07/28/18 18:59 06:59 18:59 Intake Total 239.147 2953.06 338.455 Output Total 637 905 225 Balance -72.086 140.06 113.455 Weight 82 kg Intake: IV 350 480 130 0.9% Normal Saline 100 130 30 Piperacillin-Tazobactam 3 200 100 100 .375 gm In Sodium Chloride 0.9% 100 ml @ 25 mls/hr IVPB Q8HR [facility] Rx# :[id number] Vancomycin 1,500 mg In 250 Sodium Chloride 0.9% 250 ml @ 125 mls/hr IVPB Q24H [facility] Rx#:[id number] Intake, IV Titration 214.914 285.06 58.455 Amount Propofol 1,000 mg In 214.914 285.06 58.455 Empty Bag 1 bag @ Titrate IV .Q0M [facility] Rx#: [id number] Tube Feeding 220 90 Other 60 60 Output: Urine 635 905 225 Estimated Blood Loss 2 Other: Voiding Method Indwelling Catheter Indwelling Catheter Indwelling Catheter - Labs CBC & Chem 7: 07/28/18 04:24 07/28/18 04:24 Labs: Abnormal Lab Results - Last 24 Hours (Table) 07/27/18 07/27/18 07/27/18 Range/Units 12:16 18:00 23:47 RBC (4.30-5.90) m/uL Hgb (13.0-17.5) gm/dL Hct (39.0-53.0) % Lymphocytes # (1.0-4.8) k/uL ABG pH (7.35-7.45) ABG pO2 (83-108) mmHg ABG HCO3 (21-25) mmol/L ABG Total CO2 (19-24) mmol/L ABG O2 Saturation (94-97) % BUN (9-20) mg/dL Creatinine (0.66-1.25) mg/dL Glucose (74-99) mg/dL POC Glucose (mg/dL) 138 H 179 H 194 H (75-99) mg/dL 07/28/18 07/28/18 07/28/18 Range/Units 04:24 04:24 05:51 RBC 2.90 L (4.30-5.90) m/uL Hgb 8.4 L (13.0-17.5) gm/dL Hct 25.6 L (39.0-53.0) % Lymphocytes # 0.2 L (1.0-4.8) k/uL ABG pH (7.35-7.45) ABG pO2 (83-108) mmHg ABG HCO3 (21-25) mmol/L ABG Total CO2 (19-24) mmol/L ABG O2 Saturation (94-97) % BUN 47 H (9-20) mg/dL Creatinine 1.61 H (0.66-1.25) mg/dL Glucose 171 H (74-99) mg/dL POC Glucose (mg/dL) 188 H (75-99) mg/dL 07/28/18 Range/Units 07:25 RBC (4.30-5.90) m/uL Hgb (13.0-17.5) gm/dL Hct (39.0-53.0) % Lymphocytes # (1.0-4.8) k/uL ABG pH 7.49 H (7.35-7.45) ABG pO2 114 H (83-108) mmHg ABG HCO3 30 H (21-25) mmol/L ABG Total CO2 31 H (19-24) mmol/L ABG O2 Saturation 100.0 H (94-97) % BUN (9-20) mg/dL Creatinine (0.66-1.25) mg/dL Glucose (74-99) mg/dL POC Glucose (mg/dL) (75-99) mg/dL Microbiology - Last 24 Hours (Table) 07/25/18 16:45 Blood Culture Gram Stain - Final Blood Blood Culture - Final Staphylococcus epidermidis 07/25/18 21:23 Gram Stain - Final Sputum Sputum Culture - Final 07/26/18 04:55 Urine Culture - Final Urine,Clean Catch Assessment and Plan Plan: Assessment: 1. Acute kidney injury mostly prerenal secondary to diuresis. Renal function improved. Creatinine 1.6 today. Last month patient underwent a short course of hemodialysis with subsequent recovery of renal function and removal of dialysis catheter. 2. Laryngeal edema status post tracheostomy. 3. Acute hypoxic respiratory failure secondary to aspiration pneumonia and laryngeal edema. 4. Staph epidermidis bacteremia. Maintain on IV antibiotics. 5. Benign hypertension. Controlled. 6. Insulin-dependent diabetes mellitus. Plan: Maintain tube feeding. Hold off on diuretics at this time. Continue to monitor renal function and urine output.
--- NOTE | 2018-07-28 10:24 | PN ---
PROGRESS NOTE Mr. Ochoa is a 68-year-old male who presented with respiratory failure requiring mechanical ventilation. He has underwent tracheostomy yesterday. He remains intubated and sedated. Hemodynamically, he is stable and there is no evidence of ventricular ectopic activity. He has chronic persistent atrial fibrillation as well as prior history of coronary artery disease. He has underwent stenting by Dr. Argueta. He continued to be on Lipitor 80 mg daily, Plavix 75 mg daily, metoprolol tartrate 12.5 mg twice a day. PHYSICAL EXAMINATION: Blood pressure 123/70 with the heart rate in 60s. LUNGS: No wheezes or rales anteriorly. HEART: Irregular, irregular. S1, S2. No S3. No rub. ABDOMEN: Soft. Positive bowel sounds. No organomegaly. EXTREMITIES: No significant edema. LAB DATA: Lab data revealed a BUN and creatinine of 47 and 1.61, which has improved compared to yesterday. Potassium 4.1. Hemoglobin of 8.4. IMPRESSION: 1. Respiratory failure, probably a combination of diastolic dysfunction heart failure and possible aspiration pneumonia and stridor. 2. Chronic persistent atrial fibrillation. 3. Preserved systolic function and congestive heart failure in the past. 4. History of coronary artery disease. 5. Renal failure. 6. Stridor subsequent to prior intubation. 7. Diabetes mellitus. 8. Chronic kidney disease. 9. History of hypertension. 10.Hyperlipidemia. RECOMMENDATION: From the cardiac standpoint, we will continue present therapy. Patient will need to be restarted on the anticoagulation once cleared by the ENT service. He will continue on Plavix and anticoagulation because of the history of stenting in the chronic persistent atrial fibrillation. In the meantime, will continue the rest of his medical regimen and depending on his progress, further recommendation will be made. MMODL / IJN: [id number] /
[2018-07-28 11:56] LABS: Glucose,Whole Blood 229 mg/dL (75-99)
[2018-07-28] MEDS: LORazepam 2 MG/ML INJ IV PRN ×3 (12:45→22:15)
--- NOTE | 2018-07-28 15:41 | P.PN ---
Subjective Progress Note Date: 07/28/18 (delayed charting patient seen at 0900) Principal diagnosis: dyspnea Patient is a 68-year-old male with a past medical history of diastolic congestive heart failure, A. fib on eliquis, indwelling Teixeira, coronary artery disease, diabetes mellitus type 2, hypertension, and dyslipidemia who presented to the ER for shortness of breath. Patient was recently hospitalized from 07/02 through 07/19 for acute exacerbation of CHF requiring mechanical ventilation. This was complicated by subsequent stridor from suspected laryngitis versus vocal cord dysfunction. Patient unable to be evaluated by scope from ENT during last hospitalization was subsequently was supposed to be followed up in the clinic. He also required temporary dialysis secondary to ATN. Initially in the ER patient was placed on BiPAP. However he had worsening of his respiratory status and subsequently required intubation. Per the ER physician significant laryngeal vocal cord edema was noted and intubation. Initial laboratory analysis in the ER demonstrated slightly elevated white blood cell count at 10.8, mildly elevated troponin at 0.060, elevated glucose, and creatinine of 1.52. Patient was subsequently admitted to the ICU. He was placed on antibiotics and Decadron. There is concern for acute exacerbation of CHF and the patient was started on Lasix 40 every 8 hours. Pulmonary and ENT discussed the case and follow the patient would benefit from trach placement with visualization of vocal cords. He was seen by cardiology who felt that his eliquis and Plavix could be restarted and that his elevated troponin was likely secondary to his elevated creatinine. His echocardiogram had been done on his prior admission showed a preserved ejection fraction and moderate to severe pulmonary hypertension with RVSP 78.72. He was seen by Dr. Jose who stated that patient has good urine output and Lasix could be maintained but should be stopped if his renal function worsened. On the morning of 07/27 his creatinine was increased and Lasix was held. He had trach placed on 07/27 and returned to the ICU. Patient seen and examined at bedside. He is currently sedated on vent. Per nursing no acute events overnight. Still having some sanguineous drainage from trach site as expected will hold plavix today. Objective - Vital Signs Vital signs: Vital Signs Temp 98.5 F 07/28/18 12:00 Pulse 97 07/28/18 15:00 Resp 18 07/28/18 15:00 BP 184/86 07/28/18 15:00 Pulse Ox 99 07/28/18 15:00 Intake & Output 07/27/18 07/28/18 07/28/18 18:59 06:59 18:59 Intake Total 200.238 8281.06 493.375 Output Total 637 905 550 Balance -72.086 140.06 -56.625 Weight 82 kg 82 kg Intake: IV 350 480 280 0.9% Normal Saline 100 130 80 Piperacillin-Tazobactam 3 200 100 200 .375 gm In Sodium Chloride 0.9% 100 ml @ 25 mls/hr IVPB Q8HR [facility] Rx# :[id number] Vancomycin 1,500 mg In 250 Sodium Chloride 0.9% 250 ml @ 125 mls/hr IVPB Q24H [facility] Rx#:[id number] Intake, IV Titration 214.914 285.06 63.375 Amount Propofol 1,000 mg In 214.914 285.06 63.375 Empty Bag 1 bag @ Titrate IV .Q0M [facility] Rx#: [id number] Tube Feeding 220 90 Other 60 60 Output: Urine 635 905 550 Estimated Blood Loss 2 Other: Voiding Method Indwelling Catheter Indwelling Catheter Indwelling Catheter - Exam General: Ill-appearing, no distress, appears older than stated age Derm: warm, dry Head: atraumatic, normocephalic, symmetric Eyes: Pupils equal round reactive to light, no lid l lesion, anicteric sclera Mouth: no lip lesion, mucus membranes moist Cardiovascular: S1S2 reg, no murmur, positive posterior tibial pulse bilateral, Lungs:Course breath sounds bilaterally on vent, no rhonchi, no rales , no accessory muscle use, trach in place Abdominal: soft, nontender to palpation, no guarding, no appreciable organomegaly Ext: no gross muscle atrophy, trace edema, no contractures Neuro: Breathing above the vent, no withdrawal to pain in bilateral upper extremities Psych: Sedated - Labs CBC & Chem 7: 07/28/18 04:24 07/28/18 04:24 Labs: Abnormal Lab Results - Last 24 Hours (Table) 07/27/18 07/27/18 07/28/18 Range/Units 18:00 23:47 04:24 RBC 2.90 L (4.30-5.90) m/uL Hgb 8.4 L (13.0-17.5) gm/dL Hct 25.6 L (39.0-53.0) % Lymphocytes # 0.2 L (1.0-4.8) k/uL ABG pH (7.35-7.45) ABG pO2 (83-108) mmHg ABG HCO3 (21-25) mmol/L ABG Total CO2 (19-24) mmol/L ABG O2 Saturation (94-97) % BUN (9-20) mg/dL Creatinine (0.66-1.25) mg/dL Glucose (74-99) mg/dL POC Glucose (mg/dL) 179 H 194 H (75-99) mg/dL 07/28/18 07/28/18 07/28/18 Range/Units 04:24 05:51 07:25 RBC (4.30-5.90) m/uL Hgb (13.0-17.5) gm/dL Hct (39.0-53.0) % Lymphocytes # (1.0-4.8) k/uL ABG pH 7.49 H (7.35-7.45) ABG pO2 114 H (83-108) mmHg ABG HCO3 30 H (21-25) mmol/L ABG Total CO2 31 H (19-24) mmol/L ABG O2 Saturation 100.0 H (94-97) % BUN 47 H (9-20) mg/dL Creatinine 1.61 H (0.66-1.25) mg/dL Glucose 171 H (74-99) mg/dL POC Glucose (mg/dL) 188 H (75-99) mg/dL 07/28/18 Range/Units 11:54 RBC (4.30-5.90) m/uL Hgb (13.0-17.5) gm/dL Hct (39.0-53.0) % Lymphocytes # (1.0-4.8) k/uL ABG pH (7.35-7.45) ABG pO2 (83-108) mmHg ABG HCO3 (21-25) mmol/L ABG Total CO2 (19-24) mmol/L ABG O2 Saturation (94-97) % BUN (9-20) mg/dL Creatinine (0.66-1.25) mg/dL Glucose (74-99) mg/dL POC Glucose (mg/dL) 229 H (75-99) mg/dL Microbiology - Last 24 Hours (Table) 07/25/18 16:45 Blood Culture Gram Stain - Final Blood Blood Culture - Final Staphylococcus epidermidis 07/25/18 21:23 Gram Stain - Final Sputum Sputum Culture - Final 07/26/18 04:55 Urine Culture - Final Urine,Clean Catch Assessment and Plan Assessment: Stridor possible laryngitis - decadron - Trach placed 07/27, ENT recommendations Left lower lobe pneumonia - zosyn/vanco - pum recs - await culture pending - CXR till clear - bronchodiltors - last admission moraxella Acute hypoxic respiratory failure - treatment as above Anemia - improving form last hospitalization - follow CBC - Ferritin 131 last admission - if continue to down trend with need further investigation REAL on chronic kidney disease stage III - nephro recs - hold lasix with good urine output - follow cr - avoid additional nephrotoxic - renal dose vanco Elevated troponin - Flat and mildly elevated and not consistent acute coronary syndrome - Resume Plavix when deemed appropriate by ENT - likely due to renal failure DM2 - SSI - Levemir increased, if continues to elevate may need insulin gtt with decadron use - Follow BS - A1C 6 Gram + blood culture, contaminant with staph epi, repeat cultures pending Flash pulmonary edema likely secondary to severe pulmonary hypertension on top of stridor, improved DVT prophylaxis: Heparin Discussed with: nursing Anticipated discharge: 4-[address]: [facility] A total of 25 minutes was spent on the care of this complex patient more than 50 % of the time was spent in counseling and care coordination.
--- NOTE | 2018-07-28 16:03 | P.PN ---
Subjective Progress Note Date: 07/28/18 Principal diagnosis: Acute hypoxic respiratory failure, multifactorial. Secondary to congestive heart failure, pneumonia, bacteremia, sepsis, and stridor. This is a 68-year-old white male with history of multiple medical problems including COPD, diastolic congestive heart failure, type 2 diabetes, chronic kidney disease, he was recently on a short period of hemodialysis. Patient was recently in the hospital for what seemed to be a picture of diastolic congestive heart failure, respiratory failure requiring intubation and mechanical ventilation for a few days, acute on chronic kidney injury, patient was on mechanical ventilation for about 5 days, he was eventually extubated and he was followed by Dr. Duran during the last admission. Apparently post extubation, the patient developed intermittent episodes of stridor, and on 2018, he was seen by ENT/Dr. Larose for his stridor, however he recommended outpatient follow-up, because for some reason he didn't have access to a direct laryngoscope to evaluate his upper airways. He had difficulty visualizing the vocal cords with in direct laryngoscopy. At any rate on 07/22/2018, the patient was discharged to a rehab facility. While in rehab facility, the patient developed worsening respiratory status and worsening stridor. Brought into the ER, initially he was placed on BiPAP, and he was not turning around. Patient was intubated and according to the ER physician it was a very difficult intubation, he noted significant swelling of the upper airways, nonetheless, patient was intubated with a 7.5 endotracheal tube, placed on mechanical ventilation, transferred to the ICU and this consult was initiated. His chest x -ray initially showed evidence of interstitial edema, his follow-up chest x-ray this morning showed bibasilar opacities, more suggestive of pneumonia than actually to congestive heart failure especially knowing that the patient actually failed his swallow evaluation for thin liquids when he was in the hospital last. He may be experiencing intermittent episodes of aspiration. At any rate patient was given Lasix last night, he was started on antibiotics today in the form of Zosyn and Levaquin. He is now sedated, on mechanical ventilation, and his ventilator settings are tidal volume of 500 FiO2 of 40% PEEP of 5 and assist control rate was initially 16 I cut it down to 12. ABG this morning showed a pO2 of 104 pCO2 of 37 pH of 7.53. CBC showed a hemoglobin of 7.3 this morning WBC count is 3.1 BUN is 32 creatinine 1.76. It was 1.5 to yesterday on admission. Hence went ahead and cut down on the Lasix dose. Patient was reevaluated today on 07/27/2018, remains on mechanical ventilation. His ventilator settings are assist control rate of 12 tidal volume of 500 FiO2 of 35% and PEEP of 5. ABG showed a pO2 of 109 pCO2 of 38 pH of 7.53, and this was done on assist control rate of 16 hence the assist control rate was cut down to 12. Patient obviously has chronic hypercapnia which is likely being overcorrected by mechanical ventilation. His renal functioning is a bit worse today, his BUN is 43 creatinine is 1.90, and his chest x-ray does not show evidence of pulmonary edema today, hence I recommended stopping the Lasix altogether today. Patient does have abnormal chest x-ray showing left lower lobe consolidation, possibly left pleural effusion, and his blood cultures came back positive for gram positive cocci. Final sensitivity is pending. In the meantime I have recommended that we continue antibiotics, may eventually consider bronchoscopy or ultrasound of the chest and there is significant amount of pleural effusion would consider even thoracentesis. Today the patient is going for tracheostomy and full evaluation of his stridor by ENT. May require biopsies depending on the findings after tracheostomy. CBC was reviewed hemoglobin is holding at 7.8 WBC count is 6.4. Rest of the labs were all reviewed chest x-ray was reviewed all her medications were reviewed, and vancomycin was added yesterday for positive blood cultures. Patient is presently on propofol at 60 mcg/kg/m, he is not requiring any pressors, and not requiring any fentanyl. Was reevaluated today on 07/28/2018, remains on mechanical ventilation, however I was able to wean him down today and eventually placed on a trach collar. His ventilator settings earlier where a cyst control rate of 12 tidal volume of 500 PEEP of 5 and FiO2 of 35%.patient underwent tracheostomy yesterday, and epiglottis biopsy done by Dr. Romo. Results of which are pending. Patient had no major issues overnight. He was sedated and kept on propofol until early this morning. Went ahead, discontinued his propofol, give him a short trial of pressure support and CPAP, and later switch him to a trach collar. ABG earlier today showed a pO2 of 114 pCO2 of 39 pH of 7.49. CBC showed WBC count of 5.3 hemoglobin is 8.4. Electrolytes are normal. Renal profile showed a creatinine of 1.61, significantly improved compared to yesterday where it was 1.90.blood cultures were reviewed today, positive for staph epidermidis, clearly this is more of a contamination, and not truly positive blood cultures at this point.Lasix was kept on hold because of his renal profile, and today's chest x-ray showedno evidence of congestive heart failure, there is minimal left basilar atelectasis and small left pleural effusion. Objective - Vital Signs Vital signs: Vital Signs Temp 98.5 F 07/28/18 12:00 Pulse 97 07/28/18 15:00 Resp 18 07/28/18 15:00 BP 184/86 07/28/18 15:00 Pulse Ox 99 07/28/18 15:00 Intake & Output 07/27/18 07/28/18 07/28/18 18:59 06:59 18:59 Intake Total 035.965 6609.06 493.375 Output Total 637 905 550 Balance -72.086 140.06 -56.625 Weight 82 kg 82 kg Intake: IV 350 480 280 0.9% Normal Saline 100 130 80 Piperacillin-Tazobactam 3 200 100 200 .375 gm In Sodium Chloride 0.9% 100 ml @ 25 mls/hr IVPB Q8HR [facility] Rx# :[id number] Vancomycin 1,500 mg In 250 Sodium Chloride 0.9% 250 ml @ 125 mls/hr IVPB Q24H [facility] Rx#:[id number] Intake, IV Titration 214.914 285.06 63.375 Amount Propofol 1,000 mg In 214.914 285.06 63.375 Empty Bag 1 bag @ Titrate IV .Q0M [facility] Rx#: [id number] Tube Feeding 220 90 Other 60 60 Output: Urine 635 905 550 Estimated Blood Loss 2 Other: Voiding Method Indwelling Catheter Indwelling Catheter Indwelling Catheter - Exam Physical Exam: Revealed a 68-year-old white male sedated, on mechanical ventilation, however he was switched while I was at bedside from mechanical ventilation to trach collar. And that seems to be well tolerated Head: Atraumatic, normocephalic. HEENT:[Neck is supple.] [No neck masses.] [No thyromegaly.] [No JVD.] Moist mucous membranes,tracheostomy is intact, and orogastric tube is intact. Chest: minimal Crackles at the bases, no rhonchi no wheezes..] Cardiac Exam: [Irregular irregular rhythm. Normal S1 and S2, no S3 gallop, 2/6 systolic murmur thought the precordium. Abdomen: [Obese, Soft, nontender, no megaly, no rebound, no guarding, normal bowel sounds.] Extremities: [No clubbing, 1+ bipedal edema, no cyanosis.] Neurological Exam: noted to be appropriate off propofol. Followed simple instructions. Psychiatric: could not be fully assessed, patient is still slightly lethargic, follows simple instructions off propofol Lymphatics: No lymphadenopathy. Skin: Small superficial abrasion noted on the posterior aspect of the left calf region just above the ankle. improving - Labs CBC & Chem 7: 07/28/18 04:24 07/28/18 04:24 Labs: Abnormal Lab Results - Last 24 Hours (Table) 07/27/18 07/27/18 07/28/18 Range/Units 18:00 23:47 04:24 RBC 2.90 L (4.30-5.90) m/uL Hgb 8.4 L (13.0-17.5) gm/dL Hct 25.6 L (39.0-53.0) % Lymphocytes # 0.2 L (1.0-4.8) k/uL ABG pH (7.35-7.45) ABG pO2 (83-108) mmHg ABG HCO3 (21-25) mmol/L ABG Total CO2 (19-24) mmol/L ABG O2 Saturation (94-97) % BUN (9-20) mg/dL Creatinine (0.66-1.25) mg/dL Glucose (74-99) mg/dL POC Glucose (mg/dL) 179 H 194 H (75-99) mg/dL 07/28/18 07/28/18 07/28/18 Range/Units 04:24 05:51 07:25 RBC (4.30-5.90) m/uL Hgb (13.0-17.5) gm/dL Hct (39.0-53.0) % Lymphocytes # (1.0-4.8) k/uL ABG pH 7.49 H (7.35-7.45) ABG pO2 114 H (83-108) mmHg ABG HCO3 30 H (21-25) mmol/L ABG Total CO2 31 H (19-24) mmol/L ABG O2 Saturation 100.0 H (94-97) % BUN 47 H (9-20) mg/dL Creatinine 1.61 H (0.66-1.25) mg/dL Glucose 171 H (74-99) mg/dL POC Glucose (mg/dL) 188 H (75-99) mg/dL 07/28/18 Range/Units 11:54 RBC (4.30-5.90) m/uL Hgb (13.0-17.5) gm/dL Hct (39.0-53.0) % Lymphocytes # (1.0-4.8) k/uL ABG pH (7.35-7.45) ABG pO2 (83-108) mmHg ABG HCO3 (21-25) mmol/L ABG Total CO2 (19-24) mmol/L ABG O2 Saturation (94-97) % BUN (9-20) mg/dL Creatinine (0.66-1.25) mg/dL Glucose (74-99) mg/dL POC Glucose (mg/dL) 229 H (75-99) mg/dL Microbiology - Last 24 Hours (Table) 07/25/18 16:45 Blood Culture Gram Stain - Final Blood Blood Culture - Final Staphylococcus epidermidis 07/25/18 21:23 Gram Stain - Final Sputum Sputum Culture - Final 07/26/18 04:55 Urine Culture - Final Urine,Clean Catch Assessment and Plan Assessment: Impression: 1 acute hypoxic respiratory failure secondary to stridor , 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 Postoperative day #1 2 acute on chronic diastolic congestive heart failure, improved based on the chest x-ray today. 3 chronic kidney disease stage III 4 chronic atrial fibrillation 5 left lower lobe consolidation, possible hospital acquired pneumonia.however this is not fully confirmed at this point yet. 6 chronic obstructive pulmonary disease mild to moderate in severity, inactive at present. 7 chronic anemia secondary to chronic kidney disease. 8 type 2 diabetes 9 coronary artery disease 10 benign essential hypertension 11 hyperlipidemia 12 recent episode of hypoxic and hypercapnic respiratory failure requiring intubation and mechanical ventilation, patient developed post extubation stridor. 13 gram-positive bacteremia, felt to be contamination since the blood cultures were positive for staph epidermidis. Recommendation: weaned from mechanical ventilation and placed on trach collar. Continue nutritional support, GI and DVT prophylaxis, anticoagulation therapy for atrial fibrillation, antibiotics for bacteremia and pneumonia presently Zosyn, Discontinue vancomycin discontinue Decadron continue nutritional support via enteral feeding.must keep in the ICU as the patient may require to be intermittently ventilated via tracheostomy, today I was able to wean him down and based on trach collar. Give Ativan as needed and discontinue propofol .continue blood pressure meds, continue to monitor renal profile on a daily basis, continue bronchodilators for underlying COPD. Continue statins for his hyperlipidemia and blood pressure medications and keep the blood pressure under control. Patient remains critically ill, no plans to transfer out of the ICU today or tomorrow. We'll continue to follow. Critical care time is 40 minutes Time with Patient: Greater than 30
[2018-07-28] MEDS: hydrALAZINE HCL 25 MG TAB PO SCH ×2 (16:37→20:42)
[2018-07-28] MEDS: HEPARIN SODIUM,PORCINE 5,000 UNIT/ML 1 ML VIAL SQ SCH (16:37)
[2018-07-28 18:39] LABS: Glucose,Whole Blood 143 mg/dL (75-99)
[2018-07-28] MEDS ORDERED: ONDANSETRON 4 MG/2 ML VIAL IVP PRN (20:03)
[2018-07-28] MEDS: HYDROcodone/APAP 5-325MG 1 EACH TAB PO PRN (20:42)
[2018-07-28] MEDS: ATORVASTATIN 80 MG TAB NG-TUBE SCH (20:42)
[2018-07-28] MEDS ORDERED: INSULIN DETEMIR (LEVEMIR) 100 UNIT/ML SYR SQ SCH (21:00)
[2018-07-28 23:43] LABS: Glucose,Whole Blood 217 mg/dL (75-99)
[2018-07-28 23:59] LABS: Glucose,Whole Blood 202 mg/dL (75-99)
[2018-07-29] MEDS: PIPERACILLIN-TAZOBACTAM 3.375 GM in SODIUM CHLORIDE 0.9% 100 ML IVPB SCH ×3 (00:07→16:13)
[2018-07-29] MEDS: HEPARIN SODIUM,PORCINE 5,000 UNIT/ML 1 ML VIAL SQ SCH ×3 (00:07→16:13)
[2018-07-29] MEDS: INSULIN ASPART (NovoLOG) 100 UNIT/ML VIAL SQ SCH ×5 (00:07→18:36)
[2018-07-29] MEDS: LORazepam 2 MG/ML INJ IV PRN ×5 (01:18→22:39)
--- NOTE | 2018-07-29 01:45 | XR ---
EXAM: XR Chest, 1 View CLINICAL HISTORY: ITS.REASON XR Reason: NG tube placement TECHNIQUE: Frontal view of the chest. COMPARISON: Chest radiograph 07/28/2018. FINDINGS: Lungs: Hypoinflated lungs with bibasilar opacities likely representing atelectasis. Pleural space: Unremarkable. No pneumothorax. Heart: Cardiomegaly. Mediastinum: Unremarkable. Bones/joints: Degenerative changes seen in the glenohumeral joints, acromioclavicular joints, and thoracic spine. Tubes, lines and devices: Enteric tube tip and side-port project over the left upper quadrant. Tracheostomy appears unchanged. IMPRESSION: Enteric tube tip and side-port project over the left upper quadrant.
[2018-07-29 05:10] LABS: Basophils % (A) 0 %; Eosinophils % (A) 0 %; HCT 28.6 % (39.0-53.0); HGB 8.9 gm/dL (13.0-17.5); Hypochromasia Moderate; Lymphocytes # (A) 0.5 k/uL (1.0-4.8); Lymphocytes % (A) 5 %; MCH 27.4 pg (25.0-35.0); MCHC 31.2 g/dL (31.0-37.0); MCV 87.9 fL (80.0-100.0); Mean Platelet Volume 8.7; Monocytes # (A) 0.7 k/uL (0-1.0); Monocytes % (A) 8 %; Neutrophils # (A) 7.3 k/uL (1.3-7.7); Neutrophils % (A) 84 %; Platelet Count 235 k/uL (150-450); RBC 3.26 m/uL (4.30-5.90); RDW 15.3 % (11.5-15.5); WBC 8.7 k/uL (3.8-10.6)
[2018-07-29 05:23] LABS: Calcium 8.8 mg/dL (8.4-10.2); Magnesium 2.1 mg/dL (1.6-2.3); Phosphorus 3.1 mg/dL (2.5-4.5); Potassium 3.3 mmol/L (3.5-5.1)
[2018-07-29] MEDS ORDERED: Potassium Replacement Protocol 1 EACH MISC MISCELLANE PRN (05:33)
[2018-07-29] MEDS: POTASSIUM BICARBONATE/CIT AC 20 MEQ TABLET.EFF NG-TUBE SCH ×4 (05:49→16:15)
[2018-07-29 05:53] LABS: Glucose,Whole Blood 80 mg/dL (75-99)
[2018-07-29] MEDS: IPRATROPIUM-ALBUTEROL 3 ML NEB INHALATION SCH ×4 (07:01→20:16)
[2018-07-29] MEDS: PANTOPRAZOLE 40 MG/10 ML VIAL IVP SCH (08:55)
[2018-07-29] MEDS: CHLORHEXIDINE GLUCONATE 15 ML CUP MUCOUS MEM SCH ×2 (08:55→20:14)
[2018-07-29] MEDS: FUROSEMIDE 10 MG/ML 4 ML VIAL IV SCH (08:55)
[2018-07-29] MEDS: hydrALAZINE HCL 25 MG TAB PO SCH ×2 (08:55→16:13)
[2018-07-29] MEDS: HYDROcodone/APAP 5-325MG 1 EACH TAB PO PRN ×3 (08:56→20:12)
[2018-07-29] MEDS: CLOPIDOGREL 75 MG TAB PO SCH (08:56)
[2018-07-29] MEDS: METOPROLOL TARTRATE 12.5 MG TAB PO SCH ×2 (08:56→20:14)
[2018-07-29] MEDS: Brinzolamide/Brimonidine Tart [Simbrinza 1%-0.2% Eye Drops] 1 DROP RIGHT EYE SCH ×2 (08:57→21:14)
[2018-07-29 12:17] LABS: Glucose,Whole Blood 192 mg/dL (75-99)
--- NOTE | 2018-07-29 12:25 | P.PN ---
Subjective Progress Note Date: 07/29/18 Principal diagnosis: Acute hypoxic respiratory failure, multifactorial. Secondary to congestive heart failure, pneumonia, bacteremia, sepsis, and stridor. This is a 68-year-old white male with history of multiple medical problems including COPD, diastolic congestive heart failure, type 2 diabetes, chronic kidney disease, he was recently on a short period of hemodialysis. Patient was recently in the hospital for what seemed to be a picture of diastolic congestive heart failure, respiratory failure requiring intubation and mechanical ventilation for a few days, acute on chronic kidney injury, patient was on mechanical ventilation for about 5 days, he was eventually extubated and he was followed by Dr. Duran during the last admission. Apparently post extubation, the patient developed intermittent episodes of stridor, and on 2018, he was seen by ENT/Dr. Larose for his stridor, however he recommended outpatient follow-up, because for some reason he didn't have access to a direct laryngoscope to evaluate his upper airways. He had difficulty visualizing the vocal cords with in direct laryngoscopy. At any rate on 07/22/2018, the patient was discharged to a rehab facility. While in rehab facility, the patient developed worsening respiratory status and worsening stridor. Brought into the ER, initially he was placed on BiPAP, and he was not turning around. Patient was intubated and according to the ER physician it was a very difficult intubation, he noted significant swelling of the upper airways, nonetheless, patient was intubated with a 7.5 endotracheal tube, placed on mechanical ventilation, transferred to the ICU and this consult was initiated. His chest x -ray initially showed evidence of interstitial edema, his follow-up chest x-ray this morning showed bibasilar opacities, more suggestive of pneumonia than actually to congestive heart failure especially knowing that the patient actually failed his swallow evaluation for thin liquids when he was in the hospital last. He may be experiencing intermittent episodes of aspiration. At any rate patient was given Lasix last night, he was started on antibiotics today in the form of Zosyn and Levaquin. He is now sedated, on mechanical ventilation, and his ventilator settings are tidal volume of 500 FiO2 of 40% PEEP of 5 and assist control rate was initially 16 I cut it down to 12. ABG this morning showed a pO2 of 104 pCO2 of 37 pH of 7.53. CBC showed a hemoglobin of 7.3 this morning WBC count is 3.1 BUN is 32 creatinine 1.76. It was 1.5 to yesterday on admission. Hence went ahead and cut down on the Lasix dose. Patient was reevaluated today on 07/27/2018, remains on mechanical ventilation. His ventilator settings are assist control rate of 12 tidal volume of 500 FiO2 of 35% and PEEP of 5. ABG showed a pO2 of 109 pCO2 of 38 pH of 7.53, and this was done on assist control rate of 16 hence the assist control rate was cut down to 12. Patient obviously has chronic hypercapnia which is likely being overcorrected by mechanical ventilation. His renal functioning is a bit worse today, his BUN is 43 creatinine is 1.90, and his chest x-ray does not show evidence of pulmonary edema today, hence I recommended stopping the Lasix altogether today. Patient does have abnormal chest x-ray showing left lower lobe consolidation, possibly left pleural effusion, and his blood cultures came back positive for gram positive cocci. Final sensitivity is pending. In the meantime I have recommended that we continue antibiotics, may eventually consider bronchoscopy or ultrasound of the chest and there is significant amount of pleural effusion would consider even thoracentesis. Today the patient is going for tracheostomy and full evaluation of his stridor by ENT. May require biopsies depending on the findings after tracheostomy. CBC was reviewed hemoglobin is holding at 7.8 WBC count is 6.4. Rest of the labs were all reviewed chest x-ray was reviewed all her medications were reviewed, and vancomycin was added yesterday for positive blood cultures. Patient is presently on propofol at 60 mcg/kg/m, he is not requiring any pressors, and not requiring any fentanyl. Was reevaluated today on 07/28/2018, remains on mechanical ventilation, however I was able to wean him down today and eventually placed on a trach collar. His ventilator settings earlier where a cyst control rate of 12 tidal volume of 500 PEEP of 5 and FiO2 of 35%.patient underwent tracheostomy yesterday, and epiglottis biopsy done by Dr. Romo. Results of which are pending. Patient had no major issues overnight. He was sedated and kept on propofol until early this morning. Went ahead, discontinued his propofol, give him a short trial of pressure support and CPAP, and later switch him to a trach collar. ABG earlier today showed a pO2 of 114 pCO2 of 39 pH of 7.49. CBC showed WBC count of 5.3 hemoglobin is 8.4. Electrolytes are normal. Renal profile showed a creatinine of 1.61, significantly improved compared to yesterday where it was 1.90.blood cultures were reviewed today, positive for staph epidermidis, clearly this is more of a contamination, and not truly positive blood cultures at this point.Lasix was kept on hold because of his renal profile, and today's chest x-ray showedno evidence of congestive heart failure, there is minimal left basilar atelectasis and small left pleural effusion. Reevaluated today on 07/29/2018, patient remains in the intensive care unit, however he is off mechanical ventilation, and he is tolerating trach collar.patient is feeling fine, denies any shortness of breath, denies any pain , tolerating trach collar nicely.all his labs were reviewed his BUN is up to 51 creatinine is 1.68, slightly increased compared to yesterday,but remains than 2 days ago.potassium is a bit low at 3.3, and that would be corrected as per protocol.epiglottic biopsy is pending, no pathology report is available at this point yet. Objective - Vital Signs Vital signs: Vital Signs Temp 98 F 07/29/18 08:00 Pulse 98 07/29/18 11:17 Resp 18 07/29/18 11:00 BP 141/75 07/29/18 11:00 Pulse Ox 98 07/29/18 11:00 Intake & Output 07/28/18 07/29/18 07/29/18 18:59 06:59 18:59 Intake Total 663.707 2958 460 Output Total 780 1115 825 Balance -76.625 -35 -365 Weight 82 kg 83.8 kg Intake: IV 310 230 130 0.9% Normal Saline 110 130 30 Piperacillin-Tazobactam 3 200 100 100 .375 gm In Sodium Chloride 0.9% 100 ml @ 25 mls/hr IVPB Q8HR [facility] Rx# :[id number] Intake, IV Titration 63.375 Amount Propofol 1,000 mg In 63.375 Empty Bag 1 bag @ Titrate IV .Q0M [facility] Rx#: [id number] Tube Feeding 210 760 240 Other 120 90 90 Output: Urine 780 1115 825 Other: Voiding Method Indwelling Catheter Indwelling Catheter Indwelling Catheter - Exam Physical Exam: Revealed a 68-year-old white male sedated, on trach collar, comfortable, in no distress. Head: Atraumatic, normocephalic. HEENT:[Neck is supple.] [No neck masses.] [No thyromegaly.] [No JVD.] Moist mucous membranes,tracheostomy is intact, nasogastric tube is intact. Chest: minimal Crackles at the bases, no rhonchi no wheezes..] Cardiac Exam: [Irregular irregular rhythm. Normal S1 and S2, no S3 gallop, 2/6 systolic murmur thought the precordium. Abdomen: [Obese, Soft, nontender, no megaly, no rebound, no guarding, normal bowel sounds.] Extremities: [No clubbing, 1+ bipedal edema, no cyanosis.] Neurological Exam: alert oriented 3, no gross focal neurologic deficit, generally weak. Psychiatric: normal mood, affect and mental status examination. Lymphatics: No lymphadenopathy. Skin: Small superficial abrasion noted on the posterior aspect of the left calf region just above the ankle. improving - Labs CBC & Chem 7: 07/29/18 04:49 07/29/18 04:49 Labs: Abnormal Lab Results - Last 24 Hours (Table) 07/28/18 07/28/18 07/28/18 Range/Units 18:37 23:41 23:57 RBC (4.30-5.90) m/uL Hgb (13.0-17.5) gm/dL Hct (39.0-53.0) % Lymphocytes # (1.0-4.8) k/uL Potassium (3.5-5.1) mmol/L BUN (9-20) mg/dL Creatinine (0.66-1.25) mg/dL POC Glucose (mg/dL) 143 H 217 H 202 H (75-99) mg/dL 07/29/18 07/29/18 07/29/18 Range/Units 04:49 04:49 12:15 RBC 3.26 L (4.30-5.90) m/uL Hgb 8.9 L (13.0-17.5) gm/dL Hct 28.6 L (39.0-53.0) % Lymphocytes # 0.5 L (1.0-4.8) k/uL Potassium 3.3 L (3.5-5.1) mmol/L BUN 51 H (9-20) mg/dL Creatinine 1.68 H (0.66-1.25) mg/dL POC Glucose (mg/dL) 192 H (75-99) mg/dL Microbiology - Last 24 Hours (Table) 07/27/18 20:47 Blood Culture - Preliminary Blood No Growth after 24 hours 07/27/18 20:48 Blood Culture - Preliminary Blood No Growth after 24 hours 07/25/18 16:45 Blood Culture Gram Stain - Final Blood Blood Culture - Final Staphylococcus epidermidis 07/25/18 21:23 Gram Stain - Final Sputum Sputum Culture - Final Assessment and Plan Assessment: Impression: 1 acute hypoxic respiratory failure secondary to stridor , 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 3 chronic kidney disease stage III 4 chronic atrial fibrillation 5 left lower lobe consolidation, possible hospital acquired pneumonia.however this is not fully confirmed at this point yet.Bibasilar opacities persist on chest x-ray today, improving. 6 chronic obstructive pulmonary disease mild to moderate in severity, inactive at present. 7 chronic anemia secondary to chronic kidney disease. 8 type 2 diabetes 9 coronary artery disease 10 benign essential hypertension 11 hyperlipidemia 12 recent episode of hypoxic and hypercapnic respiratory failure requiring intubation and mechanical ventilation, patient developed post extubation stridor. 13 gram-positive bacteremia, felt to be contamination since the blood cultures were positive for staph epidermidis. Recommendation: continue trach collar Continue nutritional support, GI and DVT prophylaxis, anticoagulation therapy for atrial fibrillation, antibiotics for pneumonia presently Zosyn, continue nutritional support via enteral feeding. Give Ativan as needed and discontinue propofol .continue blood pressure meds, continue to monitor renal profile on a daily basis, continue bronchodilators for underlying COPD. Continue statins for his hyperlipidemia and blood pressure medications and keep the blood pressure under control. discussed his condition with family members today, and updated them on the overall picture, awaiting epiglottic biopsy report. Patient will remain in the ICU, will continue to follow. Critical care time is 34 minutes. Time with Patient: Greater than 30
--- NOTE | 2018-07-29 14:19 | PN ---
PROGRESS NOTE The patient is seen for followup for acute kidney injury on top of chronic kidney disease. The patient has been extubated. He has had good urine output. Renal function is fairly stable and improved from about 2 days ago. Serum creatinine staying at about 1.6. Urine output is about 100-250 mL per hour. PHYSICAL EXAMINATION: This afternoon, blood pressure was 150/89, heart rate 82 per minute. Patient is afebrile. Examination of the heart S1, S2. Examination of the lungs bilateral breath sounds are heard. The patient has an NG tube in place. Examination of the abdomen is soft, nontender. Exam of lower extremities shows no evidence of edema. LAB: Sodium 145, potassium 3.3, BUN 51, serum creatinine 1.68, hemoglobin 8.9 g/dL. ASSESSMENT: 1. Acute kidney injury, acute tubular necrosis currently improved from 2 days ago. Serum creatinine is about the same as yesterday. The patient has been restarted on IV Lasix which we can continue for now. 2. Volume overload currently improved since last admission. 3. Stridor status post evaluation by ENT, maintained on steroids. 4. History of acute kidney injury on last admission with fluid overload requiring dialysis, currently off of dialysis. 5. Hospital-acquired pneumonia, left lower lobe, maintained on antibiotics. 6. Chronic atrial fibrillation. 7. Staph epi bacteremia. Repeat cultures are negative. 8. Hypoxic hypercapnic respiratory failure requiring intubation, currently extubated. PLAN: Continue with current dose of Lasix. Repeat labs in a.m.. MMODL / IJN: [id number] /
--- NOTE | 2018-07-29 14:28 | P.PN ---
Subjective Progress Note Date: 07/29/18 this patient is extubated and laying comfortably in the bed. Is tolerating tracheostomy well patient's lab tests and vital signs reviewed Chest x-ray shows resolution of congestive cardiac failure and is also being treated for possible aspiration pneumoniapatient's creatinine remains in the range of 1.6 cm which is his baseline creatinine Patient remains in atrial fibrillation with a controlled rate Objective - Vital Signs Vital signs: Vital Signs Temp 98.8 F 07/29/18 12:00 Pulse 80 07/29/18 14:00 Resp 22 07/29/18 14:00 BP 150/84 07/29/18 14:00 Pulse Ox 100 07/29/18 14:00 Intake & Output 07/28/18 07/29/18 07/29/18 18:59 06:59 18:59 Intake Total 257.208 1882 700 Output Total 780 1115 1400 Balance -76.625 -35 -700 Weight 82 kg 83.8 kg Intake: IV 310 230 160 0.9% Normal Saline 110 130 60 Piperacillin-Tazobactam 3 200 100 100 .375 gm In Sodium Chloride 0.9% 100 ml @ 25 mls/hr IVPB Q8HR [facility] Rx# :[id number] Intake, IV Titration 63.375 Amount Propofol 1,000 mg In 63.375 Empty Bag 1 bag @ Titrate IV .Q0M [facility] Rx#: [id number] Tube Feeding 210 760 420 Other 120 90 120 Output: Urine 780 1115 1400 Other: Voiding Method Indwelling Catheter Indwelling Catheter Indwelling Catheter - Exam Patient's vital signs are reviewed.atient currently is in atrial fibrillation with a controlled rate The patient is alert awake and in no acute distress. HEENT negative. Neck-supple no increase in JVP noted no carotid bruits noted. Chest-symmetrical. Heart-first and second heart sounds are normal. No S3 or S4 is noted. No significant murmurs are noted. Lungs bilateral good at entry is noted. No rales or rhonchi are noted Abdomen-soft. Liver and spleen are not enlarged. The bowel sounds are normal. No tenderness noted Extremities-peripheral pulses since are 2+. No significant leg edema noted. Neuro-no significant gross abnormality noted. - Labs CBC & Chem 7: 07/29/18 04:49 07/29/18 04:49 Labs: Abnormal Lab Results - Last 24 Hours (Table) 07/28/18 07/28/18 07/28/18 Range/Units 18:37 23:41 23:57 RBC (4.30-5.90) m/uL Hgb (13.0-17.5) gm/dL Hct (39.0-53.0) % Lymphocytes # (1.0-4.8) k/uL Potassium (3.5-5.1) mmol/L BUN (9-20) mg/dL Creatinine (0.66-1.25) mg/dL POC Glucose (mg/dL) 143 H 217 H 202 H (75-99) mg/dL 07/29/18 07/29/18 07/29/18 Range/Units 04:49 04:49 12:15 RBC 3.26 L (4.30-5.90) m/uL Hgb 8.9 L (13.0-17.5) gm/dL Hct 28.6 L (39.0-53.0) % Lymphocytes # 0.5 L (1.0-4.8) k/uL Potassium 3.3 L (3.5-5.1) mmol/L BUN 51 H (9-20) mg/dL Creatinine 1.68 H (0.66-1.25) mg/dL POC Glucose (mg/dL) 192 H (75-99) mg/dL Microbiology - Last 24 Hours (Table) 07/27/18 20:47 Blood Culture - Preliminary Blood No Growth after 24 hours 07/27/18 20:48 Blood Culture - Preliminary Blood No Growth after 24 hours Assessment and Plan Assessment: patient's congestive heart failure is improved Atrial fibrillation with a controlled rate We will need to start the patient on Eliquis.
--- NOTE | 2018-07-29 17:08 | P.PN ---
Subjective Progress Note Date: 07/29/18 Principal diagnosis: dyspnea Patient is a 68-year-old male with a past medical history of diastolic congestive heart failure, A. fib on eliquis, indwelling Teixeira, coronary artery disease, diabetes mellitus type 2, hypertension, and dyslipidemia who presented to the ER for shortness of breath. Patient was recently hospitalized from 07/02 through 07/19 for acute exacerbation of CHF requiring mechanical ventilation. This was complicated by subsequent stridor from suspected laryngitis versus vocal cord dysfunction. Patient unable to be evaluated by scope from ENT during last hospitalization was subsequently was supposed to be followed up in the clinic. He also required temporary dialysis secondary to ATN. Initially in the ER patient was placed on BiPAP. However he had worsening of his respiratory status and subsequently required intubation. Per the ER physician significant laryngeal vocal cord edema was noted and intubation. Initial laboratory analysis in the ER demonstrated slightly elevated white blood cell count at 10.8, mildly elevated troponin at 0.060, elevated glucose, and creatinine of 1.52. Patient was subsequently admitted to the ICU. He was placed on antibiotics and Decadron. There is concern for acute exacerbation of CHF and the patient was started on Lasix 40 every 8 hours. Pulmonary and ENT discussed the case and follow the patient would benefit from trach placement with visualization of vocal cords. He was seen by cardiology who felt that his eliquis and Plavix could be restarted and that his elevated troponin was likely secondary to his elevated creatinine. His echocardiogram had been done on his prior admission showed a preserved ejection fraction and moderate to severe pulmonary hypertension with RVSP 78.72. He was seen by Dr. Jose who stated that patient has good urine output and Lasix could be maintained but should be stopped if his renal function worsened. On the morning of 07/27 his creatinine was increased and Lasix was held. He had trach placed on 07/27 and returned to the ICU. He was tolerating trac collar on the morning of 07/29. Patient seen and examined at bedside. Awake and able to communicate. Denies feeling SOB but is having some anxious feeling. Having some mild pain near trach site and continually coughs cause trach feels odd. No nausea. No diarrhea. Objective - Vital Signs Vital signs: Vital Signs Temp 98 F 07/29/18 08:00 Pulse 88 07/29/18 09:00 Resp 18 07/29/18 09:00 BP 144/84 02/16/19 09:00 Pulse Ox 99 07/29/18 09:00 Intake & Output 07/28/18 07/29/18 07/29/18 18:59 06:59 18:59 Intake Total 910.030 2628 320 Output Total 780 1115 200 Balance -76.625 -35 120 Weight 82 kg 83.8 kg Intake: IV 310 230 110 0.9% Normal Saline 110 130 10 Piperacillin-Tazobactam 3 200 100 100 .375 gm In Sodium Chloride 0.9% 100 ml @ 25 mls/hr IVPB Q8HR [facility] Rx# :[id number] Intake, IV Titration 63.375 Amount Propofol 1,000 mg In 63.375 Empty Bag 1 bag @ Titrate IV .Q0M [facility] Rx#: [id number] Tube Feeding 210 760 120 Other 120 90 90 Output: Urine 780 1115 200 Other: Voiding Method Indwelling Catheter Indwelling Catheter - Exam General: non toxic, no distress, appears older than stated age Derm: warm, dry Head: atraumatic, normocephalic, symmetric Eyes: EOMI, no lid lesion, anicteric sclera Mouth: no lip lesion, mucus membranes moist Cardiovascular: S1S2 reg, no murmur, positive posterior tibial pulse bilateral, Lungs:Course breath sounds bilaterally no rhonchi, no rales , no accessory muscle use, trach in place slight sanguanous drainage Abdominal: soft, nontender to palpation, no guarding, no appreciable organomegaly Ext: no gross muscle atrophy, trace edema, no contractures Neuro: moving all 4 extremities independently, no focal neuro deficits notes. Psych: awake, alert, able to communicate, anxious - Labs CBC & Chem 7: 07/29/18 04:49 07/29/18 14:59 Labs: Abnormal Lab Results - Last 24 Hours (Table) 07/28/18 07/28/18 07/28/18 Range/Units 11:54 18:37 23:41 RBC (4.30-5.90) m/uL Hgb (13.0-17.5) gm/dL Hct (39.0-53.0) % Lymphocytes # (1.0-4.8) k/uL Potassium (3.5-5.1) mmol/L BUN (9-20) mg/dL Creatinine (0.66-1.25) mg/dL POC Glucose (mg/dL) 229 H 143 H 217 H (75-99) mg/dL 07/28/18 07/29/18 07/29/18 Range/Units 23:57 04:49 04:49 RBC 3.26 L (4.30-5.90) m/uL Hgb 8.9 L (13.0-17.5) gm/dL Hct 28.6 L (39.0-53.0) % Lymphocytes # 0.5 L (1.0-4.8) k/uL Potassium 3.3 L (3.5-5.1) mmol/L BUN 51 H (9-20) mg/dL Creatinine 1.68 H (0.66-1.25) mg/dL POC Glucose (mg/dL) 202 H (75-99) mg/dL Microbiology - Last 24 Hours (Table) 07/27/18 20:47 Blood Culture - Preliminary Blood No Growth after 24 hours 07/27/18 20:48 Blood Culture - Preliminary Blood No Growth after 24 hours 07/25/18 16:45 Blood Culture Gram Stain - Final Blood Blood Culture - Final Staphylococcus epidermidis 07/25/18 21:23 Gram Stain - Final Sputum Sputum Culture - Final Assessment and Plan Assessment: Stridor possible laryngitis - decadron - Trach placed 07/27, ENT recommendations -Bx pending Left lower lobe pneumonia - zosyn - pum recs - Sputum culture negative, treat for a total of 5 days and then off abx. - CXR till clear - bronchodiltors - last admission moraxella DM2 - SSI, add fixed dose insulin - Levemir - Follow BS - A1C 6 Anemia - improving form last hospitalization - follow CBC - Ferritin 131 last admission - if continue to down trend with need further investigation REAL on chronic kidney disease stage III - nephro recs - on IV lasix - follow cr - avoid additional nephrotoxic A. fib - resume eliquis in AM which will be over 48 hours from procedure if no ooze from trach site - on metoprolol - tele Elevated troponin - Flat and mildly elevated and not consistent acute coronary syndrome - Resume Plavix when deemed appropriate by ENT - likely due to renal failure Acute hypoxic respiratory failure - treatment as above HTN accelerated - on metoprolol and hydralazine - follow BP - if still elevated in AM and anxiety ore controlled then increase meds Gram + blood culture, contaminant with staph epi, repeat cultures negative Flash pulmonary edema likely secondary to severe pulmonary hypertension on top of stridor, improved DVT prophylaxis: Heparin Discussed with: nursing Anticipated discharge: 3-[address]: [facility] A total of 25 minutes was spent on the care of this complex patient more than 50 % of the time was spent in counseling and care coordination.
--- NOTE | 2018-07-29 17:09 | P.PN ---
Subjective Progress Note Date: 07/29/18 Principal diagnosis: Status post tracheotomy Patient is doing well after his tracheostomy. No complaints regarding his tracheotomy site. Resting comfortably. Objective - Vital Signs Vital signs: Vital Signs Temp 98.2 F 07/29/18 16:00 Pulse 95 07/29/18 16:00 Resp 17 07/29/18 16:00 BP 164/86 07/29/18 16:00 Pulse Ox 96 07/29/18 16:00 Intake & Output 07/28/18 07/29/18 07/29/18 18:59 06:59 18:59 Intake Total 052.448 6165 875 Output Total 780 1115 1625 Balance -76.625 -35 -750 Weight 82 kg 83.8 kg Intake: IV 310 230 180 0.9% Normal Saline 110 130 80 Piperacillin-Tazobactam 3 200 100 100 .375 gm In Sodium Chloride 0.9% 100 ml @ 25 mls/hr IVPB Q8HR [facility] Rx# :[id number] Intake, IV Titration 63.375 Amount Propofol 1,000 mg In 63.375 Empty Bag 1 bag @ Titrate IV .Q0M [facility] Rx#: [id number] Tube Feeding 210 760 545 Other 120 90 150 Output: Urine 780 1115 1625 Other: Voiding Method Indwelling Catheter Indwelling Catheter Indwelling Catheter - Constitutional General appearance: Present: cooperative - EENT Eyes: Present: PERRLA ENT: Present: normal oropharynx - Neck Details: Tracheotomy tube in place functioning well no signs of infection - Cardiovascular Rhythm: regular - Labs CBC & Chem 7: 07/29/18 04:49 07/29/18 14:59 Labs: Abnormal Lab Results - Last 24 Hours (Table) 07/28/18 07/28/18 07/28/18 Range/Units 18:37 23:41 23:57 RBC (4.30-5.90) m/uL Hgb (13.0-17.5) gm/dL Hct (39.0-53.0) % Lymphocytes # (1.0-4.8) k/uL Potassium (3.5-5.1) mmol/L BUN (9-20) mg/dL Creatinine (0.66-1.25) mg/dL POC Glucose (mg/dL) 143 H 217 H 202 H (75-99) mg/dL 07/29/18 07/29/18 07/29/18 Range/Units 04:49 04:49 12:15 RBC 3.26 L (4.30-5.90) m/uL Hgb 8.9 L (13.0-17.5) gm/dL Hct 28.6 L (39.0-53.0) % Lymphocytes # 0.5 L (1.0-4.8) k/uL Potassium 3.3 L (3.5-5.1) mmol/L BUN 51 H (9-20) mg/dL Creatinine 1.68 H (0.66-1.25) mg/dL POC Glucose (mg/dL) 192 H (75-99) mg/dL Microbiology - Last 24 Hours (Table) 07/27/18 20:47 Blood Culture - Preliminary Blood No Growth after 24 hours 07/27/18 20:48 Blood Culture - Preliminary Blood No Growth after 24 hours Assessment and Plan (1) Airway obstruction Current Visit: Yes Status: Acute Code(s): J98.8 - OTHER SPECIFIED RESPIRATORY DISORDERS SNOMED Code(s): 71521528 Plan: Patient is doing well after tracheostomy. The tracheostomy tubes in place and doing well. I will see the patient on outpatient basis after discharge for decannulation and laryngoscopy. Time with Patient: Less than 30
[2018-07-29 18:06] LABS: Glucose,Whole Blood 284 mg/dL (75-99)
[2018-07-29] MEDS ORDERED: hydrALAZINE HCL 25 MG TAB PO STA (18:23)
[2018-07-29] MEDS: ATORVASTATIN 80 MG TAB NG-TUBE SCH (20:14)
[2018-07-29] MEDS: INSULIN DETEMIR (LEVEMIR) 100 UNIT/ML SYR SQ SCH (20:15)
[2018-07-29] MEDS: BENZOCAINE SPRAY 1 CAN MUCOUS MEM PRN ×2 (20:53→22:39)
[2018-07-29] MEDS: hydrALAZINE HCL 50 MG TAB PO SCH (22:37)
[2018-07-30 00:05] LABS: Glucose,Whole Blood 209 mg/dL (75-99)
[2018-07-30] MEDS: HEPARIN SODIUM,PORCINE 5,000 UNIT/ML 1 ML VIAL SQ SCH ×2 (00:08→08:11)
[2018-07-30] MEDS: INSULIN ASPART (NovoLOG) 100 UNIT/ML VIAL SQ SCH ×8 (00:08→18:03)
[2018-07-30] MEDS: PIPERACILLIN-TAZOBACTAM 3.375 GM in SODIUM CHLORIDE 0.9% 100 ML IVPB SCH ×3 (00:10→16:11)
[2018-07-30] MEDS: BENZOCAINE SPRAY 1 CAN MUCOUS MEM PRN ×2 (03:19→12:10)
[2018-07-30] MEDS: LORazepam 2 MG/ML INJ IV PRN ×4 (03:19→19:57)
[2018-07-30] MEDS: HYDROcodone/APAP 5-325MG 1 EACH TAB PO PRN ×3 (03:19→21:40)
[2018-07-30 05:18] LABS: Basophils % (A) 0 %; Eosinophils # (A) 0.3 k/uL (0-0.7); Eosinophils % (A) 3 %; HCT 31.5 % (39.0-53.0); HGB 9.9 gm/dL (13.0-17.5); Hypochromasia Marked; Lymphocytes # (A) 0.6 k/uL (1.0-4.8); Lymphocytes % (A) 6 %; MCH 28.2 pg (25.0-35.0); MCHC 31.5 g/dL (31.0-37.0); MCV 89.6 fL (80.0-100.0); Mean Platelet Volume 6.8; Monocytes # (A) 0.7 k/uL (0-1.0); Monocytes % (A) 8 %; Neutrophils # (A) 7.9 k/uL (1.3-7.7); Neutrophils % (A) 81 %; Platelet Count 258 k/uL (150-450); RBC 3.51 m/uL (4.30-5.90); RDW 15.2 % (11.5-15.5); WBC 9.7 k/uL (3.8-10.6)
[2018-07-30 05:34] LABS: Magnesium 2.1 mg/dL (1.6-2.3); Phosphorus 2.6 mg/dL (2.5-4.5); Potassium 3.8 mmol/L (3.5-5.1)
[2018-07-30] MEDS: IPRATROPIUM-ALBUTEROL 3 ML NEB INHALATION SCH ×4 (05:39→19:55)
[2018-07-30] MEDS ORDERED: POTASSIUM BICARBONATE/CIT AC 20 MEQ TABLET.EFF NG-TUBE SCH (06:00)
[2018-07-30 06:08] LABS: Glucose,Whole Blood 113 mg/dL (75-99)
--- NOTE | 2018-07-30 07:40 | XR ---
EXAMINATION TYPE: XR chest 1V portable DATE OF EXAM: 07/30/2018 Comparison: 07/29/2018 Clinical History: 68-year-old male Tube placement Findings: Tracheostomy cannula is present. Tip appears to 0.2 cm from the monisha. NG tube courses below the tracey phragm. Heart borderline enlarged. Diffuse interstitial and vascular opacity. No sizable effusion. St able band of atelectasis or scarring at the peripheral left base. Impression: Correlate for continued pulmonary vascular congestion.
[2018-07-30] MEDS: CHLORHEXIDINE GLUCONATE 15 ML CUP MUCOUS MEM SCH ×2 (08:10→19:56)
[2018-07-30] MEDS: PANTOPRAZOLE 40 MG/10 ML VIAL IVP SCH (08:10)
[2018-07-30] MEDS: hydrALAZINE HCL 50 MG TAB PO SCH ×3 (08:11→21:40)
[2018-07-30] MEDS: CLOPIDOGREL 75 MG TAB PO SCH (08:11)
[2018-07-30] MEDS: FUROSEMIDE 10 MG/ML 4 ML VIAL IV SCH (08:11)
[2018-07-30] MEDS: METOPROLOL TARTRATE 12.5 MG TAB PO SCH (08:15)
[2018-07-30] MEDS: Brinzolamide/Brimonidine Tart [Simbrinza 1%-0.2% Eye Drops] 1 DROP RIGHT EYE SCH ×2 (08:29→21:35)
--- NOTE | 2018-07-30 09:10 | P.PN ---
Subjective Progress Note Date: 07/30/18 Principal diagnosis: dyspnea Patient is a 68-year-old male with a past medical history of diastolic congestive heart failure, A. fib on eliquis, indwelling Teixeira, coronary artery disease, diabetes mellitus type 2, hypertension, and dyslipidemia who presented to the ER for shortness of breath. Patient was recently hospitalized from 07/02 through 07/19 for acute exacerbation of CHF requiring mechanical ventilation. This was complicated by subsequent stridor from suspected laryngitis versus vocal cord dysfunction. Patient unable to be evaluated by scope from ENT during last hospitalization was subsequently was supposed to be followed up in the clinic. He also required temporary dialysis secondary to ATN. Initially in the ER patient was placed on BiPAP. However he had worsening of his respiratory status and subsequently required intubation. Per the ER physician significant laryngeal vocal cord edema was noted on intubation. Initial laboratory analysis in the ER demonstrated slightly elevated white blood cell count at 10.8, mildly elevated troponin at 0.060, elevated glucose, and creatinine of 1.52. Patient was subsequently admitted to the ICU. He was placed on antibiotics and Decadron. There is concern for acute exacerbation of CHF and the patient was started on Lasix 40 every 8 hours. Pulmonary and ENT discussed the case and follow the patient would benefit from trach placement with visualization of vocal cords. He was seen by cardiology who felt that his eliquis and Plavix could be restarted and that his elevated troponin was likely secondary to his elevated creatinine. His echocardiogram had been done on his prior admission showed a preserved ejection fraction and moderate to severe pulmonary hypertension with RVSP 78.72. He was seen by Dr. oJse who stated that patient has good urine output and Lasix could be maintained but should be stopped if his renal function worsened. On the morning of 07/27 his creatinine was increased and Lasix was held. He had trach placed on 07/27 and returned to the ICU. His decadron was stopped on 07/28. He was tolerating trach collar on the morning of 07/29. He has been progressing well. His blood pressure was slightly elevated and he was started on hydralazine by cardiology. Patient seen and examined at bedside. Awake and alert. No chest pain, trach is feeling better, no shortness of breath. Coughing improving. Feels like he needs to have a bowel movement. no nausea. Sitting in chair position. D/W nursing and Dr. Ward at bedside. Objective - Vital Signs Vital signs: Vital Signs Temp 98.3 F 07/30/18 08:00 Pulse 106 H 07/30/18 08:00 Resp 10 L 07/30/18 08:00 BP 192/102 07/30/18 08:00 Pulse Ox 98 07/30/18 08:00 Intake & Output 07/29/18 07/30/18 07/30/18 18:59 06:59 18:59 Intake Total 1165 1360 250 Output Total 1900 1030 385 Balance -735 330 -135 Intake: IV 290 230 120 0.9% Normal Saline 90 130 20 Piperacillin-Tazobactam 3 200 100 100 .375 gm In Sodium Chloride 0.9% 100 ml @ 25 mls/hr IVPB Q8HR [facility] Rx# :[id number] Tube Feeding 675 1040 130 Other 200 90 Output: Urine 1900 1030 385 Other: Voiding Method Indwelling Catheter Indwelling Catheter # Bowel Movements 1 - Exam General: non toxic, no distress, appears older than stated age Derm: warm, dry Head: atraumatic, normocephalic, symmetric Eyes: EOMI, no lid lesion, anicteric sclera Mouth: no lip lesion, mucus membranes dry Cardiovascular: S1S2 reg, no murmur, positive posterior tibial pulse bilateral, Lungs: Course breath sounds bilaterally no rhonchi, no rales , no accessory muscle use, trach in place Abdominal: soft, nontender to palpation, no guarding, no appreciable organomegaly Ext: no gross muscle atrophy, trace edema, no contractures Neuro: moving all 4 extremities independently, no focal neuro deficits notes. Psych: awake, alert, able to communicate, appears more calm today - Labs CBC & Chem 7: 07/30/18 04:18 07/30/18 04:18 Labs: Abnormal Lab Results - Last 24 Hours (Table) 07/29/18 07/29/18 07/30/18 Range/Units 12:15 18:04 00:03 RBC (4.30-5.90) m/uL Hgb (13.0-17.5) gm/dL Hct (39.0-53.0) % Neutrophils # (1.3-7.7) k/uL Lymphocytes # (1.0-4.8) k/uL Sodium (137-145) mmol/L Carbon Dioxide (22-30) mmol/L BUN (9-20) mg/dL Creatinine (0.66-1.25) mg/dL Glucose (74-99) mg/dL POC Glucose (mg/dL) 192 H 284 H 209 H (75-99) mg/dL 07/30/18 07/30/18 07/30/18 Range/Units 04:18 04:18 06:07 RBC 3.51 L (4.30-5.90) m/uL Hgb 9.9 L (13.0-17.5) gm/dL Hct 31.5 L (39.0-53.0) % Neutrophils # 7.9 H (1.3-7.7) k/uL Lymphocytes # 0.6 L (1.0-4.8) k/uL Sodium 148 H (137-145) mmol/L Carbon Dioxide 31 H (22-30) mmol/L BUN 52 H (9-20) mg/dL Creatinine 1.62 H (0.66-1.25) mg/dL Glucose 108 H (74-99) mg/dL POC Glucose (mg/dL) 113 H (75-99) mg/dL Microbiology - Last 24 Hours (Table) 07/27/18 20:47 Blood Culture - Preliminary Blood No Growth after 48 hours 07/27/18 20:48 Blood Culture - Preliminary Blood No Growth after 48 hours Assessment and Plan Assessment: Epiglotitis - decadron completed - Trach placed 07/27, ENT recommendations - Bx pending - swallow eval in AM Left lower lobe pneumonia - zosyn - pum recs - Sputum culture negative, treat for a total of 5 days and then off abx. - CXR till clear - bronchodiltors - last admission moraxella DM2 - SSI, fixed dose insulin - Levemir - Follow BS - A1C 6 Hypernatremia - repeat in AM, likely due to decreased fee water intake with tube feeds Anemia - improving form last hospitalization - follow CBC - Ferritin 131 last admission - if continue to down trend with need further investigation REAL on chronic kidney disease stage III - nephro recs - on IV lasix - follow cr - avoid additional nephrotoxic A. fib - resume eliquis - on metoprolol - tele CAD - plavix, metoprolol, lipitor Acute hypoxic respiratory failure - treatment as above HTN accelerated - on metoprolol and hydralazine - follow BP -in creased metoprolol Gram + blood culture, contaminant with staph epi, repeat cultures negative Flash pulmonary edema likely secondary to severe pulmonary hypertension on top of stridor, improved DVT prophylaxis: Heparin Discussed with: nursing Anticipated discharge: 2-[address]: [facility] A total of 25 minutes was spent on the care of this complex patient more than 50 % of the time was spent in counseling and care coordination.
--- NOTE | 2018-07-30 10:02 | PN ---
PROGRESS NOTE Patient is seen for followup for acute kidney injury. The patient is currently sitting up in bed. He has a tracheostomy and has tube feedings going as well. Urine output is maintained about 50-70 mL/hour. The patient is maintained on IV Lasix x1 daily. His renal function is fairly stable with creatinine staying at about 1.6. PHYSICAL EXAMINATION: This morning patient is sitting up. He is comfortable, not in any acute distress. Blood pressure was 189/95, heart rate 106 per minute. He is afebrile. Examination of the heart S1, S2. Examination of the lungs, decreased breath sounds in the bases. Abdomen is soft, nontender. Examination of lower extremities shows no significant edema. RUBBER TESTER exam is grossly intact. LABS: Show sodium 148, potassium 3.8, BUN 52, serum creatinine 1.62, hemoglobin 9.9 g/dL. ASSESSMENT: 1. Acute kidney injury, acute tubular necrosis, currently stable. Patient has good urine output. He is maintained on IV Lasix daily, which we can continue for now. 2. Mild hypernatremia. We will increase free water down the feeding tube. 3. Volume overload mainly since last admission, currently improved. 4. Pneumonia, hospital-acquired, left lower lobe, maintained on antibiotics. 5. Staph epi bacteremia. Repeat blood cultures were negative. 6. Hypoxic hypercapnic respiratory failure requiring intubation. PLAN: Increase free water down the feeding tube. Change Lasix to p.o. tomorrow and continue to avoid nephrotoxic agents. MMODL / IJN: [id number] /
[2018-07-30] MEDS: amLODIPine 5 MG TAB PO SCH (10:18)
[2018-07-30] MEDS: APIXABAN 2.5 MG TABLET PO SCH ×2 (10:18→19:57)
[2018-07-30 11:30] LABS: Glucose,Whole Blood 102 mg/dL (75-99)
--- NOTE | 2018-07-30 11:44 | P.PN ---
Subjective Progress Note Date: 07/30/18 Principal diagnosis: Acute hypoxic respiratory failure, multifactorial. Secondary to congestive heart failure, pneumonia, bacteremia, sepsis, and stridor. This is a 68-year-old white male with history of multiple medical problems including COPD, diastolic congestive heart failure, type 2 diabetes, chronic kidney disease, he was recently on a short period of hemodialysis. Patient was recently in the hospital for what seemed to be a picture of diastolic congestive heart failure, respiratory failure requiring intubation and mechanical ventilation for a few days, acute on chronic kidney injury, patient was on mechanical ventilation for about 5 days, he was eventually extubated and he was followed by Dr. Duran during the last admission. Apparently post extubation, the patient developed intermittent episodes of stridor, and on 2018, he was seen by ENT/Dr. Larose for his stridor, however he recommended outpatient follow-up, because for some reason he didn't have access to a direct laryngoscope to evaluate his upper airways. He had difficulty visualizing the vocal cords with in direct laryngoscopy. At any rate on 07/22/2018, the patient was discharged to a rehab facility. While in rehab facility, the patient developed worsening respiratory status and worsening stridor. Brought into the ER, initially he was placed on BiPAP, and he was not turning around. Patient was intubated and according to the ER physician it was a very difficult intubation, he noted significant swelling of the upper airways, nonetheless, patient was intubated with a 7.5 endotracheal tube, placed on mechanical ventilation, transferred to the ICU and this consult was initiated. His chest x -ray initially showed evidence of interstitial edema, his follow-up chest x-ray this morning showed bibasilar opacities, more suggestive of pneumonia than actually to congestive heart failure especially knowing that the patient actually failed his swallow evaluation for thin liquids when he was in the hospital last. He may be experiencing intermittent episodes of aspiration. At any rate patient was given Lasix last night, he was started on antibiotics today in the form of Zosyn and Levaquin. He is now sedated, on mechanical ventilation, and his ventilator settings are tidal volume of 500 FiO2 of 40% PEEP of 5 and assist control rate was initially 16 I cut it down to 12. ABG this morning showed a pO2 of 104 pCO2 of 37 pH of 7.53. CBC showed a hemoglobin of 7.3 this morning WBC count is 3.1 BUN is 32 creatinine 1.76. It was 1.5 to yesterday on admission. Hence went ahead and cut down on the Lasix dose. Patient was reevaluated today on 07/27/2018, remains on mechanical ventilation. His ventilator settings are assist control rate of 12 tidal volume of 500 FiO2 of 35% and PEEP of 5. ABG showed a pO2 of 109 pCO2 of 38 pH of 7.53, and this was done on assist control rate of 16 hence the assist control rate was cut down to 12. Patient obviously has chronic hypercapnia which is likely being overcorrected by mechanical ventilation. His renal functioning is a bit worse today, his BUN is 43 creatinine is 1.90, and his chest x-ray does not show evidence of pulmonary edema today, hence I recommended stopping the Lasix altogether today. Patient does have abnormal chest x-ray showing left lower lobe consolidation, possibly left pleural effusion, and his blood cultures came back positive for gram positive cocci. Final sensitivity is pending. In the meantime I have recommended that we continue antibiotics, may eventually consider bronchoscopy or ultrasound of the chest and there is significant amount of pleural effusion would consider even thoracentesis. Today the patient is going for tracheostomy and full evaluation of his stridor by ENT. May require biopsies depending on the findings after tracheostomy. CBC was reviewed hemoglobin is holding at 7.8 WBC count is 6.4. Rest of the labs were all reviewed chest x-ray was reviewed all her medications were reviewed, and vancomycin was added yesterday for positive blood cultures. Patient is presently on propofol at 60 mcg/kg/m, he is not requiring any pressors, and not requiring any fentanyl. Was reevaluated today on 07/28/2018, remains on mechanical ventilation, however I was able to wean him down today and eventually placed on a trach collar. His ventilator settings earlier where a cyst control rate of 12 tidal volume of 500 PEEP of 5 and FiO2 of 35%.patient underwent tracheostomy yesterday, and epiglottis biopsy done by Dr. Romo. Results of which are pending. Patient had no major issues overnight. He was sedated and kept on propofol until early this morning. Went ahead, discontinued his propofol, give him a short trial of pressure support and CPAP, and later switch him to a trach collar. ABG earlier today showed a pO2 of 114 pCO2 of 39 pH of 7.49. CBC showed WBC count of 5.3 hemoglobin is 8.4. Electrolytes are normal. Renal profile showed a creatinine of 1.61, significantly improved compared to yesterday where it was 1.90.blood cultures were reviewed today, positive for staph epidermidis, clearly this is more of a contamination, and not truly positive blood cultures at this point.Lasix was kept on hold because of his renal profile, and today's chest x-ray showedno evidence of congestive heart failure, there is minimal left basilar atelectasis and small left pleural effusion. Reevaluated today on 07/29/2018, patient remains in the intensive care unit, however he is off mechanical ventilation, and he is tolerating trach collar.patient is feeling fine, denies any shortness of breath, denies any pain , tolerating trach collar nicely.all his labs were reviewed his BUN is up to 51 creatinine is 1.68, slightly increased compared to yesterday,but remains than 2 days ago.potassium is a bit low at 3.3, and that would be corrected as per protocol.epiglottic biopsy is pending, no pathology report is available at this point yet. Patient was reevaluated today on 07/30/2018, remains in the intensive care unit, on trach collar, has not required any mechanical ventilation since he was placed on trach collar on 07/28/2018. Patient is relatively asymptomatic, he is off Decadron, and based on verbal communication from Dr. Romo, apparently there was significant epiglottic swelling, and did not feel there was a mass. Hence he recommended to wait for the epiglottic biopsy and eventually reevaluate in the office, take another look at his epiglottis, and decide whether the patient could be D cannulated down the line. This could be done on outpatient basis. In the meantime the patient remains onupdrafts, blood pressure medications, cardiac meds, anti-coagulation therapy, Plavix and eliquis, Lasix 40 mg IV push daily, Apresoline for elevated blood pressure,Lopressor, insulin, and he is being fed via nasogastric tube which will be likely discontinued if the patient passes his swallow evaluation in the next 24 hours.patient remains on GI prophylaxis.labs were reviewed, relatively normal CBC. Electrolytes are relatively unremarkable sodium is a bit elevated at 148 and his BUN is 52 creatinine 1.62, will likely change his main IV fluid to D5 45 , and cut down the Lasix dose to 20 mg daily instead of 40 mg IV push daily. Objective - Vital Signs Vital signs: Vital Signs Temp 98.3 F 07/30/18 08:00 Pulse 114 H 07/30/18 11:00 Resp 11 L 07/30/18 11:00 BP 186/106 07/30/18 11:00 Pulse Ox 98 07/30/18 11:00 Intake & Output 07/29/18 07/30/18 07/30/18 18:59 06:59 18:59 Intake Total 1165 1360 335 Output Total 1900 1030 765 Balance -735 330 -430 Weight 80.2 kg Intake: IV 290 230 140 0.9% Normal Saline 90 130 40 Piperacillin-Tazobactam 3 200 100 100 .375 gm In Sodium Chloride 0.9% 100 ml @ 25 mls/hr IVPB Q8HR [facility] Rx# :[id number] Tube Feeding 675 1040 195 Other 200 90 Output: Urine 1900 1030 765 Other: Voiding Method Indwelling Catheter Indwelling Catheter Indwelling Catheter # Bowel Movements 1 1 - Exam Physical Exam: Revealed a 68-year-old white male sedated, resting in bed, in no distress, on trach collar. Head: Atraumatic, normocephalic. HEENT:[Neck is supple.] [No neck masses.] [No thyromegaly.] [No JVD.] Moist mucous membranes,tracheostomy is intact, nasogastric tube is intact. Chest: minimal Crackles at the bases, no rhonchi no wheezes..] Cardiac Exam: [Irregular irregular rhythm. Normal S1 and S2, no S3 gallop, 2/6 systolic murmur thought the precordium. Abdomen: [Obese, Soft, nontender, no megaly, no rebound, no guarding, normal bowel sounds.] Extremities: [No clubbing, 1+ bipedal edema, no cyanosis.] Neurological Exam: alert oriented 3, no gross focal neurologic deficit, generally weak. Psychiatric: normal mood, affect and mental status examination. Lymphatics: No lymphadenopathy. Skin: no rashes. - Labs CBC & Chem 7: 07/30/18 04:18 07/30/18 04:18 Labs: Abnormal Lab Results - Last 24 Hours (Table) 07/29/18 07/29/18 07/30/18 Range/Units 12:15 18:04 00:03 RBC (4.30-5.90) m/uL Hgb (13.0-17.5) gm/dL Hct (39.0-53.0) % Neutrophils # (1.3-7.7) k/uL Lymphocytes # (1.0-4.8) k/uL Sodium (137-145) mmol/L Carbon Dioxide (22-30) mmol/L BUN (9-20) mg/dL Creatinine (0.66-1.25) mg/dL Glucose (74-99) mg/dL POC Glucose (mg/dL) 192 H 284 H 209 H (75-99) mg/dL 07/30/18 07/30/18 07/30/18 Range/Units 04:18 04:18 06:07 RBC 3.51 L (4.30-5.90) m/uL Hgb 9.9 L (13.0-17.5) gm/dL Hct 31.5 L (39.0-53.0) % Neutrophils # 7.9 H (1.3-7.7) k/uL Lymphocytes # 0.6 L (1.0-4.8) k/uL Sodium 148 H (137-145) mmol/L Carbon Dioxide 31 H (22-30) mmol/L BUN 52 H (9-20) mg/dL Creatinine 1.62 H (0.66-1.25) mg/dL Glucose 108 H (74-99) mg/dL POC Glucose (mg/dL) 113 H (75-99) mg/dL 07/30/18 Range/Units 11:27 RBC (4.30-5.90) m/uL Hgb (13.0-17.5) gm/dL Hct (39.0-53.0) % Neutrophils # (1.3-7.7) k/uL Lymphocytes # (1.0-4.8) k/uL Sodium (137-145) mmol/L Carbon Dioxide (22-30) mmol/L BUN (9-20) mg/dL Creatinine (0.66-1.25) mg/dL Glucose (74-99) mg/dL POC Glucose (mg/dL) 102 H (75-99) mg/dL Microbiology - Last 24 Hours (Table) 07/27/18 20:47 Blood Culture - Preliminary Blood No Growth after 48 hours 07/27/18 20:48 Blood Culture - Preliminary Blood No Growth after 48 hours Assessment and Plan Assessment: Impression: 1 acute hypoxic respiratory failure secondary to stridor , secondary to epiglottis swelling/epiglottitis, pathology is pending.status post tracheostomy and epiglottis biopsy, postoperative day #3 2 acute on chronic diastolic congestive heart failure,improving 3 chronic kidney disease stage III, being followed by nephrology, had previous hemodialysis on the last admission. 4 chronic atrial fibrillation, remains on anticoagulation therapy and beta blockers. 5 left lower lobe consolidation, possible hospital acquired pneumonia.resolving based on the chest x-ray today. 6 chronic obstructive pulmonary disease mild to moderate in severity, inactive at present. 7 chronic anemia secondary to chronic kidney disease. 8 type 2 diabetes 9 coronary artery disease 10 benign essential hypertension 11 hyperlipidemia 12 recent episode of hypoxic and hypercapnic respiratory failure requiring intubation and mechanical ventilation, patient developed post extubation stridor. 13 gram-positive bacteremia, felt to be contamination since the blood cultures were positive for staph epidermidis. Recommendation: continue trach collar Continue nutritional support, Free water flushes via nasogastric tube because of the hypernatremia.GI and DVT prophylaxis , anticoagulation therapy for atrial fibrillation, antibiotics for pneumonia presently Zosyn, continue nutritional support via enteral feeding. consider swallow evaluation in the morning, and if the patient passes the swallow eval, nasogastric tube could be removed. .continue blood pressure meds, continue to monitor renal profile on a daily basis, continue bronchodilators for underlying COPD. Continue statins for his hyperlipidemia and blood pressure medications and keep the blood pressure under control. no family members available at bedside, will review the results of the epiglottic biopsy tomorrow, possibly transfer to a regular medical floor tomorrow. Time with Patient: Less than 30
[2018-07-30] MEDS: METOPROLOL TARTRATE 25 MG TAB PO SCH (16:07)
[2018-07-30 17:23] LABS: Glucose,Whole Blood 250 mg/dL (75-99)
[2018-07-30] MEDS: ATORVASTATIN 80 MG TAB NG-TUBE SCH (19:57)
[2018-07-30] MEDS ORDERED: METOPROLOL TARTRATE 25 MG TAB PO SCH (21:00)
[2018-07-30] MEDS: INSULIN DETEMIR (LEVEMIR) 100 UNIT/ML SYR SQ SCH (21:39)
--- NOTE | 2018-07-30 22:10 | P.PN ---
Subjective Progress Note Date: 07/30/18 This patient is sitting comfortably in the chair by the bed. Patient's medical records reviewed this and remains in atrial fibrillation with a moderately rapid ventricular response patient's the chest x-ray does not show any evidence of significant left ventricular failure patient's BUN/creatinine remains a stable patient is started on Eliquis 2.5 mg twice a day Objective - Vital Signs Vital signs: Vital Signs Temp 98.4 F 07/30/18 16:00 Pulse 99 07/30/18 21:00 Resp 13 07/30/18 21:00 BP 140/85 07/30/18 21:00 Pulse Ox 98 07/30/18 21:00 Intake & Output 07/30/18 07/30/18 07/31/18 06:59 18:59 06:59 Intake Total 1360 710 353 Output Total 1030 1395 175 Balance 330 -685 178 Weight 80.2 kg Intake: IV 230 320 20 0.9% Normal Saline 130 120 20 Piperacillin-Tazobactam 3 100 200 .375 gm In Sodium Chloride 0.9% 100 ml @ 25 mls/hr IVPB Q8HR [facility] Rx# :[id number] Tube Feeding 1040 390 130 Other 90 203 Output: Urine 1030 1395 175 Other: Voiding Method Indwelling Catheter Indwelling Catheter # Bowel Movements 1 2 - Exam Patient's vital signs are reviewed. The patient is alert awake and in no acute distress. HEENT negative. Neck-supple no increase in JVP noted no carotid bruits noted. Chest-symmetrical. Heart-first and second heart sounds are normal. No S3 or S4 is noted. No significant murmurs are noted. Patient is in atrial fibrillation with a moderately rapid ventricular response. Lungs bilateral good at entry is noted. Bilateral scattered wheezes are noted Abdomen-soft. Liver and spleen are not enlarged. The bowel sounds are normal. No tenderness noted Extremities-peripheral pulses since are 2+. No significant leg edema noted. Neuro-no significant gross abnormality noted. - Labs CBC & Chem 7: 07/30/18 04:18 07/30/18 12:24 Labs: Abnormal Lab Results - Last 24 Hours (Table) 07/30/18 07/30/18 07/30/18 Range/Units 00:03 04:18 04:18 RBC 3.51 L (4.30-5.90) m/uL Hgb 9.9 L (13.0-17.5) gm/dL Hct 31.5 L (39.0-53.0) % Neutrophils # 7.9 H (1.3-7.7) k/uL Lymphocytes # 0.6 L (1.0-4.8) k/uL Sodium 148 H (137-145) mmol/L Carbon Dioxide 31 H (22-30) mmol/L BUN 52 H (9-20) mg/dL Creatinine 1.62 H (0.66-1.25) mg/dL Glucose 108 H (74-99) mg/dL POC Glucose (mg/dL) 209 H (75-99) mg/dL 07/30/18 07/30/18 07/30/18 Range/Units 06:07 11:27 17:21 RBC (4.30-5.90) m/uL Hgb (13.0-17.5) gm/dL Hct (39.0-53.0) % Neutrophils # (1.3-7.7) k/uL Lymphocytes # (1.0-4.8) k/uL Sodium (137-145) mmol/L Carbon Dioxide (22-30) mmol/L BUN (9-20) mg/dL Creatinine (0.66-1.25) mg/dL Glucose (74-99) mg/dL POC Glucose (mg/dL) 113 H 102 H 250 H (75-99) mg/dL Microbiology - Last 24 Hours (Table) 07/27/18 20:47 Blood Culture - Preliminary Blood No Growth after 48 hours 07/27/18 20:48 Blood Culture - Preliminary Blood No Growth after 48 hours Assessment and Plan Assessment: Atrial fibrillation with a rapid ventricular response. I we will increase the dose of Lopressor to 25 mg every 6 hourly
[2018-07-31 00:26] LABS: Glucose,Whole Blood 265 mg/dL (75-99)
[2018-07-31] MEDS: PIPERACILLIN-TAZOBACTAM 3.375 GM in SODIUM CHLORIDE 0.9% 100 ML IVPB SCH ×2 (00:44→08:44)
[2018-07-31] MEDS: INSULIN ASPART (NovoLOG) 100 UNIT/ML VIAL SQ SCH ×8 (00:45→18:04)
[2018-07-31] MEDS: LORazepam 2 MG/ML INJ IV PRN ×5 (00:58→23:28)
[2018-07-31] MEDS: BENZOCAINE SPRAY 1 CAN MUCOUS MEM PRN ×2 (00:58→08:53)
--- NOTE | 2018-07-31 02:48 | XR ---
EXAM: XR Chest, 1 View CLINICAL HISTORY: ITS.REASON XR Reason: NG tube placement TECHNIQUE: Frontal view of the chest. COMPARISON: 07/30/18 FINDINGS: Distal NG tube overlies stomach. No other significant changes allowing for differences in technique. Vascular congestion, tracheostomy and other unchanged findings. IMPRESSION: Distal NG tube overlies stomach.
[2018-07-31] MEDS: METOPROLOL TARTRATE 25 MG TAB PO SCH ×5 (03:21→21:16)
[2018-07-31] MEDS: HYDROcodone/APAP 5-325MG 1 EACH TAB PO PRN ×4 (03:24→22:35)
[2018-07-31 05:40] LABS: HCT 31.5 % (39.0-53.0); HGB 9.8 gm/dL (13.0-17.5); Hypochromasia Marked; MCH 28.1 pg (25.0-35.0); MCHC 31.2 g/dL (31.0-37.0); Platelet Count 270 k/uL (150-450); RDW 15.5 % (11.5-15.5); WBC 11.7 k/uL (3.8-10.6)
[2018-07-31 05:51] LABS: Calcium 9.1 mg/dL (8.4-10.2); Magnesium 2.2 mg/dL (1.6-2.3); Phosphorus 2.8 mg/dL (2.5-4.5); Potassium 3.7 mmol/L (3.5-5.1)
[2018-07-31 06:03] LABS: Glucose,Whole Blood 66 mg/dL (75-99)
[2018-07-31] MEDS ORDERED: DEXTROSE 50%-WATER 50 ML SYRINGE IVP STA (06:06)
[2018-07-31] MEDS ORDERED: DEXTROSE 50%-WATER 50 ML SYRINGE IVP ONE (06:08)
[2018-07-31 06:39] LABS: Glucose,Whole Blood 108 mg/dL (75-99)
[2018-07-31] MEDS: IPRATROPIUM-ALBUTEROL 3 ML NEB INHALATION SCH ×4 (07:20→19:30)
[2018-07-31] MEDS ORDERED: POTASSIUM BICARBONATE/CIT AC 20 MEQ TABLET.EFF NG-TUBE SCH (08:00)
[2018-07-31] MEDS: PANTOPRAZOLE 40 MG/10 ML VIAL IVP SCH (08:44)
[2018-07-31] MEDS: hydrALAZINE HCL 50 MG TAB PO SCH ×3 (08:44→21:16)
[2018-07-31] MEDS: amLODIPine 5 MG TAB PO SCH (08:44)
[2018-07-31] MEDS: APIXABAN 2.5 MG TABLET PO SCH (08:44)
[2018-07-31] MEDS: CLOPIDOGREL 75 MG TAB PO SCH (08:44)
[2018-07-31] MEDS: CHLORHEXIDINE GLUCONATE 15 ML CUP MUCOUS MEM SCH (08:44)
[2018-07-31] MEDS: Brinzolamide/Brimonidine Tart [Simbrinza 1%-0.2% Eye Drops] 1 DROP RIGHT EYE SCH ×2 (08:45→21:40)
[2018-07-31] MEDS ORDERED: FUROSEMIDE 10 MG/ML 2 ML VIAL IV SCH (09:00)
--- NOTE | 2018-07-31 09:16 | P.PN ---
Subjective Progress Note Date: 07/31/18 Principal diagnosis: Acute hypoxemic restaurant failure, multifactorial, due to exacerbation of congestive heart failure, pneumonia, bacteremia, sepsis and stridor. This is a 68-year-old white male with history of multiple medical problems including COPD, diastolic congestive heart failure, type 2 diabetes, chronic kidney disease, he was recently on a short period of hemodialysis. Patient was recently in the hospital for what seemed to be a picture of diastolic congestive heart failure, respiratory failure requiring intubation and mechanical ventilation for a few days, acute on chronic kidney injury, patient was on mechanical ventilation for about 5 days, he was eventually extubated and he was followed by Dr. Duran during the last admission. Apparently post extubation, the patient developed intermittent episodes of stridor, and on 2018, he was seen by ENT/Dr. Larose for his stridor, however he recommended outpatient follow-up, because for some reason he didn't have access to a direct laryngoscope to evaluate his upper airways. He had difficulty visualizing the vocal cords with in direct laryngoscopy. At any rate on 07/22/2018, the patient was discharged to a rehab facility. While in rehab facility, the patient developed worsening respiratory status and worsening stridor. Brought into the ER, initially he was placed on BiPAP, and he was not turning around. Patient was intubated and according to the ER physician it was a very difficult intubation, he noted significant swelling of the upper airways, nonetheless, patient was intubated with a 7.5 endotracheal tube, placed on mechanical ventilation, transferred to the ICU and this consult was initiated. His chest x -ray initially showed evidence of interstitial edema, his follow-up chest x-ray this morning showed bibasilar opacities, more suggestive of pneumonia than actually to congestive heart failure especially knowing that the patient actually failed his swallow evaluation for thin liquids when he was in the hospital last. He may be experiencing intermittent episodes of aspiration. At any rate patient was given Lasix last night, he was started on antibiotics today in the form of Zosyn and Levaquin. He is now sedated, on mechanical ventilation, and his ventilator settings are tidal volume of 500 FiO2 of 40% PEEP of 5 and assist control rate was initially 16 I cut it down to 12. ABG this morning showed a pO2 of 104 pCO2 of 37 pH of 7.53. CBC showed a hemoglobin of 7.3 this morning WBC count is 3.1 BUN is 32 creatinine 1.76. It was 1.5 to yesterday on admission. Hence went ahead and cut down on the Lasix dose. Patient was reevaluated today on 07/27/2018, remains on mechanical ventilation. His ventilator settings are assist control rate of 12 tidal volume of 500 FiO2 of 35% and PEEP of 5. ABG showed a pO2 of 109 pCO2 of 38 pH of 7.53, and this was done on assist control rate of 16 hence the assist control rate was cut down to 12. Patient obviously has chronic hypercapnia which is likely being overcorrected by mechanical ventilation. His renal functioning is a bit worse today, his BUN is 43 creatinine is 1.90, and his chest x-ray does not show evidence of pulmonary edema today, hence I recommended stopping the Lasix altogether today. Patient does have abnormal chest x-ray showing left lower lobe consolidation, possibly left pleural effusion, and his blood cultures came back positive for gram positive cocci. Final sensitivity is pending. In the meantime I have recommended that we continue antibiotics, may eventually consider bronchoscopy or ultrasound of the chest and there is significant amount of pleural effusion would consider even thoracentesis. Today the patient is going for tracheostomy and full evaluation of his stridor by ENT. May require biopsies depending on the findings after tracheostomy. CBC was reviewed hemoglobin is holding at 7.8 WBC count is 6.4. Rest of the labs were all reviewed chest x-ray was reviewed all her medications were reviewed, and vancomycin was added yesterday for positive blood cultures. Patient is presently on propofol at 60 mcg/kg/m, he is not requiring any pressors, and not requiring any fentanyl. Was reevaluated today on 07/28/2018, remains on mechanical ventilation, however I was able to wean him down today and eventually placed on a trach collar. His ventilator settings earlier where a cyst control rate of 12 tidal volume of 500 PEEP of 5 and FiO2 of 35%.patient underwent tracheostomy yesterday, and epiglottis biopsy done by Dr. Romo. Results of which are pending. Patient had no major issues overnight. He was sedated and kept on propofol until early this morning. Went ahead, discontinued his propofol, give him a short trial of pressure support and CPAP, and later switch him to a trach collar. ABG earlier today showed a pO2 of 114 pCO2 of 39 pH of 7.49. CBC showed WBC count of 5.3 hemoglobin is 8.4. Electrolytes are normal. Renal profile showed a creatinine of 1.61, significantly improved compared to yesterday where it was 1.90.blood cultures were reviewed today, positive for staph epidermidis, clearly this is more of a contamination, and not truly positive blood cultures at this point.Lasix was kept on hold because of his renal profile, and today's chest x-ray showedno evidence of congestive heart failure, there is minimal left basilar atelectasis and small left pleural effusion. Reevaluated today on 07/29/2018, patient remains in the intensive care unit, however he is off mechanical ventilation, and he is tolerating trach collar.patient is feeling fine, denies any shortness of breath, denies any pain , tolerating trach collar nicely.all his labs were reviewed his BUN is up to 51 creatinine is 1.68, slightly increased compared to yesterday,but remains than 2 days ago.potassium is a bit low at 3.3, and that would be corrected as per protocol.epiglottic biopsy is pending, no pathology report is available at this point yet. Patient was reevaluated today on 07/30/2018, remains in the intensive care unit, on trach collar, has not required any mechanical ventilation since he was placed on trach collar on 07/28/2018. Patient is relatively asymptomatic, he is off Decadron, and based on verbal communication from Dr. Romo, apparently there was significant epiglottic swelling, and did not feel there was a mass. Hence he recommended to wait for the epiglottic biopsy and eventually reevaluate in the office, take another look at his epiglottis, and decide whether the patient could be D cannulated down the line. This could be done on outpatient basis. In the meantime the patient remains onupdrafts, blood pressure medications, cardiac meds, anti-coagulation therapy, Plavix and eliquis, Lasix 40 mg IV push daily, Apresoline for elevated blood pressure,Lopressor, insulin, and he is being fed via nasogastric tube which will be likely discontinued if the patient passes his swallow evaluation in the next 24 hours.patient remains on GI prophylaxis.labs were reviewed, relatively normal CBC. Electrolytes are relatively unremarkable sodium is a bit elevated at 148 and his BUN is 52 creatinine 1.62, will likely change his main IV fluid to D5 45 , and cut down the Lasix dose to 20 mg daily instead of 40 mg IV push daily. On 07/31/2018 patient seen in follow-up in the intensive care unit. he is awake and alert, in no acute distress, currently on 40% trach collar, with a pulse ox of 98%, afebrile, hemodynamically stable. Lung sounds are positive for scattered rhonchi bilaterally. Today's chest x-ray was reviewed with Dr. Duran and shows changes consistent with mild fluid overload. NG tube is in place, and patient is receiving tube feedings with vital 8 of 1.2 at a rate of 65 with a goal of 65. Patient is getting free water flushes, 200 cc every 6 hours. Today's labs have been reviewed, shows white blood cell count of 11.7, hemoglobin of 9.8, serum sodium is 148, potassium is 3.7, chloride is 111, CO2 is 29, BUN was 53, and creatinine is 1.74. Nephrology services are following. We decreased the IV Lasix to 20 mg daily. Maintenance IV fluid is 0.9 normal saline at a rate of 20 ML per hour, antibiotic coverage in the form of Zosyn. Culture data has been reviewed, blood culture from 07/25/2018 was positive for staph epidermidis, follow-up cultures have been negative thus far, urine and sputum cultures are negative. Patient is able to cough, he does have an effective cough is bringing up thick yellow colored pink tinge sputum. Clinically patient is asymptomatic, no fever or chills. He has been nonoliguric , and the urine output in order of 30-75 ML per hour. Objective - Vital Signs Vital signs: Vital Signs Temp 98.1 F 07/31/18 08:00 Pulse 101 H 07/31/18 08:00 Resp 16 07/31/18 08:00 BP 166/81 07/31/18 08:00 Pulse Ox 98 07/31/18 08:00 Intake & Output 07/30/18 07/31/18 07/31/18 18:59 06:59 18:59 Intake Total 710 848 288 Output Total 1395 640 135 Balance -685 208 153 Weight 80.2 kg Intake: IV 320 190 20 0.9% Normal Saline 120 90 20 Piperacillin-Tazobactam 3 200 100 .375 gm In Sodium Chloride 0.9% 100 ml @ 25 mls/hr IVPB Q8HR [facility] Rx# :[id number] Tube Feeding 390 455 65 Other 203 203 Output: Urine 1395 640 135 Other: Voiding Method Indwelling Catheter Indwelling Catheter # Bowel Movements 2 - Exam GENERAL EXAM: Alert, pleasant, 68-year-old white male, on 40% trach collar, comfortable in no apparent distress. HEAD: Normocephalic/atraumatic. EYES: Normal reaction of pupils, equal size. Conjunctiva pink, sclera white. NOSE: Clear with pink turbinates. THROAT: No erythema or exudates. NECK: No masses, no JVD, no thyroid enlargement, no adenopathy. CHEST: No chest wall deformity. Symmetrical expansion. LUNGS: Equal air entry with scattered rhonchi CVS: Regular rate and rhythm, normal S1 and S2, no gallops, no murmurs, no rubs ABDOMEN: Soft, nontender. No hepatosplenomegaly, normal bowel sounds, no guarding or rigidity. EXTREMITIES: No clubbing, no edema, no cyanosis, 2+ pulses and upper and lower extremities. MUSCULOSKELETAL: Muscle strength and tone normal. SPINE: No scoliosis or deformity SKIN: No rashes CENTRAL NERVOUS SYSTEM: Alert and oriented -3. No focal deficits, tone is normal in all 4 extremities. PSYCHIATRIC: Alert and oriented -3. Appropriate affect. Intact judgment and insight. - Labs CBC & Chem 7: 07/31/18 04:55 07/31/18 04:55 Labs: Abnormal Lab Results - Last 24 Hours (Table) 07/30/18 07/30/18 07/31/18 Range/Units 11:27 17:21 00:25 WBC (3.8-10.6) k/uL RBC (4.30-5.90) m/uL Hgb (13.0-17.5) gm/dL Hct (39.0-53.0) % Sodium (137-145) mmol/L Chloride (98-107) mmol/L BUN (9-20) mg/dL Creatinine (0.66-1.25) mg/dL Glucose (74-99) mg/dL POC Glucose (mg/dL) 102 H 250 H 265 H (75-99) mg/dL 07/31/18 07/31/1819 Range/Units 04:55 04:55 06:01 WBC 11.7 H (3.8-10.6) k/uL RBC 3.50 L (4.30-5.90) m/uL Hgb 9.8 L (13.0-17.5) gm/dL Hct 31.5 L (39.0-53.0) % Sodium 148 H (137-145) mmol/L Chloride 111 H (98-107) mmol/L BUN 53 H (9-20) mg/dL Creatinine 1.74 H (0.66-1.25) mg/dL Glucose 66 L (74-99) mg/dL POC Glucose (mg/dL) 66 L (75-99) mg/dL 07/31/18 Range/Units 06:37 WBC (3.8-10.6) k/uL RBC (4.30-5.90) m/uL Hgb (13.0-17.5) gm/dL Hct (39.0-53.0) % Sodium (137-145) mmol/L Chloride (98-107) mmol/L BUN (9-20) mg/dL Creatinine (0.66-1.25) mg/dL Glucose (74-99) mg/dL POC Glucose (mg/dL) 108 H (75-99) mg/dL Microbiology - Last 24 Hours (Table) 07/27/18 20:47 Blood Culture - Preliminary Blood No Growth after 72 hours 07/27/18 20:48 Blood Culture - Preliminary Blood No Growth after 72 hours Assessment and Plan Plan: 1 acute hypoxic respiratory failure secondary to stridor , secondary to epiglottis swelling/epiglottitis, pathology is pending.status post tracheostomy and epiglottis biopsy, postoperative day #4 2 acute on chronic diastolic congestive heart failure,improving 3 chronic kidney disease stage III, being followed by nephrology, had previous hemodialysis on the last admission. 4 chronic atrial fibrillation, remains on anticoagulation therapy and beta blockers. 5 left lower lobe consolidation, possible hospital acquired pneumonia.resolving based on the chest x-ray today. 6 chronic obstructive pulmonary disease mild to moderate in severity, inactive at present. 7 chronic anemia secondary to chronic kidney disease. 8 type 2 diabetes 9 coronary artery disease 10 benign essential hypertension 11 hyperlipidemia 12 recent episode of hypoxic and hypercapnic respiratory failure requiring intubation and mechanical ventilation, patient developed post extubation stridor. 13 gram-positive bacteremia, felt to be contamination since the blood cultures were positive for staph epidermidis. Plan: Continue current medical treatment. Continue free water flushes via nasogastric tube. Today's chest x-ray has been reviewed with Dr. Duran, shows changes consistent with mild fluid overload. Patient is scheduled for swallow evaluation today. Tinea with nutritional support. Continue current antibiotic coverage. Epiglottis biopsy results are still pending. he remains hemodynamically stable. he will remain in the intensive care unit today. I performed a history & physical examination of the patient and discussed their management with my nurse practitioner, Verónica Bridges. I reviewed the nurse practitioner's note and agree with the documented findings and plan of care. Lung sounds are positive for diffuse rhonchi. The findings and the impression was discussed with the patient. I attest to the documentation by the nurse practitioner. Time with Patient: Greater than 30
--- NOTE | 2018-07-31 09:55 | P.PN ---
Subjective Progress Note Date: 07/31/18 Principal diagnosis: dyspnea Patient is a 68-year-old male with a past medical history of diastolic congestive heart failure, A. fib on eliquis, indwelling Teixeira, coronary artery disease, diabetes mellitus type 2, hypertension, and dyslipidemia who presented to the ER for shortness of breath. Patient was recently hospitalized from 07/02 through 07/19 for acute exacerbation of CHF requiring mechanical ventilation. This was complicated by subsequent stridor from suspected laryngitis versus vocal cord dysfunction. Patient unable to be evaluated by scope from ENT during last hospitalization was subsequently was supposed to be followed up in the clinic. He also required temporary dialysis secondary to ATN. Initially in the ER patient was placed on BiPAP. However he had worsening of his respiratory status and subsequently required intubation. Per the ER physician significant laryngeal vocal cord edema was noted on intubation. Initial laboratory analysis in the ER demonstrated slightly elevated white blood cell count at 10.8, mildly elevated troponin at 0.060, elevated glucose, and creatinine of 1.52. Patient was subsequently admitted to the ICU. He was placed on antibiotics and Decadron. There is concern for acute exacerbation of CHF and the patient was started on Lasix 40 every 8 hours. Pulmonary and ENT discussed the case and follow the patient would benefit from trach placement with visualization of vocal cords. He was seen by cardiology who felt that his eliquis and Plavix could be restarted and that his elevated troponin was likely secondary to his elevated creatinine. His echocardiogram had been done on his prior admission showed a preserved ejection fraction and moderate to severe pulmonary hypertension with RVSP 78.72. He was seen by Dr. Jose who stated that patient has good urine output and Lasix could be maintained but should be stopped if his renal function worsened. On the morning of 07/27 his creatinine was increased and Lasix was held. He had trach placed on 07/27 and returned to the ICU. His decadron was stopped on 07/28. He was tolerating trach collar on the morning of 07/29. He has been progressing well. His blood pressure was slightly elevated and he was started on hydralazine by cardiology and his metoprolol was increased. Plan is for swallow eval today. Patient seen and examined at bedside. Awake alert sitting in the chair. No pain in trach, no shortness of breath. Still coughing, No chest pain. Objective - Vital Signs Vital signs: Vital Signs Temp 98.1 F 07/31/18 08:00 Pulse 103 H 07/31/18 09:00 Resp 14 07/31/18 09:00 BP 142/81 07/31/18 09:00 Pulse Ox 96 07/31/18 09:00 Intake & Output 07/30/18 07/31/18 07/31/18 18:59 06:59 18:59 Intake Total 710 848 398 Output Total 1395 640 195 Balance -685 208 203 Weight 80.2 kg Intake: IV 320 190 130 0.9% Normal Saline 120 90 30 Piperacillin-Tazobactam 3 200 100 100 .375 gm In Sodium Chloride 0.9% 100 ml @ 25 mls/hr IVPB Q8HR [facility] Rx# :[id number] Tube Feeding 390 455 65 Other 203 203 Output: Urine 1395 640 195 Other: Voiding Method Indwelling Catheter Indwelling Catheter # Bowel Movements 2 - Exam General: non toxic, no distress, appears older than stated age Derm: warm, dry Head: atraumatic, normocephalic, symmetric Eyes: EOMI, no lid lesion, anicteric sclera Mouth: dry lips with cracking, mucus membranes dry Cardiovascular: S1S2 reg, no murmur, positive posterior tibial pulse bilateral, Lungs: Course breath sounds bilaterally no rhonchi, no rales , no accessory muscle use, trach in place Abdominal: soft, nontender to palpation, no guarding, no appreciable organomegaly Ext: no gross muscle atrophy, trace edema, no contractures Neuro: moving all 4 extremities independently, no focal neuro deficits notes. Psych: awake, alert, able to communicate, appears more calm today - Labs CBC & Chem 7: 07/31/18 04:55 07/31/18 04:55 Labs: Abnormal Lab Results - Last 24 Hours (Table) 07/30/18 07/30/18 07/31/18 Range/Units 11:27 17:21 00:25 WBC (3.8-10.6) k/uL RBC (4.30-5.90) m/uL Hgb (13.0-17.5) gm/dL Hct (39.0-53.0) % Sodium (137-145) mmol/L Chloride (98-107) mmol/L BUN (9-20) mg/dL Creatinine (0.66-1.25) mg/dL Glucose (74-99) mg/dL POC Glucose (mg/dL) 102 H 250 H 265 H (75-99) mg/dL 07/31/18 07/31/18 07/31/18 Range/Units 04:55 04:55 06:01 WBC 11.7 H (3.8-10.6) k/uL RBC 3.50 L (4.30-5.90) m/uL Hgb 9.8 L (13.0-17.5) gm/dL Hct 31.5 L (39.0-53.0) % Sodium 148 H (137-145) mmol/L Chloride 111 H (98-107) mmol/L BUN 53 H (9-20) mg/dL Creatinine 1.74 H (0.66-1.25) mg/dL Glucose 66 L (74-99) mg/dL POC Glucose (mg/dL) 66 L (75-99) mg/dL 07/31/18 Range/Units 06:37 WBC (3.8-10.6) k/uL RBC (4.30-5.90) m/uL Hgb (13.0-17.5) gm/dL Hct (39.0-53.0) % Sodium (137-145) mmol/L Chloride (98-107) mmol/L BUN (9-20) mg/dL Creatinine (0.66-1.25) mg/dL Glucose (74-99) mg/dL POC Glucose (mg/dL) 108 H (75-99) mg/dL Microbiology - Last 24 Hours (Table) 07/27/18 20:47 Blood Culture - Preliminary Blood No Growth after 72 hours 07/27/18 20:48 Blood Culture - Preliminary Blood No Growth after 72 hours Assessment and Plan Assessment: Epiglotitis - decadron completed - Trach placed 07/27, ENT recommendations - Bx pending - swallow eval in AM Left lower lobe pneumonia - zosyn completed - pulm recs - CXR till clear - bronchodiltors - last admission moraxella DM2, hypoglycemia morning 07/31 - SSI, fixed dose insulin - Levemir decreased - Follow BS - A1C 6 Hypernatremia - repeat in AM, likely due to decreased fee water intake with tube feeds Anemia - improving form last hospitalization - follow CBC - Ferritin 131 last admission - if continue to down trend with need further investigation REAL on chronic kidney disease stage III - nephro recs - on IV lasix, dose decreased - follow cr - avoid additional nephrotoxic A. fib - eliquis - metoprolol - tele CAD - plavix, metoprolol, lipitor Acute hypoxic respiratory failure - treatment as above HTN accelerated - on metoprolol and hydralazine - follow BP - metoprolol increased by cardiology Gram + blood culture, contaminant with staph epi, repeat cultures negative Flash pulmonary edema likely secondary to severe pulmonary hypertension on top of stridor, improved DVT prophylaxis: Heparin Discussed with: nursing Anticipated discharge: 2-[address]: [facility] A total of 25 minutes was spent on the care of this complex patient more than 50 % of the time was spent in counseling and care coordination.
[2018-07-31 10:24] VITALS: BMI 26.1
[2018-07-31] MEDS: DEXTROSE 5% IN WATER 1,000 ML IV SCH (10:42)
[2018-07-31 11:50] LABS: Glucose,Whole Blood 148 mg/dL (75-99)
--- NOTE | 2018-07-31 13:05 | PN ---
PROGRESS NOTE Patient is seen for followup for acute kidney injury. He is currently awake. He is trying to cough. The patient remains with NG tube in place. He has a tracheostomy. PHYSICAL EXAMINATION: On examination, blood pressure was 122/90, heart rate 108 per minute. Patient is afebrile. Urine output is at about 30 to 75 mL/hour. EXAMINATION OF THE HEART: S1, S2. EXAMINATION OF THE LUNGS: Decreased breath sounds at bases. Abdomen is soft, nontender. Examination of the lower extremities shows no evidence of edema. LABS: Labs show sodium 148, potassium 3.7, BUN 53, serum creatinine 1.74, hemoglobin 9.8 g/dL. Calcium 9.1. Magnesium 2.2. ASSESSMENT: 1. Acute kidney injury, acute tubular necrosis, currently improving. 2. Volume overload, now improved. I will hold off on the diuretics for now. Chest x- ray from today continues to show some degree of vascular congestion. Lasix is currently decreased to 20 mg IV daily. 3. Acute hypoxic respiratory failure, status post extubation. 4. Stridor, status post evaluation by ENT, currently status post tracheostomy, maintained on steroids. 5. Gram-positive bacteremia most likely contaminant. 6. Chronic kidney disease, NKF stage 3. 7. Acute on top of chronic diastolic heart failure, currently resolved. 8. Moderate to severe pulmonary hypertension. PLAN: Plan is to hold Lasix. Repeat labs in a.m. MMMOON / MAYTE: [id number] /
--- NOTE | 2018-07-31 14:36 | FL ---
MODIFIED SWALLOW / DEGLUTITION STUDY DATE OF EXAM: 07/31/2018 CLINICAL HISTORY: 68 year-old male with laryngeal edema following intubation. Now with tracheostomy a nd dysphagia. Prior silent aspiration episodes. TECHNIQUE: Deglutition study is performed utilizing thin liquid barium, honey and nectar thick liqui d barium, barium thick applesauce. Total fluoroscopy time: 3 minutes 8 seconds. Total images: None. Real-time fluoroscopy support was provided to speech pathology. COMPARISON: None. FINDINGS: Swallow initiation was mildly delayed with variable scattered pharyngeal residuals. Tracheostomy is in place. There is aspiration with thin liquids and transient penetration with nectar liquid consistency. No pe netration or aspiration seen with honey liquid or puree consistency. IMPRESSION: Aspiration with thin liquids and transient penetration with nectar liquids. Delayed swallow and varia ble scattered pharyngeal residuals. Please refer to speech therapist notes for further details if necessary.
[2018-07-31 17:49] LABS: Glucose,Whole Blood 256 mg/dL (75-99)
[2018-07-31] MEDS ORDERED: INSULIN ASPART (NovoLOG) 100 UNIT/ML VIAL SQ ONE (18:50)
[2018-07-31] MEDS ORDERED: INSULIN DETEMIR (LEVEMIR) 100 UNIT/ML SYR SQ SCH ×2 (21:00)
[2018-07-31] MEDS: ATORVASTATIN 80 MG TAB NG-TUBE SCH (21:16)
--- NOTE | 2018-07-31 22:53 | CONS ---
CONSULTATION This patient was admitted with acute respiratory distress secondary to swelling of the epiglottis. The patient is doing fairly well. Patient is undergoing a swallow test today. The heart rate is 90 to 100 per minute, blood pressure is 137/76 mmHg. First and second heart sounds are heard. Lungs examination revealed a few scattered wheezes. Patient's creatinine remains stable. Hemoglobin is 9.8. We will continue the current medications. MMODL / IJN: [id number] /
[2018-07-31 23:42] LABS: Glucose,Whole Blood 240 mg/dL (75-99)
[2018-08-01] MEDS: INSULIN ASPART (NovoLOG) 100 UNIT/ML VIAL SQ SCH ×6 (00:46→12:13)
[2018-08-01] MEDS: LORazepam 2 MG/ML INJ IV PRN ×4 (02:09→14:13)
[2018-08-01] MEDS: HYDROcodone/APAP 5-325MG 1 EACH TAB PO PRN ×2 (04:05→14:43)
[2018-08-01] MEDS: METOPROLOL TARTRATE 25 MG TAB PO SCH ×3 (04:05→15:39)
[2018-08-01 05:31] LABS: HCT 28.1 % (39.0-53.0); HGB 8.6 gm/dL (13.0-17.5); Hypochromasia Marked; MCH 27.8 pg (25.0-35.0); MCHC 30.6 g/dL (31.0-37.0); MCV 90.8 fL (80.0-100.0); Mean Platelet Volume 7.2; Platelet Count 243 k/uL (150-450); RDW 15.6 % (11.5-15.5); WBC 12.8 k/uL (3.8-10.6)
[2018-08-01 05:43] LABS: Glucose,Whole Blood 157 mg/dL (75-99)
[2018-08-01 05:50] LABS: Calcium 8.8 mg/dL (8.4-10.2); Magnesium 2.3 mg/dL (1.6-2.3); Potassium 3.7 mmol/L (3.5-5.1)
[2018-08-01] MEDS: DEXTROSE 5% IN WATER 1,000 ML IV SCH (05:51)
[2018-08-01] MEDS ORDERED: POTASSIUM BICARBONATE/CIT AC 20 MEQ TABLET.EFF NG-TUBE SCH (06:00)
[2018-08-01] MEDS: Brinzolamide/Brimonidine Tart [Simbrinza 1%-0.2% Eye Drops] 1 DROP RIGHT EYE SCH (07:35)
[2018-08-01] MEDS: IPRATROPIUM-ALBUTEROL 3 ML NEB INHALATION SCH ×2 (07:39→13:15)
[2018-08-01] MEDS: hydrALAZINE HCL 50 MG TAB PO SCH ×2 (08:09→15:39)
[2018-08-01] MEDS: amLODIPine 5 MG TAB PO SCH (08:09)
[2018-08-01] MEDS: CLOPIDOGREL 75 MG TAB PO SCH (08:09)
[2018-08-01] MEDS: PANTOPRAZOLE 40 MG/10 ML VIAL IVP SCH (08:10)
--- NOTE | 2018-08-01 09:04 | XR ---
EXAMINATION TYPE: XR chest 1V portable DATE OF EXAM: 08/01/2018 COMPARISON: 07/31/2018 HISTORY: Enteric tube placement TECHNIQUE: Single frontal view of the chest is obtained. FINDINGS: Tracheostomy tube is placed appropriately. Enteric tube appears unchanged. Cardiac silhouette is enla rged. Overall there is improved aeration of the lungs with few patchy areas of probable atelectasis r emaining. Pulmonary vascular congestion has nearly resolved. Osseous structures appear intact. IMPRESSION: Improved aeration of the lungs with few areas of probable subsegmental atelectasis remai bryon. Pulmonary vascular congestion is nearly resolved.
--- NOTE | 2018-08-01 09:27 | P.PN ---
Subjective Progress Note Date: 08/01/18 Principal diagnosis: Acute hypoxemic restaurant failure, multifactorial, due to exacerbation of congestive heart failure, pneumonia, bacteremia, sepsis and stridor. This is a 68-year-old white male with history of multiple medical problems including COPD, diastolic congestive heart failure, type 2 diabetes, chronic kidney disease, he was recently on a short period of hemodialysis. Patient was recently in the hospital for what seemed to be a picture of diastolic congestive heart failure, respiratory failure requiring intubation and mechanical ventilation for a few days, acute on chronic kidney injury, patient was on mechanical ventilation for about 5 days, he was eventually extubated and he was followed by Dr. Duran during the last admission. Apparently post extubation, the patient developed intermittent episodes of stridor, and on 2018, he was seen by ENT/Dr. Larose for his stridor, however he recommended outpatient follow-up, because for some reason he didn't have access to a direct laryngoscope to evaluate his upper airways. He had difficulty visualizing the vocal cords with in direct laryngoscopy. At any rate on 07/22/2018, the patient was discharged to a rehab facility. While in rehab facility, the patient developed worsening respiratory status and worsening stridor. Brought into the ER, initially he was placed on BiPAP, and he was not turning around. Patient was intubated and according to the ER physician it was a very difficult intubation, he noted significant swelling of the upper airways, nonetheless, patient was intubated with a 7.5 endotracheal tube, placed on mechanical ventilation, transferred to the ICU and this consult was initiated. His chest x -ray initially showed evidence of interstitial edema, his follow-up chest x-ray this morning showed bibasilar opacities, more suggestive of pneumonia than actually to congestive heart failure especially knowing that the patient actually failed his swallow evaluation for thin liquids when he was in the hospital last. He may be experiencing intermittent episodes of aspiration. At any rate patient was given Lasix last night, he was started on antibiotics today in the form of Zosyn and Levaquin. He is now sedated, on mechanical ventilation, and his ventilator settings are tidal volume of 500 FiO2 of 40% PEEP of 5 and assist control rate was initially 16 I cut it down to 12. ABG this morning showed a pO2 of 104 pCO2 of 37 pH of 7.53. CBC showed a hemoglobin of 7.3 this morning WBC count is 3.1 BUN is 32 creatinine 1.76. It was 1.5 to yesterday on admission. Hence went ahead and cut down on the Lasix dose. Patient was reevaluated today on 07/27/2018, remains on mechanical ventilation. His ventilator settings are assist control rate of 12 tidal volume of 500 FiO2 of 35% and PEEP of 5. ABG showed a pO2 of 109 pCO2 of 38 pH of 7.53, and this was done on assist control rate of 16 hence the assist control rate was cut down to 12. Patient obviously has chronic hypercapnia which is likely being overcorrected by mechanical ventilation. His renal functioning is a bit worse today, his BUN is 43 creatinine is 1.90, and his chest x-ray does not show evidence of pulmonary edema today, hence I recommended stopping the Lasix altogether today. Patient does have abnormal chest x-ray showing left lower lobe consolidation, possibly left pleural effusion, and his blood cultures came back positive for gram positive cocci. Final sensitivity is pending. In the meantime I have recommended that we continue antibiotics, may eventually consider bronchoscopy or ultrasound of the chest and there is significant amount of pleural effusion would consider even thoracentesis. Today the patient is going for tracheostomy and full evaluation of his stridor by ENT. May require biopsies depending on the findings after tracheostomy. CBC was reviewed hemoglobin is holding at 7.8 WBC count is 6.4. Rest of the labs were all reviewed chest x-ray was reviewed all her medications were reviewed, and vancomycin was added yesterday for positive blood cultures. Patient is presently on propofol at 60 mcg/kg/m, he is not requiring any pressors, and not requiring any fentanyl. Was reevaluated today on 07/28/2018, remains on mechanical ventilation, however I was able to wean him down today and eventually placed on a trach collar. His ventilator settings earlier where a cyst control rate of 12 tidal volume of 500 PEEP of 5 and FiO2 of 35%.patient underwent tracheostomy yesterday, and epiglottis biopsy done by Dr. Romo. Results of which are pending. Patient had no major issues overnight. He was sedated and kept on propofol until early this morning. Went ahead, discontinued his propofol, give him a short trial of pressure support and CPAP, and later switch him to a trach collar. ABG earlier today showed a pO2 of 114 pCO2 of 39 pH of 7.49. CBC showed WBC count of 5.3 hemoglobin is 8.4. Electrolytes are normal. Renal profile showed a creatinine of 1.61, significantly improved compared to yesterday where it was 1.90.blood cultures were reviewed today, positive for staph epidermidis, clearly this is more of a contamination, and not truly positive blood cultures at this point.Lasix was kept on hold because of his renal profile, and today's chest x-ray showedno evidence of congestive heart failure, there is minimal left basilar atelectasis and small left pleural effusion. Reevaluated today on 07/29/2018, patient remains in the intensive care unit, however he is off mechanical ventilation, and he is tolerating trach collar.patient is feeling fine, denies any shortness of breath, denies any pain , tolerating trach collar nicely.all his labs were reviewed his BUN is up to 51 creatinine is 1.68, slightly increased compared to yesterday,but remains than 2 days ago.potassium is a bit low at 3.3, and that would be corrected as per protocol.epiglottic biopsy is pending, no pathology report is available at this point yet. Patient was reevaluated today on 07/30/2018, remains in the intensive care unit, on trach collar, has not required any mechanical ventilation since he was placed on trach collar on 07/28/2018. Patient is relatively asymptomatic, he is off Decadron, and based on verbal communication from Dr. Romo, apparently there was significant epiglottic swelling, and did not feel there was a mass. Hence he recommended to wait for the epiglottic biopsy and eventually reevaluate in the office, take another look at his epiglottis, and decide whether the patient could be D cannulated down the line. This could be done on outpatient basis. In the meantime the patient remains onupdrafts, blood pressure medications, cardiac meds, anti-coagulation therapy, Plavix and eliquis, Lasix 40 mg IV push daily, Apresoline for elevated blood pressure,Lopressor, insulin, and he is being fed via nasogastric tube which will be likely discontinued if the patient passes his swallow evaluation in the next 24 hours.patient remains on GI prophylaxis.labs were reviewed, relatively normal CBC. Electrolytes are relatively unremarkable sodium is a bit elevated at 148 and his BUN is 52 creatinine 1.62, will likely change his main IV fluid to D5 45 , and cut down the Lasix dose to 20 mg daily instead of 40 mg IV push daily. On 07/31/2018 patient seen in follow-up in the intensive care unit. he is awake and alert, in no acute distress, currently on 40% trach collar, with a pulse ox of 98%, afebrile, hemodynamically stable. Lung sounds are positive for scattered rhonchi bilaterally. Today's chest x-ray was reviewed with Dr. Duran and shows changes consistent with mild fluid overload. NG tube is in place, and patient is receiving tube feedings with vital 8 of 1.2 at a rate of 65 with a goal of 65. Patient is getting free water flushes, 200 cc every 6 hours. Today's labs have been reviewed, shows white blood cell count of 11.7, hemoglobin of 9.8, serum sodium is 148, potassium is 3.7, chloride is 111, CO2 is 29, BUN was 53, and creatinine is 1.74. Nephrology services are following. We decreased the IV Lasix to 20 mg daily. Maintenance IV fluid is 0.9 normal saline at a rate of 20 ML per hour, antibiotic coverage in the form of Zosyn. Culture data has been reviewed, blood culture from 07/25/2018 was positive for staph epidermidis, follow-up cultures have been negative thus far, urine and sputum cultures are negative. Patient is able to cough, he does have an effective cough is bringing up thick yellow colored pink tinge sputum. Clinically patient is asymptomatic, no fever or chills. He has been nonoliguric , and the urine output in order of 30-75 ML per hour. On 2018 patient seen in follow-up in the intensive care unit, he is awake and alert, in no acute distress, he sitting up in bed, currently on 40% trach collar. Patient is still bringing up pink tinged sputum, we will hold his Eliquis for 1 day. A good strong effective cough. IV fluids are D5 W at a rate of 50 ML per hour, no other drips, his NG tube is in place, and he is receiving tube feedings in the form of vital AF at a rate of 65 ML per hour, with a goal of 65, patient is getting free water flushes 200 mL every 4 hours, this morning's blood work has been reviewed, and serum sodium has now normalized at 145, white blood cell count was 12.8, hemoglobin is 8.6, B1 is 53 and creatinine is 1.74. No new growth on the cultures. Antibiotic coverage in the form of Zosyn. No fever or chills. Denies any difficulty breathing, patient went for a swallow evaluation yesterday, and unfortunately he had failed it. Patient may need a PEG tube inserted or have a repeat swallow evaluation to see if there is any improvement. Sounds are positive for a few scattered rhonchi, no wheezing, no rales. Patient continues on nebulized bronchodilators. Chest x-ray shows improved aeration of the lungs, with probable subsegmental atelectasis, and improvement or near resolution of the pulmonary vessel congestion was noted. Objective - Vital Signs Vital signs: Vital Signs Temp 98.6 F 08/01/18 08:00 Pulse 102 H 08/01/18 09:00 Resp 12 08/01/18 09:00 BP 158/92 08/01/18 09:00 Pulse Ox 100 08/01/18 09:00 Intake & Output 07/31/18 08/01/18 08/01/18 18:59 06:59 18:59 Intake Total 1238 2290 230 Output Total 615 675 120 Balance 623 1615 110 Weight 80.2 kg Intake: IV 280 650 100 0.9% Normal Saline 30 Dextrose 5% in Water 1, 600 100 000 ml @ 50 mls/hr IV . Q20H [facility] Rx#:[id number] Piperacillin-Tazobactam 3 250 50 .375 gm In Sodium Chloride 0.9% 100 ml @ 25 mls/hr IVPB Q8HR [facility] Rx# :[id number] Intake, IV Titration 300 Amount Dextrose 5% in Water 1, 300 000 ml @ 50 mls/hr IV . Q20H [facility] Rx#:[id number] Tube Feeding 455 1040 130 Other 203 600 Output: Urine 615 675 120 Other: Voiding Method Indwelling Catheter Indwelling Catheter Indwelling Catheter # Bowel Movements 1 1 1 - Exam GENERAL EXAM: Alert, pleasant, 68-year-old white male, on 40% trach collar, comfortable in no apparent distress. HEAD: Normocephalic/atraumatic. EYES: Normal reaction of pupils, equal size. Conjunctiva pink, sclera white. NOSE: Clear with pink turbinates. THROAT: No erythema or exudates. NECK: No masses, no JVD, no thyroid enlargement, no adenopathy. CHEST: No chest wall deformity. Symmetrical expansion. LUNGS: Equal air entry with scattered rhonchi CVS: Regular rate and rhythm, normal S1 and S2, no gallops, no murmurs, no rubs ABDOMEN: Soft, nontender. No hepatosplenomegaly, normal bowel sounds, no guarding or rigidity. EXTREMITIES: No clubbing, no edema, no cyanosis, 2+ pulses and upper and lower extremities. MUSCULOSKELETAL: Muscle strength and tone normal. SPINE: No scoliosis or deformity SKIN: No rashes CENTRAL NERVOUS SYSTEM: Alert and oriented -3. No focal deficits, tone is normal in all 4 extremities. PSYCHIATRIC: Alert and oriented -3. Appropriate affect. Intact judgment and insight. - Labs CBC & Chem 7: 08/01/18 05:07 08/01/18 05:07 Labs: Abnormal Lab Results - Last 24 Hours (Table) 07/31/18 07/31/18 07/31/18 Range/Units 11:48 17:47 23:39 WBC (3.8-10.6) k/uL RBC (4.30-5.90) m/uL Hgb (13.0-17.5) gm/dL Hct (39.0-53.0) % MCHC (31.0-37.0) g/dL RDW (11.5-15.5) % BUN (9-20) mg/dL Creatinine (0.66-1.25) mg/dL Glucose (74-99) mg/dL POC Glucose (mg/dL) 148 H 256 H 240 H (75-99) mg/dL 08/01/18 08/01/18 08/01/18 Range/Units 05:07 05:07 05:42 WBC 12.8 H (3.8-10.6) k/uL RBC 3.10 L (4.30-5.90) m/uL Hgb 8.6 L (13.0-17.5) gm/dL Hct 28.1 L (39.0-53.0) % MCHC 30.6 L (31.0-37.0) g/dL RDW 15.6 H (11.5-15.5) % BUN 53 H (9-20) mg/dL Creatinine 1.74 H (0.66-1.25) mg/dL Glucose 135 H (74-99) mg/dL POC Glucose (mg/dL) 157 H (75-99) mg/dL Microbiology - Last 24 Hours (Table) 07/27/18 20:47 Blood Culture - Preliminary Blood No Growth after 96 hours 07/27/18 20:48 Blood Culture - Preliminary Blood No Growth after 96 hours Assessment and Plan Plan: 1 acute hypoxic respiratory failure secondary to stridor , secondary to epiglottis swelling/epiglottitis, pathology is pending.status post tracheostomy and epiglottis biopsy, postoperative day #5 2 acute on chronic diastolic congestive heart failure,improving 3 chronic kidney disease stage III, being followed by nephrology, had previous hemodialysis on the last admission. 4 chronic atrial fibrillation, remains on anticoagulation therapy and beta blockers. 5 left lower lobe consolidation, possible hospital acquired pneumonia.resolving based on the chest x-ray today. 6 chronic obstructive pulmonary disease mild to moderate in severity, inactive at present. 7 chronic anemia secondary to chronic kidney disease. 8 type 2 diabetes 9 coronary artery disease 10 benign essential hypertension 11 hyperlipidemia 12 recent episode of hypoxic and hypercapnic respiratory failure requiring intubation and mechanical ventilation, patient developed post extubation stridor. 13 gram-positive bacteremia, felt to be contamination since the blood cultures were positive for staph epidermidis. 14 status post paraglottic epiglottis biopsy, and the results were positive for benign squamous upper airway mucosa and submucosa, negative for neoplasm or acute inflammation. Plan: Continue current plan of treatment, continue current antibiotic coverage, will hold Eliquis from one day, as the patient is having some pink tinged sputum. Hemodynamically patient is stable, wean FiO2. Patient had failed his swallow evaluation yesterday, and nontender is a possibility of having to insert a PEG tube for nutritional support, for now he is getting tube feedings through the NG tube. Chest x-ray has been reviewed, and shows improvement in aeration, with some subsegmental atelectasis and near resolution of the pulmonary congestion. No fever or chills. May consider for discharge to select specialty hospital once we decide on whether a PEG tube needs to be placed, a D[place], patient may need a repeat swallow evaluation. I performed a history & physical examination of the patient and discussed their management with my nurse practitioner, Verónica Bridges. I reviewed the nurse practitioner's note and agree with the documented findings and plan of care. Lung sounds are positive for diffuse rhonchi. The findings and the impression was discussed with the patient. I attest to the documentation by the nurse practitioner. Time with Patient: Less than 30
[2018-08-01] MEDS ORDERED: LOPERAMIDE 2 MG CAP PO STA (09:42)
--- NOTE | 2018-08-01 10:31 | P.DS ---
Providers Date of admission: 07/25/18 19:46 Expected date of discharge: 08/01/18 Attending physician: Hailey Newton MD Consults: 07/25/18 19:46 Consult Physician Routine Consulting Provider: [facility] Consult Reason/Comments: Acute pulmonary edema Do you want consulting provider notified?: Yes 07/25/18 20:40 Consult Physician Routine Consulting Provider: Cedric Rojas Consult Reason/Comments: Critical care management Do you want consulting provider notified?: Yes 07/25/18 20:42 Consult Physician Routine Consulting Provider: Ron Lepe Consult Reason/Comments: Stridor Do you want consulting provider notified?: Yes 07/26/18 02:11 Consult Physician Routine Consulting Provider: Ashly Jose Consult Reason/Comments: Chronic Renal Disease Do you want consulting provider notified?: Yes, Notify in am Primary care physician: Yin Person Hospital Course: Discharge Diagnosis: Supraglotitis, Epiglottitis Left lower lobe pneumonia, healthcare acquired, likely gram-negative Diabetes mellitus type 2 with hypoglycemia Hypernatremia due to decreased free water intake Anemia Acute kidney injury on chronic kidney disease stage III, creatinine near baseline Atrial fibrillation-Eliquis on hold secondary to bleeding around trach Coronary artery disease Acute hypoxic respiratory failure Hypertensive urgency, resolved Gram-positive blood cultures determined to be contaminant with staph epi present Flash pulmonary edema secondary to severe pulmonary hypertension on top of impaired airway Hospital Course: Patient is a 68-year-old male with a past medical history of diastolic congestive heart failure, A. fib on eliquis, indwelling Teixeira, coronary artery disease, diabetes mellitus type 2, hypertension, and dyslipidemia who presented to the ER for shortness of breath. Patient was recently hospitalized from 07/02 through 07/19 for acute exacerbation of CHF requiring mechanical ventilation. This was complicated by subsequent stridor from suspected laryngitis versus vocal cord dysfunction. Patient unable to be evaluated by scope from ENT during last hospitalization was subsequently was supposed to be followed up in the clinic. He also required temporary dialysis secondary to ATN. Initially in the ER patient was placed on BiPAP. However he had worsening of his respiratory status and subsequently required intubation. Per the ER physician significant laryngeal vocal cord edema was noted on intubation. Initial laboratory analysis in the ER demonstrated slightly elevated white blood cell count at 10.8, mildly elevated troponin at 0.060, elevated glucose, and creatinine of 1.52. Patient was subsequently admitted to the ICU. He was placed on antibiotics and Decadron. There is concern for acute exacerbation of CHF and the patient was started on Lasix 40 every 8 hours. Pulmonary and ENT discussed the case and follow the patient would benefit from trach placement with visualization of vocal cords. He was seen by cardiology who felt that his eliquis and Plavix could be restarted and that his elevated troponin was likely secondary to his elevated creatinine. His echocardiogram had been done on his prior admission showed a preserved ejection fraction and moderate to severe pulmonary hypertension with RVSP 78.72. He was seen by Dr. Jose who stated that patient has good urine output and Lasix could be maintained but should be stopped if his renal function worsened. On the morning of 07/27 his creatinine was increased and Lasix was held. He had trach placed on 07/27 and returned to the ICU. His decadron was stopped on 07/28. He was tolerating trach collar on the morning of 07/29. He has been progressing well. His blood pressure was slightly elevated and he was started on hydralazine by cardiology and his metoprolol was increased. He failed MBS with think and thickened liquids. Plan was for repeat modified barium in several days and if fails again will likely need PEG tube placed. Initially he was maintained on Zosyn and was given a trial off these antibiotics however his white blood cell count increase. Plan was to complete a 7 day course of Zosyn. He was developing slight hypernatremia with his tube feeds but it was felt he could not have any additional free water in his tube feeds if he was already feeling slight stomach distention. He was therefore started on D5 W at 50 ML per hour and this normalized his sodium. His eliquis with was restarted on . He had some oozing from around the trach site as well as coughing up some blood. This was subsequently held and this resolved. Recommend maintaining off eliquis another 24-48 hours. He will be resumed on oral Lasix. He should have his renal profile monitored frequently secondary to his recent need for hemodialysis. He was determined stable for transfer to long-term acute care hospital. [facility] He was having loose stools due to his tube feeds. Biopsy done at time of trach revealed supraglottitis with epiglottitis Patient seen and examined at bedside. Denies any pain around his trach site today, still having a cough, no chest pain or shortness of breath, having loose stools, no nausea or vomiting but feels full. Vital signs reviewed and stable. General: non toxic, no distress, appears older than stated age Derm: warm, dry Head: atraumatic, normocephalic, symmetric Eyes: EOMI, no lid lag, anicteric sclera Mouth: no lip lesion, mucus membranesdry, trach in place with samll amount of sanguanous drainage Cardiovascular: S1S2 reg, no murmur, positive posterior tibial pulse bilateral, Lungs: CTA bilateral, no rhonchi, no rales , no accessory muscle use Abdominal: soft, nontender to palpation, no guarding, no appreciable organomegaly Ext: no gross muscle atrophy, no edema, no contractures Neuro: CN II-XI grossly intact, no focal neuro deficits Psych: Alert, oriented, appropriate affect A total of 55 minutes of time were spent preparing this complex discharge summary . Pertinent Studies: Chest [id number] interval worsening with development of advanced interstitial states pulmonary edema Procedures: Trach placement on 07/27 Patient Condition at Discharge: Fair Plan - Discharge Summary Discharge Rx Participant: Yes New Discharge Prescriptions: New amLODIPine [Norvasc] 5 mg PO DAILY tab Benzocaine [place] [Hurricaine [place]] 1 spray MUCOUS MEM QID PRN can PRN Reason: Mouth Irritation hydrALAZINE HCL [Apresoline] 50 mg PO TID tab HYDROcodone/APAP 5-325MG [[place] 5-325] 1 each PO Q6HR PRN tab PRN Reason: Pain INSULIN ASPART (NovoLOG) [NovoLOG (formulary)] 6 unit SQ Q6HR vial INSULIN ASPART (NovoLOG) [NovoLOG (formulary)] 0 unit SQ Q6H vial Insulin Detemir (Levemir) [Levemir] 36 unit SQ HS syr Metoprolol Tartrate [Lopressor] 25 mg PO Q6H tab Continue Gabapentin [Neurontin] 100 mg PO TID Atorvastatin [Lipitor] 80 mg PO HS #30 tab Nitroglycerin Sl Tabs [Nitrostat] 0.4 mg SUBLINGUAL Q5M PRN #30 tab PRN Reason: Chest Pain Brinzolamide/Brimonidine Tart [Simbrinza 1%-0.2% Eye Drops] 1 drop RIGHT EYE BID Acetaminophen Tab [Tylenol] 650 mg PO Q6HR PRN tab PRN Reason: Fever And/ Or Pain Famotidine [Pepcid] 20 mg PO DAILY tab Ipratropium-Albuterol Nebulize [Duoneb 0.5 mg-3 mg/3 ml Soln] 3 ml INHALATION RT-QID ampul.neb Ipratropium-Albuterol Nebulize [Duoneb 0.5 mg-3 mg/3 ml Soln] 3 ml INHALATION Q4H PRN ampul.neb PRN Reason: Shortness Of Breath Or Wheezing Saline Nasal Gel [Gary Nasal Gel] 1 applic TOPICAL Q4HR PRN gm PRN Reason: Dry Nasal Passages Clopidogrel Bisulfate [Plavix] 75 mg PO DAILY #30 tab Changed Furosemide [Lasix] 40 mg PO DAILY #60 tab Discontinued Insulin Glargine [Lantus] 35 unit SQ HS Metoprolol Tartrate [Lopressor] 12.5 mg PO BID tab traMADol HCl [Ultram] 50 mg PO Q6H PRN #12 tab PRN Reason: Moderate Pain Apixaban [Eliquis] 2.5 mg PO BID #60 tab Albuterol Inhaler [Ventolin Hfa Inhaler] 1 - 2 puff INHALATION Q6HR PRN #1 inhaler PRN Reason: Shortness Of Breath Or Wheezing Budesonide-Formot 160-4.5 Mcg [Symbicort 160-4.5 Mcg Inhaler] 2 puff INHALATION BID #1 inhaler Furosemide Oral Soln [Lasix] 40 mg PO ONCE INSULIN LISPRO (HumaLOG) [humaLOG] See Protocol SQ ACHS guaiFENesin [guaiFENesin Oral Solution] 200 mg PO Q6H Promethazine HCl 12.5 mg PO Q8H PRN PRN Reason: Nausea Discharge Medication List Gabapentin [Neurontin] 100 mg PO TID 01/19/18 [History] Atorvastatin [Lipitor] 80 mg PO HS #30 tab 01/27/18 [Rx] Nitroglycerin Sl Tabs [Nitrostat] 0.4 mg SUBLINGUAL Q5M PRN #30 tab 01/27/18 [Rx ] Brinzolamide/Brimonidine Tart [Simbrinza 1%-0.2% Eye Drops] 1 drop RIGHT EYE BID 07/03/18 [History] Acetaminophen Tab [Tylenol] 650 mg PO Q6HR PRN tab 07/21/18 [Rx] Famotidine [Pepcid] 20 mg PO DAILY tab 07/21/18 [Rx] Ipratropium-Albuterol Nebulize [Duoneb 0.5 mg-3 mg/3 ml Soln] 3 ml INHALATION Q4H PRN ampul.neb 07/21/18 [Rx] Ipratropium-Albuterol Nebulize [Duoneb 0.5 mg-3 mg/3 ml Soln] 3 ml INHALATION RT -QID ampul.neb 07/21/18 [Rx] Saline Nasal Gel [Gary Nasal Gel] 1 applic TOPICAL Q4HR PRN gm 07/21/18 [Rx] Clopidogrel Bisulfate [Plavix] 75 mg PO DAILY #30 tab 07/22/18 [Rx] Benzocaine [place] [Hurricaine [place]] 1 spray MUCOUS MEM QID PRN can 08/01/18 [Rx ] Furosemide [Lasix] 40 mg PO DAILY #60 tab 08/01/18 [Rx] HYDROcodone/APAP 5-325MG [[place] 5-325] 1 each PO Q6HR PRN tab 08/01/18 [Rx] INSULIN ASPART (NovoLOG) [NovoLOG (formulary)] 0 unit SQ Q6H vial 08/01/18 [Rx] INSULIN ASPART (NovoLOG) [NovoLOG (formulary)] 6 unit SQ Q6HR vial 08/01/18 [Rx ] Insulin Detemir (Levemir) [Levemir] 36 unit SQ HS syr 08/01/18 [Rx] Metoprolol Tartrate [Lopressor] 25 mg PO Q6H tab 08/01/18 [Rx] amLODIPine [Norvasc] 5 mg PO DAILY tab 08/01/18 [Rx] hydrALAZINE HCL [Apresoline] 50 mg PO TID tab 08/01/18 [Rx] Follow up Appointment(s)/Referral(s): Yin Person DO [Primary Care Provider] - 1-2 days Activity/Diet/Wound Care/Special Instructions: Please have speech pathology follow pt for dysphagia intervention. Contact Ana Rivas MA, CCC-COMMUNICATIONS DEPARTMENT CHAIRPERSON with any questions r/t MBSS or treatment received at [facility] ext. [phone]. Speech: therapetic feedings, plan was repeat MBS near end of week if fails again PEG was planned Eliquis: hold for one more day due to slight bleeding from trach then can resume (on for A fib) Antibiotics: zosyn held on 07/31 restarted 08/01 due to increasing WBC had been treated for 5 days recommended 2 additional day for 7 day total, CXR is improving Having loose stools due to tube feeds Accucheck 2 6 hours while on tube feeds Was on D5W here due to hypernatremia at 50 ml/hr. Nati was repeat CBC,BMP, and CXR in AM
[2018-08-01 12:00] LABS: Glucose,Whole Blood 146 mg/dL (75-99)
[2018-08-01 12:04] VITALS: TEMP 99
[2018-08-01 14:13] VITALS: RESP 16
[2018-08-01 15:30] VITALS: BP 129/77; PULSE 104
[2018-08-01] MEDS ORDERED: PIPERACILLIN-TAZOBACTAM 3.375 GM in SODIUM CHLORIDE 0.9% 100 ML IVPB SCH (16:00)
--- NOTE | 2018-08-02 05:21 | PN ---
PROGRESS NOTE The patient is seen for followup for acute kidney injury. The patient will be likely transferred to [facility]. He remains with a trach collar. He is awake, not in any acute distress. PHYSICAL EXAMINATION: On examination this morning blood pressure was 158/92, heart rate 80 per minute. Patient is afebrile. Examination of the heart S1, S2. Examination of lungs bilateral breath sounds are heard. Abdomen is soft, nontender. Examination of lower extremities shows no evidence of edema. LABS: Show sodium 145, potassium 3.7, BUN 53, serum creatinine 1.74, hemoglobin 8.6 g/dL. ASSESSMENT: 1. Acute kidney injury, acute tubular necrosis, currently nonoliguric. Renal function is stable. The patient is off of diuretics. He is maintained on a small amount of IV fluids. 2. Hypernatremia secondary to free water deficit. Maintained on D5W as well as free water down the feeding tube. 3. Volume overload, currently resolved. 4. Vent dependent respiratory failure-acute hypoxic, currently extubated. 5. Stridor. The patient had been on steroids. He has a tracheostomy. He will be followed up as outpatient at [facility]. PLAN: Continue off of Lasix. Continue with free water and gentle IV hydration. MMODL / IJN: [id number] /
[2018-08-02] MEDS ORDERED: PANTOPRAZOLE SODIUM 40 MG GRANULE PKT PEG/G-TUBE SCH (09:00)
== END 2018-08-01 16:24 | DRG 4 ==
LOC: EC 16:36 → 3SCARD 19:46 → 2SICU 21:53
PROVIDERS: ADMIT Internal Medicine; ATTEND Internal Medicine
PROC: 5A09357 Assistance with Respiratory Ventilation, Less than 24 Consecutive Hours, Continuous Positive Airway Pressure (ICD-10-PCS; principal; 2018-07-25)
PROC: 0B113F4 Bypass Trachea to Cutaneous with Tracheostomy Device, Percutaneous Approach (ICD-10-PCS; 2018-07-28)
DX: J96.01 Acute respiratory failure with hypoxia (principal); I50.33 Acute on chronic diastolic (congestive) heart failure; N17.0 Acute kidney failure with tubular necrosis; J15.6 Pneumonia due to other Gram-negative bacteria; E87.0 Hyperosmolality and hypernatremia; I13.2 Hypertensive heart and chronic kidney disease with heart failure and with stage 5 chronic kidney disease, or end stage renal disease; I48.1 Persistent atrial fibrillation; J05.10 Acute epiglottitis without obstruction; J98.11 Atelectasis; J96.02 Acute respiratory failure with hypercapnia; D63.1 Anemia in chronic kidney disease; E11.22 Type 2 diabetes mellitus with diabetic chronic kidney disease; E11.51 Type 2 diabetes mellitus with diabetic peripheral angiopathy without gangrene; E11.649 Type 2 diabetes mellitus with hypoglycemia without coma; E11.65 Type 2 diabetes mellitus with hyperglycemia; T88.4XXA Failed or difficult intubation, initial encounter; I27.20 Pulmonary hypertension, unspecified; J44.9 Chronic obstructive pulmonary disease, unspecified; N18.3 Chronic kidney disease, stage 3 (moderate); R31.9 Hematuria, unspecified; E78.5 Hyperlipidemia, unspecified; I16.0 Hypertensive urgency; I25.10 Atherosclerotic heart disease of native coronary artery without angina pectoris; I25.2 Old myocardial infarction; I49.3 Ventricular premature depolarization; J04.30 Supraglottitis, unspecified, without obstruction; T50.2X5A Adverse effect of carbonic-anhydrase inhibitors, benzothiadiazides and other diuretics, initial encounter; R74.8 Abnormal levels of other serum enzymes; Z79.01 Long term (current) use of anticoagulants; Z79.02 Long term (current) use of antithrombotics/antiplatelets; Z79.4 Long term (current) use of insulin; Z79.899 Other long term (current) drug therapy; Z79.51 Long term (current) use of inhaled steroids; Z86.73 Personal history of transient ischemic attack (TIA), and cerebral infarction without residual deficits; Z85.828 Personal history of other malignant neoplasm of skin; Z95.5 Presence of coronary angioplasty implant and graft; Z87.01 Personal history of pneumonia (recurrent); Z82.49 Family history of ischemic heart disease and other diseases of the circulatory system; Z82.61 Family history of arthritis; Z83.49 Family history of other endocrine, nutritional and metabolic diseases
CPT/HCPCS: 31500; 36415; 36600; 71045; 74230; 80048; 80053; 81001; 82550; 82553; 82805; 83036; 83735; 83880; 84100; 84132; 84484; 85025; 85027; 85610; 85730; 87040; 87070; 87077; 87086; 87186; 87205; 88305; 93005; 94002; 94003; 94640; 94660; 94770; 96374; 96375; 96376; 99291

== ENCOUNTER 2018-10-11 13:04 | Emergency (ER) | payer MEDICARE ==
[2018-10-11 13:26] LABS: Glucose,Whole Blood 88 mg/dL (75-99)
[2018-10-11 13:37] LABS: Anisocytosis Slight; Basophils # (A) 0.1 k/uL (0-0.2); Basophils % (A) 1 %; Eosinophils # (A) 0.1 k/uL (0-0.7); Eosinophils % (A) 1 %; HCT 37.2 % (39.0-53.0); HGB 11.5 gm/dL (13.0-17.5); Hypochromasia Moderate; Lymphocytes # (A) 0.5 k/uL (1.0-4.8); Lymphocytes % (A) 7 %; MCH 27.2 pg (25.0-35.0); MCHC 30.8 g/dL (31.0-37.0); MCV 88.2 fL (80.0-100.0); Mean Platelet Volume 6.9; Monocytes # (A) 0.3 k/uL (0-1.0); Monocytes % (A) 4 %; Neutrophils # (A) 6.2 k/uL (1.3-7.7); Neutrophils % (A) 85 %; Platelet Count 216 k/uL (150-450); RBC 4.22 m/uL (4.30-5.90); RDW 16.7 % (11.5-15.5); WBC 7.2 k/uL (3.8-10.6)
[2018-10-11 13:46] LABS: Albumin 4.8 g/dL (3.5-5.0); Calcium 10.3 mg/dL (8.4-10.2); Potassium 5.3 mmol/L (3.5-5.1); Total Bilirubin 0.8 mg/dL (0.2-1.3); Total Protein 7.6 g/dL (6.3-8.2)
--- NOTE | 2018-10-11 14:01 | ED ---
Recheck HPI - General Chief Complaint: Recheck/Abnormal Lab/Rx Stated Complaint: hypoglycemia Time Seen by Provider: 10/11/18 13:13 Source: patient, EMS, RN notes reviewed Mode of arrival: EMS Limitations: no limitations - History of Present Illness Initial Comments: 68-year-old male presents emergency Department with chief complaint of hyperglycemia. Patient is brought to emergency department for a blood glucose of 52. Patient reports that he took insulin late last night states he has not ate sense. He states she's been having difficult is sleeping so his insulin schedule has been off. Patient states he was given wake up and given Zofran some but states is very groggy. Patient was found by family to be altered. Patient has no complaints at this time states is at his normal baseline. - Related Data Home Medications Medication Instructions Recorded Confirmed ALPRAZolam [Xanax] 0.25 mg PO HS 10/11/18 10/11/18 Aranesp Unknown Dose 1 dose SQ Q7D 10/11/18 10/11/18 Aspirin EC [Ecotrin Low Dose] 81 mg PO DAILY 10/11/18 10/11/18 Insulin Glargine [Lantus] 25 unit SQ HS 10/11/18 10/11/18 Insuln Asp Prt/Insulin Aspart 6 unit SQ DAILY 10/11/18 10/11/18 [NovoLOG MIX 70-30 VIAL] Ipratropium-Albuterol Nebulize 3 ml INHALATION RT-Q4H PRN 10/11/18 10/11/18 [Duoneb 0.5 mg-3 mg/3 ml Soln] Latanoprost Ophth [Xalatan 0.005%] 1 drops BOTH EYES HS 10/11/18 10/11/18 Magnesium Oxide [Magox 400] 400 mg PO DAILY 10/11/18 10/11/18 Melatonin 6 mg PO HS 10/11/18 10/11/18 Metoprolol Tartrate [Lopressor] 50 mg PO BID 10/11/18 10/11/18 Pantoprazole [Protonix] 40 mg PO DAILY 10/11/18 10/11/18 Sodium Bicarbonate 650 mg PO BID 10/11/18 10/11/18 Torsemide [Demadex] 20 mg PO DAILY 10/11/18 10/11/18 amLODIPine [Norvasc] 10 mg PO DAILY 10/11/18 10/11/18 hydrALAZINE HCL [Apresoline] 25 mg PO BID 10/11/18 10/11/18 Previous Rx's Medication Instructions Recorded Atorvastatin [Lipitor] 80 mg PO HS #30 tab 01/27/18 Nitroglycerin Sl Tabs [Nitrostat] 0.4 mg SUBLINGUAL Q5M PRN #30 tab 01/27/18 Acetaminophen Tab [Tylenol] 650 mg PO Q6HR PRN tab 07/21/18 Clopidogrel Bisulfate [Plavix] 75 mg PO DAILY #30 tab 07/22/18 Allergies Allergy/AdvReac Type Severity Reaction Status Date / Time No Known Allergies Allergy Verified 10/11/18 14:00 Review of Systems ROS Statement: Those systems with pertinent positive or pertinent negative responses have been documented in the HPI. ROS Other: All systems not noted in ROS Statement are negative. Past Medical History Past Medical History: Atrial Fibrillation, Coronary Artery Disease (CAD), Cancer, CVA/TIA, Diabetes Mellitus, Hyperlipidemia, Hypertension, Myocardial Infarction ([place]), Myocardial Infarction (non Q-wave), Pneumonia, Renal Disease Additional Past Medical History / Comment(s): TIA 1 yr ago, no residual effects. kidney disease stage iV, stroke behind rt eye.gout, basal cell skin ca (removed), poor circulation Last Myocardial Infarction Date:: 6 weeks ago History of Any Multi-Drug Resistant Organisms: None Reported Past Surgical History: Heart Catheterization With Stent Past Anesthesia/Blood Transfusion Reactions: No Reported Reaction Date of Last Stent Placement:: 06-07-18 Past Psychological History: No Psychological Hx Reported Smoking Status: Never smoker Past Alcohol Use History: None Reported Past Drug Use History: None Reported - Past Family History Father Family Medical History: Coronary Artery Disease (CAD), Hypertension Additional Family Medical History / Comment(s): , hx of 2 cabg sx Mother Family Medical History: Osteoarthritis (OA), Thyroid Disorder Additional Family Medical History / Comment(s): mom is alive -age 90 General Exam Limitations: no limitations General appearance: alert, in no apparent distress Head exam: Present: atraumatic, normocephalic, normal inspection Eye exam: Present: normal appearance, PERRL, EOMI. Absent: scleral icterus, conjunctival injection, periorbital swelling ENT exam: Present: normal exam, normal oropharynx, mucous membranes moist, TM's normal bilaterally Neck exam: Present: normal inspection, full ROM. Absent: tenderness, meningismus, lymphadenopathy Respiratory exam: Present: normal lung sounds bilaterally. Absent: respiratory distress, wheezes, rales, rhonchi, stridor Cardiovascular Exam: Present: regular rate, normal rhythm, normal heart sounds. Absent: systolic murmur, diastolic murmur, rubs, gallop, clicks Neurological exam: Present: alert, oriented X3, CN II-XII intact Skin exam: Present: warm, dry, intact, normal color. Absent: rash Course Vital Signs 10/11/18 10/11/18 13:10 14:32 Temperature 97.0 F L Pulse Rate 81 70 Respiratory 20 18 Rate Blood Pressure 171/79 148/81 O2 Sat by Pulse 99 97 Oximetry Medical Decision Making - Medical Decision Making 68-year-old male present emergency department for hyperglycemia. Patient was able to tolerate oral intake. Patient multiple Accu-Cheks. Patient's blood glucose has stabilized. Patient we discharge she'll follow-up appointment tomorrow and return parameters were discussed. - Lab Data Result diagrams: 10/11/18 13:25 10/11/18 13:25 Lab Results 10/11/18 10/11/18 10/11/18 Range/Units 13:25 13:25 13:25 WBC 7.2 (3.8-10.6) k/uL RBC 4.22 L (4.30-5.90) m/uL Hgb 11.5 L (13.0-17.5) gm/dL Hct 37.2 L (39.0-53.0) % MCV 88.2 (80.0-100.0) fL MCH 27.2 (25.0-35.0) pg MCHC 30.8 L (31.0-37.0) g/dL RDW 16.7 H (11.5-15.5) % Plt Count 216 (150-450) k/uL Neutrophils % 85 % Lymphocytes % 7 % Monocytes % 4 % Eosinophils % 1 % Basophils % 1 % Neutrophils # 6.2 (1.3-7.7) k/uL Lymphocytes # 0.5 L (1.0-4.8) k/uL Monocytes # 0.3 (0-1.0) k/uL Eosinophils # 0.1 (0-0.7) k/uL Basophils # 0.1 (0-0.2) k/uL Hypochromasia Moderate Anisocytosis Slight Sodium 141 (137-145) mmol/L Potassium 5.3 H (3.5-5.1) mmol/L Chloride 104 (98-107) mmol/L Carbon Dioxide 18 L (22-30) mmol/L Anion Gap 19 mmol/L BUN 28 H (9-20) mg/dL Creatinine 2.10 H (0.66-1.25) mg/dL Est GFR (CKD-EPI)AfAm 36 (>60 ml/min/1.73 sqM) Est GFR (CKD-EPI)NonAf 31 (>60 ml/min/1.73 sqM) Glucose 88 (74-99) mg/dL POC Glucose (mg/dL) 88 (75-99) mg/dL POC Glu Equipment Detailer ID Calcium 10.3 H (8.4-10.2) mg/dL Total Bilirubin 0.8 (0.2-1.3) mg/dL AST 23 (17-59) U/L ALT 22 (21-72) U/L Alkaline Phosphatase 165 H (38-126) U/L Total Protein 7.6 (6.3-8.2) g/dL Albumin 4.8 (3.5-5.0) g/dL 10/11/18 10/11/18 10/11/18 Range/Units 14:20 14:46 15:20 WBC (3.8-10.6) k/uL RBC (4.30-5.90) m/uL Hgb (13.0-17.5) gm/dL Hct (39.0-53.0) % MCV (80.0-100.0) fL MCH (25.0-35.0) pg MCHC (31.0-37.0) g/dL RDW (11.5-15.5) % Plt Count (150-450) k/uL Neutrophils % % Lymphocytes % % Monocytes % % Eosinophils % % Basophils % % Neutrophils # (1.3-7.7) k/uL Lymphocytes # (1.0-4.8) k/uL Monocytes # (0-1.0) k/uL Eosinophils # (0-0.7) k/uL Basophils # (0-0.2) k/uL Hypochromasia Anisocytosis Sodium (137-145) mmol/L Potassium (3.5-5.1) mmol/L Chloride (98-107) mmol/L Carbon Dioxide (22-30) mmol/L Anion Gap mmol/L BUN (9-20) mg/dL Creatinine (0.66-1.25) mg/dL Est GFR (CKD-EPI)AfAm (>60 ml/min/1.73 sqM) Est GFR (CKD-EPI)NonAf (>60 ml/min/1.73 sqM) Glucose (74-99) mg/dL POC Glucose (mg/dL) 63 L 141 H 120 H (75-99) mg/dL POC Glu Equipment Detailer Afia Lozano Chelsea Smith, Nicole Calcium (8.4-10.2) mg/dL Total Bilirubin (0.2-1.3) mg/dL AST (17-59) U/L ALT (21-72) U/L Alkaline Phosphatase (38-126) U/L Total Protein (6.3-8.2) g/dL Albumin (3.5-5.0) g/dL Disposition Clinical Impression: Hypoglycemia Disposition: HOME SELF-CARE Condition: Stable Instructions (If sedation given, give patient instructions): Hypoglycemia in a Person with Diabetes (ED) Additional Instructions: Please return to the Emergency Department if symptoms worsen or any other concerns. Is patient prescribed a controlled substance at d/c from ED?: No Referrals: Yin Person DO [Primary Care Provider] - 1-2 days Time of Disposition: 15:56
[2018-10-11] MEDS ORDERED: DEXTROSE 50% SYRINGE 50 ML IVP STA (14:21)
[2018-10-11 14:22] LABS: Glucose,Whole Blood 63 mg/dL (75-99)
[2018-10-11 14:34] VITALS: PULSE 70; RESP 18
[2018-10-11 15:24] LABS: Glucose,Whole Blood 141 mg/dL (75-99)
[2018-10-11 15:24] LABS: Glucose,Whole Blood 120 mg/dL (75-99)
[2018-10-11 15:57] LABS: Glucose,Whole Blood 113 mg/dL (75-99)
[2018-10-11 16:12] VITALS: BP 143/94; TEMP 98.3
== END 2018-10-11 16:11 | disposition home or self-care (01) ==
LOC: EC 13:04
DX: E11.649 Type 2 diabetes mellitus with hypoglycemia without coma (principal); N18.4 Chronic kidney disease, stage 4 (severe); E11.22 Type 2 diabetes mellitus with diabetic chronic kidney disease; I25.10 Atherosclerotic heart disease of native coronary artery without angina pectoris; I12.9 Hypertensive chronic kidney disease with stage 1 through stage 4 chronic kidney disease, or unspecified chronic kidney disease; I25.2 Old myocardial infarction; Z79.4 Long term (current) use of insulin; Z79.82 Long term (current) use of aspirin; Z79.899 Other long term (current) drug therapy; Z86.73 Personal history of transient ischemic attack (TIA), and cerebral infarction without residual deficits; Z85.828 Personal history of other malignant neoplasm of skin; Z95.5 Presence of coronary angioplasty implant and graft; Z98.890 Other specified postprocedural states
CPT/HCPCS: 36415; 80053; 85025; 96374; 99285

== ENCOUNTER 2018-10-26 16:51 | Inpatient (IN) | payer MEDICARE ==
[2018-10-26] MEDS ORDERED: FUROSEMIDE 10 MG/ML 10 ML VIAL IV STA (18:15)
--- NOTE | 2018-10-26 18:19 | ED ---
General Adult HPI - General Chief complaint: Shortness of Breath Stated complaint: sent from Dr Rodriguez's [facility] -stated Dr called ahead Time Seen by Provider: 10/26/18 17:25 Source: patient, RN notes reviewed Mode of arrival: ambulatory Limitations: no limitations - History of Present Illness Initial comments: This is a 68-year-old male who presents emergency Department complaining of increased shortness of breath and increased swelling and weight gain. Patient states went to see his tube builder today and the tube builder want the patient come emergency department be admitted for the increased fluid retention. Patient denies any chest pain or palpitations. Patient denies any recent fever chills per patient denies headache patient denies any numbness weakness. Patient denies lightheadedness dizziness or syncopal episode. Patient denies any abdominal pain. Patient states he has noticed increased difficulty breathing with exertion over the last month. Patient states she was in the hospital for approximately 3 months about one month ago was discharged. - Related Data Home Medications Medication Instructions Recorded Confirmed ALPRAZolam [Xanax] 0.25 mg PO HS 10/11/18 10/26/18 Aspirin EC [Ecotrin Low Dose] 81 mg PO DAILY 10/11/18 10/26/18 Insulin Glargine [Lantus] 35 unit SQ HS 10/11/18 10/26/18 Insuln Asp Prt/Insulin Aspart 6 unit SQ DAILY 10/11/18 10/26/18 [NovoLOG MIX 70-30 VIAL] Ipratropium-Albuterol Nebulize 3 ml INHALATION RT-Q4H PRN 10/11/18 10/26/18 [Duoneb 0.5 mg-3 mg/3 ml Soln] Latanoprost Ophth [Xalatan 0.005%] 1 drops BOTH EYES HS 10/11/18 10/26/18 Magnesium Oxide [Magox 400] 400 mg PO DAILY 10/11/18 10/26/18 Melatonin 6 mg PO HS 10/11/18 10/26/18 Metoprolol Tartrate [Lopressor] 50 mg PO BID 10/11/18 10/26/18 Pantoprazole [Protonix] 40 mg PO DAILY 10/11/18 10/26/18 Sodium Bicarbonate 650 mg PO BID 10/11/18 10/26/18 Torsemide [Demadex] 20 mg PO DAILY 10/11/18 10/26/18 amLODIPine [Norvasc] 10 mg PO DAILY 10/11/18 10/26/18 hydrALAZINE HCL [Apresoline] 25 mg PO BID 10/11/18 10/26/18 Gabapentin [Neurontin] 300 mg PO TID PRN 10/26/18 10/26/18 Previous Rx's Medication Instructions Recorded Atorvastatin [Lipitor] 80 mg PO HS #30 tab 01/27/18 Nitroglycerin Sl Tabs [Nitrostat] 0.4 mg SUBLINGUAL Q5M PRN #30 tab 01/27/18 Acetaminophen Tab [Tylenol] 650 mg PO Q6HR PRN tab 07/21/18 Clopidogrel Bisulfate [Plavix] 75 mg PO DAILY #30 tab 07/22/18 Allergies Allergy/AdvReac Type Severity Reaction Status Date / Time No Known Allergies Allergy Verified 10/26/18 18:26 Review of Systems ROS Statement: Those systems with pertinent positive or pertinent negative responses have been documented in the HPI. ROS Other: All systems not noted in ROS Statement are negative. Past Medical History Past Medical History: Atrial Fibrillation, Coronary Artery Disease (CAD), Cancer, CVA/TIA, Diabetes Mellitus, Hyperlipidemia, Hypertension, Myocardial Infarction ([place]), Myocardial Infarction (non Q-wave), Pneumonia, Renal Disease Additional Past Medical History / Comment(s): TIA 1 yr ago, no residual effects. kidney disease stage iV, stroke behind rt eye.gout, basal cell skin ca (removed), poor circulation Last Myocardial Infarction Date:: 6 weeks ago History of Any Multi-Drug Resistant Organisms: None Reported Past Surgical History: Heart Catheterization With Stent Past Anesthesia/Blood Transfusion Reactions: No Reported Reaction Date of Last Stent Placement:: 06-07-18 Past Psychological History: No Psychological Hx Reported Smoking Status: Never smoker Past Alcohol Use History: None Reported Past Drug Use History: None Reported - Past Family History Father Family Medical History: Coronary Artery Disease (CAD), Hypertension Additional Family Medical History / Comment(s): , hx of 2 cabg sx Mother Family Medical History: Osteoarthritis (OA), Thyroid Disorder Additional Family Medical History / Comment(s): mom is alive -age 90 General Exam - General Exam Comments Initial Comments: GENERAL: Patient is well-developed and well-nourished. Patient is nontoxic and well- hydrated and is in mild distress. ENT: Neck is soft and supple. No significant lymphadenopathy is noted. Oropharynx is clear. Moist mucous membranes. Neck has full range of motion without eliciting any pain. EYES: The sclera were anicteric and conjunctiva were pink and moist. Extraocular movements were intact and pupils were equal round and reactive to light. Eyelids were unremarkable. PULMONARY: Patient has crackles in the bases. CARDIOVASCULAR: There is a regular rate and rhythm without any murmurs gallops or rubs. ABDOMEN: Soft and nontender with normal bowel sounds. No palpable organomegaly was note d. There is no palpable pulsatile mass. SKIN: Skin is clear with no lesions or rashes and otherwise unremarkable. NEUROLOGIC: Patient is alert and oriented x3. Cranial nerves II through XII are grossly intact. Motor and sensory are also intact. Normal speech, volume and content. Symmetrical smile. MUSCULOSKELETAL: Normal extremities with adequate strength and full range of motion. 2+ edema bilaterally LYMPHATICS: No significant lymphadenopathy is noted PSYCHIATRIC: Normal psychiatric evaluation. Limitations: no limitations Course Vital Signs 10/26/18 10/26/18 10/26/18 17:22 17:58 18:00 Temperature 98.1 F Pulse Rate 79 70 70 Respiratory 18 40 H 19 Rate Blood Pressure 126/74 O2 Sat by Pulse 94 L Oximetry 10/26/18 10/26/18 10/26/18 18:10 18:20 18:30 Temperature Pulse Rate 67 64 Respiratory 17 15 Rate Blood Pressure 126/76 139/76 139/76 O2 Sat by Pulse 94 L 93 L Oximetry 10/26/18 10/26/18 18:40 18:50 Temperature Pulse Rate 67 62 Respiratory 21 12 Rate Blood Pressure 130/68 140/76 O2 Sat by Pulse 97 96 Oximetry Medical Decision Making - Medical Decision Making EKG shows atrial fibrillation at a rate of 65 bpm QRS is 70 QT interval is 416 QTC is 432. Patient's EKG shows no ST segment elevation or depression. Chest x-ray shows pleural effusions and venous congestion. Patient received Lasix in the emergency department. I spoke with some physicians admitted the patient wrote admitting her to consult cardiology. I continued Lasix and Nitropaste on the floor. - Lab Data Result diagrams: 10/26/18 18:12 10/26/18 18:12 Lab Results 05/16/19 05/16/19 05/16/19 Range/Units 18:12 18:12 18:12 WBC 5.1 (3.8-10.6) k/uL RBC 3.73 L (4.30-5.90) m/uL Hgb 10.3 L (13.0-17.5) gm/dL Hct 32.2 L (39.0-53.0) % MCV 86.4 (80.0-100.0) fL MCH 27.5 (25.0-35.0) pg MCHC 31.8 (31.0-37.0) g/dL RDW 17.7 H (11.5-15.5) % Plt Count 158 (150-450) k/uL Neutrophils % 74 % Lymphocytes % 9 % Monocytes % 6 % Eosinophils % 7 % Basophils % 1 % Neutrophils # 3.7 (1.3-7.7) k/uL Lymphocytes # 0.5 L (1.0-4.8) k/uL Monocytes # 0.3 (0-1.0) k/uL Eosinophils # 0.4 (0-0.7) k/uL Basophils # 0.1 (0-0.2) k/uL Anisocytosis Slight PT (9.0-12.0) sec INR (<1.2) APTT (22.0-30.0) sec Sodium 141 (137-145) mmol/L Potassium 4.7 (3.5-5.1) mmol/L Chloride 104 (98-107) mmol/L Carbon Dioxide 26 (22-30) mmol/L Anion Gap 11 mmol/L BUN 31 H (9-20) mg/dL Creatinine 2.09 H (0.66-1.25) mg/dL Est GFR (CKD-EPI)AfAm 36 (>60 ml/min/1.73 sqM) Est GFR (CKD-EPI)NonAf 31 (>60 ml/min/1.73 sqM) Glucose 127 H (74-99) mg/dL Calcium 9.9 (8.4-10.2) mg/dL Magnesium 1.9 (1.6-2.3) mg/dL Total Bilirubin 0.9 (0.2-1.3) mg/dL AST 16 L (17-59) U/L ALT 7 L (21-72) U/L Alkaline Phosphatase 118 (38-126) U/L Troponin I (0.000-0.034) ng/mL NT-Pro-B Natriuret Pep 6540 pg/mL Total Protein 6.6 (6.3-8.2) g/dL Albumin 4.4 (3.5-5.0) g/dL 10/26/18 10/26/18 Range/Units 18:12 18:12 WBC (3.8-10.6) k/uL RBC (4.30-5.90) m/uL Hgb (13.0-17.5) gm/dL Hct (39.0-53.0) % MCV (80.0-100.0) fL MCH (25.0-35.0) pg MCHC (31.0-37.0) g/dL RDW (11.5-15.5) % Plt Count (150-450) k/uL Neutrophils % % Lymphocytes % % Monocytes % % Eosinophils % % Basophils % % Neutrophils # (1.3-7.7) k/uL Lymphocytes # (1.0-4.8) k/uL Monocytes # (0-1.0) k/uL Eosinophils # (0-0.7) k/uL Basophils # (0-0.2) k/uL Anisocytosis PT 11.9 (9.0-12.0) sec INR 1.1 (<1.2) APTT 25.7 (22.0-30.0) sec Sodium (137-145) mmol/L Potassium (3.5-5.1) mmol/L Chloride (98-107) mmol/L Carbon Dioxide (22-30) mmol/L Anion Gap mmol/L BUN (9-20) mg/dL Creatinine (0.66-1.25) mg/dL Est GFR (CKD-EPI)AfAm (>60 ml/min/1.73 sqM) Est GFR (CKD-EPI)NonAf (>60 ml/min/1.73 sqM) Glucose (74-99) mg/dL Calcium (8.4-10.2) mg/dL Magnesium (1.6-2.3) mg/dL Total Bilirubin (0.2-1.3) mg/dL AST (17-59) U/L ALT (21-72) U/L Alkaline Phosphatase (38-126) U/L Troponin I 0.015 (0.000-0.034) ng/mL NT-Pro-B Natriuret Pep pg/mL Total Protein (6.3-8.2) g/dL Albumin (3.5-5.0) g/dL Disposition Clinical Impression: Pulmonary edema, Bilateral leg edema Disposition: ADMITTED IP TO THIS HOSP Referrals: Yin Person DO [Primary Care Provider] - 1-2 days Time of Disposition: 19:39
[2018-10-26 18:30] LABS: Anisocytosis Slight; Basophils # (A) 0.1 k/uL (0-0.2); Basophils % (A) 1 %; Eosinophils # (A) 0.4 k/uL (0-0.7); Eosinophils % (A) 7 %; HCT 32.2 % (39.0-53.0); HGB 10.3 gm/dL (13.0-17.5); Lymphocytes # (A) 0.5 k/uL (1.0-4.8); Lymphocytes % (A) 9 %; MCH 27.5 pg (25.0-35.0); MCHC 31.8 g/dL (31.0-37.0); MCV 86.4 fL (80.0-100.0); Mean Platelet Volume 7.4; Monocytes # (A) 0.3 k/uL (0-1.0); Monocytes % (A) 6 %; Neutrophils # (A) 3.7 k/uL (1.3-7.7); Neutrophils % (A) 74 %; Platelet Count 158 k/uL (150-450); RBC 3.73 m/uL (4.30-5.90); RDW 17.7 % (11.5-15.5); WBC 5.1 k/uL (3.8-10.6)
[2018-10-26 18:41] LABS: INR 1.1 (<1.2); Partial Thromboplastin Time 25.7 sec (22.0-30.0); Prothrombin Time 11.9 sec (9.0-12.0)
[2018-10-26 18:42] LABS: Albumin 4.4 g/dL (3.5-5.0); Calcium 9.9 mg/dL (8.4-10.2); Magnesium 1.9 mg/dL (1.6-2.3); Potassium 4.7 mmol/L (3.5-5.1); Total Bilirubin 0.9 mg/dL (0.2-1.3); Total Protein 6.6 g/dL (6.3-8.2)
--- NOTE | 2018-10-26 19:05 | XR ---
EXAMINATION TYPE: XR chest 2V DATE OF EXAM: 10/26/2018 COMPARISON: 10/02/2018 HISTORY: Short of breath TECHNIQUE: Frontal and lateral views of the chest are obtained. FINDINGS: Heart is enlarged. There is blunting of the costophrenic angles. There is no gross heart f ailure. There are chest leads. Bony thorax is intact. There is some mild infiltrate in the left lower lobe. IMPRESSION: Pleural effusions with left lower lobe pneumonia that is slightly worse than last exam. No gross heart failure.
[2018-10-26] MEDS ORDERED: FUROSEMIDE 10 MG/ML 4 ML VIAL IV SCH (19:45)
[2018-10-26 20:44] LABS: Glucose,Whole Blood 118 mg/dL (75-99)
[2018-10-26] MEDS ORDERED: NITROGLYCERIN OINT 1 INCH/GM PACKET TOPICAL SCH (22:00)
--- NOTE | 2018-10-26 22:22 | P.HPIM ---
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 The patient reports that since his previous hospitalization in July, following discharge, he has had gradually worsening shortness of breath and persistent lower extremity edema which has also worsened recently. He also endorsed orthopnea though denied PND, chest pain, nausea, vomiting, or diaphoresis. He further denied cough, fever, chills, abdominal pain, or diarrhea. The patient underwent an extensive evaluation in the ED with proBNP 6540, troponins 0.015, B UN 31, creatinine 2.09, EKG showing atrial fibrillation and 65 bpm, with T-wave inversions in V1 and V2 and biphasic T-wave in V3. Chest x-ray revealed bilateral pleural effusions. The patient was noted to be in fluid overload on examination and was given 80 mg IV push of Lasix and was subsequently admitted to the medicine service for further management. Review of Systems Pertinent positives and negatives as discussed in HPI, a complete review of systems was performed and all other systems are negative. Past Medical History Past Medical History: Atrial Fibrillation, Coronary Artery Disease (CAD), Cancer, CVA/TIA, Diabetes Mellitus, Hyperlipidemia, Hypertension, Myocardial Infarction ([place]), Myocardial Infarction (non Q-wave), Pneumonia, Renal Disease Additional Past Medical History / Comment(s): TIA 1 yr ago, no residual effects. kidney disease stage 3B, stroke behind rt eye.gout, basal cell skin ca (removed), poor circulation Last Myocardial Infarction Date:: 06/07/18 History of Any Multi-Drug Resistant Organisms: None Reported Past Surgical History: Heart Catheterization With Stent Past Anesthesia/Blood Transfusion Reactions: No Reported Reaction Date of Last Stent Placement:: 06-07-18 Past Psychological History: Anxiety Additional Psychological History / Comment(s): pt lives with , has formerly [facility] care since dc'd from hospital may 2018 after stent placed Smoking Status: Never smoker Past Alcohol Use History: None Reported Past Drug Use History: None Reported - Past Family History Father Family Medical History: Coronary Artery Disease (CAD), Hypertension Additional Family Medical History / Comment(s): , hx of 2 cabg sx Mother Family Medical History: Osteoarthritis (OA), Thyroid Disorder Additional Family Medical History / Comment(s): mom is alive -age 90 Medications and Allergies Home Medications Medication Instructions Recorded Confirmed Type Atorvastatin [Lipitor] 80 mg PO HS #30 tab 01/27/18 10/26/18 Rx Nitroglycerin Sl Tabs [Nitrostat] 0.4 mg SUBLINGUAL Q5M PRN #30 tab 01/27/18 10/26/18 Rx Acetaminophen Tab [Tylenol] 650 mg PO Q6HR PRN tab 07/21/18 10/26/18 Rx Clopidogrel Bisulfate [Plavix] 75 mg PO DAILY #30 tab 07/22/18 10/26/18 Rx ALPRAZolam [Xanax] 0.25 mg PO HS 10/11/18 10/26/18 History Aspirin EC [Ecotrin Low Dose] 81 mg PO DAILY 10/11/18 10/26/18 History Insulin Glargine [Lantus] 35 unit SQ HS 10/11/18 10/26/18 History Insuln Asp Prt/Insulin Aspart 6 unit SQ DAILY 10/11/18 10/26/18 History [NovoLOG MIX 70-30 VIAL] Ipratropium-Albuterol Nebulize 3 ml INHALATION RT-Q4H PRN 10/11/18 10/26/18 History [Duoneb 0.5 mg-3 mg/3 ml Soln] Latanoprost Ophth [Xalatan 0.005%] 1 drops BOTH EYES HS 10/11/18 10/26/18 History Magnesium Oxide [Magox 400] 400 mg PO DAILY 10/11/18 10/26/18 History Melatonin 6 mg PO HS 10/11/18 10/26/18 History Metoprolol Tartrate [Lopressor] 50 mg PO BID 10/11/18 10/26/18 History Pantoprazole [Protonix] 40 mg PO DAILY 10/11/18 10/26/18 History Sodium Bicarbonate 650 mg PO BID 10/11/18 10/26/18 History Torsemide [Demadex] 20 mg PO DAILY 10/11/18 10/26/18 History amLODIPine [Norvasc] 10 mg PO DAILY 10/11/18 10/26/18 History hydrALAZINE HCL [Apresoline] 25 mg PO BID 10/11/18 10/26/18 History Gabapentin [Neurontin] 300 mg PO TID 10/26/18 10/26/18 History Allergies Allergy/AdvReac Type Severity Reaction Status Date / Time No Known Allergies Allergy Verified 10/26/18 18:26 Physical Exam Vitals: Vital Signs Temp Pulse Pulse Resp BP BP Pulse Ox 10/26/18 21:10 70 19 137/98 96 10/26/18 20:10 98.0 F 63 16 130/71 95 10/26/18 20:00 62 15 140/68 95 10/26/18 19:50 58 L 14 140/68 96 10/26/18 19:40 57 L 14 138/79 97 10/26/18 19:30 64 23 129/70 97 10/26/18 19:20 66 12 129/70 97 10/26/18 19:10 67 21 131/69 97 10/26/18 19:00 72 16 140/76 96 10/26/18 18:50 62 12 140/76 96 10/26/18 18:40 67 21 130/68 97 10/26/18 18:30 139/76 10/26/18 18:20 64 15 139/76 93 L 10/26/18 18:10 67 17 126/76 94 L 10/26/18 18:00 70 19 10/26/18 17:58 70 40 H 10/26/18 17:22 98.1 F 79 18 126/74 94 L Intake and Output 10/26/18 10/26/18 10/26/18 06:59 14:59 22:59 Output Total 250 Balance -250 Output: Urine 250 Other: Weight 93.894 kg General: non toxic, no distress, appears at stated age, obese Derm: no unusual rashes/lesions no unusual ecchymoses, warm, dry Head: atraumatic, normocephalic, symmetric Eyes: EOMI, no lid lag, anicteric sclera, pupils equal round reactive to light ENT: Nose and ears atraumatic, no thrush, no pharyngeal erythema Neck: No thyromegaly, no cervical lymphadenopathy, trachea midline, supple Mouth: no lip lesion, mucus membranes moist Cardiovascular: Irregularly irregular, no murmur, positive posterior tibial pulse bilateral, no edema, capillary refill less than 2 seconds Lungs: CTA bilateral, no rhonchi, no rales , no accessory muscle use Abdominal: Distended, nontender to palpation, no guarding, no appreciable organomegaly, normal bowel sounds Ext: 3+ bilateral lower extremity pitting edema, muscle strength 5 out of 5 in all 4 extremities grossly, no contractures, Neuro: CN II-XI grossly intact, light touch intact all 4 extremities, finger to nose within normal limits, Psych: Alert, oriented, appropriate affect Results CBC & Chem 7: 10/26/18 18:12 10/26/18 18:12 Labs: Abnormal Lab Results - Last 24 Hours (Table) 10/26/18 10/26/18 10/26/18 Range/Units 18:12 18:12 20:42 RBC 3.73 L (4.30-5.90) m/uL Hgb 10.3 L (13.0-17.5) gm/dL Hct 32.2 L (39.0-53.0) % RDW 17.7 H (11.5-15.5) % Lymphocytes # 0.5 L (1.0-4.8) k/uL BUN 31 H (9-20) mg/dL Creatinine 2.09 H (0.66-1.25) mg/dL Glucose 127 H (74-99) mg/dL POC Glucose (mg/dL) 118 H (75-99) mg/dL AST 16 L (17-59) U/L ALT 7 L (21-72) U/L Thrombosis Risk Factor Assmnt - Choose All That Apply Any of the Below Risk Factors Present?: Yes Each Factor Represents 1 point: Obesity (BMI >25), Swollen legs (current) Other Risk Factors: Yes Each Risk Factor Represents 2 Points: Age 61-74 years Other congenital or acquired thrombophilia - If yes, enter type in comment: No Thrombosis Risk Factor Assessment Total Risk Factor Score: 4 Thrombosis Risk Factor Assessment Level: Moderate Risk Assessment and Plan Plan: Acute diastolic CHF exacerbation -Patient started on Lasix infusion by Cardiology -Cardiology consult -Cardiac monitoring -Daily weights, monitor intake and output, fluid restriction -Monitor BMP and replace electrolytes as needed -Supplemental oxygen -Elevated troponin likely secondary to acute exacerbation, we'll trend -Echocardiogram Atrial fibrillation, previously on Eliquis -Resume Eliquis -Cardiac monitoring CKD stage 3 -Monitor for now Diabetes mellitus -Lispro insulin sliding scale and blood glucose monitoring -Resume Home levemir at 28 U (takes 35 U qhs) Hypertension -Resume home medications DVT prophylaxis -Eliquis The patient is admitted with an anticipated greater than 2 midnight stay for evaluation of acute CHF exacerbation. CODE STATUS:Full Code Discussed with: Patient Anticipated discharge date: 10/29/[address]: Home A total of 40 minutes was spent on the care of this complex patient more than 50% of the time was spent in counseling and care coordination.
[2018-10-26] MEDS: hydrALAZINE HCL 25 MG TAB PO SCH (22:27)
[2018-10-26] MEDS: FUROSEMIDE 100 MG in SODIUM CHLORIDE 0.9% 90 ML IV SCH (22:27)
[2018-10-26] MEDS: ATORVASTATIN 80 MG TAB PO SCH (22:27)
[2018-10-26] MEDS: APIXABAN 5 MG TAB PO SCH (22:27)
[2018-10-26] MEDS: SODIUM BICARBONATE TAB 650 MG TAB PO SCH (22:58)
[2018-10-26] MEDS: GABAPENTIN 300 MG CAP PO SCH (22:58)
[2018-10-26] MEDS: ALPRAZolam 0.25 MG TAB PO SCH (22:58)
[2018-10-26] MEDS: MELATONIN 3 MG TABLET PO SCH (22:58)
[2018-10-26] MEDS: METOPROLOL TARTRATE 50 MG TAB PO SCH (22:58)
[2018-10-26] MEDS ORDERED: INSULIN DETEMIR (LEVEMIR) 100 UNIT/ML SYR SQ SCH (23:00)
[2018-10-26] MEDS: LATANOPROST 0.005% OPHTH DROPS 2.5 ML BTL BOTH EYES SCH (23:17)
[2018-10-27] MEDS ORDERED: HEPARIN SODIUM,PORCINE 5,000 UNIT/ML 1 ML VIAL SQ SCH
[2018-10-27] MEDS: INSULIN ASPART (NovoLOG) 100 UNIT/ML VIAL SQ SCH ×4 (06:09→21:01)
[2018-10-27 06:10] LABS: Glucose,Whole Blood 114 mg/dL (75-99)
[2018-10-27] MEDS ORDERED: INSULIN DETEMIR (LEVEMIR) 100 UNIT/ML SYR SQ SCH (06:15)
[2018-10-27] MEDS: IPRATROPIUM-ALBUTEROL 3 ML NEB INHALATION PRN ×2 (07:45→19:45)
[2018-10-27] MEDS: BUDESONIDE 1 MG/2 ML NEBU INHALATION SCH ×2 (07:45→19:45)
[2018-10-27 08:29] LABS: Anisocytosis Slight; HCT 30.4 % (39.0-53.0); HGB 9.7 gm/dL (13.0-17.5); Hypochromasia Slight; MCH 27.5 pg (25.0-35.0); MCHC 31.9 g/dL (31.0-37.0); MCV 86.2 fL (80.0-100.0); Mean Platelet Volume 7.2; Platelet Count 139 k/uL (150-450); RBC 3.53 m/uL (4.30-5.90); RDW 16.9 % (11.5-15.5); WBC 5.1 k/uL (3.8-10.6)
[2018-10-27 08:38] LABS: Calcium 9.5 mg/dL (8.4-10.2); Magnesium 1.8 mg/dL (1.6-2.3); Potassium 4.3 mmol/L (3.5-5.1)
[2018-10-27] MEDS: ISOSORBIDE MONONITRATE ER 60 MG TAB.ER.24H PO SCH (08:48)
[2018-10-27] MEDS: MAGNESIUM OXIDE 400 MG TAB PO SCH (08:48)
[2018-10-27] MEDS: CLOPIDOGREL 75 MG TAB PO SCH (08:48)
[2018-10-27] MEDS: APIXABAN 5 MG TAB PO SCH ×2 (08:48→20:20)
[2018-10-27] MEDS: METOPROLOL TARTRATE 50 MG TAB PO SCH ×2 (08:48→20:20)
[2018-10-27] MEDS: SODIUM BICARBONATE TAB 650 MG TAB PO SCH ×2 (08:48→20:15)
[2018-10-27] MEDS: GABAPENTIN 300 MG CAP PO SCH ×3 (08:48→21:01)
[2018-10-27] MEDS: hydrALAZINE HCL 25 MG TAB PO SCH ×3 (08:48→21:05)
--- NOTE | 2018-10-27 08:48 | US ---
EXAMINATION TYPE: US chest DATE OF EXAM: 10/27/2018 COMPARISON: Chest x-ray 10/26/2018 CLINICAL HISTORY: Pleural effusions. TECHNIQUE: Targeted ultrasound of the posterior lower bilateral hemithoraces EXAM MEASUREMENTS: Right Pleural Effusion pocket size: 8.4 cm Right skin surface to fluid distance: 2.0 cm Left Pleural Effusion pocket size: 2.1 cm Left skin surface to fluid distance: 3.2 cm Right side marked for possible thoracentesis outside the dept. Left side NOT marked for possible thoracentesis due to small fluid pocket. Pulmonologists are able to review the images in the patient?s EMR. IMPRESSIONS: Bilateral pleural effusions right greater than left.
[2018-10-27] MEDS: FUROSEMIDE 100 MG in SODIUM CHLORIDE 0.9% 90 ML IV SCH ×3 (08:51→22:19)
--- NOTE | 2018-10-27 10:34 | P.PN ---
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 The patient reports that since his previous hospitalization in [facility], following discharge, he has had gradually worsening shortness of breath and persistent lower extremity edema which has also worsened recently. He also endorsed orthopnea though denied PND, chest pain, nausea, vomiting, or diaphoresis. He further denied cough, fever, chills, abdominal pain, or diarrhea. The patient underwent an extensive evaluation in the ED with proBNP 6540, troponins 0.015, B UN 31, creatinine 2.09, EKG showing atrial fibrillation and 65 bpm, with T-wave inversions in V1 and V2 and biphasic T-wave in V3. Chest x-ray revealed bilateral pleural effusions. The patient was noted to be in fluid overload on examination and was given 80 mg IV push of Lasix and was subsequently admitted to the medicine service for further management. 10/27/2018: He feels better today, shortness of breath has improved, no chest pain no abdominal pain no palpitations no dizziness no loss of consciousness. Objective - Vital Signs Vital signs: Vital Signs Temp 98.5 F 10/27/18 08:00 Pulse 61 10/27/18 08:00 Resp 18 10/27/18 08:00 BP 144/70 10/27/18 08:00 Pulse Ox 93 L 10/27/18 08:00 Intake & Output 10/26/18 10/27/18 10/27/18 18:59 06:59 18:59 Intake Total 140 Output Total 1100 Balance -1100 140 Weight 93.894 kg 94.3 kg Intake: Intake, IV Titration 100 Amount Furosemide 100 mg In 100 Sodium Chloride 0.9% 90 ml @ 10 MG/HR 10 mls/hr IV .Q10H EVERT Rx#: [id number] Oral 40 Output: Urine 1100 - Exam General: non toxic, no distress Derm: no unusual rashes Head: atraumatic, normocephalic, symmetric Eyes: EOMI, no lid lag, anicteric sclera, pupils equal round reactive to light ENT: Nose and ears atraumatic Neck: No thyromegaly Mouth: no lip lesion Cardiovascular: Irregularly irregular, no murmur Lungs: CTA bilateral, no rhonchi, no rales Abdominal: slightly Distended, nontender to palpation, normal bowel sounds Ext: 2+ bilateral lower extremity edema, muscle strength 5 out of 5 in all 4 extremities grossly Neuro: CN II-XI grossly intact Psych: Alert, oriented, appropriate affect - Labs CBC & Chem 7: 10/27/18 07:29 10/27/18 07:29 Labs: Abnormal Lab Results - Last 24 Hours (Table) 10/26/18 10/26/18 10/26/18 Range/Units 18:12 18:12 20:42 RBC 3.73 L (4.30-5.90) m/uL Hgb 10.3 L (13.0-17.5) gm/dL Hct 32.2 L (39.0-53.0) % RDW 17.7 H (11.5-15.5) % Plt Count (150-450) k/uL Lymphocytes # 0.5 L (1.0-4.8) k/uL BUN 31 H (9-20) mg/dL Creatinine 2.09 H (0.66-1.25) mg/dL Glucose 127 H (74-99) mg/dL POC Glucose (mg/dL) 118 H (75-99) mg/dL AST 16 L (17-59) U/L ALT 7 L (21-72) U/L 10/27/18 10/27/18 10/27/18 Range/Units 06:09 07:29 07:29 RBC 3.53 L (4.30-5.90) m/uL Hgb 9.7 L (13.0-17.5) gm/dL Hct 30.4 L (39.0-53.0) % RDW 16.9 H (11.5-15.5) % Plt Count 139 L (150-450) k/uL Lymphocytes # (1.0-4.8) k/uL BUN 31 H (9-20) mg/dL Creatinine 2.07 H (0.66-1.25) mg/dL Glucose (74-99) mg/dL POC Glucose (mg/dL) 114 H (75-99) mg/dL AST (17-59) U/L ALT (21-72) U/L Assessment and Plan Plan: Acute on chronic diastolic CHF exacerbation -on Lasix drip by Cardiology, continue to follow -Cardiology consult appreciated -Cardiac monitoring -Daily weights, monitor intake and output, fluid restriction -Elevated troponin likely secondary to acute exacerbation, recheck troponin -Echocardiogram Chronic Atrial fibrillation -Resumed Eliquis, continue metoprolol -Cardiac monitoring CKD stage 3 Stable serum creatinine at 2, avoid nephrotoxins , continue sodium bicarbonate 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
[2018-10-27 11:16] LABS: Glucose,Whole Blood 94 mg/dL (75-99)
--- NOTE | 2018-10-27 11:27 | CONS ---
CONSULTATION PULMONARY/CRITICAL CARE CONSULTATION: This is a patient who is 68 years of age. He presents to the emergency room and sees Dr. Nunez for complaints of shortness of breath. He apparently was sent from Dr. Rodriguez's office. He had been complaining of swelling of the lower extremities, weight gain and shortness of breath. He did see his imaging tech today. Line Installation Supervisor sent him to the emergency room to be evaluated for fluid retention. He was not having any chest pain or palpitations. No fever or chills. Not coughing or producing any phlegm. He denies any lightheadedness, dizziness, or syncopal episodes. He denied any abdominal discomfort. His shortness of breath was primarily with exertion, not so much at rest. The patient also describes some orthopnea. The patient denies any genitourinary or GI complaints. He is currently resting relatively comfortably. He is currently on a Lasix drip a 10 mg an hour. He is receiving some nasal O2. He is almost lying flat in bed without any distress. I do not notice any conversational dyspnea, use of accessory muscles or audible wheezing. MEDICATIONS: Current home medications include Xanax, aspirin, insulin, DuoNeb, Xalatan, magnesium oxide, melatonin, metoprolol, Protonix, sodium bicarbonate, Demadex, Norvasc, hydralazine, and gabapentin. Previous medications include Lipitor, nitroglycerin, Tylenol, and Plavix. ALLERGIES: Allergies are denied. MEDICAL HISTORY: Medical history includes atrial fibrillation, CAD, CVA, diabetes, hyperlipidemia, hypertension, myocardial infarction, pneumonia, stage 4 chronic kidney disease, gout, basal cell skin cancer, peripheral arterial disease. SURGICAL HISTORY: Surgical history includes heart catheterization with stent. SOCIAL HISTORY: Social history is significant and he is a lifelong nonsmoker. Denies any alcohol or illicit drug use. FAMILY HISTORY: Family history is positive for CAD, hypertension, bypass grafting, DJD, and thyroid disease. REVIEW OF SYSTEMS: CONSTITUTIONAL: Negative. NEUROLOGIC: Negative. HEENT: Negative. CARDIOVASCULAR: Negative. PULMONARY: Shortness of breath. GI: Increasing abdominal girth. : Negative. RHEUMATOLOGIC: Negative. IMMUNOLOGIC: Negative. ENDOCRINOLOGIC: Negative. DERMATOLOGIC: Negative. PHYSICAL EXAMINATION: Current vital signs are reviewed. Currently, his temperature is 98.5, heart rate 61, respiratory rate 18, blood pressure 144/70, mean 94 and 3 L saturation 93% to 95%. He appears in no acute distress. HEENT: Examination is grossly unremarkable. Mucous membranes are moist. No oral lesions. Nasal O2 noted. NECK: Supple. Full range of motion. No adenopathy, thyromegaly or neck vein distention. CARDIOVASCULAR: Examination reveals regular rhythm and rate. Heart sounds are distant. Heart rate 61. S1, S2 normal. No distinct murmur noted. LUNGS: Reveal bibasilar crackles. There is dullness at both bases. Air exchange is reasonable. No wheezes. ABDOMEN: Obese. There may be a fluid wave. No tenderness. Bowel sounds are heard. EXTREMITIES: Are intact. There is pitting edema. It is 1+ to 2+. No cyanosis or clubbing. SKIN: Without rash. NEUROLOGIC: Examination is brief but nonfocal. LABORATORY DATA: Laboratory data includes a white count 5.1, hemoglobin 9.7, hematocrit 30.4, platelet count 139,000. Sodium 142, potassium 4.3, chloride 105, CO2 of 27, anion gap is 10. BUN and creatinine were 31 and 2.07. N terminal proBNP is 6540. Troponin was 0.015. Rest of the labs look okay. X-ray shows evidence of fluid overload and bilateral pleural effusions. Ultrasound is reviewed. Medications are reviewed. The patient currently is on a Lasix drip. The rest of medications will be reviewed. ASSESSMENT: 1. Fluid overload/congestive heart failure with bilateral pleural effusions, right greater than left, as well as ascites and lower extremity edema. 2. History of atrial fibrillation. 3. Coronary artery disease. 4. Skin cancer. 5. History of cerebrovascular accident. 6. Diabetes mellitus. 7. Hyperlipidemia. 8. Hypertension. 9. History of non-Q-wave myocardial infarction. 10.Stage 4 chronic kidney disease. 11.History of pneumonia. 12.Peripheral artery disease. PLAN: The patient's medications are reviewed. Current therapy includes Lasix drip. That is appropriate. The effusions in my opinion look relatively small. I will wait before I do any thoracentesis on this patient. The left side was not marked. The right side has a moderate effusion. Hopefully we can get this taken care just with the Lasix. He may need a thoracentesis in the future. He is clinically stable. We will continue to follow. No additional recommendations are made. MMODL / IJN: [id number] /
--- NOTE | 2018-10-27 11:30 | ECHOF ---
Referral Reason:CHF exacerbation MEASUREMENTS -------- HEIGHT: 175.3 cm WEIGHT: 93.9 kg BP: 132/71 RVIDd: 3.8 cm (< 3.3) IVSd: 1.7 cm (0.6 - 1.1) LVIDd: 5.0 cm (3.9 - 5.3) LVPWd: 1.8 cm (0.6 - 1.1) IVSs: 1.8 cm LVIDs: 3.2 cm LVPWs: 1.7 cm LAESV Index (A-L): 38.39 ml/m Ao Diam: 2.8 cm (2.0 - 3.7) AV Cusp: 2.2 cm (1.5 - 2.6) LA Diam: 5.4 cm (2.7 - 3.8) MV EXCURSION: 19.132 mm (> 18.000) MV EF SLOPE: 125 mm/s (70 - 150) EPSS: 0.5 cm RAP: 15.00 mmHg RVSP: 73.74 mmHg FINDINGS -------- Atrial fibrillation. This was a technically adequate study. The left ventricular size is normal. There is severe concentric left ventricular hypertrophy. Ove rall left ventricular systolic function is normal with, an EF between 60 - 65 %. The right ventricle is mild to moderately enlarged. The right ventricular systolic function is mode rately impaired. The left atrium is moderately dilated. LA is moderately dilated 34-39 ml/m2 The right atrium is mildly enlarged. Interatrial and interventricular septum intact. Aortic valve is trileaflet and is mildly thickened. The mitral valve is normal. Moderate mitral regurgitation is present. Moderate tricuspid regurgitation present. There is severe pulmonary hypertension. The right ventr icular systolic pressure, as measured by Doppler, is 73.74mmHg. Trace/mild (physiologic) pulmonic regurgitation. The aortic root size is normal. The inferior vena cava is mildly dilated. The inferior vena cava is dilated with poor inspiratory c ollapse which is consistent with estimated right atrial pressure of 20 mmHg. There is a trivial pericardial effusion present. CONCLUSIONS -------- 1. Atrial fibrillation. 2. This was a technically adequate study. 3. The left ventricular size is normal. 4. There is severe concentric left ventricular hypertrophy. 5. Overall left ventricular systolic function is normal with, an EF between 60 - 65 %. 6. The right ventricle is mild to moderately enlarged. 7. The right ventricular systolic function is moderately impaired. 8. The left atrium is moderately dilated. 9. LA is moderately dilated 34-39 ml/m2 10. The right atrium is mildly enlarged. 11. Interatrial and interventricular septum intact. 12. The mitral valve is normal. 13. Moderate mitral regurgitation is present. 14. Moderate tricuspid regurgitation present. 15. There is severe pulmonary hypertension. 16. The right ventricular systolic pressure, as measured by Doppler, is 73.74mmHg. 17. Trace/mild (physiologic) pulmonic regurgitation. 18. The aortic root size is normal. 19. The inferior vena cava is mildly dilated. 20. The inferior vena cava is dilated with poor inspiratory collapse which is consistent with estimat ed right atrial pressure of 20 mmHg. 21. There is a trivial pericardial effusion present. BEADING MACHINE OPERATOR: Mily Hardin RDCS
--- NOTE | 2018-10-27 11:56 | P.PN ---
Subjective Progress Note Date: 10/27/18 This is a pleasant 68-year-old gentleman with a history of atrial fibrillation, diastolic congestive heart failure, hypoxic respiratory failure requiring mechanical ventilation, laryngeal and vocal cord edema requiring tracheostomy with subsequent reversal, moderate to severe pulmonary hypertension, hypert ension, hyperlipidemia and diabetes mellitus. Patient has had recurrent lengthy hospitalizations recently. He was seen in the office yesterday by Dr. VC Rodriguez will send him to the emergency department for further evaluation and treatment for acute CHF exacerbation. He has been complaining of worsening shortness of breath, lower extremity edema and weight gain over the last one to 2 weeks. He is on placed on IV Lasix drip at 10 mg an hour. He feels his breathing and edema have improved. Objective - Vital Signs Vital signs: Vital Signs Temp 98.5 F 10/27/18 08:00 Pulse 59 L 10/27/18 11:16 Resp 16 10/27/18 11:16 BP 129/61 10/27/18 11:02 Pulse Ox 96 10/27/18 11:02 Intake & Output 10/26/18 10/27/18 10/27/18 18:59 06:59 18:59 Intake Total 140 Output Total 1100 Balance -1100 140 Weight 93.894 kg 94.3 kg Intake: Intake, IV Titration 100 Amount Furosemide 100 mg In 100 Sodium Chloride 0.9% 90 ml @ 10 MG/HR 10 mls/hr IV .Q10H [facility] Rx#: [id number] Oral 40 Output: Urine 1100 - Exam PHYSICAL EXAMINATION: HEENT: Head is atraumatic, normocephalic. Pupils equal, round. Neck is supple. There is no elevated jugular venous pressure. HEART EXAMINATION: Heart sounds regular, S1 and S2 normal. No murmur or gallop heard. CHEST EXAMINATION: Lungs reveal bibasilar crackles. No chest wall tenderness is noted on palpation or with deep breathing. ABDOMEN: Soft, nontender. Bowel sounds are heard. No organomegaly noted. EXTREMITIES: 2+ peripheral pulses with evidence of moderate pitting peripheral edema and no calf tenderness noted. NEUROLOGIC patient is awake, alert and oriented x3. . - Labs CBC & Chem 7: 10/27/18 07:29 10/27/18 07:29 Labs: Abnormal Lab Results - Last 24 Hours (Table) 10/26/18 10/26/18 10/26/18 Range/Units 18:12 18:12 20:42 RBC 3.73 L (4.30-5.90) m/uL Hgb 10.3 L (13.0-17.5) gm/dL Hct 32.2 L (39.0-53.0) % RDW 17.7 H (11.5-15.5) % Plt Count (150-450) k/uL Lymphocytes # 0.5 L (1.0-4.8) k/uL BUN 31 H (9-20) mg/dL Creatinine 2.09 H (0.66-1.25) mg/dL Glucose 127 H (74-99) mg/dL POC Glucose (mg/dL) 118 H (75-99) mg/dL AST 16 L (17-59) U/L ALT 7 L (21-72) U/L 10/27/18 10/27/18 10/27/18 Range/Units 06:09 07:29 07:29 RBC 3.53 L (4.30-5.90) m/uL Hgb 9.7 L (13.0-17.5) gm/dL Hct 30.4 L (39.0-53.0) % RDW 16.9 H (11.5-15.5) % Plt Count 139 L (150-450) k/uL Lymphocytes # (1.0-4.8) k/uL BUN 31 H (9-20) mg/dL Creatinine 2.07 H (0.66-1.25) mg/dL Glucose (74-99) mg/dL POC Glucose (mg/dL) 114 H (75-99) mg/dL AST (17-59) U/L ALT (21-72) U/L Assessment and Plan Assessment: #1 diastolic congestive heart failure, acute on chronic #2 persistent atrial fibrillation, currently on Eliquis #3 coronary Artery disease, status post stenting #4 renal failure, previously on temporary dialysis #5 hypertension #6 hyperlipidemia Plan: From cardiology's perspective, medications were reviewed and we will continue the same. Continue IV Lasix drip. We will monitor the patient's renal function, electrolytes, intake and output as well as daily weights. We'll continue to follow patient for a further recommendations accordingly. CAMP PROGRAM DIRECTOR note has been reviewed, I agree with a documented findings and plan of care. Patient was seen and examined.
--- NOTE | 2018-10-27 13:52 | P.NPCON ---
History of Present Illness - Reason for Consult acute renal failure, chronic renal failure - History of Present Illness Reason for consultation: Acute kidney injury on chronic kidney disease History of present illness: Patient is a 68-year-old male seen in consultation for acute kidney injury on chronic kidney disease. Patient has chronic kidney disease stage III with baseline creatinine in the range of 1.6-1.8 secondary to diabetic kidney disease and cardiorenal syndrome. Patient presented to the hospital with worsening dyspnea as well as edema. Patient states he's gained over 20 pounds in the last 1 month. Patient has diastolic CHF with moderate tricuspid and mitral regurgitation along with severe pulmonary hypertension. He has been waiting. No hematuria or dysuria. Denies regular use of nonsteroidals. He does have long-standing history of diabetes mellitus. He is currently maintained on Lasix drip. Urine output has been good. Dyspnea has improved. No vomiting or diarrhea. No abdominal pain. No fever or chills. No cough. Hemodynamically stable. No evidence of hypotension. Patient states he was taking Demadex 20 mg daily at home. Vital signs are stable. General: The patient appeared well nourished and normally developed. HEENT: Head exam is unremarkable. Neck is without jugular venous distension. LUNGS: Breath sounds decreased. HEART: Rate and Rhythm are regular. First and second heart sounds normal. No murmurs, rubs or gallops. ABDOMEN: Abdominal exam reveals normal bowel sounds. Non-tender and non- distended. No evidence of peritonitis. EXTREMITITES: 2+ edema. Past Medical History Past Medical History: Atrial Fibrillation, Coronary Artery Disease (CAD), Cancer, CVA/TIA, Diabetes Mellitus, Hyperlipidemia, Hypertension, Myocardial Infarction ([place]), Myocardial Infarction (non Q-wave), Pneumonia, Renal Disease Additional Past Medical History / Comment(s): TIA 1 yr ago, no residual effects. kidney disease stage 3B, stroke behind rt eye.gout, basal cell skin ca (removed), poor circulation Last Myocardial Infarction Date:: 06/07/18 History of Any Multi-Drug Resistant Organisms: None Reported Past Surgical History: Heart Catheterization With Stent Past Anesthesia/Blood Transfusion Reactions: No Reported Reaction Date of Last Stent Placement:: 06-07-18 Past Psychological History: Anxiety Additional Psychological History / Comment(s): pt lives with , has [facility] home care since dc'd from hospital may 2018 after stent placed Smoking Status: Never smoker Past Alcohol Use History: None Reported Past Drug Use History: None Reported - Past Family History Father Family Medical History: Coronary Artery Disease (CAD), Hypertension Additional Family Medical History / Comment(s): , hx of 2 cabg sx Mother Family Medical History: Osteoarthritis (OA), Thyroid Disorder Additional Family Medical History / Comment(s): mom is alive -age 90 Medications and Allergies Home Medications Medication Instructions Recorded Confirmed Type Atorvastatin [Lipitor] 80 mg PO HS #30 tab 01/27/18 10/26/18 Rx Nitroglycerin Sl Tabs [Nitrostat] 0.4 mg SUBLINGUAL Q5M PRN #30 tab 01/27/18 10/26/18 Rx Acetaminophen Tab [Tylenol] 650 mg PO Q6HR PRN tab 07/21/18 10/26/18 Rx Clopidogrel Bisulfate [Plavix] 75 mg PO DAILY #30 tab 07/22/18 10/26/18 Rx ALPRAZolam [Xanax] 0.25 mg PO HS 10/11/18 10/26/18 History Aspirin EC [Ecotrin Low Dose] 81 mg PO DAILY 10/11/18 10/26/18 History Insulin Glargine [Lantus] 35 unit SQ HS 10/11/18 10/26/18 History Insuln Asp Prt/Insulin Aspart 6 unit SQ DAILY 10/11/18 10/26/18 History [NovoLOG MIX 70-30 VIAL] Ipratropium-Albuterol Nebulize 3 ml INHALATION RT-Q4H PRN 10/11/18 10/26/18 History [Duoneb 0.5 mg-3 mg/3 ml Soln] Latanoprost Ophth [Xalatan 0.005%] 1 drops BOTH EYES HS 10/11/18 10/26/18 H istory Magnesium Oxide [Magox 400] 400 mg PO DAILY 10/11/18 10/26/18 History Melatonin 6 mg PO HS 10/11/18 10/26/18 History Metoprolol Tartrate [Lopressor] 50 mg PO BID 10/11/18 10/26/18 History Pantoprazole [Protonix] 40 mg PO DAILY 10/11/18 10/26/18 History Sodium Bicarbonate 650 mg PO BID 10/11/18 10/26/18 History Torsemide [Demadex] 20 mg PO DAILY 10/11/18 10/26/18 History amLODIPine [Norvasc] 10 mg PO DAILY 10/11/18 10/26/18 History hydrALAZINE HCL [Apresoline] 25 mg PO BID 10/11/18 10/26/18 History Gabapentin [Neurontin] 300 mg PO TID 10/26/18 10/26/18 History Allergies Allergy/AdvReac Type Severity Reaction Status Date / Time No Known Allergies Allergy Verified 10/26/18 18:26 Physical Exam Vitals: Vital Signs Temp Pulse Pulse Resp BP BP BP 10/27/18 11:16 59 L 16 10/27/18 11:02 59 L 16 129/61 10/27/18 08:00 98.5 F 61 18 144/70 10/27/18 07:55 69 10/27/18 07:45 68 10/27/18 04:00 62 19 132/71 10/26/18 23:40 78 19 164/74 10/26/18 21:10 70 19 137/98 10/26/18 20:10 98.0 F 63 16 130/71 10/26/18 20:00 62 15 140/68 10/26/18 19:50 58 L 14 140/68 10/26/18 19:40 57 L 14 138/79 10/26/18 19:30 64 23 129/70 10/26/18 19:20 66 12 129/70 10/26/18 19:10 67 21 131/69 10/26/18 19:00 72 16 140/76 10/26/18 18:50 62 12 140/76 10/26/18 18:40 67 21 130/68 10/26/18 18:30 139/76 10/26/18 18:20 64 15 139/76 10/26/18 18:10 67 17 126/76 10/26/18 18:00 70 19 10/26/18 17:58 70 40 H 10/26/18 17:22 98.1 F 79 18 126/74 Pulse Ox 10/27/18 11:16 10/27/18 11:02 96 10/27/18 08:00 93 L 10/27/18 07:55 10/27/18 07:45 10/27/18 04:00 95 10/26/18 23:40 95 10/26/18 21:10 96 10/26/18 20:10 95 10/26/18 20:00 95 10/26/18 19:50 96 10/26/18 19:40 97 10/26/18 19:30 97 10/26/18 19:20 97 10/26/18 19:10 97 10/26/18 19:00 96 10/26/18 18:50 96 10/26/18 18:40 97 10/26/18 18:30 10/26/18 18:20 93 L 10/26/18 18:10 94 L 10/26/18 18:00 10/26/18 17:58 10/26/18 17:22 94 L Intake and Output 10/26/18 10/27/18 10/27/18 22:59 06:59 14:59 Intake Total 140 Output Total 574 546 196 Balance -925 -036 -997 Intake: Intake, IV Titration 100 Amount Furosemide 100 mg In 100 Sodium Chloride 0.9% 90 ml @ 10 MG/HR 10 mls/hr IV .Q10H [facility] Rx#: [id number] Oral 40 Output: Urine 494 [id number] Other: Weight 93.894 kg 94.3 kg Results - Lab Results Most recent lab results Calcium 9.5 mg/dL (8.4-10.2) 10/27/18 07:29 Magnesium 1.8 mg/dL (1.6-2.3) 10/27/18 07:29 10/27/18 07:29 10/27/18 07:29 Assessment and Plan Plan: Assessment: 1. Acute kidney injury mostly prerenal secondary to cardiorenal syndrome. 2. Chronic kidney disease stage III with baseline creatinine in the range of 1.6-1.8 secondary to diabetic kidney disease and cardiorenal syndrome. 3. Diastolic CHF with moderate tricuspid and mitral regurgitation. 4. Severe pulmonary hypertension. 5. Dyspnea secondary to volume overload. 6. Insulin-dependent diabetes mellitus. 7. Anemia of chronic kidney disease. Rule out iron deficiency. Plan: Maintain Lasix drip at 10 mL an hour. Low-salt diet and oral fluid restriction. Check iron studies. Daily weights. Avoid nephrotoxins. Repeat electrolytes in the morning. Thank you for the consultation. I will continue to follow the patient with you during his hospital stay.
--- NOTE | 2018-10-27 15:03 | CONS ---
CONSULTATION DATE OF SERVICE: 10/26/2018 Mr. Ochoa is a 68-year-old gentleman who is seen for cardiac evaluation. This patient is known to us from previous admission. The patient has a known history of severe CAD, atrial fibrillation and chronic atrial fibrillation. Patient underwent left main coronary artery stenting sometime in June. Subsequently patient was admitted with congestive cardiac failure and renal failure. The patient subsequently was again admitted with stridor and laryngeal edema and was re-intubated. Subsequently patient was sent to the [facility] specialty rehab unit, where he spent almost 2 months. The patient was discharged from the rehab unit about a month ago. The patient since then has noticed increasing swelling in the legs as well as weight. According to his , he has gained about 30 pounds of weight and has been having shortness of breath with minimal activities as well as orthopnea, PND. Denies any chest pain. Patient is off the dialysis. The patient denies any chest pain. He has a history of hypertension, history of diabetes and history of chronic renal failure. HOME MEDICATIONS: Included: 1. Baby aspirin. 2. Lantus insulin. 3. DuoNeb inhaler. 4. Lopressor 50 mg b.i.d. 5. Protonix. 6. Demadex 20 mg daily. 7. Norvasc 10 mg daily. 8. Apresoline 25 mg b.i.d. 9. Neurontin 300 mg b.i.d. 10.Lipitor 80 mg daily. 11.Plavix 75 mg daily. PAST MEDICAL HISTORY: Past medical history includes: 1. History of chronic atrial fibrillation. 2. History of stent to the left main coronary artery. 3. Prior history of non-Q-wave myocardial infarction. 4. History of diabetes. 5. Hyperlipidemia. 6. Hypertension. 7. Chronic renal disease. 8. History of TIA about one year ago and he had a And stroke behind the right eye. PHYSICAL EXAMINATION: Physical examination at present reveals a 68-year-old gentleman who is resting comfortably. The patient's blood pressure is 126/74 mmHg. Heart rate is 80 per minute. Respiratory rate is 18. Head/ENT examination is negative. Neck is supple. Jugular venous pressure is elevated in sitting position. HEART: First and second heart sounds are heard. LUNGS: Bilateral diminished percussion noted, more on the right side, with bilateral diminished air entry in the lower two-thirds of the lung hyman on the right side and lower one-half of the lung hyman on the left side. Abdomen is soft. There is 3 to 4+ pedal edema. FINAL IMPRESSION: This patient has been admitted with acute on chronic diastolic heart failure with predominantly right-sided heart failure at present. Patient has gained about 30 pounds of weight in the last one month. Patient is admitted to the hospital. We will aggressively diurese the patient. He will be started on Lasix drip. We will monitor the patient's BMP. Echo Doppler study will be done to assess the left ventricular systolic function as well as pulmonary hypertension. We will discontinue the aspirin and start the patient on Eliquis and Plavix. An ultrasound of the chest will be obtained to assess the pleural effusion. If there is a large amount of pleural effusion, the patient may need to be drained therapeutically. The patient's overall long-term prognosis is guarded. We will monitor the kidney function test and echo and Doppler study will be obtained. MMMOON / SHANNANN: [id number] /
[2018-10-27 15:19] VITALS: BMI 30.7
[2018-10-27 16:45] LABS: Glucose,Whole Blood 98 mg/dL (75-99)
[2018-10-27 17:03] LABS: Hemoglobin A1C 5.9 % (4.0-6.0)
[2018-10-27 18:54] LABS: Iron Saturation 19.03 (15.00-50.00)
[2018-10-27] MEDS: ATORVASTATIN 80 MG TAB PO SCH (20:15)
[2018-10-27] MEDS: MELATONIN 3 MG TABLET PO SCH (20:20)
[2018-10-27 20:48] LABS: Glucose,Whole Blood 190 mg/dL (75-99)
[2018-10-27] MEDS: ALPRAZolam 0.25 MG TAB PO SCH (21:01)
[2018-10-27] MEDS: LATANOPROST 0.005% OPHTH DROPS 2.5 ML BTL BOTH EYES SCH (21:03)
[2018-10-28 06:08] LABS: Glucose,Whole Blood 45 mg/dL (75-99)
[2018-10-28 06:08] LABS: Glucose,Whole Blood 43 mg/dL (75-99)
[2018-10-28] MEDS: INSULIN ASPART (NovoLOG) 100 UNIT/ML VIAL SQ SCH ×4 (06:09→20:53)
[2018-10-28 06:29] LABS: Glucose,Whole Blood 76 mg/dL (75-99)
[2018-10-28] MEDS: BUDESONIDE 1 MG/2 ML NEBU INHALATION SCH ×2 (07:49→20:01)
[2018-10-28] MEDS: IPRATROPIUM-ALBUTEROL 3 ML NEB INHALATION PRN ×2 (07:49→11:23)
[2018-10-28 07:52] LABS: Anisocytosis Slight; Basophils # (A) 0.1 k/uL (0-0.2); Basophils % (A) 1 %; Eosinophils # (A) 0.3 k/uL (0-0.7); Eosinophils % (A) 6 %; HCT 31.3 % (39.0-53.0); HGB 9.8 gm/dL (13.0-17.5); Lymphocytes # (A) 0.5 k/uL (1.0-4.8); Lymphocytes % (A) 9 %; MCH 27.5 pg (25.0-35.0); MCHC 31.4 g/dL (31.0-37.0); MCV 87.6 fL (80.0-100.0); Mean Platelet Volume 7.2; Monocytes # (A) 0.3 k/uL (0-1.0); Monocytes % (A) 7 %; Neutrophils # (A) 3.8 k/uL (1.3-7.7); Neutrophils % (A) 74 %; Platelet Count 122 k/uL (150-450); RBC 3.57 m/uL (4.30-5.90); RDW 17.3 % (11.5-15.5); WBC 5.1 k/uL (3.8-10.6)
[2018-10-28 07:55] LABS: Glucose,Whole Blood 134 mg/dL (75-99)
[2018-10-28] MEDS: hydrALAZINE HCL 25 MG TAB PO SCH ×3 (08:05→22:03)
[2018-10-28] MEDS: CLOPIDOGREL 75 MG TAB PO SCH (08:05)
[2018-10-28] MEDS: ISOSORBIDE MONONITRATE ER 60 MG TAB.ER.24H PO SCH (08:05)
[2018-10-28] MEDS: MAGNESIUM OXIDE 400 MG TAB PO SCH (08:05)
[2018-10-28] MEDS: SODIUM BICARBONATE TAB 650 MG TAB PO SCH (08:05)
[2018-10-28] MEDS: METOPROLOL TARTRATE 50 MG TAB PO SCH ×2 (08:05→19:57)
[2018-10-28] MEDS: GABAPENTIN 300 MG CAP PO SCH ×3 (08:05→22:03)
[2018-10-28] MEDS: APIXABAN 5 MG TAB PO SCH ×2 (08:05→20:49)
[2018-10-28 08:08] LABS: Albumin 4.2 g/dL (3.5-5.0); Calcium 9.6 mg/dL (8.4-10.2); Magnesium 1.8 mg/dL (1.6-2.3); Potassium 4.3 mmol/L (3.5-5.1); Total Bilirubin 0.8 mg/dL (0.2-1.3); Total Protein 6.4 g/dL (6.3-8.2)
--- NOTE | 2018-10-28 11:10 | P.PN ---
Subjective Patient is seen in follow-up for acute kidney injury on chronic kidney disease. Patient has chronic kidney disease stage III with baseline creatinine in the range of 1.6-1.8 secondary to diabetic kidney disease and cardiorenal syndrome. Patient presented to the hospital with dyspnea and volume overload. Currently maintained on Lasix drip at 10 mL an hour. Urine output 2.1 L in the last 24 hours. Weight is down by 4 pounds. Denies chest pain. Dyspnea improved. Vital signs are stable. General: The patient appeared well nourished and normally developed. HEENT: Head exam is unremarkable. Neck is without jugular venous distension. LUNGS: Breath sounds decreased. HEART: Rate and Rhythm are regular. First and second heart sounds normal. No murmurs, rubs or gallops. ABDOMEN: Abdominal exam reveals normal bowel sounds. Non-tender and non- distended. No evidence of peritonitis. EXTREMITITES: 2+ edema. Objective - Vital Signs Vital signs: Vital Signs Temp 97.8 F 10/28/18 07:58 Pulse 62 10/28/18 11:03 Resp 16 10/28/18 11:03 BP 125/63 10/28/18 11:03 Pulse Ox 92 L 10/28/18 11:03 Intake & Output 10/27/18 10/28/18 10/28/18 18:59 06:59 18:59 Intake Total 343.167 769.5 360 Output Total 690 1425 Balance -346.833 -655.5 360 Weight 94.3 kg 92.8 kg Intake: IV 120 NS 120 Intake, IV Titration 185.167 49.5 Amount Furosemide 100 mg In 185.167 49.5 Sodium Chloride 0.9% 90 ml @ 10 MG/HR 10 mls/hr IV .Q10H [facility] Rx#: [id number] Oral 158 600 360 Output: Urine 690 1425 Other: Voiding Method Urinal # Voids 1 - Labs CBC & Chem 7: 10/28/18 07:29 10/28/18 07:29 Labs: Abnormal Lab Results - Last 24 Hours (Table) 10/27/18 10/27/18 10/28/18 Range/Units 07:29 20:46 06:04 RBC (4.30-5.90) m/uL Hgb (13.0-17.5) gm/dL Hct (39.0-53.0) % RDW (11.5-15.5) % Plt Count (150-450) k/uL Lymphocytes # (1.0-4.8) k/uL BUN (9-20) mg/dL Creatinine (0.66-1.25) mg/dL Glucose (74-99) mg/dL POC Glucose (mg/dL) 190 H 45 L (75-99) mg/dL Iron 51 L (65-175) ug/dL AST (17-59) U/L ALT (21-72) U/L 10/28/18 10/28/18 10/28/18 Range/Units 06:05 07:29 07:29 RBC 3.57 L (4.30-5.90) m/uL Hgb 9.8 L (13.0-17.5) gm/dL Hct 31.3 L (39.0-53.0) % RDW 17.3 H (11.5-15.5) % Plt Count 122 L (150-450) k/uL Lymphocytes # 0.5 L (1.0-4.8) k/uL BUN 32 H (9-20) mg/dL Creatinine 2.17 H (0.66-1.25) mg/dL Glucose 114 H (74-99) mg/dL POC Glucose (mg/dL) 43 L (75-99) mg/dL Iron (65-175) ug/dL AST 12 L (17-59) U/L ALT 9 L (21-72) U/L 10/28/18 Range/Units 07:53 RBC (4.30-5.90) m/uL Hgb (13.0-17.5) gm/dL Hct (39.0-53.0) % RDW (11.5-15.5) % Plt Count (150-450) k/uL Lymphocytes # (1.0-4.8) k/uL BUN (9-20) mg/dL Creatinine (0.66-1.25) mg/dL Glucose (74-99) mg/dL POC Glucose (mg/dL) 134 H (75-99) mg/dL Iron (65-175) ug/dL AST (17-59) U/L ALT (21-72) U/L Assessment and Plan Plan: Assessment: 1. Acute kidney injury mostly prerenal secondary to cardiorenal syndrome. Creatinine 2.17 today. 2. Chronic kidney disease stage III with baseline creatinine in the range of 1.6-1.8 secondary to diabetic kidney disease and cardiorenal syndrome. 3. Diastolic CHF with moderate tricuspid and mitral regurgitation. 4. Severe pulmonary hypertension. 5. Dyspnea secondary to volume overload. 6. Insulin-dependent diabetes mellitus. 7. Anemia of chronic kidney disease. Iron deficiency noted. Plan: Maintain Lasix drip at 10 mL an hour. Add metolazone. Low-salt diet and oral fluid restriction. IV iron 2 doses. Daily weights. Avoid nephrotoxins. Repeat electrolytes in the morning. Discontinue sodium bicarbonate.
[2018-10-28 11:55] LABS: Glucose,Whole Blood 206 mg/dL (75-99)
--- NOTE | 2018-10-28 12:22 | P.PN ---
Subjective Progress Note Date: 10/28/18 Principal diagnosis: Acute exacerbation of diastolic congestive heart failure. The patient is seen today 10/28/2018 in follow-up on the selective care unit. He is currently awake and alert in no acute distress. Resting comfortably in bed. Maintaining O2 saturations in the 90s on 2 L/m per nasal cannula. Afebrile. Hemodynamically stable. White count 5.1. Hemoglobin 9.8. Creatinine 2.17. Early on a Lasix drip at 10 mg per hour. In a negative balance. Objective - Vital Signs Vital signs: Vital Signs Temp 97.8 F 10/28/18 07:58 Pulse 62 10/28/18 12:00 Resp 16 10/28/18 12:00 BP 125/63 10/28/18 11:03 Pulse Ox 92 L 10/28/18 11:03 Intake & Output 10/27/18 10/28/18 10/28/18 18:59 06:59 18:59 Intake Total 343.167 769.5 360 Output Total 690 1425 Balance -346.833 -655.5 360 Weight 94.3 kg 92.8 kg Intake: IV 120 NS 120 Intake, IV Titration 185.167 49.5 Amount Furosemide 100 mg In 185.167 49.5 Sodium Chloride 0.9% 90 ml @ 10 MG/HR 10 mls/hr IV .Q10H [facility] Rx#: [id number] Oral 158 600 360 Output: Urine 690 1425 Other: Voiding Method Urinal # Voids 1 - Exam GENERAL EXAM: Alert, 68-year-old gentleman, comfortable in no apparent distress. 2 L nasal cannula. HEAD: Normocephalic. EYES: Normal reaction of pupils, equal size. NOSE: Clear with pink turbinates. THROAT: No erythema or exudates. NECK: No masses, no JVD. CHEST: No chest wall deformity. LUNGS: Equal air entry with cost in the posterior bases right greater than left CVS: S1 and S2 normal with no audible murmur, irregular rhythm. ABDOMEN: No hepatosplenomegaly, normal bowel sounds, no guarding or rigidity. SPINE: No scoliosis or deformity SKIN: No rashes CENTRAL NERVOUS SYSTEM: No focal deficits, tone is normal in all 4 extremities. EXTREMITIES: There is no peripheral edema. No clubbing, no cyanosis. Peripheral pulses are intact. - Labs CBC & Chem 7: 10/28/18 07:29 10/28/18 07:29 Labs: Abnormal Lab Results - Last 24 Hours (Table) 10/27/18 10/27/18 10/28/18 Range/Units 07:29 20:46 06:04 RBC (4.30-5.90) m/uL Hgb (13.0-17.5) gm/dL Hct (39.0-53.0) % RDW (11.5-15.5) % Plt Count (150-450) k/uL Lymphocytes # (1.0-4.8) k/uL BUN (9-20) mg/dL Creatinine (0.66-1.25) mg/dL Glucose (74-99) mg/dL POC Glucose (mg/dL) 190 H 45 L (75-99) mg/dL Iron 51 L (65-175) ug/dL AST (17-59) U/L ALT (21-72) U/L 10/28/18 10/28/18 10/28/18 Range/Units 06:05 07:29 07:29 RBC 3.57 L (4.30-5.90) m/uL Hgb 9.8 L (13.0-17.5) gm/dL Hct 31.3 L (39.0-53.0) % RDW 17.3 H (11.5-15.5) % Plt Count 122 L (150-450) k/uL Lymphocytes # 0.5 L (1.0-4.8) k/uL BUN 32 H (9-20) mg/dL Creatinine 2.17 H (0.66-1.25) mg/dL Glucose 114 H (74-99) mg/dL POC Glucose (mg/dL) 43 L (75-99) mg/dL Iron (65-175) ug/dL AST 12 L (17-59) U/L ALT 9 L (21-72) U/L 10/28/18 10/28/18 Range/Units 07:53 11:46 RBC (4.30-5.90) m/uL Hgb (13.0-17.5) gm/dL Hct (39.0-53.0) % RDW (11.5-15.5) % Plt Count (150-450) k/uL Lymphocytes # (1.0-4.8) k/uL BUN (9-20) mg/dL Creatinine (0.66-1.25) mg/dL Glucose (74-99) mg/dL POC Glucose (mg/dL) 134 H 206 H (75-99) mg/dL Iron (65-175) ug/dL AST (17-59) U/L ALT (21-72) U/L Assessment and Plan Assessment: Impression: #1 Acute hypoxic respiratory failure secondary to an acute exacerbation of diastolic congestive heart failure with bilateral pleural effusions right greater than left, ascites and lower extremity edema. #2 Atrial for ablation. #3 Coronary artery disease. #4 Skin cancer. #5 History of CVA. #6 Diabetes mellitus. #7 Hyperlipidemia. #8 Hypertension. #9 History of non-Q-wave myocardial infarction. #10 Stage IV chronic kidney disease. #11 History of pneumonia. #12 Peripheral artery disease. Plan: The patient was seen and evaluated by Dr. Duran. He is improved today compared to yesterday. Continue with diuretics. No plans for thoracentesis at this time. We'll repeat a chest x-ray PA and lateral in the a.m. We'll continue to follow. I, the cosigning physician, performed a history & physical examination of the patient. Lungs sounds with crackles in the posterior bases right greater than left. Maintaining good O2 saturations in the 90s on 2 L/m per nasal cannula. I discussed the assessment and plan of care with my nurse practitioner, Nela Moy. I attest to the above note as dictated by her.
[2018-10-28] MEDS: SODIUM FERRIC GLUCONAT-SUCROSE 125 MG in SODIUM CHLORIDE 0.9% 100 ML IVPB SCH (12:25)
[2018-10-28] MEDS: METOLAZONE 5 MG TAB PO SCH (12:25)
--- NOTE | 2018-10-28 14:50 | PN ---
PROGRESS NOTE Mr. Ochoa is a 68-year-old male who is followed by Dr. Moses Rodriguez, who was admitted with symptoms of progressive dyspnea and worsening peripheral edema. He is feeling better this morning. His breathing is better. His edema is better. He has known history of persistent atrial fibrillation, underwent stenting of the LAD in June. He denies any dizziness or palpitation. He denies any nausea. He continues to be at this time on Lasix 10 mg an hour drip, Eliquis 5 mg twice a day, Lipitor 40 mg daily, Plavix 75 mg daily, gabapentin, hydralazine 25 mg 3 times a day, insulin, isosorbide mononitrate 60 mg daily, metolazone 5 mg daily, metoprolol tartrate 50 mg daily. PHYSICAL EXAMINATION: Blood pressure 125/60 with a heart rate in the 60. LUNGS: Revealed a few crackles at the bases. HEART: Irregularly irregular, S1, S2. No S3 with systolic murmur. No diastolic murmur. ABDOMEN: Soft, nontender. EXTREMITIES: +2 edema. His weight is down about 2 kg. LAB DATA: Lab data revealed BUN and creatinine 32 and 2.17, potassium 4.3, hemoglobin of 9.8. IMPRESSION: 1. Congestive heart failure. Improving on IV Lasix drip. 2. Chronic kidney disease. 3. Coronary artery disease. Status post stenting of the left main. 4. Severe pulmonary hypertension. 5. Diabetes. 6. Anemia. RECOMMENDATION: Metolazone was added to his regimen by Dr. Gonzalez. We will continue to follow his renal function. Increase his level of activity. Depending on his status, further recommendation will be made. MMODL / IJN: [id number] /
--- NOTE | 2018-10-28 15:37 | P.PN ---
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 In the emergency department he underwent an extensive evaluation. He was found have an elevated BNP at 6 (540, creatinine of 2.09, and troponin 0.015. EKG demonstrated A. fib that was rate control. Chest x-ray showed bilateral pleural effusions. Patient was given 80 mg of IV Lasix and was admitted to the cardiac floor for further monitoring and care. He was transitioned to Lasix drip. Nephrology was consulted due to increased creatinine and they recommended continuing Lasix drip, and anti-metabolism. They also recommended IV iron 2. He was seen by pulmonology who did not recommend thoracentesis but continued diuresis. Repeat echo showed preserved ejection fraction at 60-65%, moderate pulmonary hypertension, and impaired right ventricular systolic function. Patient seen and examined at bedside. He reports that his breathing is much easier than admission. He continues to have lower extremity edema. He denies any nausea or vomiting. He states that he has home health from [facility] coming up twice weekly at home. He would be interested in [employer] [employer]. He denies any diarrhea or constipation. Objective - Vital Signs Vital signs: Vital Signs Temp 97.8 F 10/28/18 07:58 Pulse 62 10/28/18 12:00 Resp 16 10/28/18 12:00 BP 125/63 10/28/18 11:03 Pulse Ox 92 L 10/28/18 11:03 Intake & Output 10/27/18 10/28/18 10/28/18 18:59 06:59 18:59 Intake Total 343.167 769.5 360 Output Total 690 1425 Balance -346.833 -655.5 360 Weight 94.3 kg 92.8 kg Intake: IV 120 NS 120 Intake, IV Titration 185.167 49.5 Amount Furosemide 100 mg In 185.167 49.5 Sodium Chloride 0.9% 90 ml @ 10 MG/HR 10 mls/hr IV .Q10H [facility] Rx#: [id number] Oral 158 600 360 Output: Urine 690 1425 Other: Voiding Method Urinal # Voids 1 1 - Exam General: non toxic, no distress, appears older than stated age Derm: warm, dry Head: atraumatic, normocephalic, symmetric Eyes: EOMI, no lid lag, anicteric sclera Mouth: no lip lesion, mucus membranes moist Cardiovascular: S1S2 reg, no murmur, positive posterior tibial pulse bilateral, Lungs: Crackles b/l bases, no rhonchi, no rales , no accessory muscle use Abdominal: soft, nontender to palpation, no guarding, no appreciable organomegaly Ext: no gross muscle atrophy, 2+ edema, no contractures Neuro: CN II-XI grossly intact, no focal neuro deficits Psych: Alert, oriented, appropriate affect - Labs CBC & Chem 7: 10/28/18 07:29 10/28/18 07:29 Labs: Abnormal Lab Results - Last 24 Hours (Table) 10/27/18 10/27/18 10/28/18 Range/Units 07:29 20:46 06:04 RBC (4.30-5.90) m/uL Hgb (13.0-17.5) gm/dL Hct (39.0-53.0) % RDW (11.5-15.5) % Plt Count (150-450) k/uL Lymphocytes # (1.0-4.8) k/uL BUN (9-20) mg/dL Creatinine (0.66-1.25) mg/dL Glucose (74-99) mg/dL POC Glucose (mg/dL) 190 H 45 L (75-99) mg/dL Iron 51 L (65-175) ug/dL AST (17-59) U/L ALT (21-72) U/L 10/28/18 10/28/18 10/28/18 Range/Units 06:05 07:29 07:29 RBC 3.57 L (4.30-5.90) m/uL Hgb 9.8 L (13.0-17.5) gm/dL Hct 31.3 L (39.0-53.0) % RDW 17.3 H (11.5-15.5) % Plt Count 122 L (150-450) k/uL Lymphocytes # 0.5 L (1.0-4.8) k/uL BUN 32 H (9-20) mg/dL Creatinine 2.17 H (0.66-1.25) mg/dL Glucose 114 H (74-99) mg/dL POC Glucose (mg/dL) 43 L (75-99) mg/dL Iron (65-175) ug/dL AST 12 L (17-59) U/L ALT 9 L (21-72) U/L 10/28/18 10/28/18 Range/Units 07:53 11:46 RBC (4.30-5.90) m/uL Hgb (13.0-17.5) gm/dL Hct (39.0-53.0) % RDW (11.5-15.5) % Plt Count (150-450) k/uL Lymphocytes # (1.0-4.8) k/uL BUN (9-20) mg/dL Creatinine (0.66-1.25) mg/dL Glucose (74-99) mg/dL POC Glucose (mg/dL) 134 H 206 H (75-99) mg/dL Iron (65-175) ug/dL AST (17-59) U/L ALT (21-72) U/L Assessment and Plan Assessment: Exacerbation of diastolic congestive heart failure with cor pulmonale with bilateral pleural effusions -Continue with Lasix drip, metolazone added per nephrology recommendations today -Continue with Lopressor, not on MARK inhibitor at baseline would not add se condary to a cat CKC. -Telemetry -Strict I's and O's -Daily weights -Heart healthy diet -Cardiology recommendations REAL on CKD III, due to cardio renal syndrome -Nephrology following -On Lasix drip and Zaroxolyn -Avoid additional nephrotoxic agents -Repeat BMP and magnesium level in a.m. -Monitor urine output Diabetes mellitus type 2 with episode of hypoglycemia on 10/28 with neuropathy and CKD -Decrease Levemir from 28 units 18 units at night, continue with sliding scale insulin, follow blood sugars -Hemoglobin A1c 5.9 - gabapentin A. fib, rate controlled -Continue with metoprolol. Not chronically on anticoagulation secondary to prior bleeding from trach site. Coronary artery disease -Continue with Plavix, Lipitor, and aspirin HTN, controlled - continue medications as outline above, hydralazine - follow BP DVT prophylaxis: tita Discussed with: Patient, nursing, nephro Anticipated discharge: 48-[address]: home with home health A total of 35 minutes was spent on the care of this complex patient more than 50% of the time was spent in counseling and care coordination.
[2018-10-28 16:48] LABS: Glucose,Whole Blood 144 mg/dL (75-99)
[2018-10-28] MEDS: FUROSEMIDE 100 MG in SODIUM CHLORIDE 0.9% 90 ML IV SCH (17:21)
[2018-10-28] MEDS: MELATONIN 3 MG TABLET PO SCH (19:57)
[2018-10-28] MEDS: ATORVASTATIN 80 MG TAB PO SCH (19:57)
[2018-10-28] MEDS: LATANOPROST 0.005% OPHTH DROPS 2.5 ML BTL BOTH EYES SCH (19:57)
[2018-10-28 20:46] LABS: Glucose,Whole Blood 197 mg/dL (75-99)
[2018-10-28] MEDS ORDERED: INSULIN DETEMIR (LEVEMIR) 100 UNIT/ML SYR SQ SCH (21:00)
[2018-10-28] MEDS: ALPRAZolam 0.25 MG TAB PO SCH (22:04)
[2018-10-29] MEDS: FUROSEMIDE 100 MG in SODIUM CHLORIDE 0.9% 90 ML IV SCH ×4 (00:27→21:23)
[2018-10-29 05:57] LABS: Glucose,Whole Blood 129 mg/dL (75-99)
[2018-10-29] MEDS: INSULIN ASPART (NovoLOG) 100 UNIT/ML VIAL SQ SCH ×4 (06:25→21:19)
--- NOTE | 2018-10-29 06:46 | XR ---
EXAMINATION TYPE: XR chest 2V DATE OF EXAM: 10/29/2018 HISTORY: pneumonia. REFERENCE: Previous study dated 10/26/2018. FINDINGS: The heart is enlarged. The lungs now appear clear. There is a small right-sided effusion. IMPRESSION: 1. CARDIOMEGALY. 2. RIGHT-SIDED PLEURAL EFFUSION.
[2018-10-29 07:39] LABS: Anisocytosis Slight; Basophils # (A) 0.1 k/uL (0-0.2); Basophils % (A) 2 %; Eosinophils # (A) 0.3 k/uL (0-0.7); Eosinophils % (A) 8 %; HCT 31.4 % (39.0-53.0); HGB 9.6 gm/dL (13.0-17.5); Lymphocytes # (A) 0.5 k/uL (1.0-4.8); Lymphocytes % (A) 13 %; MCH 26.8 pg (25.0-35.0); MCHC 30.5 g/dL (31.0-37.0); MCV 87.8 fL (80.0-100.0); Mean Platelet Volume 7.5; Monocytes # (A) 0.3 k/uL (0-1.0); Monocytes % (A) 8 %; Neutrophils # (A) 2.5 k/uL (1.3-7.7); Neutrophils % (A) 65 %; Platelet Count 130 k/uL (150-450); RBC 3.58 m/uL (4.30-5.90); RDW 17.2 % (11.5-15.5); WBC 3.8 k/uL (3.8-10.6)
[2018-10-29 07:51] LABS: Magnesium 1.9 mg/dL (1.6-2.3); Potassium 4.3 mmol/L (3.5-5.1)
[2018-10-29] MEDS: CLOPIDOGREL 75 MG TAB PO SCH (07:56)
[2018-10-29] MEDS: APIXABAN 5 MG TAB PO SCH ×2 (07:56→21:19)
[2018-10-29] MEDS: GABAPENTIN 300 MG CAP PO SCH ×3 (07:56→21:20)
[2018-10-29] MEDS: hydrALAZINE HCL 25 MG TAB PO SCH ×3 (07:57→21:20)
[2018-10-29] MEDS: MAGNESIUM OXIDE 400 MG TAB PO SCH (07:57)
[2018-10-29] MEDS: METOLAZONE 5 MG TAB PO SCH (07:57)
[2018-10-29] MEDS: ISOSORBIDE MONONITRATE ER 60 MG TAB.ER.24H PO SCH (07:57)
[2018-10-29] MEDS: METOPROLOL TARTRATE 50 MG TAB PO SCH ×2 (07:57→21:20)
[2018-10-29] MEDS: BUDESONIDE 1 MG/2 ML NEBU INHALATION SCH ×2 (08:24→20:40)
[2018-10-29] MEDS: IPRATROPIUM-ALBUTEROL 3 ML NEB INHALATION PRN ×2 (08:24→15:50)
[2018-10-29] MEDS: SODIUM FERRIC GLUCONAT-SUCROSE 125 MG in SODIUM CHLORIDE 0.9% 100 ML IVPB SCH (09:00)
--- NOTE | 2018-10-29 09:59 | P.PN ---
Subjective Patient is seen in follow-up for acute kidney injury on chronic kidney disease. Patient has chronic kidney disease stage III with baseline creatinine in the range of 1.6-1.8 secondary to diabetic kidney disease and cardiorenal syndrome. Patient presented to the hospital with dyspnea and volume overload. Currently maintained on Lasix drip at 10 mL an hour. Urine output 1.1 L overnight. Weight is trending down. Denies chest pain. Dyspnea improved. Vital signs are stable. General: The patient appeared well nourished and normally developed. HEENT: Head exam is unremarkable. Neck is without jugular venous distension. LUNGS: Breath sounds decreased. HEART: Rate and Rhythm are regular. First and second heart sounds normal. No murmurs, rubs or gallops. ABDOMEN: Abdominal exam reveals normal bowel sounds. Non-tender and non- distended. No evidence of peritonitis. EXTREMITITES: 2+ edema. Objective - Vital Signs Vital signs: Vital Signs Temp 98.6 F 10/29/18 07:40 Pulse 64 10/29/18 08:48 Resp 16 10/29/18 07:47 BP 121/60 10/29/18 07:40 Pulse Ox 97 10/29/18 08:26 Intake & Output 10/28/18 10/29/18 10/29/18 18:59 06:59 18:59 Intake Total 700 700 240 Output Total 1300 360 Balance 700 -600 -120 Weight 92.5 kg Intake: Intake, IV Titration 100 Amount Furosemide 100 mg In 100 Sodium Chloride 0.9% 90 ml @ 10 MG/HR 10 mls/hr IV .Q10H [facility] Rx#: [id number] Oral 600 700 240 Output: Urine 1300 360 Other: Voiding Method Urinal # Voids 1 - Labs CBC & Chem 7: 10/29/18 07:09 10/29/18 07:09 Labs: Abnormal Lab Results - Last 24 Hours (Table) 10/28/18 10/28/18 10/28/18 Range/Units 11:46 16:43 20:45 RBC (4.30-5.90) m/uL Hgb (13.0-17.5) gm/dL Hct (39.0-53.0) % MCHC (31.0-37.0) g/dL RDW (11.5-15.5) % Plt Count (150-450) k/uL Lymphocytes # (1.0-4.8) k/uL Carbon Dioxide (22-30) mmol/L BUN (9-20) mg/dL Creatinine (0.66-1.25) mg/dL POC Glucose (mg/dL) 206 H 144 H 197 H (75-99) mg/dL 10/29/18 10/29/18 10/29/18 Range/Units 05:56 07:09 07:09 RBC 3.58 L (4.30-5.90) m/uL Hgb 9.6 L (13.0-17.5) gm/dL Hct 31.4 L (39.0-53.0) % MCHC 30.5 L (31.0-37.0) g/dL RDW 17.2 H (11.5-15.5) % Plt Count 130 L (150-450) k/uL Lymphocytes # 0.5 L (1.0-4.8) k/uL Carbon Dioxide 32 H (22-30) mmol/L BUN 40 H (9-20) mg/dL Creatinine 1.92 H (0.66-1.25) mg/dL POC Glucose (mg/dL) 129 H (75-99) mg/dL Assessment and Plan Plan: Assessment: 1. Acute kidney injury mostly prerenal secondary to cardiorenal syndrome. Creatinine 1.92 today. 2. Chronic kidney disease stage III with baseline creatinine in the range of 1.6-1.8 secondary to diabetic kidney disease and cardiorenal syndrome. 3. Diastolic CHF with moderate tricuspid and mitral regurgitation. 4. Severe pulmonary hypertension. 5. Dyspnea secondary to volume overload. 6. Insulin-dependent diabetes mellitus. 7. Anemia of chronic kidney disease. Iron deficiency noted. Plan: Increase Lasix drip to 15 mL an hour. Maintain metolazone. Low-salt diet and oral fluid restriction. IV iron 2 doses. Second dose today. Daily weights. Avoid nephrotoxins. Repeat electrolytes in the morning.
--- NOTE | 2018-10-29 10:15 | P.PN ---
Subjective Progress Note Date: 10/29/18 This is a pleasant 68-year-old gentleman with a history of atrial fibrillation, diastolic congestive heart failure, hypoxic respiratory failure requiring mechanical ventilation, laryngeal and vocal cord edema requiring tracheostomy with subsequent reversal, moderate to severe pulmonary hypertension, hypert ension, hyperlipidemia and diabetes mellitus. Patient has had recurrent lengthy hospitalizations recently. He was seen in the office yesterday by Dr. VC Rodriguez will send him to the emergency department for further evaluation and treatment for acute CHF exacerbation. He has been complaining of worsening shortness of breath, lower extremity edema and weight gain over the last one to 2 weeks. He was on placed on IV Lasix drip at 10 mg an hour. 10/29/18 - patient remains on IV Lasix drip at 10 mg an hour. Renal function is stable. He has good urine output. Weight is down less than 2 kg since admission. He continues to have significant edema. He does feel that his breathing is better. Objective - Vital Signs Vital signs: Vital Signs Temp 98.6 F 10/29/18 07:40 Pulse 64 10/29/18 08:48 Resp 16 10/29/18 07:47 BP 121/60 10/29/18 07:40 Pulse Ox 97 10/29/18 08:26 Intake & Output 10/28/18 10/29/18 10/29/18 18:59 06:59 18:59 Intake Total 700 700 240 Output Total 1300 360 Balance 700 -600 -120 Weight 92.5 kg Intake: Intake, IV Titration 100 Amount Furosemide 100 mg In 100 Sodium Chloride 0.9% 90 ml @ 10 MG/HR 10 mls/hr IV .Q10H [facility] Rx#: [id number] Oral 600 700 240 Output: Urine 1300 360 Other: Voiding Method Urinal # Voids 1 - Exam PHYSICAL EXAMINATION: HEENT: Head is atraumatic, normocephalic. Pupils equal, round. Neck is supple. There is no elevated jugular venous pressure. HEART EXAMINATION: Heart sounds regular, S1 and S2 normal. No murmur or gallop heard. CHEST EXAMINATION: Lungs reveal bibasilar crackles. No chest wall tenderness is noted on palpation or with deep breathing. ABDOMEN: Soft, nontender. Bowel sounds are heard. No organomegaly noted. EXTREMITIES: 2+ peripheral pulses with evidence of moderate pitting peripheral e geraldine and no calf tenderness noted. NEUROLOGIC patient is awake, alert and oriented x3. . - Labs CBC & Chem 7: 10/29/18 07:09 10/29/18 07:09 Labs: Abnormal Lab Results - Last 24 Hours (Table) 10/28/18 10/28/18 10/28/18 Range/Units 11:46 16:43 20:45 RBC (4.30-5.90) m/uL Hgb (13.0-17.5) gm/dL Hct (39.0-53.0) % MCHC (31.0-37.0) g/dL RDW (11.5-15.5) % Plt Count (150-450) k/uL Lymphocytes # (1.0-4.8) k/uL Carbon Dioxide (22-30) mmol/L BUN (9-20) mg/dL Creatinine (0.66-1.25) mg/dL POC Glucose (mg/dL) 206 H 144 H 197 H (75-99) mg/dL 10/29/18 10/29/18 10/29/18 Range/Units 05:56 07:09 07:09 RBC 3.58 L (4.30-5.90) m/uL Hgb 9.6 L (13.0-17.5) gm/dL Hct 31.4 L (39.0-53.0) % MCHC 30.5 L (31.0-37.0) g/dL RDW 17.2 H (11.5-15.5) % Plt Count 130 L (150-450) k/uL Lymphocytes # 0.5 L (1.0-4.8) k/uL Carbon Dioxide 32 H (22-30) mmol/L BUN 40 H (9-20) mg/dL Creatinine 1.92 H (0.66-1.25) mg/dL POC Glucose (mg/dL) 129 H (75-99) mg/dL Assessment and Plan Assessment: #1 diastolic congestive heart failure, acute on chronic #2 persistent atrial fibrillation, currently on Eliquis #3 coronary Artery disease, status post stenting #4 renal failure, previously on temporary dialysis #5 hypertension #6 hyperlipidemia Plan: From cardiology's perspective, medications were reviewed and we will continue the same. We agree with increasing Lasix drip to 15 mg an hour per nephrology. We will continue to monitor the patient's renal function, electrolytes, intake and output as well as daily weights. We'll continue to follow patient for a further recommendations accordingly. STUDENT ACCOUNTS MANAGER note has been reviewed, I agree with a documented findings and plan of care. Patient was seen and examined.
--- NOTE | 2018-10-29 11:05 | P.PN ---
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 In the emergency department he underwent an extensive evaluation. He was found have an elevated BNP at 6 (540, creatinine of 2.09, and troponin 0.015. EKG demonstrated A. fib that was rate control. Chest x-ray showed bilateral pleural effusions. Patient was given 80 mg of IV Lasix and was admitted to the cardiac floor for further monitoring and care. He was transitioned to Lasix drip. Nephrology was consulted due to increased creatinine and they recommended continuing Lasix drip, and anti-metabolism. They also recommended IV iron 2. He was seen by pulmonology who did not recommend thoracentesis but continued diuresis. Repeat echo showed preserved ejection fraction at 60-65%, moderate pulmonary hypertension, and impaired right ventricular systolic function. He diuriesed well on the lasix gtt and metalozone was added. Patient seen and examined at bedside. Feeling much better today. Breathing back to baseline, energy returning. no chest pain, no nausea. Objective - Vital Signs Vital signs: Vital Signs Temp 98.6 F 10/29/18 07:40 Pulse 64 10/29/18 08:48 Resp 16 10/29/18 07:47 BP 121/60 10/29/18 07:40 Pulse Ox 97 10/29/18 08:26 Intake & Output 10/28/18 10/29/18 10/29/18 18:59 06:59 18:59 Intake Total 700 700 240 Output Total 1300 360 Balance 700 -600 -120 Weight 92.5 kg Intake: Intake, IV Titration 100 Amount Furosemide 100 mg In 100 Sodium Chloride 0.9% 90 ml @ 10 MG/HR 10 mls/hr IV .Q10H [facility] Rx#: [id number] Oral 600 700 240 Output: Urine 1300 360 Other: Voiding Method Urinal # Voids 1 - Exam General: non toxic, no distress, appears older than stated age Derm: warm, dry Head: atraumatic, normocephalic, symmetric Eyes: EOMI, no lid lag, anicteric sclera Mouth: no lip lesion, mucus membranes moist Cardiovascular: S1S2 reg, no murmur, positive posterior tibial pulse bilateral, Lungs: Decreased bs b/l bases, no rhonchi, no rales , no accessory muscle use Abdominal: soft, nontender to palpation, no guarding, no appreciable organomegaly Ext: no gross muscle atrophy, 2+ edema, no contractures Neuro: CN II-XI grossly intact, no focal neuro deficits Psych: Alert, oriented, appropriate affect - Labs CBC & Chem 7: 10/29/18 07:09 10/29/18 07:09 Labs: Abnormal Lab Results - Last 24 Hours (Table) 10/28/18 10/28/18 10/28/18 Range/Units 11:46 16:43 20:45 RBC (4.30-5.90) m/uL Hgb (13.0-17.5) gm/dL Hct (39.0-53.0) % MCHC (31.0-37.0) g/dL RDW (11.5-15.5) % Plt Count (150-450) k/uL Lymphocytes # (1.0-4.8) k/uL Carbon Dioxide (22-30) mmol/L BUN (9-20) mg/dL Creatinine (0.66-1.25) mg/dL POC Glucose (mg/dL) 206 H 144 H 197 H (75-99) mg/dL 10/29/18 10/29/18 10/29/18 Range/Units 05:56 07:09 07:09 RBC 3.58 L (4.30-5.90) m/uL Hgb 9.6 L (13.0-17.5) gm/dL Hct 31.4 L (39.0-53.0) % MCHC 30.5 L (31.0-37.0) g/dL RDW 17.2 H (11.5-15.5) % Plt Count 130 L (150-450) k/uL Lymphocytes # 0.5 L (1.0-4.8) k/uL Carbon Dioxide 32 H (22-30) mmol/L BUN 40 H (9-20) mg/dL Creatinine 1.92 H (0.66-1.25) mg/dL POC Glucose (mg/dL) 129 H (75-99) mg/dL Assessment and Plan Assessment: Exacerbation of diastolic congestive heart failure with cor pulmonale with bilateral pleural effusions -Continue with Lasix drip, metolazone -Continue with Lopressor, not on MARK inhibitor at baseline would not add secondary to REAL -Telemetry -Strict I's and O's -Daily weights -Heart healthy diet -Cardiology recommendations REAL on CKD III, due to cardio renal syndrome, REAL -Nephrology following -On Lasix drip and Zaroxolyn -Avoid additional nephrotoxic agents -Repeat BMP and magnesium level in a.m. -Monitor urine output Diabetes mellitus type 2 with episode of hypoglycemia on 10/28 with neuropathy and CKD -Decrease Levemir to 16 units at night, continue with sliding scale insulin, follow blood sugars -Hemoglobin A1c 5.9 - gabapentin A. fib, rate controlled -Continue with metoprolol. Not chronically on anticoagulation secondary to prior bleeding from trach site. Coronary artery disease -Continue with Plavix, Lipitor, and aspirin HTN, controlled - continue medications as outline above, hydralazine - follow BP Anemia of chronic disease - on IV iron per nephrology DVT prophylaxis: tita Discussed with: Patient, nursing, nephro Anticipated discharge: 24-[address]: home with home health A total of 35 minutes was spent on the care of this complex patient more than 50% of the time was spent in counseling and care coordination.
[2018-10-29 12:08] LABS: Glucose,Whole Blood 118 mg/dL (75-99)
--- NOTE | 2018-10-29 13:09 | P.PN ---
Subjective Progress Note Date: 10/29/18 Principal diagnosis: Acute exacerbation of diastolic congestive heart failure On 10/29/2018 patient seen in follow-up on selective care unit, he is awake and alert, in no acute distress, yesterday chest x-ray was reviewed by Dr. Duran, and showed improvement in aeration, small right-sided pleural effusion. Patient remains on Lasix drip currently at 10 mg per hour, he is actually in positive fluid balance yesterday, but he is down 0.3 kg in the last 24 hours, lower extremity edema is improving, she reports less dyspnea, and no compressive chest pain. Pulse ox is 97%, hemodynamically stable, afebrile. Objective - Vital Signs Vital signs: Vital Signs Temp 98.6 F 10/29/18 07:40 Pulse 60 10/29/18 12:00 Resp 16 10/29/18 12:00 BP 120/61 10/29/18 12:00 Pulse Ox 97 10/29/18 12:00 Intake & Output 10/28/18 10/29/18 10/29/18 18:59 06:59 18:59 Intake Total 700 800 240 Output Total 1300 360 Balance 700 -500 -120 Weight 92.5 kg Intake: Intake, IV Titration 100 100 Amount Furosemide 100 mg In 100 100 Sodium Chloride 0.9% 90 ml @ 10 MG/HR 10 mls/hr IV .Q10H [facility] Rx#: [id number] Oral 600 700 240 Output: Urine 1300 360 Other: Voiding Method Urinal # Voids 1 - Exam GENERAL EXAM: Alert, pleasant, 68-year-old white male comfortable in no apparent distress. HEAD: Normocephalic/atraumatic. EYES: Normal reaction of pupils, equal size. Conjunctiva pink, sclera white. NOSE: Clear with pink turbinates. THROAT: No erythema or exudates. NECK: No masses, no JVD, no thyroid enlargement, no adenopathy. CHEST: No chest wall deformity. Symmetrical expansion. LUNGS: Equal air entry with no crackles, wheeze, rhonchi or dullness. CVS: Regular rate and rhythm, normal S1 and S2, no gallops, no murmurs, no rubs ABDOMEN: Soft, nontender. No hepatosplenomegaly, normal bowel sounds, no guarding or rigidity. EXTREMITIES: No clubbing, trace pretibial edema, no cyanosis, 2+ pulses and upper and lower extremities. MUSCULOSKELETAL: Muscle strength and tone normal. SPINE: No scoliosis or deformity SKIN: No rashes CENTRAL NERVOUS SYSTEM: Alert and oriented -3. No focal deficits, tone is normal in all 4 extremities. PSYCHIATRIC: Alert and oriented -3. Appropriate affect. Intact judgment and insight. - Labs CBC & Chem 7: 10/29/18 07:09 10/29/18 07:09 Labs: Abnormal Lab Results - Last 24 Hours (Table) 10/28/18 10/28/18 10/29/18 Range/Units 16:43 20:45 05:56 RBC (4.30-5.90) m/uL Hgb (13.0-17.5) gm/dL Hct (39.0-53.0) % MCHC (31.0-37.0) g/dL RDW (11.5-15.5) % Plt Count (150-450) k/uL Lymphocytes # (1.0-4.8) k/uL Carbon Dioxide (22-30) mmol/L BUN (9-20) mg/dL Creatinine (0.66-1.25) mg/dL POC Glucose (mg/dL) 144 H 197 H 129 H (75-99) mg/dL 10/29/18 10/29/18 10/29/18 Range/Units 07:09 07:09 12:03 RBC 3.58 L (4.30-5.90) m/uL Hgb 9.6 L (13.0-17.5) gm/dL Hct 31.4 L (39.0-53.0) % MCHC 30.5 L (31.0-37.0) g/dL RDW 17.2 H (11.5-15.5) % Plt Count 130 L (150-450) k/uL Lymphocytes # 0.5 L (1.0-4.8) k/uL Carbon Dioxide 32 H (22-30) mmol/L BUN 40 H (9-20) mg/dL Creatinine 1.92 H (0.66-1.25) mg/dL POC Glucose (mg/dL) 118 H (75-99) mg/dL Assessment and Plan Plan: Assessment: #1 Acute hypoxic respiratory failure secondary to an acute exacerbation of diastolic congestive heart failure with bilateral pleural effusions right greater than left, ascites and lower extremity edema. #2 Atrial for ablation. #3 Coronary artery disease. #4 Skin cancer. #5 History of CVA. #6 Diabetes mellitus. #7 Hyperlipidemia. #8 Hypertension. #9 History of non-Q-wave myocardial infarction. #10 Stage IV chronic kidney disease. #11 History of pneumonia. #12 Peripheral artery disease. Plan: Continue with diuretics per cardiology recommendations, chest x-ray from yesterday was reviewed with Dr. Duran, showed improvement in aeration, and only small right-sided pleural effusion, fluid volume status is improving, patient is breathing easier, no complaints of chest pain. No plans for thoracentesis, patient improved with the medical treatment, will see on as-needed basis. I performed a history & physical examination of the patient and discussed their management with my nurse practitioner, Verónica Bridges. I reviewed the nurse practitioner's note and agree with the documented findings and plan of care. Lung sounds are positive for minimal crackles. The findings and the impression was discussed with the patient. I attest to the documentation by the nurse practitioner. Time with Patient: Less than 30
[2018-10-29 17:10] LABS: Glucose,Whole Blood 193 mg/dL (75-99)
[2018-10-29 20:45] LABS: Glucose,Whole Blood 197 mg/dL (75-99)
[2018-10-29] MEDS: ALPRAZolam 0.25 MG TAB PO SCH (21:18)
[2018-10-29] MEDS: LATANOPROST 0.005% OPHTH DROPS 2.5 ML BTL BOTH EYES SCH (21:19)
[2018-10-29] MEDS: ATORVASTATIN 80 MG TAB PO SCH (21:19)
[2018-10-29] MEDS: INSULIN DETEMIR (LEVEMIR) 100 UNIT/ML SYR SQ SCH (21:19)
[2018-10-29] MEDS: MELATONIN 3 MG TABLET PO SCH (21:20)
[2018-10-30 05:57] LABS: Glucose,Whole Blood 122 mg/dL (75-99)
[2018-10-30] MEDS: INSULIN ASPART (NovoLOG) 100 UNIT/ML VIAL SQ SCH ×4 (06:39→21:05)
[2018-10-30] MEDS: FUROSEMIDE 100 MG in SODIUM CHLORIDE 0.9% 90 ML IV SCH ×4 (06:40→23:11)
[2018-10-30] MEDS: IPRATROPIUM-ALBUTEROL 3 ML NEB INHALATION PRN ×3 (08:00→19:55)
[2018-10-30] MEDS: BUDESONIDE 1 MG/2 ML NEBU INHALATION SCH ×2 (08:00→19:55)
[2018-10-30 08:04] LABS: Calcium 9.4 mg/dL (8.4-10.2); Magnesium 1.8 mg/dL (1.6-2.3); Potassium 4.1 mmol/L (3.5-5.1)
[2018-10-30] MEDS: SODIUM FERRIC GLUCONAT-SUCROSE 125 MG in SODIUM CHLORIDE 0.9% 100 ML IVPB SCH (09:03)
[2018-10-30] MEDS: MAGNESIUM OXIDE 400 MG TAB PO SCH (09:04)
[2018-10-30] MEDS: ISOSORBIDE MONONITRATE ER 60 MG TAB.ER.24H PO SCH (09:04)
[2018-10-30] MEDS: APIXABAN 5 MG TAB PO SCH ×2 (09:04→21:04)
[2018-10-30] MEDS: GABAPENTIN 300 MG CAP PO SCH ×3 (09:04→21:04)
[2018-10-30] MEDS: CLOPIDOGREL 75 MG TAB PO SCH (09:04)
[2018-10-30] MEDS: METOPROLOL TARTRATE 50 MG TAB PO SCH ×2 (09:04→21:04)
[2018-10-30] MEDS: METOLAZONE 5 MG TAB PO SCH (09:05)
[2018-10-30] MEDS: hydrALAZINE HCL 25 MG TAB PO SCH ×3 (09:05→21:04)
--- NOTE | 2018-10-30 10:18 | P.PN ---
Subjective Patient is seen in follow-up for acute kidney injury on chronic kidney disease. Patient has chronic kidney disease stage III with baseline creatinine in the range of 1.6-1.8 secondary to diabetic kidney disease and cardiorenal syndrome. Patient presented to the hospital with dyspnea and volume overload. Currently maintained on Lasix drip at 15 mL an hour. Urine output documented as 2 L in the last 24 hours but I'm not sure how accurate this is. Weight is trending down. Denies chest pain. Dyspnea improved. Vital signs are stable. General: The patient appeared well nourished and normally developed. HEENT: Head exam is unremarkable. Neck is without jugular venous distension. LUNGS: Breath sounds decreased. HEART: Rate and Rhythm are regular. First and second heart sounds normal. No murmurs, rubs or gallops. ABDOMEN: Abdominal exam reveals normal bowel sounds. Non-tender and non- distended. No evidence of peritonitis. EXTREMITITES: 2+ edema. Objective - Vital Signs Vital signs: Vital Signs Temp 98.4 F 10/30/18 08:00 Pulse 60 10/30/18 08:20 Resp 20 10/30/18 08:00 BP 133/64 10/30/18 08:00 Pulse Ox 97 10/30/18 08:02 Intake & Output 10/29/18 10/30/18 10/30/18 18:59 06:59 18:59 Intake Total 720 100 220 Output Total 1435 600 Balance -715 -500 220 Weight 91.7 kg Intake: Oral 720 100 220 Output: Urine 1435 600 Other: Voiding Method Toilet Urinal # Voids 1 - Labs CBC & Chem 7: 10/29/18 07:09 10/30/18 07:04 Labs: Abnormal Lab Results - Last 24 Hours (Table) 10/29/18 10/29/18 10/29/18 Range/Units 12:03 17:02 20:43 Carbon Dioxide (22-30) mmol/L BUN (9-20) mg/dL Creatinine (0.66-1.25) mg/dL POC Glucose (mg/dL) 118 H 193 H 197 H (75-99) mg/dL 10/30/18 10/30/18 Range/Units 05:55 07:04 Carbon Dioxide 31 H (22-30) mmol/L BUN 41 H (9-20) mg/dL Creatinine 2.07 H (0.66-1.25) mg/dL POC Glucose (mg/dL) 122 H (75-99) mg/dL Assessment and Plan Plan: Assessment: 1. Acute kidney injury mostly prerenal secondary to cardiorenal syndrome. Creatinine 1.92 today. 2. Chronic kidney disease stage III with baseline creatinine in the range of 1.6-1.8 secondary to diabetic kidney disease and cardiorenal syndrome. 3. Diastolic CHF with moderate tricuspid and mitral regurgitation. 4. Severe pulmonary hypertension. 5. Dyspnea secondary to volume overload. 6. Insulin-dependent diabetes mellitus. 7. Anemia of chronic kidney disease. Iron deficiency noted. Status post 2 doses of IV iron. Plan: Maintain Lasix drip at 15 mL an hour. Maintain metolazone. Low-salt diet and oral fluid restriction. Daily weights. Avoid nephrotoxins. Repeat electrolytes in the morning.
[2018-10-30 11:28] LABS: Glucose,Whole Blood 126 mg/dL (75-99)
--- NOTE | 2018-10-30 13:48 | P.PN ---
Subjective Progress Note Date: 10/30/18 This is a pleasant 68-year-old gentleman with a history of atrial fibrillation, diastolic congestive heart failure, hypoxic respiratory failure requiring mechanical ventilation, laryngeal and vocal cord edema requiring tracheostomy with subsequent reversal, moderate to severe pulmonary hypertension, hyper tension, hyperlipidemia and diabetes mellitus. Patient has had recurrent lengthy hospitalizations recently. He was seen in the office yesterday by Dr. VC Rodriguez will send him to the emergency department for further evaluation and treatment for acute CHF exacerbation. He has been complaining of worsening shortness of breath, lower extremity edema and weight gain over the last one to 2 weeks. He was on placed on IV Lasix drip at 10 mg an hour. Yesterday's Lasix drip was increased to 15 mg per hour. His weight today is down 1 more kilogram, sodium 141, potassium 4.1, BUN 41 and creatinine 2.0, magnesium 1.8. He is also on Zaroxolyn 5 mg daily. He does state that he feels better overall. His repeat chest x-ray performed yesterday did show some improvement. Objective - Vital Signs Vital signs: Vital Signs Temp 98.4 F 10/30/18 08:00 Pulse 65 10/30/18 12:00 Resp 20 10/30/18 12:00 BP 144/61 10/30/18 12:00 Pulse Ox 98 10/30/18 12:00 Intake & Output 10/29/18 10/30/18 10/30/18 18:59 06:59 18:59 Intake Total 720 100 460 Output Total 1435 600 400 Balance -715 -500 60 Weight 91.7 kg Intake: Oral 720 100 460 Output: Urine 1435 600 400 Other: Voiding Method Toilet Urinal # Voids 1 2 - Exam PHYSICAL EXAMINATION: HEENT: Head is atraumatic, normocephalic. Pupils equal, round. Neck is supple. There is no elevated jugular venous pressure. HEART EXAMINATION: Heart sounds regular, S1 and S2 normal. No murmur or gallop heard. CHEST EXAMINATION: Lungs reveal bibasilar crackles. No chest wall tenderness is noted on palpation or with deep breathing. ABDOMEN: Soft, nontender. Bowel sounds are heard. No organomegaly noted. EXTREMITIES: 2+ peripheral pulses with evidence of moderate pitting peripheral edema and no calf tenderness noted. NEUROLOGIC patient is awake, alert and oriented x3. - Labs CBC & Chem 7: 10/29/18 07:09 10/30/18 07:04 Labs: Abnormal Lab Results - Last 24 Hours (Table) 10/29/18 10/29/18 10/30/18 Range/Units 17:02 20:43 05:55 Carbon Dioxide (22-30) mmol/L BUN (9-20) mg/dL Creatinine (0.66-1.25) mg/dL POC Glucose (mg/dL) 193 H 197 H 122 H (75-99) mg/dL 10/30/18 10/30/18 Range/Units 07:04 11:26 Carbon Dioxide 31 H (22-30) mmol/L BUN 41 H (9-20) mg/dL Creatinine 2.07 H (0.66-1.25) mg/dL POC Glucose (mg/dL) 126 H (75-99) mg/dL Assessment and Plan Plan: #1 diastolic congestive heart failure, acute on chronic #2 persistent atrial fibrillation, currently on Eliquis #3 coronary Artery disease, status post stenting #4 renal failure, previously on temporary dialysis #5 hypertension #6 hyperlipidemia Plan We will start the patient on 25 mg of Aldactone while here in the hospital. Continue current dose of IV Lasix drip. Continue to monitor intake and output along with daily weights and daily lytes BUN and creatinine. DNP note has been reviewed, I agree with a documented findings and plan of care. Patient was seen and examined.
[2018-10-30] MEDS: SPIRONOLACTONE 25 MG TAB PO SCH (15:32)
--- NOTE | 2018-10-30 15:58 | P.PN ---
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 In the emergency department he underwent an extensive evaluation. He was found have an elevated BNP at 6 540, creatinine of 2.09, and troponin 0.015. EKG demonstrated A. fib that was rate control. Chest x-ray showed bilateral pleural effusions. Patient was given 80 mg of IV Lasix and was admitted to the cardiac floor for further monitoring and care. He was seen by cardio and started on eliquis. He was transitioned to Lasix drip. Nephrology was consulted due to increased creatinine and they recommended continuing Lasix drip, and monitoring kidney fct. They also recommended IV iron 2. He was seen by pulmonology who did not recommend thoracentesis but continued diuresis. Repeat echo showed preserved ejection fraction at 60-65%, moderate pulmonary hypertension, and impaired right ventricular systolic function. He diuriesed well on the lasix gtt and metalozone was added. Pleural effusions improved with diuresis. His kidney function continued to improve. Patient seen and examined at bedside. No chest pain, SOB improving daily, no much improvement in LE edema, + DM today, eating well no nausea. Objective - Vital Signs Vital signs: Vital Signs Temp 98.4 F 10/30/18 08:00 Pulse 64 10/30/18 15:23 Resp 20 10/30/18 15:23 BP 136/63 10/30/18 15:23 Pulse Ox 95 10/30/18 15:23 Intake & Output 10/29/18 10/30/18 10/30/18 18:59 06:59 18:59 Intake Total 720 100 460 Output Total 1435 600 400 Balance -715 -500 60 Weight 91.7 kg Intake: Oral 720 100 460 Output: Urine 1435 600 400 Other: Voiding Method Toilet Urinal # Voids 1 2 - Exam General: non toxic, no distress, appears older than stated age Derm: warm, dry Head: atraumatic, normocephalic, symmetric Eyes: EOMI, no lid lag, anicteric sclera Mouth: no lip lesion, mucus membranes moist Cardiovascular: S1S2 reg, no murmur, positive posterior tibial pulse bilateral, Lungs:CTA bilateral , no rhonchi, no rales , no accessory muscle use Abdominal: soft, nontender to palpation, no guarding, no appreciable organomegaly Ext: no gross muscle atrophy, 2+ edema, no contractures Neuro: CN II-XI grossly intact, no focal neuro deficits Psych: Alert, oriented, appropriate affect - Labs CBC & Chem 7: 10/29/18 07:09 10/30/18 07:04 Labs: Abnormal Lab Results - Last 24 Hours (Table) 10/29/18 10/29/18 10/30/18 Range/Units 17:02 20:43 05:55 Carbon Dioxide (22-30) mmol/L BUN (9-20) mg/dL Creatinine (0.66-1.25) mg/dL POC Glucose (mg/dL) 193 H 197 H 122 H (75-99) mg/dL 10/30/18 10/30/18 Range/Units 07:04 11:26 Carbon Dioxide 31 H (22-30) mmol/L BUN 41 H (9-20) mg/dL Creatinine 2.07 H (0.66-1.25) mg/dL POC Glucose (mg/dL) 126 H (75-99) mg/dL Assessment and Plan Assessment: Exacerbation of diastolic congestive heart failure with cor pulmonale with bilateral pleural effusions -Continue with Lasix drip, metolazone -Continue with Lopressor, not on MARK inhibitor at baseline would not add secondary to REAL -Telemetry -Strict I's and O's -Daily weights, fluid restriction -Heart healthy diet -Cardiology recommendations: added Aldactone 10/30 monitor K+ and renal fct closely REAL on CKD III, REAL due to cardio renal syndrome CKD likely DM -Nephrology following -On Lasix drip and Zaroxolyn, aldactone X 1 -Avoid additional nephrotoxic agents -Repeat BMP and magnesium level in a.m. -Monitor urine output Diabetes mellitus type 2 with episode of hypoglycemia on 10/28 with neuropathy and CKD - Levemir to 16 units at night, continue with sliding scale insulin, follow blood sugars -Hemoglobin A1c 5.9 - gabapentin A. fib, rate controlled -Continue with metoprolol - epiquis started this hospital stay, no bleeding noted Coronary artery disease -Continue with Plavix, Lipitor HTN, controlled - continue medications as outline above, hydralazine - follow BP Anemia of chronic disease - on IV iron per nephrology DVT prophylaxis: tita Discussed with: Patient, nursing, nephro Anticipated discharge: 24-[address]: home with home health,telehealth, and palliative A total of 35 minutes was spent on the care of this complex patient more than 50% of the time was spent in counseling and care coordination.
[2018-10-30 16:30] LABS: Glucose,Whole Blood 167 mg/dL (75-99)
[2018-10-30 20:49] LABS: Glucose,Whole Blood 226 mg/dL (75-99)
[2018-10-30] MEDS: ALPRAZolam 0.25 MG TAB PO SCH (21:04)
[2018-10-30] MEDS: MELATONIN 3 MG TABLET PO SCH (21:04)
[2018-10-30] MEDS: ATORVASTATIN 80 MG TAB PO SCH (21:04)
[2018-10-30] MEDS: INSULIN DETEMIR (LEVEMIR) 100 UNIT/ML SYR SQ SCH (21:05)
[2018-10-30] MEDS: LATANOPROST 0.005% OPHTH DROPS 2.5 ML BTL BOTH EYES SCH (21:06)
[2018-10-30] MEDS ORDERED: ACETAMINOPHEN TAB 325 MG TAB PO PRN (21:21)
[2018-10-31 05:49] LABS: Glucose,Whole Blood 86 mg/dL (75-99)
[2018-10-31] MEDS: INSULIN ASPART (NovoLOG) 100 UNIT/ML VIAL SQ SCH ×4 (06:18→21:43)
[2018-10-31 06:39] LABS: Calcium 9.7 mg/dL (8.4-10.2); Magnesium 1.9 mg/dL (1.6-2.3); Potassium 3.7 mmol/L (3.5-5.1)
[2018-10-31] MEDS: FUROSEMIDE 100 MG in SODIUM CHLORIDE 0.9% 90 ML IV SCH (06:59)
[2018-10-31] MEDS: IPRATROPIUM-ALBUTEROL 3 ML NEB INHALATION PRN ×2 (08:08→20:04)
[2018-10-31] MEDS: BUDESONIDE 1 MG/2 ML NEBU INHALATION SCH ×2 (08:08→20:04)
[2018-10-31] MEDS: APIXABAN 5 MG TAB PO SCH ×2 (08:26→21:44)
[2018-10-31] MEDS: ISOSORBIDE MONONITRATE ER 60 MG TAB.ER.24H PO SCH (08:26)
[2018-10-31] MEDS: MAGNESIUM OXIDE 400 MG TAB PO SCH (08:26)
[2018-10-31] MEDS: CLOPIDOGREL 75 MG TAB PO SCH (08:26)
[2018-10-31] MEDS: hydrALAZINE HCL 25 MG TAB PO SCH ×3 (08:26→21:44)
[2018-10-31] MEDS: METOLAZONE 5 MG TAB PO SCH (08:26)
[2018-10-31] MEDS: GABAPENTIN 300 MG CAP PO SCH ×3 (08:26→21:45)
[2018-10-31] MEDS: METOPROLOL TARTRATE 50 MG TAB PO SCH ×2 (08:26→21:44)
[2018-10-31] MEDS: SPIRONOLACTONE 25 MG TAB PO SCH (08:26)
[2018-10-31 11:41] LABS: Glucose,Whole Blood 120 mg/dL (75-99)
--- NOTE | 2018-10-31 13:16 | P.PN ---
Subjective Patient is seen in follow-up for acute kidney injury on chronic kidney disease. Patient has chronic kidney disease stage III with baseline creatinine in the range of 1.6-1.8 secondary to diabetic kidney disease and cardiorenal syndrome. Patient presented to the hospital with dyspnea and volume overload. Currently maintained on Lasix drip at 15 mL an hour. Urine output documented as 1.7 L in the last 24 hours but I'm not sure how accurate this is. Weight is trending down. Denies chest pain. Dyspnea improved. Edema has also improved. Vital signs are stable. General: The patient appeared well nourished and normally developed. HEENT: Head exam is unremarkable. Neck is without jugular venous distension. LUNGS: Breath sounds decreased. HEART: Rate and Rhythm are regular. First and second heart sounds normal. No murmurs, rubs or gallops. ABDOMEN: Abdominal exam reveals normal bowel sounds. Non-tender and non- distended. No evidence of peritonitis. EXTREMITITES: 1+ edema. Objective - Vital Signs Vital signs: Vital Signs Temp 97.8 F 10/31/18 12:00 Pulse 60 10/31/18 12:00 Resp 18 10/31/18 12:00 BP 135/63 10/31/18 12:00 Pulse Ox 98 10/31/18 12:00 Intake & Output 10/30/18 10/31/18 10/31/18 18:59 06:59 18:59 Intake Total 700 164.333 240 Output Total 800 900 950 Balance -100 -735.667 -710 Weight 89.9 kg Intake: Intake, IV Titration 164.333 Amount Furosemide 100 mg In 164.333 Sodium Chloride 0.9% 90 ml @ 15 MG/HR 15 mls/hr IV .Q6H40M [facility] Rx#: [id number] Oral 700 240 Output: Urine 800 900 950 Other: Voiding Method Toilet Toilet Urinal Urinal # Voids 1 1 - Labs CBC & Chem 7: 10/29/18 07:09 10/31/18 05:52 Labs: Abnormal Lab Results - Last 24 Hours (Table) 10/30/18 10/30/18 10/31/18 Range/Units 16:28 20:48 05:52 Chloride 96 L (98-107) mmol/L Carbon Dioxide 36 H (22-30) mmol/L BUN 42 H (9-20) mg/dL Creatinine 2.09 H (0.66-1.25) mg/dL POC Glucose (mg/dL) 167 H 226 H (75-99) mg/dL 10/31/18 Range/Units 11:33 Chloride (98-107) mmol/L Carbon Dioxide (22-30) mmol/L BUN (9-20) mg/dL Creatinine (0.66-1.25) mg/dL POC Glucose (mg/dL) 120 H (75-99) mg/dL Assessment and Plan Plan: Assessment: 1. Acute kidney injury mostly prerenal secondary to cardiorenal syndrome. Creatinine 12.09 today. 2. Chronic kidney disease stage III with baseline creatinine in the range of 1.6-1.8 secondary to diabetic kidney disease and cardiorenal syndrome. 3. Diastolic CHF with moderate tricuspid and mitral regurgitation. 4. Severe pulmonary hypertension. 5. Dyspnea secondary to volume overload. Improving with diuresis. 6. Insulin-dependent diabetes mellitus. 7. Anemia of chronic kidney disease. Iron deficiency noted. Status post 2 doses of IV iron. Plan: Discontinue Lasix drip. Start IV Lasix 60 mg twice daily. Maintain metolazone. Low-salt diet and oral fluid restriction. Daily weights. Avoid nephrotoxins. Repeat electrolytes in the morning.
[2018-10-31] MEDS: FUROSEMIDE 10 MG/ML 10 ML VIAL IV SCH ×2 (14:06→21:52)
--- NOTE | 2018-10-31 14:57 | P.PN ---
Subjective Progress Note Date: 10/31/18 This is a pleasant 68-year-old gentleman with a history of atrial fibrillation, diastolic congestive heart failure, hypoxic respiratory failure requiring mechanical ventilation, laryngeal and vocal cord edema requiring tracheostomy with subsequent reversal, moderate to severe pulmonary hypertension, hyper tension, hyperlipidemia and diabetes mellitus. Patient has had recurrent lengthy hospitalizations recently. He was seen in the office yesterday by Dr. VC Rodriguez will send him to the emergency department for further evaluation and treatment for acute CHF exacerbation. He has been complaining of worsening shortness of breath, lower extremity edema and weight gain over the last one to 2 weeks. He was on placed on IV Lasix drip at 10 mg an hour. Yesterday's Lasix drip was increased to 15 mg per hour. His weight today is down 1 more kilogram, sodium 141, potassium 4.1, BUN 41 and creatinine 2.0, magnesium 1.8. He is also on Zaroxolyn 5 mg daily. He does state that he feels better overall. His repeat chest x-ray performed yesterday did show some improvement. 10/31 2018 Patient seen and examined this morning, continues to diurese well overall. His weight today is down 2 kg. Sodium 141, potassium 3.7, BUN 42 and creatinine 2.0. Continues to be on IV Lasix drip. Objective - Vital Signs Vital signs: Vital Signs Temp 97.8 F 10/31/18 12:00 Pulse 60 10/31/18 12:00 Resp 18 10/31/18 12:00 BP 135/63 10/31/18 12:00 Pulse Ox 98 10/31/18 12:00 Intake & Output 10/30/18 10/31/18 10/31/18 18:59 06:59 18:59 Intake Total 700 164.333 480 Output Total 800 900 950 Balance -100 -735.667 -470 Weight 89.9 kg Intake: Intake, IV Titration 164.333 Amount Furosemide 100 mg In 164.333 Sodium Chloride 0.9% 90 ml @ 15 MG/HR 15 mls/hr IV .Q6H40M [facility] Rx#: [id number] Oral 700 480 Output: Urine 800 900 950 Other: Voiding Method Toilet Toilet Urinal Urinal # Voids 1 1 - Exam PHYSICAL EXAMINATION: HEENT: Head is atraumatic, normocephalic. Pupils equal, round. Neck is supple. There is no elevated jugular venous pressure. HEART EXAMINATION: Heart sounds regular, S1 and S2 normal. No murmur or gallop heard. CHEST EXAMINATION: Lungs reveal bibasilar crackles. No chest wall tenderness is noted on palpation or with deep breathing. ABDOMEN: Soft, nontender. Bowel sounds are heard. No organomegaly noted. EXTREMITIES: 2+ peripheral pulses with evidence of moderate pitting peripheral edema and no calf tenderness noted. NEUROLOGIC patient is awake, alert and oriented x3. - Labs CBC & Chem 7: 10/29/18 07:09 10/31/18 05:52 Labs: Abnormal Lab Results - Last 24 Hours (Table) 10/30/18 10/30/18 10/31/18 Range/Units 16:28 20:48 05:52 Chloride 96 L (98-107) mmol/L Carbon Dioxide 36 H (22-30) mmol/L BUN 42 H (9-20) mg/dL Creatinine 2.09 H (0.66-1.25) mg/dL POC Glucose (mg/dL) 167 H 226 H (75-99) mg/dL 10/31/18 Range/Units 11:33 Chloride (98-107) mmol/L Carbon Dioxide (22-30) mmol/L BUN (9-20) mg/dL Creatinine (0.66-1.25) mg/dL POC Glucose (mg/dL) 120 H (75-99) mg/dL Assessment and Plan Plan: #1 diastolic congestive heart failure, acute on chronic #2 persistent atrial fibrillation, currently on Eliquis #3 coronary Artery disease, status post stenting #4 renal failure, previously on temporary dialysis #5 hypertension #6 hyperlipidemia Plan From cardiology's perspective, we will recommend to continue the patient on current IV Lasix drip dose, continue to monitor intake and output along with daily weights and daily lytes BUN and creatinine. DNP note has been reviewed, I agree with a documented findings and plan of care. Patient was seen and examined.
[2018-10-31 16:42] LABS: Glucose,Whole Blood 168 mg/dL (75-99)
--- NOTE | 2018-10-31 18:09 | P.PN ---
Subjective Progress Note Date: 10/31/18 Principal diagnosis: shortness of breath The patient is a 68 yo M with a PMH of Afib (previously on Eliquis, which was stopped due to bleeding from tracheostomy, which has now been removed), diastolic CHF (hx of hypoxic respiratory failure requiring mechanical ventilation 07/2018 complicated with laryngeal and vocal cord edema requiring tracheostomy with subsequent reversal), moderate to severe pulmonary hypertension, HTN, HLD, and Diabetes Mellitus who presented to the ED after being sent from his account collector office for suspected acute CHF exacerbation. In the emergency department he underwent an extensive evaluation. He was found have an elevated BNP at 6 540, creatinine of 2.09, and troponin 0.015. EKG demonstrated A. fib that was rate control. Chest x-ray showed bilateral pleural effusions. Patient was given 80 mg of IV Lasix and was admitted to the cardiac floor for further monitoring and care. He was seen by cardio and started on eliquis. He was transitioned to Lasix drip. Nephrology was consulted due to increased creatinine and they recommended continuing Lasix drip, and monitoring kidney fct. They also recommended IV iron 2. He was seen by pulmonology who did not recommend thoracentesis but continued diuresis. Repeat echo showed preserved ejection fraction at 60-65%, moderate pulmonary hypertension, and impaired right ventricular systolic function. He diuriesed well on the lasix gtt and metalozone was added. Pleural effusions improved with diuresis. His kidney function continued to improve. On 10/30 aldactone was added by cardio. Lower extremity much improved on 10/31. Patient seen and examined at bedside. Urinating frequently, Much improvement in LE edema overnight, no SOB has been up and walking around the halls. Objective - Vital Signs Vital signs: Vital Signs Temp 97.8 F 10/31/18 12:00 Pulse 60 10/31/18 12:00 Resp 18 10/31/18 12:00 BP 135/63 10/31/18 12:00 Pulse Ox 98 10/31/18 12:00 Intake & Output 10/30/18 10/31/18 10/31/18 18:59 06:59 18:59 Intake Total 700 164.333 480 Output Total 434 983 6801 Balance -100 -735.667 -720 Weight 89.9 kg Intake: Intake, IV Titration 164.333 Amount Furosemide 100 mg In 164.333 Sodium Chloride 0.9% 90 ml @ 15 MG/HR 15 mls/hr IV .Q6H40M [facility] Rx#: [id number] Oral 700 480 Output: Urine 792 461 2508 Other: Voiding Method Toilet Toilet Urinal Urinal # Voids 1 1 1 - Exam General: non toxic, no distress, appears older than stated age Derm: warm, dry Head: atraumatic, normocephalic, symmetric Eyes: EOMI, no lid lag, anicteric sclera Mouth: no lip lesion, mucus membranes moist Cardiovascular: S1S2 reg, no murmur, positive posterior tibial pulse bilateral, Lungs: decreased bs bilateral , no rhonchi, no rales , no accessory muscle use Abdominal: soft, nontender to palpation, no guarding, no appreciable organomegaly Ext: no gross muscle atrophy, 1+ edema, no contractures Neuro: CN II-XI grossly intact, no focal neuro deficits Psych: Alert, oriented, appropriate affect - Labs CBC & Chem 7: 10/29/18 07:09 10/31/18 05:52 Labs: Abnormal Lab Results - Last 24 Hours (Table) 10/30/18 10/31/18 10/31/18 Range/Units 20:48 05:52 11:33 Chloride 96 L (98-107) mmol/L Carbon Dioxide 36 H (22-30) mmol/L BUN 42 H (9-20) mg/dL Creatinine 2.09 H (0.66-1.25) mg/dL POC Glucose (mg/dL) 226 H 120 H (75-99) mg/dL 10/31/18 Range/Units 16:41 Chloride (98-107) mmol/L Carbon Dioxide (22-30) mmol/L BUN (9-20) mg/dL Creatinine (0.66-1.25) mg/dL POC Glucose (mg/dL) 168 H (75-99) mg/dL Assessment and Plan Assessment: Exacerbation of diastolic congestive heart failure with cor pulmonale with bilateral pleural effusions -D/W nephro transition off laix gtt to IVP lasix, metolazone, aldactone -Continue with Lopressor, not on MARK inhibitor at baseline would not add seconda ry to REAL -Telemetry -Strict I's and O's -Daily weights, fluid restriction -Heart healthy diet -Cardiology recommendations appreciated REAL on CKD III, REAL due to cardio renal syndrome CKD likely DM -Nephrology following -Lasix, Zaroxolyn, aldactone X 1 -Avoid additional nephrotoxic agents -Repeat BMP and magnesium level in a.m. -Monitor urine output Diabetes mellitus type 2 with episode of hypoglycemia on 10/28 with neuropathy and CKD - Levemir 16 units at night, continue with sliding scale insulin, follow blood sugars -Hemoglobin A1c 5.9 - gabapentin A. fib, rate controlled -Continue with metoprolol - eliquis started this hospital stay, no bleeding noted Coronary artery disease -Continue with Plavix, Lipitor HTN, controlled - continue medications as outline above, hydralazine - follow BP Anemia of chronic disease - s/p IV iron per nephrology DVT prophylaxis: tita Discussed with: Patient, nursing, nephro Anticipated discharge: [address]: home with home health,telehealth, and palliative A total of 35 minutes was spent on the care of this complex patient more than 50% of the time was spent in counseling and care coordination.
[2018-10-31 20:41] LABS: Glucose,Whole Blood 250 mg/dL (75-99)
[2018-10-31] MEDS: ATORVASTATIN 80 MG TAB PO SCH (21:44)
[2018-10-31] MEDS: MELATONIN 3 MG TABLET PO SCH (21:44)
[2018-10-31] MEDS: ALPRAZolam 0.25 MG TAB PO SCH (21:44)
[2018-10-31] MEDS: INSULIN DETEMIR (LEVEMIR) 100 UNIT/ML SYR SQ SCH (21:45)
[2018-10-31] MEDS: LATANOPROST 0.005% OPHTH DROPS 2.5 ML BTL BOTH EYES SCH (21:46)
[2018-11-01 06:33] LABS: Glucose,Whole Blood 80 mg/dL (75-99)
[2018-11-01] MEDS: INSULIN ASPART (NovoLOG) 100 UNIT/ML VIAL SQ SCH (06:55)
[2018-11-01 07:04] LABS: Potassium 3.8 mmol/L (3.5-5.1)
[2018-11-01 07:05] LABS: Calcium 9.4 mg/dL (8.4-10.2); Magnesium 1.9 mg/dL (1.6-2.3)
[2018-11-01] MEDS: BUDESONIDE 1 MG/2 ML NEBU INHALATION SCH (07:44)
[2018-11-01] MEDS: IPRATROPIUM-ALBUTEROL 3 ML NEB INHALATION PRN ×2 (07:44→11:09)
[2018-11-01] MEDS: APIXABAN 5 MG TAB PO SCH (08:36)
[2018-11-01] MEDS: METOLAZONE 5 MG TAB PO SCH (08:36)
[2018-11-01] MEDS: SPIRONOLACTONE 25 MG TAB PO SCH (08:36)
[2018-11-01] MEDS: GABAPENTIN 300 MG CAP PO SCH (08:36)
[2018-11-01] MEDS: hydrALAZINE HCL 25 MG TAB PO SCH (08:36)
[2018-11-01] MEDS: ISOSORBIDE MONONITRATE ER 60 MG TAB.ER.24H PO SCH (08:36)
[2018-11-01] MEDS: CLOPIDOGREL 75 MG TAB PO SCH (08:36)
[2018-11-01] MEDS: MAGNESIUM OXIDE 400 MG TAB PO SCH (08:36)
[2018-11-01] MEDS: FUROSEMIDE 10 MG/ML 10 ML VIAL IV SCH (08:36)
[2018-11-01] MEDS: METOPROLOL TARTRATE 50 MG TAB PO SCH (08:36)
[2018-11-01 09:30] VITALS: RESP 18; TEMP 97.2
[2018-11-01 12:06] LABS: Glucose,Whole Blood 141 mg/dL (75-99)
--- NOTE | 2018-11-01 12:33 | P.PN ---
Subjective Patient is seen in follow-up for acute kidney injury on chronic kidney disease. Patient has chronic kidney disease stage III with baseline creatinine in the range of 1.6-1.8 secondary to diabetic kidney disease and cardiorenal syndrome. Patient presented to the hospital with dyspnea and volume overload. Currently maintained on Lasix 60 mg IV twice daily. Weight is trending down. Denies chest pain. Dyspnea improved. Edema has also improved. Vital signs are stable. General: The patient appeared well nourished and normally developed. HEENT: Head exam is unremarkable. Neck is without jugular venous distension. LUNGS: Breath sounds decreased. HEART: Rate and Rhythm are regular. First and second heart sounds normal. No murmurs, rubs or gallops. ABDOMEN: Abdominal exam reveals normal bowel sounds. Non-tender and non- distended. No evidence of peritonitis. EXTREMITITES: 1+ edema. Objective - Vital Signs Vital signs: Vital Signs Temp 97.2 F L 11/01/18 08:00 Pulse 64 11/01/18 11:21 Resp 18 11/01/18 08:00 BP 138/79 11/01/18 08:00 Pulse Ox 96 11/01/18 08:00 Intake & Output 10/31/18 11/01/18 11/01/18 18:59 06:59 18:59 Intake Total 720 180 Output Total 1500 1300 Balance -780 -1300 180 Weight 87.3 kg Intake: Oral 720 180 Output: Urine 1500 1300 Other: Voiding Method Toilet Toilet Urinal Urinal # Voids 1 1 - Labs CBC & Chem 7: 10/29/18 07:09 11/01/18 06:22 Labs: Abnormal Lab Results - Last 24 Hours (Table) 10/31/18 10/31/18 11/01/18 Range/Units 16:41 20:38 06:22 Chloride 95 L (98-107) mmol/L Carbon Dioxide 37 H (22-30) mmol/L BUN 50 H (9-20) mg/dL Creatinine 2.15 H (0.66-1.25) mg/dL POC Glucose (mg/dL) 168 H 250 H (75-99) mg/dL 11/01/18 Range/Units 11:33 Chloride (98-107) mmol/L Carbon Dioxide (22-30) mmol/L BUN (9-20) mg/dL Creatinine (0.66-1.25) mg/dL POC Glucose (mg/dL) 141 H (75-99) mg/dL Assessment and Plan Plan: Assessment: 1. Acute kidney injury mostly prerenal secondary to cardiorenal syndrome. Creatinine 2.15 today. 2. Chronic kidney disease stage III with baseline creatinine in the range of 1.6-1.8 secondary to diabetic kidney disease and cardiorenal syndrome. 3. Diastolic CHF with moderate tricuspid and mitral regurgitation. 4. Severe pulmonary hypertension. 5. Dyspnea secondary to volume overload. Improving with diuresis. 6. Insulin-dependent diabetes mellitus. 7. Anemia of chronic kidney disease. Iron deficiency noted. Status post 2 doses of IV iron. Plan: I will change IV Lasix to Demadex 20 mg orally twice daily. Maintain metolazone. Low-salt diet and 50-60 ounces oral fluid restriction upon discharge. Patient was advised. Stable to be discharged home from nephrology standpoint. Repeat BMP in 3-4 days postdischarge and follow up outpatient in the next 1-2 weeks.
[2018-11-01 12:41] VITALS: BP 135/61; PULSE 62
--- NOTE | 2018-11-01 13:30 | P.DS ---
Providers Date of admission: 10/26/18 19:39 Expected date of discharge: 11/01/18 Attending physician: Hailey Newton MD Consults: 10/26/18 21:47 Consult Physician Routine Consulting Provider: Robin Duran Consult Reason/Comments: Pulm edema Do you want consulting provider notified?: Yes, Notify in am 10/26/18 21:48 Consult Physician Routine Consulting Provider: Michael Gonzalez Consult Reason/Comments: Chronic Kidney Disease Do you want consulting provider notified?: Yes, Notify in am Primary care physician: Yin Person Hospital Course: Discharge Diagnosis: Acute exacerbation of diastolic congestive heart failure with cor pulmonale Acute kidney injury on chronic kidney disease stage III, secondary to cardiorenal syndrome Diabetes mellitus type 2 with hypoglycemia associated with neuropathy and chronic kidney disease Bilateral pleural effusions Severe pulmonary hypertension A. fib Coronary artery disease Hypertension Anemia of chronic disease Hospital Course: The patient is a 68 yo M with a PMH of Afib (previously on Eliquis, which was stopped due to bleeding from tracheostomy, which has now been removed), diastolic CHF (hx of hypoxic respiratory failure requiring mechanical ventilation 07/2018 complicated with laryngeal and vocal cord edema requiring tracheostomy with subsequent reversal), moderate to severe pulmonary hypertension, HTN, HLD, and Diabetes Mellitus who presented to the ED after being sent from his physician scribe office for suspected acute CHF exacerbation. In the emergency department he underwent an extensive evaluation. He was found have an elevated BNP at 6540, creatinine of 2.09, and troponin 0.015. EKG demonstrated A. fib that was rate control. Chest x-ray showed bilateral pleural effusions. Patient was given 80 mg of IV Lasix and was admitted to the cardiac floor for further monitoring and care. He was seen by cardio and started on eliquis. He was transitioned to Lasix drip. Nephrology was consulted due to increased creatinine and they recommended continuing Lasix drip, and monitoring kidney fct. They also recommended IV iron 2. He was seen by pulmonology who did not recommend thoracentesis but continued diuresis. Repeat echo showed preserved ejection fraction at 60-65, moderate pulmonary hypertension, and impaired right ventricular systolic function. He diuriesed well on the lasix gtt and metalozone was added. Pleural effusions improved with diuresis. His kidney function continued to improve. On 10/30 aldactone was added by cardio. Lower ext remity much improved on 10/31 and he was transitioned off the lasix gtt. He continued to diuresis well on IVP Lasix. He was up and ambulating the halls and was determined stable for discharge. His major goal is to stay heathy, at home, and out of the hospital. We have set him up with palliative care and home health with telehealth. Patient seen and examined at bedside. No chest pain, SOB. edema greatly improved. Walking the halls. All questions answered. Vital signs reviewed and stable. General: non toxic, no distress, appears at stated age Derm: warm, dry Head: atraumatic, normocephalic, symmetric Eyes: EOMI, no lid lag, anicteric sclera Mouth: no lip lesion, mucus membranes moist Cardiovascular: S1S2 reg, no murmur, positive posterior tibial pulse bilateral, Lungs: course bs b/l, no accessory muscle use Abdominal: soft, nontender to palpation, no guarding, no appreciable organomegaly Ext: no gross muscle atrophy, 1+ edema, no contractures Neuro: CN II-XI grossly intact, no focal neuro deficits Psych: Alert, oriented, appropriate affect A total of 40 minutes of time were spent preparing this complex discharge summary . Pertinent Studies: Echocardiogram-ejection fraction 60-65%, moderately impaired right ventricular function, severe pulmonary hypertension with RVSP 73.74, moderate MR, moderate TR Patient Condition at Discharge: Stable Plan - Discharge Summary Discharge Rx Participant: No New Discharge Prescriptions: New RX: Spironolactone [Aldactone] 25 mg PO DAILY #30 tab RX: hydrALAZINE HCL [Apresoline] 25 mg PO TID #90 tab RX: Torsemide [Demadex] 20 mg PO BID #60 tab RX: Apixaban [Eliquis] 5 mg PO BID #60 tab RX: Isosorbide Mononitrate ER [Imdur] 60 mg PO DAILY #30 tab.er.24h RX: Metolazone [Zaroxolyn] 5 mg PO DAILY #30 tab Continue RX: Atorvastatin [Lipitor] 80 mg PO HS #30 tab RX: Nitroglycerin Sl Tabs [Nitrostat] 0.4 mg SUBLINGUAL Q5M PRN #30 tab PRN Reason: Chest Pain RX: Acetaminophen Tab [Tylenol] 650 mg PO Q6HR PRN tab PRN Reason: Fever And/ Or Pain RX: Clopidogrel Bisulfate [Plavix] 75 mg PO DAILY #30 tab RX: Metoprolol Tartrate [Lopressor] 50 mg PO BID RX: Pantoprazole [Protonix] 40 mg PO DAILY RX: Melatonin 6 mg PO HS RX: Magnesium Oxide [Magox 400] 400 mg PO DAILY RX: Latanoprost Ophth [Xalatan 0.005%] 1 drops BOTH EYES HS RX: ALPRAZolam [Xanax] 0.25 mg PO HS RX: Insuln Asp Prt/Insulin Aspart [NovoLOG MIX 70-30 VIAL] 6 unit SQ DAILY RX: Ipratropium-Albuterol Nebulize [Duoneb 0.5 mg-3 mg/3 ml Soln] 3 ml INHALATION RT-Q4H PRN PRN Reason: Shortness Of Breath RX: Gabapentin [Neurontin] 300 mg PO TID Changed RX: Insulin Glargine [Lantus] 30 unit SQ HS #0 Discontinued Torsemide [Demadex] 20 mg PO DAILY RX: Sodium Bicarbonate 650 mg PO BID hydrALAZINE HCL [Apresoline] 25 mg PO BID Aspirin EC [Ecotrin Low Dose] 81 mg PO DAILY amLODIPine [Norvasc] 10 mg PO DAILY Discharge Medication List RX: Atorvastatin [Lipitor] 80 mg PO HS #30 tab 01/27/18 [Rx] RX: Nitroglycerin Sl Tabs [Nitrostat] 0.4 mg SUBLINGUAL Q5M PRN #30 tab 01/27/18 [Rx] RX: Acetaminophen Tab [Tylenol] 650 mg PO Q6HR PRN tab 07/21/18 [Rx] RX: Clopidogrel Bisulfate [Plavix] 75 mg PO DAILY #30 tab 07/22/18 [Rx] RX: ALPRAZolam [Xanax] 0.25 mg PO HS 10/11/18 [History] RX: Insuln Asp Prt/Insulin Aspart [NovoLOG MIX 70-30 VIAL] 6 unit SQ DAILY 10/11/18 [History] RX: Ipratropium-Albuterol Nebulize [Duoneb 0.5 mg-3 mg/3 ml Soln] 3 ml INHALATION RT-Q4H PRN 10/11/18 [History] RX: Latanoprost Ophth [Xalatan 0.005%] 1 drops BOTH EYES HS 10/11/18 [History] RX: Magnesium Oxide [Magox 400] 400 mg PO DAILY 10/11/18 [History] RX: Melatonin 6 mg PO HS 10/11/18 [History] RX: Metoprolol Tartrate [Lopressor] 50 mg PO BID 10/11/18 [History] RX: Pantoprazole [Protonix] 40 mg PO DAILY 10/11/18 [History] RX: Gabapentin [Neurontin] 300 mg PO TID 10/26/18 [History] RX: Apixaban [Eliquis] 5 mg PO BID #60 tab 11/01/18 [Rx] RX: Insulin Glargine [Lantus] 30 unit SQ HS #0 11/01/18 [Rx] RX: Isosorbide Mononitrate ER [Imdur] 60 mg PO DAILY #30 tab.er.24h 11/01/18 [Rx] RX: Metolazone [Zaroxolyn] 5 mg PO DAILY #30 tab 11/01/18 [Rx] RX: Spironolactone [Aldactone] 25 mg PO DAILY #30 tab 11/01/18 [Rx] RX: Torsemide [Demadex] 20 mg PO BID #60 tab 11/01/18 [Rx] RX: hydrALAZINE HCL [Apresoline] 25 mg PO TID #90 tab 11/01/18 [Rx] Follow up Appointment(s)/Referral(s): Manohar Leung MD [STAFF PHYSICIAN] - 11/08/18 2:20 pm (Tuesday) Yin Person DO [Primary Care Provider] - 11/09/18 9:30 am () [facility], [NON-STAFF] - Orlando Rodriguez MD [STAFF PHYSICIAN] - 1 Week (Spoke to secretary receptionist. Office will call with appointment time) Ambulatory/Diagnostic Orders: Basic Metabolic Panel [LAB.AMB] Time Frame: 3 Days, Location: None Selected Patient Instructions/Handouts: Heart Failure (DC)
--- NOTE | 2018-11-01 14:47 | P.PN ---
Subjective Progress Note Date: 11/01/18 This is a pleasant 68-year-old gentleman with a history of atrial fibrillation, diastolic congestive heart failure, hypoxic respiratory failure requiring mechanical ventilation, laryngeal and vocal cord edema requiring tracheostomy with subsequent reversal, moderate to severe pulmonary hypertension, hyper tension, hyperlipidemia and diabetes mellitus. Patient has had recurrent lengthy hospitalizations recently. He was seen in the office yesterday by Dr. VC Rodriguez will send him to the emergency department for further evaluation and treatment for acute CHF exacerbation. He has been complaining of worsening shortness of breath, lower extremity edema and weight gain over the last one to 2 weeks. He was on placed on IV Lasix drip at 10 mg an hour. Yesterday's Lasix drip was increased to 15 mg per hour. His weight today is down 1 more kilogram, sodium 141, potassium 4.1, BUN 41 and creatinine 2.0, magnesium 1.8. He is also on Zaroxolyn 5 mg daily. He does state that he feels better overall. His repeat chest x-ray performed yesterday did show some improvement. 2018 Patient seen and examined this morning, continues to diurese well overall. His weight today is down 2 kg. Sodium 141, potassium 3.7, BUN 42 and creatinine 2.0. Continues to be on IV Lasix drip. 2018 Patient seen and examined this morning, diuresed well through the night last night, edema is almost completely gone today. His Lasix drip was discontinued yesterday afternoon, he continued today to be on IV Lasix. This will be discontinued today and patient will be started on oral diuretics. The plan is for him to be discharged home later today. He will follow-up with Dr. VC Rodriguez in the office post discharge. Nephrology does want him to continue all his meds including Aldactone at this time. Lytes BUN and creatinine will be checked in 5 days and every weekly. Objective - Vital Signs Vital signs: Vital Signs Temp 97.2 F L 11/01/18 08:00 Pulse 62 11/01/18 12:00 Resp 18 11/01/18 12:00 BP 135/61 11/01/18 12:00 Pulse Ox 97 11/01/18 12:00 Intake & Output 10/31/18 11/01/18 11/01/18 18:59 06:59 18:59 Intake Total 720 180 Output Total 1500 1300 Balance -780 -1300 180 Weight 87.3 kg Intake: Oral 720 180 Output: Urine 1500 1300 Other: Voiding Method Toilet Toilet Urinal Urinal # Voids 1 1 - Exam PHYSICAL EXAMINATION: HEENT: Head is atraumatic, normocephalic. Pupils equal, round. Neck is supple. There is no elevated jugular venous pressure. HEART EXAMINATION: Heart sounds regular, S1 and S2 normal. No murmur or gallop heard. CHEST EXAMINATION: Lungs are clear to auscultation . No chest wall tenderness is noted on palpation or with deep breathing. ABDOMEN: Soft, nontender. Bowel sounds are heard. No organomegaly noted. EXTREMITIES: 2+ peripheral pulses with evidence of mild peripheral edema and no calf tenderness noted. NEUROLOGIC patient is awake, alert and oriented x3. - Labs CBC & Chem 7: 10/29/18 07:09 11/01/18 06:22 Labs: Abnormal Lab Results - Last 24 Hours (Table) 10/31/18 10/31/18 11/01/18 Range/Units 16:41 20:38 06:22 Chloride 95 L (98-107) mmol/L Carbon Dioxide 37 H (22-30) mmol/L BUN 50 H (9-20) mg/dL Creatinine 2.15 H (0.66-1.25) mg/dL POC Glucose (mg/dL) 168 H 250 H (75-99) mg/dL 11/01/18 Range/Units 11:33 Chloride (98-107) mmol/L Carbon Dioxide (22-30) mmol/L BUN (9-20) mg/dL Creatinine (0.66-1.25) mg/dL POC Glucose (mg/dL) 141 H (75-99) mg/dL Assessment and Plan Plan: #1 diastolic congestive heart failure, acute on chronic #2 persistent atrial fibrillation, currently on Eliquis #3 coronary Artery disease, status post stenting #4 renal failure, previously on temporary dialysis #5 hypertension #6 hyperlipidemia Plan From cardiology's perspective, may be discharged home today. Follow-up appointment with Dr. VC Rodriguez in the office in one week. DNP note has been reviewed, I agree with a documented findings and plan of care. Patient was seen and examined.
[2018-11-01] MEDS ORDERED: TORSEMIDE 20 MG TAB PO SCH (21:00)
== END 2018-11-01 15:38 | disposition home health service (06) | DRG 291 ==
LOC: EC 16:51 → 3SCARD 19:39
PROVIDERS: ADMIT Internal Medicine; ATTEND Internal Medicine
DX: I13.0 Hypertensive heart and chronic kidney disease with heart failure and stage 1 through stage 4 chronic kidney disease, or unspecified chronic kidney disease (principal); I50.33 Acute on chronic diastolic (congestive) heart failure; J96.01 Acute respiratory failure with hypoxia; R18.8 Other ascites; N17.9 Acute kidney failure, unspecified; I48.1 Persistent atrial fibrillation; Z51.5 Encounter for palliative care; I50.813 Acute on chronic right heart failure; Z93.0 Tracheostomy status; E11.22 Type 2 diabetes mellitus with diabetic chronic kidney disease; E11.40 Type 2 diabetes mellitus with diabetic neuropathy, unspecified; I08.1 Rheumatic disorders of both mitral and tricuspid valves; N18.3 Chronic kidney disease, stage 3 (moderate); I27.29 Other secondary pulmonary hypertension; I27.81 Cor pulmonale (chronic); E11.51 Type 2 diabetes mellitus with diabetic peripheral angiopathy without gangrene; E11.649 Type 2 diabetes mellitus with hypoglycemia without coma; J38.4 Edema of larynx; D63.1 Anemia in chronic kidney disease; I25.10 Atherosclerotic heart disease of native coronary artery without angina pectoris; F41.9 Anxiety disorder, unspecified; E61.1 Iron deficiency; E78.5 Hyperlipidemia, unspecified; I25.2 Old myocardial infarction; R77.8 Other specified abnormalities of plasma proteins; E66.9 Obesity, unspecified; Z68.28 Body mass index [BMI] 28.0-28.9, adult; Z71.3 Dietary counseling and surveillance; Z79.82 Long term (current) use of aspirin; Z79.02 Long term (current) use of antithrombotics/antiplatelets; Z79.4 Long term (current) use of insulin; Z79.899 Other long term (current) drug therapy; Z95.5 Presence of coronary angioplasty implant and graft; Z87.01 Personal history of pneumonia (recurrent); Z85.828 Personal history of other malignant neoplasm of skin; Z87.39 Personal history of other diseases of the musculoskeletal system and connective tissue; Z86.73 Personal history of transient ischemic attack (TIA), and cerebral infarction without residual deficits; Z82.49 Family history of ischemic heart disease and other diseases of the circulatory system; Z82.61 Family history of arthritis; Z83.49 Family history of other endocrine, nutritional and metabolic diseases
CPT/HCPCS: 36415; 71046; 76604; 80048; 80053; 82728; 83036; 83540; 83550; 83735; 83880; 84484; 85025; 85027; 85610; 85730; 93005; 93306; 94640; 94760; 96374; 99285

== ENCOUNTER → 2019-07-12 | Outpatient (CLI) | payer MEDICARE ==
[2019-07-12 19:22] LABS: Chol/HDL Ratio 3.5; LDL Cholesterol,Calculated 51.2 mg/dL (0.0-131.0); VLDL Calculation 13.8 mg/dL (5.00-40.00)
== END | disposition home or self-care (01) ==
LOC: LABWHC1 11:36
PROVIDERS: ATTEND Internal Medicine Interventional Cardiology
DX: I25.10 Atherosclerotic heart disease of native coronary artery without angina pectoris (principal)
CPT/HCPCS: 36415; 80061

== ENCOUNTER 2020-04-09 06:31 | Day surgery (SDC) | payer MEDICARE ==
[2020-04-07 11:54] VITALS: BMI 28.8
[~2020-04-09 06:31] MED LIST changes: -ALPRAZolam 0.5 MG TAB PO PRN; -ASPIRIN 325 MG TAB PO ONE; -ATORVASTATIN 80 MG TAB PO ONE; +LACTATED RINGERS 1,000 ML IV SCH; +MOXIFLOXACIN HCL 0.5% DROPS 3 ML BTL OP ONE; -NITROGLYCERIN SL TABS 0.4 MG TAB SUBLINGUAL PRN; +ONDANSETRON 4 MG/2 ML VIAL IVP PRN; -SODIUM CHLORIDE 0.9% 1,000 ML in EMPTY BAG 1 BAG IV ONE; +TETRACAINE 0.5% OPHTH (PF) DROPS 4 ML BTL OP ONE; +TIMOLOL 0.5% OPHTH DROPS 5 ML BTL OP ONE; +TOBRA-DEXAMET 0.3-0.1% OPHTH DROPS 2.5 ML BTL OPHTHALMIC NR; +fentaNYL (PF) 50 MCG/ML 2 ML AMP IV PRN
[2020-04-09] MEDS: CYCLOPENTOLATE 1% OPHTH SOLN 2 ML BTL OP ONE ×3 (06:51→07:04)
[2020-04-09 06:53] VITALS: TEMP 98.8
[2020-04-09] MEDS: PHENYLEPHRINE 2.5% OPHTH DRP 2ML OP NR ×3 (06:55→07:10)
[2020-04-09] MEDS ORDERED: MIDAZOLAM 2 MG/2 ML VIAL IVP ONE (07:13)
[2020-04-09 07:20] LABS: Glucose,Whole Blood 151 mg/dL (75-99)
[2020-04-09] MEDS ORDERED: fentaNYL (PF) 50 MCG/ML 2 ML AMP ONE (07:25)
[2020-04-09] MEDS ORDERED: MIDAZOLAM 2 MG/2 ML VIAL ONE (07:25)
[2020-04-09] MEDS ORDERED: HYALURONATE SODIUM INTRAOCULAR 1 EACH SYRINGE (12MG/ML) INTRAOCULA ONE (07:42)
[2020-04-09] MEDS ORDERED: BALANCED SALT IRRIG SOLN COMB2 15 ML IRRIG.SOLN IRRIGATION ONE (07:42)
[2020-04-09] MEDS ORDERED: EPINEPHrine (PF) 0.3 ML in BALANCED SALT IRRIG SOLN COMB2 500 ML IRRIGATION ONE (07:43)
[2020-04-09] MEDS ORDERED: LIDOCAINE 1% (PF) 10MG/ML VIAL SQ ONE (07:43)
--- NOTE | 2020-04-09 07:57 | P.OP ---
Date of Procedure: 04/09/20 Preoperative Diagnosis: NS & CS & PSC & rubeosis Postoperative Diagnosis: same Procedure(s) Performed: PIOL, OD Implants: [id number] 18.50 Anesthesia: MAC Surgeon: Ortega Damian Pathology: none sent Condition: stable Disposition: same day Indications for Procedure: blurry vision Operative Findings: No complications
[2020-04-09 08:21] VITALS: BP 123/69; PULSE 46; RESP 16
--- NOTE | 2020-04-10 14:46 | OP ---
OPERATIVE REPORT DATE OF SURGERY: 04/09/2020 PROCEDURE: Phacoemulsification of cataract and intraocular lens implant of the right eye. PREOPERATIVE DIAGNOSIS: Nuclear sclerosis, cortical sclerosis. POSTOPERATIVE DIAGNOSIS: Nuclear sclerosis, cortical sclerosis. ESTIMATED BLOOD LOSS: Zero. SPECIMEN TAKEN: None. NARRATIVE: After obtaining the appropriate consent, the patient was brought to the Operating Room where the patient was placed under cardiac monitoring and prepped and draped in the usual sterile manner. At the 11 o'clock position a 15 degree super sharp blade was used to create a paracentesis followed by instillation of 1% Xylocaine MPF 50:50 mix with BSS into the anterior chamber. This was followed by Amvisc to stabilize the anterior chamber. At the 9 o'clock position a self-sealing corneal flap incision was created using 2.8 mm terrance keratome. A cystotome was used to initiate a continuous tear capsulorrhexis which was completed with the Utrata forceps. A Binkhorst cannula was used to hydrodissect the lens nucleus followed by hydrodelineation. Phacoemulsification of the lens was performed utilizing phaco-chop in 25.79 seconds at 21% power. The remaining cortical material was removed using the irrigation aspiration mode followed by additional 1% Xylocaine MPF into the anterior chamber followed by viscoelastic to stabilize the capsular bag. A [employer]ch [employer] MX60E 18.5 diopters posterior chamber lens was placed into the capsular bag without difficulty. The remaining viscoelastic material was removed from the anterior chamber with the irrigation/aspiration. Balanced salt solution was used to normalize the intraocular pressure. The incision was checked for watertight integrity. The patient then received two drops of 0.5% timolol followed by two drops Vigamox, was lightly patched and shielded in the usual manner. There were no complications from the procedure. The patient tolerated the procedure well and was returned to recovery in good condition. MMODL / IJN: [id number] /
== END 2020-04-09 08:43 | disposition home or self-care (01) ==
LOC: OR 06:31
PROVIDERS: ATTEND Ophthalmology
DX: H25.13 Age-related nuclear cataract, bilateral (principal); H25.013 Cortical age-related cataract, bilateral; H40.1190 Primary open-angle glaucoma, unspecified eye, stage unspecified; H35.81 Retinal edema; H21.1X1 Other vascular disorders of iris and ciliary body, right eye; H34.8310 Tributary (branch) retinal vein occlusion, right eye, with macular edema; E11.3311 Type 2 diabetes mellitus with moderate nonproliferative diabetic retinopathy with macular edema, right eye; E11.3392 Type 2 diabetes mellitus with moderate nonproliferative diabetic retinopathy without macular edema, left eye; H00.023 Hordeolum internum right eye, unspecified eyelid; H00.026 Hordeolum internum left eye, unspecified eyelid; H52.13 Myopia, bilateral; H52.223 Regular astigmatism, bilateral; H52.4 Presbyopia; H40.89 Other specified glaucoma; H21.521 Goniosynechiae, right eye; I25.2 Old myocardial infarction; I25.10 Atherosclerotic heart disease of native coronary artery without angina pectoris; I10 Essential (primary) hypertension; Z95.5 Presence of coronary angioplasty implant and graft; I48.91 Unspecified atrial fibrillation; G47.33 Obstructive sleep apnea (adult) (pediatric); E11.9 Type 2 diabetes mellitus without complications; F41.9 Anxiety disorder, unspecified; Z86.73 Personal history of transient ischemic attack (TIA), and cerebral infarction without residual deficits; Z79.4 Long term (current) use of insulin; Z79.02 Long term (current) use of antithrombotics/antiplatelets; Z79.01 Long term (current) use of anticoagulants; Z79.899 Other long term (current) drug therapy; Z97.3 Presence of spectacles and contact lenses
CPT/HCPCS: 66984; C1780; J2250; J0171; J3010; J2001

== ENCOUNTER → 2020-04-16 | Outpatient (CLI) | payer MEDICARE ==
[2020-04-16 21:03] LABS: African American GFR (CKD) 33.4 (60.0-200.0); Anion Gap 10.6 mmol/L (4.00-12.00); BUN/Creat Ratio 20.91 Ratio (12.00-20.00); Calcium 9.1 mg/dL (8.7-10.3); Carbon Dioxide 21.4 mmol/L (21.6-31.8); Non-African American GFR(CKD) 28.9 (60.0-200.0); Potassium 4.6 mmol/L (3.5-5.5)
== END | disposition home or self-care (01) ==
LOC: LABWHC1 12:21
PROVIDERS: ATTEND Internal Medicine Nephrology
DX: N18.4 Chronic kidney disease, stage 4 (severe) (principal)
CPT/HCPCS: 36415; 80048

== ENCOUNTER → 2020-11-12 | Outpatient (CLI) | payer MEDICARE ==
[2020-11-12 16:33] LABS: Appearance,Urine Clear (Clear); Bilirubin,Urine Negative (Negative); Blood,Urine Negative (Negative); Color,Urine Light Yellow; Glucose,Urine (UA) Negative (Negative); Ketones,Urine Negative (Negative); Leukocyte Esterase,Urine Negative (Negative); Nitrite,Urine Negative (Negative); Protein,Urine Trace (Negative); Specific Gravity,Urine 1.009 (1.001-1.035); Urobilinogen,Urine <2.0 mg/dL (<2.0)
[2020-11-12 16:51] LABS: Creatinine,Urine Random 76.2 mg/dL; Protein/Creatinine Ratio,Urine 0.472
[2020-11-13 02:22] LABS: Basophils # (A) 0.11 X 10*3/uL (0.00-0.10); Basophils % (A) 1.4 %; Eosinophils # (A) 0.18 X 10*3/uL (0.04-0.35); Eosinophils % (A) 2.4 %; HGB 14.6 g/dL (13.0-17.0); Lymphocytes # (A) 0.94 X 10*3/uL (0.90-5.00); Lymphocytes % (A) 12.3 %; MCH 28.6 pg (27.0-32.0); MCV 84.3 fL (80.0-97.0); Mean Platelet Volume 11.4 fL (9.5-12.2); Monocytes # (A) 0.64 X 10*3/uL (0.20-1.00); Monocytes % (A) 8.4 %; Neutrophils # (A) 5.72 X 10*3/uL (1.80-7.70); Neutrophils % (A) 75.1 %; Platelet Count 187 X 10*3/uL (140-440); RDW 14.9 % (11.5-14.5); WBC 7.62 X 10*3/uL (4.50-10.00)
[2020-11-13 20:34] LABS: African American GFR (CKD) 26.1 (60.0-200.0); Albumin 4.8 g/dL (3.80-4.90); Albumin/Globulin Ratio 2.4 (1.60-3.17); Anion Gap 18.4 mmol/L (4.00-12.00); BUN/Creat Ratio 22.96 Ratio (12.00-20.00); Calcium 9.6 mg/dL (8.7-10.3); Carbon Dioxide 20.6 mmol/L (21.6-31.8); Non-African American GFR(CKD) 22.5 (60.0-200.0); Phosphorus 3.5 mg/dL (2.4-5.1); Potassium 3.8 mmol/L (3.5-5.5); Total Bilirubin 0.9 mg/dL (0.3-1.2); Total Protein 6.8 g/dL (6.2-8.2)
== END | disposition home or self-care (01) ==
LOC: LABWHC1 15:30
PROVIDERS: ATTEND Internal Medicine Nephrology
DX: N18.4 Chronic kidney disease, stage 4 (severe) (principal)
CPT/HCPCS: 36415; 80053; 81003; 82570; 83970; 84100; 84156; 85025